=== PATIENT | female | born 1945 | race Caucasian/White ===

== ENCOUNTER → 2024-03-26 14:55 | Outpatient (REF) | payer MEDICARE, SELFPAY | LOC: HWRCS 14:55 | PROVIDERS: ATTENDING PHYSICIAN Internal Medicine; FAMILY PHYSICIAN Family Medicine | DX: R01.1 Cardiac murmur, unspecified (principal) | CPT/HCPCS: 93306 ==

== ENCOUNTER 2024-08-03 16:41 | Emergency (ER) | payer MEDICARE, SELFPAY ==
[2024-08-03 16:44] VITALS: BP 134/85
[2024-08-03 17:22] LABS: Hemoglobin 9.8 g/dL (12.0-16.0); Mean Corp Hgb Conc. 28.8 g/dL (33.0-37.0); Mean Corpuscular Hgb 25.8 pg (27.0-31.0); Mean Corpuscular Volume 89.5 fL (81.0-99.0); Mean Platelet Volume 9.6 fL (7.4-10.4); Platelet Count 290 10^3/uL (130-400); Red Cell Dist. Width 14.1 % (11.5-14.5); White Blood Cell Count 9.6 10^3/uL (4.8-10.8)
[2024-08-03 17:26] LABS: ALT (SGPT) 25 U/L (0-35); AST (SGOT) 32 U/L (14-36); Albumin 4.3 g/dl (3.5-5.0); Alkaline Phosphatase 73 U/L (38-126); Blood Urea Nitrogen 26 mg/dl (7-17); Calcium 9.3 mg/dl (8.4-10.2); Chloride 93 mmol/L (98-107); Glucose 156 mg/dl (70-99); Sodium 139 mmol/L (135-145); Total Bilirubin 0.3 mg/dl (0.2-1.3); Total Protein 7.1 g/dl (6.3-8.2); eGFR 56.95
[2024-08-03 17:36] LABS: Carbon Dioxide 37 mmol/L (22-30)
[2024-08-03 18:04] LABS: % Basophils 0.9 % (0-2); % Eosinophils 2.1 % (0-6); % Immature Granulocytes 0.6 % (0-0.5); % Lymphocytes 13.4 % (20.5-51.1); % Monocytes 10.6 % (1.7-9.3); % Neutrophils 72.4 % (42.2-75.2); Absolute Basophils 0.1 10^3/uL (0-0.2); Absolute Eosinophils 0.2 10^3/uL (0-0.7); Absolute Immature Granulocytes 0.1 10^3/uL (0-0.05); Absolute Lymphocytes 1.3 10^3/uL (1.2-3.4); Nucleated Red Blood Cells % 0 %
--- NOTE | 2024-08-03 18:53 | ED.GENMED ---
History of Present Illness
General
Chief Complaint: Skin Problem
Source: patient and spouse
Exam Limitations: none
Time Seen by Provider: 08/03/24 18:22
History of Present Illness
History of Present Illness:
This is a 79 year old female that comes in with multiple complaints. States that she is having trouble breathing. States that she got worse in the past few days and even walking 3-4 steps she is very SOB. Patient wears Oxygen at 4 liters 12/02.
States that she also hit her leg on a bed post. States that her leg is swollen and bruised and this happened about 7 days ago. states that know she has increased pain and swelling. States that she is SOB. Denies any fever, chills, chest pain, abd
pain, nausea, vomiting, diarrhea, headache, dizziness, urinary burning.
Past History
Past History
ED Past Medical History: COPD (Emphysema), CVA (Left sided weakness), HTN, Hypercholesterolemia, NIDDM and Other (PNA, H-pylori, )
ED Past Surgical History: Tonsilectomy (and adenoids) and Other (cataracts)
Social History
Tobacco: Former smoker
Alcohol: Occasional
Drug: None
Personal:
Living: with family
Employment: Retired
Review of Systems
Review of Systems
All Other Systems: ROS reviewed and negative except as documented in HPI and ROS
Constitutional: Reports no symptoms; Denies fever or chills
EENT: Reports no symptoms
Respiratory: Reports trouble breathing; Denies cough
Cardiac: Reports no symptoms; Denies chest pain
ABD/GI: Reports no symptoms; Denies abdominal pain, nausea, vomiting or diarrhea
: Reports no symptoms; Denies dysuria, frequency or urgency
Musculoskeletal: Reports edema (Left leg with pain)
Skin: Reports no symptoms
Neurological: Reports no symptoms; Denies dizzy or headache
Psychiatric: Reports no symptoms
Phy Exam
General Physical Exam
General Presentation: mild distress
General age: appears stated age
General Skin: warm and dry
General Habitus: elderly
General Mental: alert
General Hydration: appears well hydrated
ENT Exam
ENT Exam: TM's normal, pharynx normal and neck supple
Eye Exam
Eye Exam: EOMI
Cardiovascular Exam
Cardiovascular Exam: regular rate/rhythm, normal peripheral pulses and other (Murmur)
Pulmonary Exam
Pulmonary Exam: no respiratory distress, no rales, chest non tender, no rhonchi, no wheezing, no cough and decreased breath sounds (Throughout, Limited air movement)
Gastrointestinal Exam
Gastrointestinal Exam: normal bowel sounds, non tender, soft, no organomegaly, no pulsatile mass, non distended and other (obese)
Musculoskeletal Exam
Musculoskeletal Exam: full ROM and edema (Swelling of the left lower leg with +2 pitting edema, contusion noted on the lateral heal and lower leg. )
Skin Exam
Skin Exam: normal color, warm/dry, no petechia and other (Open wound on the right medial posterior leg, negative for any redness or drainage. Left lower leg slightly red without increased warmth. Contusion noted on the left lateral heel and lower
leg)
Psychiatric Exam
Psychiatric Exam: normal mood/affect
Course
Orders/Labs/Results
Orders:
Orders
08/03/24 16:54
CMP [Comprehensive Metabolic Panel] Urgent
Complete Blood Count/With Diff Urgent
08/03/24 17:43
CR Chest - 2 Views Urgent
Comment:
Reason For Exam: DYSPNEA
08/03/24 18:51
Ipratropium/Albuterol Sulfate [Duoneb] 3 ml INH R NOW ONE
US Legs, Left [US Periph Venous LOWER Ext LT] Urgent
Comment:
Reason For Exam: Pain and swelling
08/03/24 19:01
Electrocardiogram (*1) Urgent
Reason for Study: Shortness of Breath
EKG- Treatment ONCE
08/03/24 19:13
NT-proBNP Urgent
Troponin I Urgent
08/03/24 20:55
Tib/Fib, Left 2 View [CR Leg Tibia/fibula Left 2 Vw] Urgent
Comment:
Reason For Exam: Lower leg pain
Abnormal Lab Results
08/03/24
16:54
RBC 3.80 L 10^6/uL
(4.20-5.40)
Hgb 9.8 L g/dL
(12.0-16.0)
Hct 34.0 L %
(37.0-47.0)
MCH 25.8 L pg
(27.0-31.0)
MCHC 28.8 L g/dL
(33.0-37.0)
Abs Immat Gran (auto) 0.1 H 10^3/uL
(0-0.05)
Absolute Neuts (auto) 7.0 H 10^3/uL
(1.4-6.5)
Absolute Monos (auto) 1.0 H 10^3/uL
(0.1-0.6)
Immature Gran % 0.6 H %
(0-0.5)
Lymphocytes % 13.4 L %
(20.5-51.1)
Monocytes % 10.6 H %
(1.7-9.3)
Chloride 93 L mmol/L
(98-107)
Carbon Dioxide 37 H mmol/L
(22-30)
BUN 26 H mg/dl
(7-17)
Glucose 156 H mg/dl
(70-99)
08/03/24 16:54
08/03/24 16:54
H/H slightly low. chloride low. carbon dioxide elevation (COPD) Dehydration. hyperglycemia. Troponin 0.013, Pro-BNP 199
Vital Signs
Initial and Last Documented VS:
Initial Vital Signs
Temp Pulse Resp BP Pulse Ox
97.9 F 82 22 134/85 100
08/03/24 16:44 08/03/24 16:44 08/03/24 16:44 08/03/24 16:44 08/03/24 16:44
Last Documented Vital Signs
Temp Pulse Resp BP Pulse Ox
97.9 F 83 23 146/80 99
08/03/24 16:44 08/03/24 19:18 08/03/24 19:18 08/03/24 19:18 08/03/24 19:28
MDM/Problems Addressed
Differential Diagnosis Includes:
PNA, CHF, PE, DVT
MDM/Problems Addressed:
This is a 79 year old female that comes in [facility] c/o left leg pain and swelling and increased SOB. States that her leg pain started about 7 days ago and is getting worse. States that she is more SOB then normal and can only take about 3-4 steps
without increased SOB.
Will check labs, Chest x-ray, Ultrasound left lower leg. Will give Duo neb
Back into see patient. Explained that her blood work shows that she is a little dehydrated. Her Troponin is normal and the Pro-BNP is low. chest x-ray is negative for any acute process. Ultrasound is normal. Explained that this may be a deep
bruise. Patient has been walking on her leg. Will get X-ray. If normal will have patient follow up with her Pulmnary specialist and her PCP. Patient to elevate her leg when sitting around. Warm compressed to help with discomfort. Return with any
concerns.
Chronic conditions affecting care: DM and COPD
Acute Exacerbation and/or Progression of Chronic Illness: DM and COPD
*Radiology
Radiology exam reviewed: preliminary read by ED provider (Left tib/fib negative for any fractures. ) and radiology read reviewed (US- No evidence of DT of the left lower extremity. Chest-No acute disease of the chest. Mild cardiomegaly. Stable. )
*Pulse Oximetry
Patient hypoxic: no
*Critical Care Note
Total Time (30-74mins, 75-104mins- exclusive of procedures): Not Applicable
ED Attending Note
-
Portions of this chart may have been created with voice recognition software.� Occasional wrong word or��sound alike� substitutions may have occurred due to the inherent limitations of voice recognition software.
Discharge Plan
Departure
Patient Disposition: Home (Routine Discharge)
Date of Disposition: 08/03/24
Time of Disposition: 21:17
Patient with high blood pressure during this ER visit?: Yes
Condition: Good
Covid-19: Not Applicable
Discharge Problem:
Contusion of left lower extremity, SOB (shortness of breath)
Instructions: Shortness of breath in adults - ED discharge instructions, BLOOD PRESSURE, Contusion
Prescriptions:
No Action
atorvastatin 10 MG tablet
10 mg PO HS
ipratropium-albuterol 3 ML solution for nebulization
3 ml inhalation R BID
ropinirole 1 MG tablet
1 mg PO HS
azithromycin 250 MG tablet
250 mg PO MOWEFR
clopidogrel 75 MG tablet
75 mg PO DAILY
furosemide 80 MG tablet
80 mg PO DAILY
metoprolol tartrate 50 MG tablet
50 mg PO BID
valsartan 40 MG tablet
40 mg PO QPM
multivitamin with folic acid [Tab-A-Bennett] 1 TABLET tablet
1 tab PO DAILY
potassium 95 mg Tablet
90 mg PO DAILY
ferrous sulfate [iron] 325 mg (65 mg iron) Tablet
325 mg PO DAILY
magnesium oxide 500 mg magnesium Tablet
500 mg PO DAILY
budesonide 0.5 mg/2 mL Suspension For Nebulization
0.5 mg INHALATION R BID
albuterol sulfate [Ventolin HFA] 90 mcg/actuation Hfa Aerosol Inhaler
1 inh INHALATION R Q6HPRN PRN (Reason: sob)
coenzyme Q10 100 mg Capsule
100 mg PO DAILY
Visbiome 112.5 billion cell Capsule
1 cap PO DAILY
krill oil 500 mg Capsule
350 mg PO DAILY
prednisone 10 MG tablet
10 mg PO DAILY
metformin 500 MG tablet extended release 24 hr
500 mg PO BID
guaifenesin [Mucus Relief ER] 600 MG tablet extended release 12hr
600 mg PO DAILY
Referrals:
Selvin Anthony, DO [Family Provider] - Follow up in 2-3 days
Activity Restrictions/Additional Instructions:
As discussed, your blood work shows that you are Dehydrated. Please increase your water intake to 8-8oz glasses daily. Your Ultrasound is negative for any blood clots and your chest x-ray is negative for any acute disease. Please follow up with the
family doctor and your title curative specialist for further evaluation. Please elevate the left leg when sitting around to help decrease the swelling. You may also use warm compressed to the lower leg. Your X-ray is negative for any fractures. IF YOU
HAVE INCREASED OR CHANGING PAIN, INCREASED SHORTNESS OF BREATH OR YOU HAVE ANY OTHER CONCERNS PLEASE RETURN TO THE EMERGENCY ROOM
Interventions
Interventions:
*Risk Screen - Suicide Last Done: 08/03/24 16:44
*General Assessment Last Done: 08/03/24 16:44
*Neglect/Abuse Screening Last Done: 08/03/24 16:44
*ED COVID-19 Vaccine History Last Done: 08/03/24 16:44
ED-Skin Assessment Last Done: 08/03/24 19:28
Discharge Date and Time
Print Language: GIBRALTARIAN
[2024-08-03 19:18] VITALS: BP 146/80
[2024-08-03] MEDS: DUONEB 3 ML INH (19:20)
[2024-08-03 19:50] LABS: NT-proBNP 199 pg/ml; Troponin I 0.013 ng/ml
== END 2024-08-03 21:15 | disposition home or self-care (01) ==
LOC: EMR 16:41
PROVIDERS: Clinical Nurse Specialist Family Health; Emergency Medicine; EMERGENCY PHYSICIAN Student in an Organized Health Care Education/Training Program; FAMILY PHYSICIAN Family Medicine
DX: S80.12XA Contusion of left lower leg, initial encounter (principal); W22.09XA Striking against other stationary object, initial encounter; J43.9 Emphysema, unspecified; E11.65 Type 2 diabetes mellitus with hyperglycemia; E78.00 Pure hypercholesterolemia, unspecified; I10 Essential (primary) hypertension; I69.954 Hemiplegia and hemiparesis following unspecified cerebrovascular disease affecting left non-dominant side; Z87.891 Personal history of nicotine dependence; Z99.81 Dependence on supplemental oxygen
CPT/HCPCS: 99285; 94640; 71046; 73590; 80053; 83880; 84484; 85025; 93005; 93971

== ENCOUNTER 2024-09-19 19:48 | Inpatient (IN) | payer MEDICARE, SELFPAY ==
[2024-09-19] VITALS (13 sets, daily range): BP systolic 92–159; BP diastolic 55–90; PULSE 2–123; BMI 36.0; BMI 36.1
[2024-09-19 15:03] LABS: % Basophils 0.5 % (0-2); % Immature Granulocytes 0.6 % (0-0.5); % Lymphocytes 4.9 % (20.5-51.1); % Monocytes 6.1 % (1.7-9.3); % Neutrophils 87.9 % (42.2-75.2); Absolute Basophils 0.1 10^3/uL (0-0.2); Absolute Immature Granulocytes 0.1 10^3/uL (0-0.05); Absolute Lymphocytes 0.7 10^3/uL (1.2-3.4); Absolute Monocytes 0.8 10^3/uL (0.1-0.6); Hematocrit 35.6 % (37.0-47.0); Hemoglobin 10.9 g/dL (12.0-16.0); Mean Corp Hgb Conc. 30.6 g/dL (33.0-37.0); Mean Corpuscular Volume 88.1 fL (81.0-99.0); Mean Platelet Volume 9.6 fL (7.4-10.4); Nucleated Red Blood Cells % 0 %; Platelet Count 296 10^3/uL (130-400); Red Blood Cell Count 4.04 10^6/uL (4.20-5.40); Red Cell Dist. Width 14.6 % (11.5-14.5); White Blood Cell Count 13.7 10^3/uL (4.8-10.8)
[2024-09-19 15:22] LABS: ALT (SGPT) 23 U/L (0-35); AST (SGOT) 28 U/L (14-36); Albumin 4.1 g/dl (3.5-5.0); Alkaline Phosphatase 76 U/L (38-126); Blood Urea Nitrogen 30 mg/dl (7-17); Calcium 9.4 mg/dl (8.4-10.2); Carbon Dioxide 34 mmol/L (22-30); Chloride 93 mmol/L (98-107); Glucose 200 mg/dl (70-99); Potassium 4.3 mmol/L (3.5-5.1); Sodium 137 mmol/L (135-145); Total Bilirubin 0.4 mg/dl (0.2-1.3); Total Protein 7.1 g/dl (6.3-8.2); eGFR > 60.00
[2024-09-19 15:25] LABS: Troponin I < 0.012 ng/ml
--- NOTE | 2024-09-19 17:19 | EDRN ---
the pt was brought back from the waiting room to ED Bed #10, the pt was tachypnic, and was on 4L NC, Sp02 was in the 40's, this RN immediately brought Dr. Dalal to the pts bedside, the pt is tachycardic in the 140's, ED team preparing for intubation
[2024-09-19] MEDS: VENTOLIN NEBULES 15 MG INH (17:20)
[2024-09-19] MEDS: DECADRON 10 MG IV (17:20)
--- NOTE | 2024-09-19 17:23 | EDRN ---
triple nebulizer running per the verbal orders of Dr. Dalal
--- NOTE | 2024-09-19 17:25 | ED.GENMED ---
History of Present Illness
General
Chief Complaint: Breathing Problem
Source: patient and family
Exam Limitations: clinical condition and altered mental status
Time Seen by Provider: 09/19/24 17:14
Nursing documentation reviewed up to this point in time: agreed with
History of Present Illness
History of Present Illness:
79-year-old female COPD oxygen dependent uses noninvasive ventilation at night also on prednisone 10 mg chronically presents with shortness of breath here she is an extremis pulse ox in the 50s tripoding completing short sentences denies any fever
but unable to take a deep breath for day or 2
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
Past History
Past History
ED Past Medical History: COPD (Emphysema), CVA (Left sided weakness), HTN, Hypercholesterolemia, NIDDM and Other (PNA, H-pylori, )
ED Past Surgical History: Tonsilectomy (and adenoids) and Other (cataracts)
Social History
Tobacco: Former smoker
Alcohol: Occasional
Drug: None
Personal:
Living: with family
Employment: Retired
Phy Exam
Physical Exam
Physical Exam:
Physical Exam
General: 79-year-old female tripoding only able to complete short sentences
Neck: No
Heart: Tachycardic
Lungs: Poor air movement diminished breath sounds on the right
Abdomen: Not
Neuro: alert and oriented. no focal neurological deficits
Skin: no rash
Psychiatric: cooperative
Extremities: Edema is
Scores
Heart Failure Risk
Heart Failure Risk Score: Not Applicable
Course
Orders/Labs/Results
Orders:
Orders
09/19/24 14:42
Electrocardiogram (*1) Urgent
Reason for Study: Shortness of Breath
CR Chest Portable - 1 View Urgent
Reason For Exam: SOB
09/19/24 14:43
EKG- Treatment ONCE
09/19/24 14:53
Complete Blood Count/With Diff Urgent
Comprehensive Metabolic Panel Urgent
NT-proBNP Urgent
Comment: ADD ON
Troponin I Urgent
09/19/24 15:20
Dexamethasone Sod Phosphate [Decadron] 10 mg IV NOW STA
09/19/24 17:00
Add On- LAB Urgent
Tests Added?: Pro-BNP
09/19/24 17:15
Albuterol Nebs [Ventolin Nebules] 7.5 mg .ROUTE .STK-MED ONE
Albuterol Sulfate [Ventolin Nebules] 15 mg INH R NOW STA
Ipratropium Nebs [Atrovent Nebules] 0.5 mg .ROUTE .STK-MED ONE
09/19/24 17:19
Propofol 1,000,000 Mcg/100 ml [Diprivan] 1,000,000 mcg in 100 ml .ROUTE .STK-MED
09/19/24 17:20
ABG [Arterial Blood Gas] Stat
%Oxygen/Room Air: 6
Influenza A+B Rapid Molecular Stat
GAGE Source: Nasal Swab
Specimen Description:
Dexamethasone Sod Phosphate [Decadron] 10 mg IV NOW STA
09/19/24 17:23
Dexamethasone Pf [Decadron] 10 mg .ROUTE .STK-MED ONE
09/19/24 17:24
Dexamethasone Sod Phosphate [Decadron] 20 mg .ROUTE .STK-MED ONE
09/19/24 17:39
Bipap [RESP] Urgent
Patient to use own unit?: No
Inspiratory Pressure (cm H2O): 12
Expiratory Pressure (cm H2O): 5
09/19/24 18:15
ABG [Arterial Blood Gas] Urgent
%Oxygen/Room Air: 4
Comment: 06/26
09/19/24 18:38
Admit/Transfer Patient As Directed
Co-Sign Provider:
Level of Care: Inpatient admission
Assign to:: ICU
Physician / Group: jana rodriguez
Diagnosis: acuet on chronic hypoxic respiratory failure
Reason for Hospitalization: acute hypoxic respiratory failure
Expected length of stay greater than two midnights?: Yes
ELOS- Estimated Length of Stay in days: 3
I certify the patient meets the requirements for IP care: Yes
PRN Pain Medication Management As Directed
May give lesser potent ordered pain med per pt: Yes
preference::
Protocol:: Medication orders for pain may be administered in a
manner that supports deferring to patient preference
when the pt is:
- Requesting an ordered lesser potent pain medication.
Least to most potent pain medications are defined
as: acetaminophen < NSAID < tramadol < opioids
(morphine, oxycodone, hydromorphone).
- Requesting a lesser dose of the same medication IF
ORDERED.
- Requesting a less intrusive route of administration
if both routes are prescribed by the provider (PO <
IV).
09/19/24 18:40
Code Status As Directed
Resuscitation Status: Full Code
09/19/24 18:44
Cad Specialist Consult Routine
Consulting Provider: Mayur Shafer
Was physician already notified: Yes
09/19/24 18:45
Procalcitonin Stat
PCT Algorithmm Indication: Respiratory
CefTRIAXone [Rocephin] 1,000 mg IV NOW STA
Doxycycline Hyclate [Vibramycin] 100 mg 0.9% Sodium Chloride 250 ml [Nss] 250 ml IV NOW
09/19/24 18:49
Sterile Water [Sterile Water For Injection] 10 ml IV NOW STA
Abnormal Lab Results
09/19/24 09/19/24
14:53 17:20
WBC 13.7 H 10^3/uL
(4.8-10.8)
RBC 4.04 L 10^6/uL
(4.20-5.40)
Hgb 10.9 L g/dL
(12.0-16.0)
Hct 35.6 L %
(37.0-47.0)
MCHC 30.6 L g/dL
(33.0-37.0)
RDW 14.6 H %
(11.5-14.5)
Abs Immat Gran (auto) 0.1 H 10^3/uL
(0-0.05)
Absolute Neuts (auto) 12.0 H 10^3/uL
(1.4-6.5)
Absolute Lymphs (auto) 0.7 L 10^3/uL
(1.2-3.4)
Absolute Monos (auto) 0.8 H 10^3/uL
(0.1-0.6)
Immature Gran % 0.6 H %
(0-0.5)
Neutrophils % 87.9 H %
(42.2-75.2)
Lymphocytes % 4.9 L %
(20.5-51.1)
pH 7.29 L
(7.35-7.45)
pCO2 69 H mmHg
(32-35)
pO2 35 L* mmHg
(83-108)
HCO3 33.2 H mmol/L
(21-28)
ABG O2 Sat (Measured) 56.8 L %
(94-98)
Chloride 93 L mmol/L
(98-107)
Carbon Dioxide 34 H mmol/L
(22-30)
BUN 30 H mg/dl
(7-17)
Glucose 200 H mg/dl
(70-99)
09/19/24 14:53
09/19/24 14:53
Vital Signs
Initial and Last Documented VS:
Initial Vital Signs
Temp Pulse Resp BP Pulse Ox
98.4 F 91 18 159/78 100
09/19/24 14:37 09/19/24 14:37 09/19/24 14:37 09/19/24 14:37 09/19/24 14:37
Last Documented Vital Signs
Temp Pulse Resp BP Pulse Ox
98.6 F 114 18 119/55 99
09/19/24 17:22 09/19/24 19:33 09/19/24 19:33 09/19/24 19:33 09/19/24 19:33
MDM/Problems Addressed
Differential Diagnosis Includes:
Pneumonia COPD heart failure PE
MDM/Problems Addressed:
Shortness of breath
Chronic conditions affecting care: COPD
Acute Exacerbation and/or Progression of Chronic Illness: COPD
*Radiology
Radiology exam reviewed: preliminary read by ED provider
*EKG
Interpreted by ED Provider?: Yes
Interpretation: abnormal
Comparison EKG: no comparison EKG present
Heart Rate: 125
Rate: tachycardiac
Rhythm: sinus
Ischemia: non-specific ST changes
*[employer] Pol[employer] Operator Interpretation
Rate: tachycardiac
Interpretation: abnormal
Heart Rate: 125
Rhythm: sinus
*Critical Care Note
Total Time (30-74mins, 75-104mins- exclusive of procedures): 30
Update Note
Update Note:
5:40 PM update chest x-ray noted ABG noted patient markedly improved after a long neb we will hold on intubation at this point considering her noninvasive ventilation will get another ABG in an hour
6 PM patient dramatically improved consideration for BiPAP after neb we will repeat her ABG
ED Attending Note
-
Portions of this chart may have been created with voice recognition software.� Occasional wrong word or��sound alike� substitutions may have occurred due to the inherent limitations of voice recognition software.
Discharge Plan
Departure
Patient Disposition: Admit
Date of Disposition: 09/19/24
Time of Disposition: 17:36
Admit to: ICU
Presentation/result/management discussed w/ accepting MD/DO: Hospitalist
Patient with high blood pressure during this ER visit?: No
Condition: Serious
Covid-19: Not Applicable
Discharge Problem:
COPD with exacerbation, Chronic respiratory failure with hypoxia
Prescriptions:
No Action
atorvastatin 10 MG tablet
10 mg PO HS
ipratropium-albuterol 3 ML solution for nebulization
3 ml inhalation R BID
ropinirole 1 MG tablet
1 mg PO HS
clopidogrel 75 MG tablet
75 mg PO DAILY
furosemide 80 MG tablet
80 mg PO DAILY
metoprolol tartrate 50 MG tablet
50 mg PO BID
valsartan 40 MG tablet
40 mg PO QPM
ferrous sulfate [iron] 325 mg (65 mg iron) Tablet
325 mg PO DAILY
magnesium oxide 500 mg magnesium Tablet
500 mg PO DAILY
budesonide 0.5 mg/2 mL Suspension For Nebulization
0.5 mg INHALATION R BID
albuterol sulfate [Ventolin HFA] 90 mcg/actuation Hfa Aerosol Inhaler
1 inh INHALATION R Q6HPRN PRN (Reason: sob)
coenzyme Q10 100 mg Capsule
100 mg PO DAILY
Visbiome 112.5 billion cell Capsule
1 cap PO DAILY
krill oil 500 mg Capsule
350 mg PO DAILY
prednisone 10 MG tablet
10 mg PO DAILY
metformin 500 MG tablet extended release 24 hr
500 mg PO BID
guaifenesin [Mucus Relief ER] 600 MG tablet extended release 12hr
600 mg PO BID
Theragen Tablet
1 tab PO DAILY
azithromycin 500 mg Tablet
500 mg PO MOWEFR
Interventions
Interventions:
*Risk Screen - Suicide Last Done: 09/19/24 14:37
*General Assessment Last Done: 09/19/24 14:37
*Neglect/Abuse Screening Last Done: 09/19/24 14:37
ED- Fall Risk Assessment Last Done: 09/19/24 17:27
*ED COVID-19 Vaccine History Last Done: 09/19/24 17:27
*Nursing Disposition Last Done: 09/19/24 19:34
ED- Cardiac Assessment Last Done: 09/19/24 17:27
ED- Pulmonary Assessment Last Done: 09/19/24 18:35
Discharge Date and Time
Print Language: GUYANESE
--- NOTE | 2024-09-19 17:26 | EDRN ---
with 6L NC and triple nebulizer running the pts Sp02 is currently 96%
[2024-09-19 17:31] LABS: B.E. 4.8 mmol/L; HCO3 33.2 mmol/L (21-28); O2 Saturation % 56.8 % (94-98); PCO2 69 mmHg (32-35); pH 7.29 (7.35-7.45)
[2024-09-19 17:35] LABS: PO2 35 mmHg (83-108)
[2024-09-19 17:47] LABS: NT-proBNP 341 pg/ml
--- NOTE | 2024-09-19 18:22 | HPS.HSE ---
Family Physician
-
Family Physician: Selvin Anthony
Chief Complaint
-
sob
cough
History of Present Illness
79-year-old female COPD oxygen dependent uses noninvasive ventilation at night also on prednisone 10 mg chronically,CHF,HLD, HTN presented with worsening sob for past 4 days .she is having non productive cough. denied fever, chills, chest pain.
denied Barker, dizzy or syncope. denied abdominal pain,n,v,d. denied dysuria or hematuria. she has chronic LE edema.
Patient received a nebulizer treatment, dexamethasone in the ER. Patient is placed on BiPAP. Admitted for further management
Medical History
Past Medical History
Past Medical History: Reports Other
Additional Past Medical History:
Systolic and diastolic CHF
Hypertension
Hyperlipidemia
Nonsustained ventricular tachycardia
COPD
Type 2 diabetes
Stroke
Peripheral dural disease
Peripheral artery disease
Primary low-dose home
Restrictive lung disease
Lung nodules
Restless leg syndrome
DVT
Morbid obesity
H. pylori
Squamous cell cancer
Past Surgical History: Reports Other
Additional Past Surgical History:
Bilateral cataract surgery
Cancerous growth removed from right cough
Social History
Tobacco: Former Smoker
Alcohol: None
Drug: None
Personal:
Living: With Family
Family History
Family History: Not pertinent
Allergies / Home Medications
Allergies reflects when Allergies were last updated in [facility].
Home Medications with original date entered in [facility]
Allergy/Medication List:
Allergies
Allergy/AdvReac Type Severity Reaction Status Date / Time
No Known Allergies Allergy Verified 09/19/24 14:37
Home Medications
atorvastatin 10 mg tablet 10 mg PO HS High cholesterol 05/10/18
clopidogrel 75 mg tablet 75 mg PO DAILY Blood clot prevention/tx 09/16/21
furosemide 80 mg tablet 80 mg PO DAILY Fluid retention/Swelling 09/16/21
ipratropium 0.5 mg-albuterol 3 mg (2.5 mg base)/3 mL nebulization soln 3 ml inhalation R BID Lung/breathing issues 09/16/21
metoprolol tartrate 50 mg tablet 50 mg PO BID Blood pressure 09/16/21
ropinirole 1 mg tablet 1 mg PO HS RESTLESS LEGS 09/16/21
valsartan 40 mg tablet 40 mg PO QPM Blood pressure 09/16/21
Lactobac no.2-Bifidobac no.1-S. thermo 112.5 billion cell capsule (Visbiome) 1 cap PO DAILY 08/03/24
albuterol sulfate 90 mcg/actuation aerosol inhaler (Ventolin HFA) 1 inh inhalation R Q6HPRN PRN sob 08/03/24
budesonide 0.5 mg/2 mL suspension for nebulization 0.5 mg inhalation R BID 08/03/24
coenzyme Q10 100 mg capsule 100 mg PO DAILY 08/03/24
ferrous sulfate 325 mg (65 mg iron) tablet (iron) 325 mg PO DAILY 08/03/24
guaifenesin 600 mg tablet, extended release 12 hr (Mucus Relief ER) 600 mg PO BID 08/03/24
krill oil 500 mg capsule 350 mg PO DAILY 08/03/24
magnesium oxide 500 mg PO DAILY 08/03/24
metformin 500 mg tablet,extended release 24 hr 500 mg PO BID 08/03/24
prednisone 10 mg tablet 10 mg PO DAILY 08/03/24
azithromycin 500 mg tablet 500 mg PO MOWEFR 09/19/24
therapeutic multivitamin 1 tab PO DAILY 09/19/24
Review of Systems
-
Constitutional: Reports No Symptoms
EENT: Reports No Symptoms
Respiratory: Reports Trouble Breathing
Cardiac: Reports No Symptoms
Abdomen/GI: Reports No Symptoms
: Reports No Symptoms
Musculoskeletal: Reports Edema (Chronic bilateral lower extremity)
Skin: Reports No Symptoms
Neurological: Reports No Symptoms
Endocrine: Reports No Symptoms
Hematologic/Lymphatic: Reports No Symptoms
Psych: Reports No Symptoms
Physical Exam
Vital Signs
Vital Signs
Temp Pulse Resp BP Pulse Ox
98.6 F 140 21 120/64 99
09/19/24 17:22 09/19/24 17:59 09/19/24 17:59 09/19/24 17:59 09/19/24 17:59
Physical Exam
General: Well Developed, Well Nourished and No Apparent Distress
HEENT: NormoCephalic, Moist mucous membranes and Atraumatic
Respiratory: Decreased Breath Sounds
Cardiac: S1/S2 and Regular Rhythm; No Murmur or Rub
GI: Soft, Non Tender, Non Distended and Normal Bowel Sounds; No Organomegaly
Rectal: Deferred by Provider
Musculoskeletal: No Clubbing, No Cyanosis and Other (Bilateral lower extremities edema)
Skin: No Rash
Neuro: AO x 3 and Nonfocal/grossly intact
Psych: Calm
Laboratory Results
-
09/19/24 14:53
09/19/24 14:53
Laboratory Results
pH 7.29 (7.35-7.45) L 09/19/24 17:20
pCO2 69 mmHg (32-35) H 09/19/24 17:20
pO2 35 mmHg (83-108) L* 09/19/24 17:20
HCO3 33.2 mmol/L (21-28) H 09/19/24 17:20
Total Bilirubin 0.4 mg/dl (0.2-1.3) 09/19/24 14:53
AST 28 U/L (14-36) 09/19/24 14:53
ALT 23 U/L (0-35) 09/19/24 14:53
Alkaline Phosphatase 76 U/L (38-126) 09/19/24 14:53
Troponin I < 0.012 ng/ml 09/19/24 14:53
Data Reviewed
-
Diagnostic Radiology: Report Reviewed by me
Lab Data: Labs Reviewed by me
Impression/Plan
-
# Acute on chronic hypoxic respiratory failure likely from COPD exacerbation
#concern for pneumonitis
-WBC 13.7
-Chest x-ray with impression of Prominent reticular markings in the lung bases, left greater than right which although in part may be chronic, cannot exclude superimposed acute process such as pneumonitis
-BiPAP continued
-Xopenex due to tachycardia
-IV steroids continued
-iv abx
-obtain procal
-Continue supplemental oxygen to keep sat greater than 90, wean as tolerated
-Patient uses 4 L of oxygen at baseline
# Anemia of chronic disease
-Hemoglobin stable at 10.9
-No active bleeding
-Continue to monitor
-Ferrous sulfate can
# Tachycardia likely from nebs treatment
-EKG with sinus rhythm with PACs
#Chronic CHF
Monitor intake/output
Continue Lasix 80 mg daily
#HTN
BP stable
Lasix 40 mg daily, valsartan 40 mg p.o. daily, metoprolol continue
#CVA hx
Lipitor 10 mg at bedtime, Plavix 75 mg daily
Krill oil 500 mg daily
# Type 2 diabetes
-Hold metformin
-Sliding scale
-CHO diet
#RLS
Requip 1 mg at 8 PM
Magnesium oxide 500 mg p.o. daily
Cataract hx
#Morbid obesity secondary to excess calorie consumption
Weight loss recommended healthy heart 1800 ADA diet
DVT prophylaxis
Subcutaneous Lovenox
Full code
--- NOTE | 2024-09-19 18:33 | EDRN ---
the pts p02 dropped to 72% on 6L NC, Dr. Dalal and respiratory was notified and respiratory placed the pt on Bipap 14/6 RR14 10L and the pts Sp02 came up to 96%
--- NOTE | 2024-09-19 19:07 | W.PN.UPDATE ---
Update Note
Progress Note Update
This note serves as an addendum to the H&P by scrap burner ELIZABETH
Isabelle TEVIN
HPI
79F HX O2 and steroid dependent advanced COPD, on NIV /CPAP HS, HX CHF, HLD, HTN sen at ER:
- worsening sob for last 4 days, non productive cough
- received a nebulizer treatment, dexamethasone in the ER.
- on BiPAP
ROS
denied fever, chills, chest pain. denied Barker, dizzy or syncope. denied abdominal pain,n,v,d. denied dysuria or hematuria. she
PHX
Reviewed VS:
Vital Signs
Temp Pulse Resp BP Pulse Ox
98.6 F 140 21 120/64 96
09/19/24 17:22 09/19/24 17:59 09/19/24 17:59 09/19/24 17:59 09/19/24 18:35
General: NAD
HEENT: Moist mucous membranes and Atraumatic
Respiratory: Decreased BS
Cardiac: S1/S2, RRR
GI: Soft, Non Tender, Non Distended and Normal Bowel Sounds;
Rectal: Deferred by Provider
MS: Bilateral lower extremities edema
Skin: No Rash
Neuro: AO x 3 and Nonfocal/grossly intact
Psych: Calm
Laboratory Tests
08/03/24 09/19/24 09/19/24
16:54 14:53 18:45
Chloride 93 L
Carbon Dioxide 37 H 34 H
BUN 30 H
eGFR > 60.00
Troponin I < 0.012
Ben-T-Roisrsqsdsy Pept 341
Procalcitonin Pending
CXR:
Prominent reticular markings in the lung bases, left greater than right which although in part may be chronic, cannot exclude superimposed acute process such as pneumonitis
ASSESSMENT & PLAN
Acute on chronic hypoxic respiratory failure due to COPD flare +/_ Pneumoniitis
HX O2 and steroid dependent advanced COPD
- WBC 13.7
- check PCT
- c/w BiPAP
- Xopenex Neb due to tachycardia
- IV Decadron
- Empiric V CFTX and PO Doxy
- supplemental O2 to keep sat greater than 90, wean as tolerated
- Patient uses 4 L of oxygen at baseline
- [employer] Supervisor consulted
Anemia of chronic disease
-Hemoglobin stable at 10.9
-No active bleeding
Tachycardia likely from nebs treatment
-EKG with sinus rhythm with PACs
Chronic CHF; stable
- Unremarkable proBNP
- daily weight
- c/w PARLIAMENTARY LIBRARIAN PO Lasix daily
Benign HTN
BP stable
- On PO Lasix + valsartan + metoprolol
HX CVA
- c/w Lipitor 10 mg at bedtime, Plavix 75 mg daily
T2DM
-Hold metformin
- ISS Low
HX RLS
Requip 1 mg at 8 PM
Magnesium oxide 500 mg p.o. daily
Morbid obesity secondary to excess calorie consumption
Weight loss recommended healthy heart 1800 ADA diet
DVT Px: LMWH
Full code
ICU
[2024-09-19] MEDS: VIBRAMYCIN 260 MG IV (19:14)
[2024-09-19] MEDS: ROCEPHIN 1000 MG IV (19:20)
[2024-09-19] MEDS: STERILE WATER FOR INJECTION 10 ML IV (19:22)
--- NOTE | 2024-09-19 19:32 | EDRN ---
the pt is currently still on Bipap and sp02 99%, RR currently 19, no s/s of distress
--- NOTE | 2024-09-19 21:00 | PTCARENOTE ---
Received patient from ED. Pt. placed on Bipap for respiratory distress. Admitted to ICU. Pt. awake, alert, and oriented. Denies pain/discomfort. Afebrile. Heart rhythm sinus. Blood pressure normotensive. Currently on bipap mask. Lungs sound coarse,
diminished. Abdomen obese. PureWick device in place for urine. Skin as documented. Vital signs stable at this time.
[2024-09-19] MEDS: XOPENEX 1.25 MG INHALANT SOLUTION INH (21:12)
[2024-09-19] MEDS: LIPITOR 10 MG PO (21:36)
[2024-09-19] MEDS: REQUIP 1 MG PO (21:37)
[2024-09-19] MEDS: MUCINEX 600 MG PO (21:37)
[2024-09-19] MEDS: LOPRESSOR 50 MG PO (21:37)
[2024-09-19] MEDS: ZITHROMAX INFUSION 250 IV (21:54)
[2024-09-20] VITALS (22 sets, daily range): BP systolic 81–123; BP diastolic 37–84; PULSE 2–91; BMI 36.1
--- NOTE | 2024-09-20 | PTCARENOTE ---
Pt. assessment unchanged. Remains on bipap. Daughter at bedside. Vital signs stable at this time.
[2024-09-20 00:29] LABS: Glucose - Point of Care 184 mg/dl (70-99)
[2024-09-20] MEDS: DECADRON 4 MG IV ×4 (01:17→18:21)
[2024-09-20 01:27] LABS: Glucose - Point of Care 181 mg/dl (70-99)
[2024-09-20 04:25] LABS: Venous Blood Gas B.E. 6.3 mmol/L (-4 to +4); Venous Blood Gas HCO3 34.2 mmol/L (22-27); Venous Blood Gas O2 Sat % 99.2 %; Venous Blood Gas pCO2 68 mmHg (35-48); Venous Blood Gas pH 7.31 (7.32-7.43); Venous Blood Gas pO2 99 mmHg (30-50)
[2024-09-20 04:26] LABS: % Basophils 0.3 % (0-2); % Immature Granulocytes 0.6 % (0-0.5); % Lymphocytes 3.7 % (20.5-51.1); % Monocytes 2.6 % (1.7-9.3); % Neutrophils 92.8 % (42.2-75.2); Absolute Immature Granulocytes 0.1 10^3/uL (0-0.05); Absolute Lymphocytes 0.5 10^3/uL (1.2-3.4); Absolute Monocytes 0.4 10^3/uL (0.1-0.6); Absolute Neutrophils 13.4 10^3/uL (1.4-6.5); Hematocrit 32.6 % (37.0-47.0); Hemoglobin 9.9 g/dL (12.0-16.0); Mean Corp Hgb Conc. 30.4 g/dL (33.0-37.0); Mean Corpuscular Hgb 27.1 pg (27.0-31.0); Mean Corpuscular Volume 89.3 fL (81.0-99.0); Mean Platelet Volume 9.8 fL (7.4-10.4); Nucleated Red Blood Cells % 0 %; Platelet Count 284 10^3/uL (130-400); Red Blood Cell Count 3.65 10^6/uL (4.20-5.40); Red Cell Dist. Width 14.5 % (11.5-14.5); White Blood Cell Count 14.4 10^3/uL (4.8-10.8)
--- NOTE | 2024-09-20 04:30 | PTCARENOTE ---
Pt. assessment unchanged. AM labs drawn. Vital signs stable at this time.
[2024-09-20 04:44] LABS: APTT 26.8 Sec (23.4-35.0); INR 1.06; PT 14.1 Sec (11.4-14.6)
[2024-09-20 04:51] LABS: Blood Urea Nitrogen 29 mg/dl (7-17); Calcium 9.3 mg/dl (8.4-10.2); Carbon Dioxide 35 mmol/L (22-30); Chloride 98 mmol/L (98-107); Estimated Creatinine Clearance 50 ml/min; Glucose 182 mg/dl (70-99); Phosphorus 4.5 mg/dl (2.5-4.5); Potassium 5.1 mmol/L (3.5-5.1); Sodium 139 mmol/L (135-145); eGFR > 60.00
[2024-09-20 05:00] LABS: Procalcitonin 0.28 ng/ml (0.0-0.25)
[2024-09-20] MEDS: XOPENEX 1.25 MG INHALANT SOLUTION INH ×3 (07:38→20:07)
[2024-09-20] MEDS: FEOSOL 325 MG PO (08:23)
[2024-09-20] MEDS: MUCINEX 600 MG PO ×2 (08:23→20:13)
[2024-09-20] MEDS: VISBIOME 1 CAP PO (08:23)
[2024-09-20] MEDS: MAGNESIUM OXIDE 500 MG PO (08:24)
[2024-09-20] MEDS: LASIX 80 MG PO (08:24)
[2024-09-20] MEDS: LOPRESSOR 50 MG PO ×2 (08:24→20:13)
[2024-09-20] MEDS: PLAVIX 75 MG PO (08:24)
--- NOTE | 2024-09-20 08:28 | CON.INTV ---
Consultation
Consultation Request
Date/Time Consultation Requested: 09/19/2024 - 1843
Date/Time Consultation Performed: 09/20/2024826
Requesting Provider: Dr. Michel
Performing Provider: Dr. Shafer
Reason for Consultation: COPD exacerbation/hypoxia + hypercapnia
Medical History
-
Chief Complaint: SOB
History of Present Illness:
79-year-old female former tobacco smoker with [id number] history (quit October 2013) with a past medical history of moderate�severe COPD on chronic prednisone and 4 L/min ATC, chronic hypercapnic respiratory failure on NIV via Astral 100,
hypertension, history of stroke (October 2013), memory loss, history of restrictive lung disease, history of H. pylori, history of COVID-19 (08/2023), DM type II, RLS, snoring and history of right calf SCC who presents with shortness of breath. She
also had a cough sometimes productive of mucus. She denies any recent sick contacts. She has been using her inhalers as prescribed. She checks her oxygen at home and her SpO2 drops into the low 70s with activity. She spoke with Dr. Bryan and
he recommended her to come to the hospital. Her symptoms started about 2 days ago. Initially in the ER she was afebrile to 98.4 �F, pulse rate 91, respiratory rate 18, BP 159/78 and saturating 100% on 4 L/min. Initial labs showed WBC 13.7, Hb
10.9, initial blood gas showed pH 7.29, pCO2 69, serum bicarbonate level 34, BUN 30, glucose 200, negative troponin at <0.012, and proBNP 341. Flu A + B swab negative. CXR showed prominent reticular markings at lung bases (L>R). In ER she
obtained albuterol, and ceftriaxone/doxycycline, and given that she was on continuous BiPAP with hypercapnia, she was admitted to the ICU for further care with electric power superintendent services consulted for additional management/recommendations.
This morning, the patient was removed from BiPAP (14/6 cmH2O bled with 5 L/min) and blood gas this morning showed pH 7.31, pCO2 68. This is relatively similar to the last blood gas from yesterday. The patient's baseline pCO2 is approximately 60.
Patient's is at bedside. At home she takes budesonide + DuoNebs. She previously was on a maintenance LABA/ICS inhaler, they believe it was Dulera, but she had thrush afterwards. The patient uses 4 L/min tyyczj-pyz-btged at home and she
has been compliant with this. She denies recent sick contacts or recent travel. She currently denies chest pain, LIANG, nausea, vomiting, fevers or chills.
Of note patient follows with our office with Dr. Bryan, last visit on 04/10/2024. She is on DuoNebs + budesonide BID, prednisone 10 mg daily + Zithromax TIW. She has a mixed obstructive and restrictive defect on her breathing test. She has a
history of stable lung nodules with last CT in 2021. She is deconditioned with poor exercise tolerance. She has had a history of chronic CO2 retention and is on an Astral 100 noninvasive ventilator at home. Her last PFT was on 04/11/2024 showing
moderate COPD with no evidence of restriction and normal gas exchange capacity with DLCO: 91% predicted.
PMHx: Moderate�severe COPD on chronic prednisone, Zithromax TIW on chronic O2 at 4 L/min ATC, chronic hypercapnic respiratory failure on NIV via Astral 100, hypertension, history of stroke, hyperlipidemia, peripheral arterial disease, memory loss,
restrictive lung disease, gas exchange deficit, lung nodules, history of DVT, history of H. pylori, history of COVID-19 (08/2023), DM type II, restless leg syndrome, snoring, history of right calf squamous cell carcinoma
PSHx: Bilateral cataract surgery, cancerous growth removed from right calf
Past Medical History
Past Medical History: Other (Above as per HPI)
Past Surgical History: Other (Above as per HPI)
Social History
Tobacco: Former Smoker (Former [id number] history, quit in October 2013 when she had a stroke)
Alcohol: None
Drug: None
Personal:
Living: With Family
Family History
Family History: Cancer (Mother: Lung cancer; father: Prostate cancer) and Other (Mother: COPD)
Allergies / Home Medications
Allergies
Allergy/AdvReac Type Severity Reaction Status Date / Time
No Known Allergies Allergy Verified 09/19/24 14:37
Home Medications
�Medication �Instructions �Recorded �Confirmed �Last Taken �Type
atorvastatin 10 mg tablet 10 mg PO HS High cholesterol 05/10/18 09/19/24 09/15/21 History
clopidogrel 75 mg tablet 75 mg PO DAILY Blood clot 09/16/21 09/19/24 09/15/21 History
prevention/tx
furosemide 80 mg tablet 80 mg PO DAILY Fluid 09/16/21 09/19/24 08/02/24 History
retention/Swelling
ipratropium 0.5 mg-albuterol 3 mg 3 ml inhalation R BID 09/16/21 09/19/24 09/16/21 History
(2.5 mg base)/3 mL nebulization Lung/breathing issues
soln
metoprolol tartrate 50 mg tablet 50 mg PO BID Blood pressure 09/16/21 09/19/24 08/03/24 History
ropinirole 1 mg tablet 1 mg PO HS RESTLESS LEGS 09/16/21 09/19/24 09/15/21 History
valsartan 40 mg tablet 40 mg PO QPM Blood pressure 09/16/21 09/19/24 09/16/21 History
Lactobac no.2-Bifidobac no.1-S. 1 cap PO DAILY 08/03/24 09/19/24 08/03/24 History
thermo 112.5 billion cell capsule
(Visbiome)
albuterol sulfate 90 mcg/actuation 1 inh inhalation R Q6HPRN PRN sob 08/03/24 09/19/24 Unknown History
aerosol inhaler (Ventolin HFA)
budesonide 0.5 mg/2 mL suspension 0.5 mg inhalation R BID 08/03/24 09/19/24 08/03/24 History
for nebulization
coenzyme Q10 100 mg capsule 100 mg PO DAILY 08/03/24 09/19/24 Unknown History
ferrous sulfate 325 mg (65 mg 325 mg PO DAILY 08/03/24 09/19/24 08/03/24 History
iron) tablet (iron)
guaifenesin 600 mg tablet, 600 mg PO BID 08/03/24 09/19/24 Unknown History
extended release 12 hr (Mucus
Relief ER)
krill oil 500 mg capsule 350 mg PO DAILY 08/03/24 09/19/24 08/03/24 History
magnesium oxide 500 mg PO DAILY 08/03/24 09/19/24 08/03/24 History
metformin 500 mg tablet,extended 500 mg PO BID 08/03/24 09/19/24 08/03/24 History
release 24 hr
prednisone 10 mg tablet 10 mg PO DAILY 08/03/24 09/19/24 08/03/24 History
azithromycin 500 mg tablet 500 mg PO MOWEFR 09/19/24 09/19/24 Unknown History
therapeutic multivitamin 1 tab PO DAILY 09/19/24 09/19/24 Unknown History
Review of Systems
-
History Source: Patient
All other systems: Negative unless noted
Vitals / Labs / Diagnostic Testing
Vital Signs
Temp Pulse Resp BP Pulse Ox
97.6 F 98 17 100/54 98
09/20/24 07:41 09/20/24 08:30 09/20/24 08:30 09/20/24 08:24 09/20/24 08:03
Lab Data
09/20/24 04:14
09/20/24 04:14
Laboratory Results
09/19/24 09/19/24 09/20/24
17:20 18:15 04:14
PT 14.1
INR 1.06
APTT 26.8
pH 7.29 L Cancelled
pCO2 69 H Cancelled
pO2 35 L* Cancelled
HCO3 33.2 H Cancelled
O2 Delivery Level Cancelled
Microbiology
09/19/24 17:20 Nasal Swab Influenza Types A & B (KELLEN) - Final
Negative for Influenza A & B, NAAT
Negative results must be combined with clinical observations
and patient history.
Nucleic Acid Amplification test (NAAT)performed on the
[employer] platform.
Diagnostic Testing:
Physical Exam
-
HEENT: Normocephalic and Anicteric
Cardiovascular: S1/S2, Murmur (ROGERIO heard across precordium) and Peripheral Edema (+2 edema in left lower extremity (chronic), trace edema on right lower extremity)
Respiratory: Wheeze (negative), Rales (Faintly heard bilaterally), Rhonchi (negative), Non-Labored Respirations and Other (Grossly diminished breath sounds bilaterally)
GI: Soft, Distended (Abdominal obesity), Non Tender and Normal Bowel Sounds
Neurology: AO x 3 and Tremors (negative)
Skin: Warm and Dry
General: Respiratory Distress (negative), Comfortable, Fever (negative) and Chills (negative)
Assessment
-
Assessment: 79-year-old female former tobacco smoker with 325-[id number] history (quit October 2013) with a past medical history of moderate�severe COPD on chronic prednisone and 4 L/min ATC, chronic hypercapnic respiratory failure on NIV via Astral
100, hypertension, history of stroke (October 2013), memory loss, history of restrictive lung disease, history of H. pylori, history of COVID-19 (08/2023), DM type II, RLS, snoring and history of right calf SCC who presents with shortness of breath.
She also had a cough sometimes productive of mucus. She denies any recent sick contacts. She has been using her inhalers as prescribed. She checks her oxygen at home and her SpO2 drops into the low 70s with activity. She spoke with Dr. Bryan
and he recommended her to come to the hospital. Her symptoms started about 2 days ago. Initially in the ER she was afebrile to 98.4 �F, pulse rate 91, respiratory rate 18, BP 159/78 and saturating 100% on 4 L/min. Initial labs showed WBC 13.7, Hb
10.9, initial blood gas showed pH 7.29, pCO2 69, serum bicarbonate level 34, BUN 30, glucose 200, negative troponin at <0.012, and proBNP 341. Flu A + B swab negative. CXR showed prominent reticular markings at lung bases (L>R). In ER she
obtained albuterol, and ceftriaxone/doxycycline, and given that she was on continuous BiPAP with hypercapnia, she was admitted to the ICU for further care with electric power superintendent services consulted for additional management/recommendations.
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
disease, memory loss, restrictive lung disease, gas exchange deficit, lung nodules, history of DVT, history of H. pylori, history of COVID-19 (08/2023), DM type II, restless leg syndrome, snoring, history of right calf squamous cell carcinoma
Impression:
#Acute on chronic hypoxic + hypercapnic respiratory failure due to COPD exacerbation possibly with superimposed bacterial pneumonia
#Leukocytosis due to above
#DM type II complicated by hyperglycemia (mild)
#Chronic anemia with iron deficiency
#History of elevated eosinophil count (absolute eos were 600 in August 2021)
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
#History of hypertension
#History of H. pylori
#History of pneumonia
#Former tobacco use disorder (former 674-[id number]-ewlh history, quit in October 2013)
#History of restless leg syndrome on ropinirole
#Rhinorrhea likely vasomotor rhinitis improved on Atrovent nasal spray
Plan:
- Patient had acute on chronic hypercapnia with hypoxia, and was on BiPAP overnight; he is now on nasal cannula at 4 L/min and is saturating well at 98%; baseline pCO2 was approximately 60
- Continue nocturnal BiPAP; of note, she has had a history of chronic CO2 retention and is on an Astral 100 noninvasive ventilator at home.
- His CXR shows patchy/reticular opacities in the bases bilaterally, which he has had a history of before (i.e., comparing to CXR from 09/16/2021); his procal is also elevated at 0.28
- I reviewed his CT chest from 10/12/2021, and he has mild paraseptal/centrilobular emphysema predominantly in the upper lobes
- For now, would continue with empiric antibiotics, currently on ceftriaxone/Zithromax --> narrowing as she clinically improves; would at very least complete 5 days worth of zithromax
- Maintain SpO2 88-95%
- Continue with systemic steroids, currently on Decadron 4 mg IV q6hr --> maintain BG at goal 140�180 and wean as she clinically improves; continue ISS to keep BG at goal
- Nebulized bronchodilators ATC, currently on Xopenex and I will add on Atrovent
- prn nebulized bronchodilators - not currently bronchospastic
- Can use Esbon nasal spray if she has continued postnasal drip; otherwise her can bring in Flonase for her to use
- Continue ropinirole with sleep for RLS
- Maintain MAP>65
- Replete electrolytes with K>4, Mg>2
- Maintain euglycemia with goal BG 140-180
- Trend H/H and transfuse if needed to keep Hb>7g/dL; keep plt>20k, unless there is concern for bleeding then keep plt>50k
- Incentive spirometer encouraged 10x per hour for at least 4 hrs a day
- Of note, given her age of [age] years old, she no longer qualifies for LDCT chest. Her last CT chest was in September 2021 which showed no new or concerning nodules
- DVT ppx: LMWH
Patient is stable for downgrade out of ICU to telemetry. Pulmonary service will continue to follow along. Of note, she will follow-up with Dr. Bryan as an outpatient, next visit in October 31, 2024 at 3PM (last visit on 04/10/2024).
Total time spent today was 57 minutes for this encounter. Time includes reviewing laboratory test/imaging results, reviewing pertinent medical records, obtaining and reviewing medical history, performing an appropriate exam, ordering medications,
tests and procedures. Time also includes documentation of this encounter, coordinating patient care and communicating with other healthcare professionals. Total time does not include separately billed tests performed on this date of service.
--- NOTE | 2024-09-20 08:30 | PTCARENOTE ---
Received pt @ change of shift, Pt AAOx3, denies pain. SR on monitor. RT transitioned pt. off BiPAP onto 4LNC, tolerating. Auscultated coarse/dim breath sounds throughout. +BS, abd soft/round/obese. Tolerating diet. Cont b/b; stress inc of bladder
@ x's. Assisted x1 w RW to stand/pivot to chair. SpO2 dropped 88% on 4LNC during activity, self recovered back into 90's; reported CHU, improved w rest. #20 R AC and #22 R wrist patent, dressing c/d/i. Instructed on how to report care concerns
and call cynthia ferro in reach. Daughter @ bedside, updated .
[2024-09-20 08:32] LABS: Glucose - Point of Care 170 mg/dl (70-99)
[2024-09-20 10:37] LABS: Iron 35 ug/dl (37-170)
[2024-09-20 10:42] LABS: Glycohemoglobin (HgbA1c) 6.4 % (4.0-5.6)
[2024-09-20 10:47] LABS: Percent Saturation 10 % (20-50); Total Iron Binding Capacity 345 ug/dl (265-497)
--- NOTE | 2024-09-20 10:52 | CM ---
Pt seen bedside w/ spouse. Initial assessment completed. Admitted for sob, cough. Pt is a 79-year-old female COPD oxygen dependent uses noninvasive ventilation at night also on prednisone 10 mg chronically,CHF,HLD, HTN presented with worsening sob
for past 4 days.
Pt lives w/ spouse in a single story rancher style home- no steps to enter the home. Pt uses WC, has grab bar in the bathroom, O2 (4L) supplied by [facility], pt uses a BiPAP at night supplied by [employer], and has a nebulizer machine. Pt received
rehab in 2013 following a stroke. Pt prev known to [facility] in the past.
Address, point of contact and insurance verified
PCP: Dr. Anthony
Pharmacy: [facility]
PT/OT eval pending. CM will watch for any rehab or HH needs
Plan: CM will cont to follow for d/c planning. Await PT/OT recommendations
[2024-09-20] MEDS: NOVOLOG FLEXPEN-LOW RESISTANCE 1 UNITS SC (12:00)
[2024-09-20 12:25] LABS: Vitamin B12 806 pg/ml (239-931)
--- NOTE | 2024-09-20 12:30 | PTCARENOTE ---
Pt. remains OOB to chair; tolerating position. Tolerating meals, poor abner. Reassessed, remains unchanged from prev. Pt.'s @ bedside. Call marie remains w in reach.
--- NOTE | 2024-09-20 12:30 | W.PN.HOSP.TC ---
Today's Communication/Plan
-
Continue steroids
BiPAP at nighttime
Continue antibiotics
Transfer to telemetry
Assessment / Plan
Assessment / Plan
79-year-old female with shortness of breath
Chest x-ray reviewed by me-bilateral interstitial markings
On examination awake alert sitting in a chair
Cardiovascular system S1-S2 appreciated, systolic murmur at aortic area
Chest diminished air entry no wheezing
Abdomen soft and nontender
Skin posterior calf on the right side with a small shallow wound with clean base
Bilateral pedal edema
# Acute on chronic hypoxic and hypercapnic respiratory failure secondary to COPD exacerbation
Consulted for pneumonitis
Off BiPAP and now on 4 L of nasal cannula which is her baseline
Continue BiPAP at night
Nebulizer treatments
IV antibiotics and IV steroids
Mucolytic's
Sputum culture
Patient normally on Zithromax M-W-F/Budesonide/DuoNebs/prednisone 10 mg daily as outpatient
# Chronic HFpEF
Echo 03/26/2024-normal LV size and systolic function. EF 55 to 60%. Moderate
On valsartan/metoprolol/Lasix 80 Mg daily
Not on SGLT2 inhibitors
# Hypertension-continue beta-kristin and valsartan
# History of NSVT-continue beta-blockers
# History of CVA-continue Plavix and statin
# Type 2 diabetes. Hb A1C-6.4
On metformin 500 mg twice daily as outpatient
accu checks and SSI
# Hyperlipidemia-continue statin
# Restless leg syndrome-continue Requip
# Anemia-GLENYS- Replace
# Morbid obesity with a BMI of 36
# Ex-smoker
# DVT prophylaxis-Lovenox
# Full code
Discussed with ICU nursing
Discussed with at bedside
Okay for telemetry
Anticipated Discharge: 24 - 48 hours
Subjective/Interval History
-
Date of Service: September 20, 2024
Objective Data
-
Labs:
Laboratory Results
09/20/24
04:14
WBC 14.4 H
Hgb 9.9 L
Hct 32.6 L
Plt Count 284
PT 14.1
INR 1.06
APTT 26.8
Sodium 139
Potassium 5.1
Chloride 98
Carbon Dioxide 35 H
BUN 29 H
Creatinine 0.9
Glucose 182 H
Calcium 9.3
Vital Signs:
Vital Signs
Temp Pulse Resp BP Pulse Ox
98.1 F 98 17 100/54 98
09/20/24 11:45 09/20/24 08:30 09/20/24 08:30 09/20/24 08:24 09/20/24 08:03
I&O
09/19/24 09/20/24 09/21/24
06:59 06:59 06:59
Intake Total 350 / 350 360 / 360
Output Total 0 / 0
Balance 350 / 350 360 / 360
[2024-09-20 12:39] LABS: Glucose - Point of Care 223 mg/dl (70-99)
[2024-09-20] MEDS: LASIX 20 MG IV (12:53)
[2024-09-20] MEDS: GLUCOPHAGE 500 MG PO ×2 (12:53→18:20)
[2024-09-20] MEDS: TYLENOL 650 MG PO ×2 (14:06→21:33)
[2024-09-20] MEDS: NOVOLOG FLEXPEN-LOW RESISTANCE 2 UNITS SC ×2 (14:07→18:34)
[2024-09-20] MEDS: FERRLECIT 110 MG IV (14:07)
[2024-09-20] MEDS: DIOVAN 40 MG PO (18:20)
[2024-09-20] MEDS: LOVENOX 40 MG SC (18:21)
[2024-09-20 18:47] LABS: Glucose - Point of Care 206 mg/dl (70-99)
[2024-09-20] MEDS: ATROVENT NEBULES 0.5 MG INH (20:07)
[2024-09-20] MEDS: ROCEPHIN 1000 MG IV (20:13)
[2024-09-20] MEDS: STERILE WATER FOR INJECTION 10 ML IV (20:13)
[2024-09-20] MEDS: ZITHROMAX INFUSION 250 IV (21:26)
[2024-09-20] MEDS: LIPITOR 10 MG PO (21:27)
[2024-09-20] MEDS: REQUIP 1 MG PO (21:27)
[2024-09-20] MEDS: OCEAN, SALINE MIST 2 SPRAYS NASAL (21:30)
--- NOTE | 2024-09-20 22:24 | PTCARENOTE ---
Pt received at 19:00. Ox3, forgetful. 4L NC, which she wears at home. Pulse ox 97% while at rest. Safe environment maintained, call marie within reach. remains at bedside.
[2024-09-21] VITALS (7 sets, daily range): BP systolic 105–142; BP diastolic 53–74; PULSE 2–94; BMI 35.9
[2024-09-21] MEDS: DECADRON 4 MG IV ×4 (00:03→20:47)
[2024-09-21 06:50] LABS: Blood Urea Nitrogen 52 mg/dl (7-17); Calcium 9.7 mg/dl (8.4-10.2); Carbon Dioxide 35 mmol/L (22-30); Chloride 97 mmol/L (98-107); Estimated Creatinine Clearance 37 ml/min; Glucose 172 mg/dl (70-99); Potassium 5.6 mmol/L (3.5-5.1); Sodium 138 mmol/L (135-145); eGFR 45.76
[2024-09-21 06:56] LABS: % Basophils 0.3 % (0-2); % Immature Granulocytes 0.9 % (0-0.5); % Lymphocytes 4.5 % (20.5-51.1); % Monocytes 6.7 % (1.7-9.3); % Neutrophils 87.6 % (42.2-75.2); Absolute Immature Granulocytes 0.1 10^3/uL (0-0.05); Absolute Lymphocytes 0.5 10^3/uL (1.2-3.4); Absolute Monocytes 0.7 10^3/uL (0.1-0.6); Absolute Neutrophils 9.4 10^3/uL (1.4-6.5); Hematocrit 33.7 % (37.0-47.0); Hemoglobin 9.9 g/dL (12.0-16.0); Mean Corp Hgb Conc. 29.4 g/dL (33.0-37.0); Mean Corpuscular Hgb 26.7 pg (27.0-31.0); Mean Corpuscular Volume 90.8 fL (81.0-99.0); Mean Platelet Volume 9.9 fL (7.4-10.4); Nucleated Red Blood Cells % 0 %; Platelet Count 354 10^3/uL (130-400); Red Blood Cell Count 3.71 10^6/uL (4.20-5.40); Red Cell Dist. Width 14.4 % (11.5-14.5); White Blood Cell Count 10.8 10^3/uL (4.8-10.8)
[2024-09-21 07:18] LABS: Glucose - Point of Care 159 mg/dl (70-99)
--- NOTE | 2024-09-21 07:45 | PTCARENOTE ---
Received pt @ change of shift. Pt. AAOx3, denies pain; anx/forgetful @ x's. SR on monitor. SPo2 96% on 4LNC, transitioned off BiPAP prior to change of shift. Auscultated dim breath sounds throughout. Shallow breaths/CHU. +BS, abd
soft/round/obese. Tolerating meals, abner poor-mod. Cont of BM; stress inc of bladder @ x's. Pt. OOB to chair prior to change of shift; tolerating position. @ beside. Call marie w in reach.
[2024-09-21] MEDS: VISBIOME 1 CAP PO (07:51)
[2024-09-21] MEDS: GLUCOPHAGE 500 MG PO (07:51)
[2024-09-21] MEDS: LOPRESSOR 50 MG PO ×2 (07:51→20:48)
[2024-09-21] MEDS: PLAVIX 75 MG PO (07:51)
[2024-09-21] MEDS: MAGNESIUM OXIDE 500 MG PO (07:51)
[2024-09-21] MEDS: FEOSOL 325 MG PO (07:52)
[2024-09-21] MEDS: OCEAN, SALINE MIST 2 SPRAYS NASAL ×4 (07:52→23:07)
[2024-09-21] MEDS: MUCINEX 600 MG PO ×2 (07:52→20:48)
[2024-09-21] MEDS: NOVOLOG FLEXPEN-LOW RESISTANCE 1 UNITS SC ×2 (07:52→11:58)
[2024-09-21] MEDS: LASIX 80 MG PO (07:52)
[2024-09-21] MEDS: ATROVENT NEBULES 0.5 MG INH ×3 (08:06→19:52)
[2024-09-21] MEDS: XOPENEX 1.25 MG INHALANT SOLUTION INH ×3 (08:06→19:52)
--- NOTE | 2024-09-21 11:10 | W.PN.HOSP.TC ---
Today's Communication/Plan
-
Check pricing for SGLT2 inhibitors
Increase metformin to thousand twice daily while on steroids
Hold Lasix and valsartan and check labs in the morning
PT OT
Encourage ambulation
Naseem bandages to lower extremity
Assessment / Plan
Assessment / Plan
79-year-old female with shortness of breath
Chest x-ray reviewed by me-bilateral interstitial markings
On examination awake alert sitting in a chair
Cardiovascular system S1-S2 appreciated, systolic murmur at aortic area
Chest diminished air entry no wheezing
Abdomen soft and nontender
Skin posterior calf on the right side with a small shallow wound with clean base
Bilateral pedal edema
# Acute on chronic hypoxic and hypercapnic respiratory failure secondary to COPD exacerbation
Consulted for pneumonitis
Off BiPAP and now on 4 L of nasal cannula which is her baseline
Continue BiPAP at night
Nebulizer treatments
IV antibiotics and IV steroids
Mucolytic's
Sputum culture
Patient normally on Zithromax M-W-F/Budesonide/DuoNebs/prednisone 10 mg daily as outpatient
# Chronic HFpEF
Echo 03/26/2024-normal LV size and systolic function. EF 55 to 60%. Moderate
On valsartan/metoprolol/Lasix 80 Mg daily
Not on SGLT2 inhibitors
Check pricing to see if pt can afford (order placed)
# Acute kidney injury-Hold Lasix and valsartan in the morning. Check labs in the morning
# Hypertension-continue beta-kristin and valsartan
# History of NSVT-continue beta-blockers
# History of CVA-continue Plavix and statin
# Type 2 diabetes. Hb A1C-6.4
On metformin 500 mg twice daily as outpatient
accu checks and SSI
Increase metformin to 1 g twice daily while on steroids
# Hyperlipidemia-continue statin
# Restless leg syndrome-continue Requip
# Anemia-GLENYS- Replace
# Morbid obesity with a BMI of 35
# Ex-smoker
# DVT prophylaxis-Lovenox
# Full code
Discussed with nursing
Discussed with at bedside
Anticipated Discharge: 24 - 48 hours
Subjective/Interval History
-
Date of Service: September 21, 2024
Objective Data
-
Labs:
Laboratory Results
09/21/24
06:16
WBC 10.8
Hgb 9.9 L
Hct 33.7 L
Plt Count 354 D
Sodium 138
Potassium 5.6 H
Chloride 97 L
Carbon Dioxide 35 H
BUN 52 H
Creatinine 1.2 H
Glucose 172 H
Calcium 9.7
Vital Signs:
Vital Signs
Temp Pulse Resp BP Pulse Ox
98.1 F 75 16 142/69 96
09/21/24 07:27 09/21/24 08:30 09/21/24 08:07 09/21/24 08:03 09/21/24 08:44
I&O
09/20/24 09/21/24 09/22/24
06:59 06:59 06:59
Intake Total 350 / 350 850 / 850
Output Total 0 / 0
Balance 350 / 350 850 / 850
[2024-09-21] MEDS: HYDROPHOR 1 APPLIC TOPICAL (11:56)
[2024-09-21] MEDS: LOKELMA 10 GRAM PO (11:57)
[2024-09-21 11:59] LABS: Glucose - Point of Care 174 mg/dl (70-99)
--- NOTE | 2024-09-21 13:20 | W.PN.PUL3 ---
Today's Communication / Plan
-
Continue with nocturnal BiPAP and trend blood gas to assure pH + pCO2 remained stable
VBG tomorrow morning
Xopenex + Atrovent
Broad-spectrum antibiotics with ceftriaxone + Zithromax
PT/OT (she is wheelchair-bound and exquisitely deconditioned, endorsing shortness of breath during activity/ambulation attempts)
Encourage incentive spirometer q1hr while awake
Systemic steroids with wean as she clinically improves
Outpatient pulmonary office follow-up with Dr. Bryan
Assessment
-
Assessment: 79-year-old female former tobacco smoker with [id number] history (quit October 2013) with a past medical history of moderate�severe COPD on chronic prednisone and 4 L/min ATC, chronic hypercapnic respiratory failure on NIV via Astral
100, hypertension, history of stroke (October 2013), memory loss, history of restrictive lung disease, history of H. pylori, history of COVID-19 (08/2023), DM type II, RLS, snoring and history of right calf SCC who presents with shortness of breath.
She also had a cough sometimes productive of mucus. She denies any recent sick contacts. She has been using her inhalers as prescribed. She checks her oxygen at home and her SpO2 drops into the low 70s with activity. She spoke with Dr. Bryan
and he recommended her to come to the hospital. Her symptoms started about 2 days ago. Initially in the ER she was afebrile to 98.4 �F, pulse rate 91, respiratory rate 18, BP 159/78 and saturating 100% on 4 L/min. Initial labs showed WBC 13.7, Hb
10.9, initial blood gas showed pH 7.29, pCO2 69, serum bicarbonate level 34, BUN 30, glucose 200, negative troponin at <0.012, and proBNP 341. Flu A + B swab negative. CXR showed prominent reticular markings at lung bases (L>R). In ER she
obtained albuterol, and ceftriaxone/doxycycline, and given that she was on continuous BiPAP with hypercapnia, she was admitted to the ICU for further care with medicare nurse services consulted for additional management/recommendations.
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
disease, memory loss, restrictive lung disease, gas exchange deficit, lung nodules, history of DVT, history of H. pylori, history of COVID-19 (08/2023), DM type II, restless leg syndrome, snoring, history of right calf squamous cell carcinoma
Impression:
#Acute on chronic hypoxic + hypercapnic respiratory failure due to COPD exacerbation possibly with superimposed bacterial pneumonia
#Leukocytosis due to above
#DM type II complicated by hyperglycemia (mild)
#Chronic anemia with iron deficiency
#History of elevated eosinophil count (absolute eos were 600 in August 2021)
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
#History of hypertension
#Chronic left lower extremity lymphedema after injury to LLE - of note, LLE duplex US on 08/03/2024 was negative for DVT
#History of H. pylori
#History of pneumonia
#Former tobacco use disorder (former [id number] history, quit in October 2013)
#History of restless leg syndrome on ropinirole
#Rhinorrhea likely vasomotor rhinitis improved on Atrovent nasal spray
Plan:
- Patient had acute on chronic hypercapnia with hypoxia, and has been wearing BiPAP at nighttime with stable acute on chronic hypercapnic; he is now on nasal cannula at 4 L/min (home dose) and is saturating well at 97%; baseline pCO2 was
approximately 60
- Continue nocturnal BiPAP; of note, she has had a history of chronic CO2 retention and is on an Astral 100 noninvasive ventilator at home.
- Continue to trend blood gas to assure pH + pCO2 remained stable
- His CXR shows patchy/reticular opacities in the bases bilaterally, which he has had a history of before (i.e., comparing to CXR from 09/16/2021); his procal is also elevated at 0.28 from 09/20/2024
- I reviewed her CT chest from 10/12/2021, and she has mild paraseptal/centrilobular emphysema predominantly in the upper lobes
- Continue with empiric antibiotics, currently on ceftriaxone/Zithromax --> narrowing as she clinically improves; would at very least complete 5 days worth of zithromax
- Maintain SpO2 88-95%
- Continue with systemic steroids, currently on Decadron 4 mg IV q8hr from q6hr --> maintain BG at goal 140�180 and wean as she clinically improves; continue ISS to keep BG at goal
- Nebulized bronchodilators ATC, currently on Xopenex + Atrovent TID
- prn nebulized bronchodilators - not currently bronchospastic
- I added [place] nasal spray as she endorses continued postnasal drip; otherwise her can bring in Flonase for her to use
- Continue ropinirole with sleep for RLS
- Maintain MAP>65
- Replete electrolytes with K>4, Mg>2
- Maintain euglycemia with goal BG 140-180
- Trend H/H and transfuse if needed to keep Hb>7g/dL; keep plt>20k, unless there is concern for bleeding then keep plt>50k
- Incentive spirometer encouraged 10x per hour for at least 4 hrs a day
- Of note, given her age of [age] years old, she no longer qualifies for LDCT chest. Her last CT chest was in September 2021 which showed no new or concerning nodules
- DVT ppx: LMWH
Pulmonary service will continue to follow along. Of note, she will follow-up with Dr. Bryan as an outpatient, next visit in October 31, 2024 at 3PM (last visit on 04/10/2024).
Total time spent today was 37 minutes for this encounter. Time includes reviewing laboratory test/imaging results, reviewing pertinent medical records, obtaining and reviewing medical history, performing an appropriate exam, ordering medications,
tests and procedures. Time also includes documentation of this encounter, coordinating patient care and communicating with other healthcare professionals. Total time does not include separately billed tests performed on this date of service.
Subjective Data
-
Date of Service:
Date of Service: September 21, 2024
Chief Complaint: Pulmonary Follow Up
Subjective:
Patient was seen and evaluated today at bedside (late note entry). Wore BiPAP overnight on 15/6 cmH2O, bled with 4 L/min. She wore BiPAP for approximately 6 hours. This morning she is on 4 L/min nasal cannula, saturating 96% with heart rate 82
and BP 124/58. Patient's at bedside and all questions were answered. She feels well. Denies LIANG, chest pain, nausea, fevers or chills.
Review of Systems
General: Other (Negative unless mentioned above)
Objective Data
Data Reviewed
Vital Signs / I&O / Oxygen:
Vital Signs
Temp Pulse Resp BP Pulse Ox
98.1 F 75 16 142/69 96
09/21/24 07:27 09/21/24 08:30 09/21/24 08:07 09/21/24 08:03 09/21/24 08:44
Intake and Output
09/20/24 09/21/24 09/22/24
06:59 06:59 06:59
Intake Total 350 / 350 850 / 850
Output Total 0 / 0
Balance 350 / 350 850 / 850
SaO2 96
Nasal Cannula flow liters per 4
minute
Physical Exam
General: Respiratory Distress (negative), Comfortable, Chills (negative) and Sweats (negative)
HEENT: Normocephalic, Anicteric and Other (Thick neck)
Cardiovascular: S1-S2, Rub (negative) and Peripheral Edema (+2 left lower extremity edema; trace edema on right lower extremity)
Respiratory: Wheeze (negative), Rhonchi (negative) and Other (Coarse breath sounds heard bilaterally)
GI: Soft, Distended (Abdominal obesity), Non Tender and Normal Bowel Sounds
Neurology: AO x 3 and Tremors (negative)
Skin: Warm, Dry, Cyanosis (negative) and Jaundice (negative)
Labs/Micro/Reports
Lab Data
09/21/24 06:16
09/21/24 06:16
Microbiology
09/19/24 17:20 Nasal Swab Influenza Types A & B (KELLEN) - Final
Negative for Influenza A & B, NAAT
Negative results must be combined with clinical observations
and patient history.
Nucleic Acid Amplification test (NAAT)performed on the
[employer] NOW platform.
[2024-09-21] MEDS: FERRLECIT 110 MG IV (14:20)
[2024-09-21 17:08] LABS: Glucose - Point of Care 233 mg/dl (70-99)
[2024-09-21] MEDS: GLUCOPHAGE 1000 MG PO (17:49)
[2024-09-21] MEDS: LOVENOX 40 MG SC (17:49)
[2024-09-21] MEDS: NOVOLOG FLEXPEN-LOW RESISTANCE 2 UNITS SC (17:50)
[2024-09-21] MEDS: ROCEPHIN 1000 MG IV (20:48)
[2024-09-21] MEDS: STERILE WATER FOR INJECTION 10 ML IV (20:48)
[2024-09-21] MEDS: LIPITOR 10 MG PO (23:06)
[2024-09-21] MEDS: REQUIP 1 MG PO (23:06)
[2024-09-21] MEDS: ZITHROMAX INFUSION 250 IV (23:06)
[2024-09-22] VITALS (8 sets, daily range): BP systolic 111–150; BP diastolic 48–67; PULSE 2–90; BMI 35.8
[2024-09-22] MEDS: DECADRON 4 MG IV (04:46)
[2024-09-22] MEDS: XOPENEX 1.25 MG INHALANT SOLUTION INH ×3 (07:08→19:41)
[2024-09-22] MEDS: ATROVENT NEBULES 0.5 MG INH ×3 (07:08→19:41)
[2024-09-22 07:30] LABS: % Basophils 0.8 % (0-2); % Immature Granulocytes 1.5 % (0-0.5); % Monocytes 6.9 % (1.7-9.3); % Neutrophils 84.8 % (42.2-75.2); Absolute Basophils 0.1 10^3/uL (0-0.2); Absolute Immature Granulocytes 0.2 10^3/uL (0-0.05); Absolute Lymphocytes 0.7 10^3/uL (1.2-3.4); Absolute Monocytes 0.9 10^3/uL (0.1-0.6); Absolute Neutrophils 10.5 10^3/uL (1.4-6.5); Hematocrit 33.2 % (37.0-47.0); Hemoglobin 10.6 g/dL (12.0-16.0); Mean Corp Hgb Conc. 31.9 g/dL (33.0-37.0); Mean Corpuscular Volume 84.7 fL (81.0-99.0); Mean Platelet Volume 10.8 fL (7.4-10.4); Nucleated Red Blood Cells % 0.2 %; Platelet Count 450 10^3/uL (130-400); Red Blood Cell Count 3.92 10^6/uL (4.20-5.40); White Blood Cell Count 12.4 10^3/uL (4.8-10.8)
[2024-09-22 08:03] LABS: Glucose - Point of Care 178 mg/dl (70-99)
--- NOTE | 2024-09-22 08:24 | W.PN.UPDATE ---
Addendum entered and electronically signed by Jack Beck MD 09/22/24 14:59:
Hyperkalemia
Original Note:
Update Note
Progress Note Update
I saw and evaluated the patient. I reviewed the resident�s note and agree with findings and plan as documented in the resident�s note.
Gen: NAD, AAOx3, appears chronically ill.
Eyes: EOMI, PERRLA, no scleral icterus.
Neck: supple.
CV: tachy, reg rhythm, +S1/S2, 3/6 systolic murmur
Resp: CTAB, no rales, wheezes, or rhonchi.
Abd: +BS, soft, NT, ND
Skin: No rashes.
Neuro: CN 2-12 intact, non-focal.
Psych: Normal mood and affect.
09/19/24 17:20 Nasal Swab Influenza Types A & B (KELLEN) - Final
Negative for Influenza A & B, NAAT
Negative results must be combined with clinical observations
and patient history.
Nucleic Acid Amplification test (NAAT)performed on the
[employer] ID NOW platform.
CXR: Prominent reticular markings in the lung bases, left greater than right which although in part may be chronic, cannot exclude superimposed acute process such as pneumonitis.
Acute on chronic hypoxic and hypercapnic respiratory failure due to acute COPD exacerbation and likely acute pneumonitis:
-steroid dependent
-was on BIPAP, now weaned to 4L NC O2 (baseline O2 requirement)
-cont BIPAP HS
-cont Rocephin/Azithro for now
Chronic HFpEF:
-ARB/lasix on hold with TOBY
-cont BB
-would not start SGLT2i with TOBY
DM2:
-a1c 6.4%
-cont Metformin/SSI/accuchecks
TOBY:
-Lasix/valsartan held
-AM Cr pending
Other problems:
Essential HTN: continue BB
h/o NSVT: continue BB
h/o CVA: continue Plavix/statin
Hyperlipidemia: continue statin
Restless leg syndrome: continue Requip
Iron deficiency anemia: cont Fe
Obesity due to excess calories
Family updated at bedside
FULL/Lovenox
Total time spent on today's encounter was 50 minutes which included time spent in counseling the patient/family regarding diagnosis and treatment plan as listed above, goals of care, and symptom management. Case was discussed with nursing staff,
specialists, and care coordinators/case management. All labs and imaging personally reviewed by me. Remainder the time spent in detailed review of previous records, lab data, imaging, and other medical provider documentation.
--- NOTE | 2024-09-22 08:30 | PTCARENOTE ---
Received pt @ change of shift. Assessment per charting- see flow sheet. Maintained on baseline 4LNC, no s/s of resp distress. Unable to obtain complete AM lab work w RN x2; phlebotomy paged. Pt.'s family @ bedside, updated. Call cynthia remains w
in reach.
[2024-09-22] MEDS: MAGNESIUM OXIDE 500 MG PO (08:52)
[2024-09-22] MEDS: PLAVIX 75 MG PO (08:52)
[2024-09-22] MEDS: FEOSOL 325 MG PO (08:52)
[2024-09-22] MEDS: GLUCOPHAGE 1000 MG PO (08:52)
[2024-09-22] MEDS: MUCINEX 600 MG PO ×2 (08:52→20:18)
[2024-09-22] MEDS: VISBIOME 1 CAP PO (08:53)
[2024-09-22] MEDS: LOPRESSOR 50 MG PO ×2 (08:54→20:19)
[2024-09-22] MEDS: HYDROPHOR 1 APPLIC TOPICAL (08:54)
[2024-09-22] MEDS: NOVOLOG FLEXPEN-LOW RESISTANCE 1 UNITS SC (08:54)
[2024-09-22] MEDS: OCEAN, SALINE MIST 2 SPRAYS NASAL ×4 (08:55→21:17)
[2024-09-22 10:02] LABS: Blood Urea Nitrogen 62 mg/dl (7-17); Calcium 9.9 mg/dl (8.4-10.2); Carbon Dioxide 31 mmol/L (22-30); Chloride 97 mmol/L (98-107); Estimated Creatinine Clearance 37 ml/min; Glucose 243 mg/dl (70-99); Magnesium 2.7 mg/dl (1.6-2.3); Phosphorus 3.6 mg/dl (2.5-4.5); Potassium 6.1 mmol/L (3.5-5.1); Sodium 135 mmol/L (135-145); eGFR 45.76
--- NOTE | 2024-09-22 10:09 | W.PN.HOSP.TC ---
Today's Communication/Plan
-
Monitor on telemetry
Follow creatinine
Follow CBC and BMP
Continue antibiotics
Monitor volume status while off Lasix
Assessment / Plan
Assessment / Plan
79-year-old female with PMH of severe COPD on chronic prednisone, essential hypertension, history of stroke who presented to the ED with 4 days history of worsening SOB.
Assessment/plan:
#Acute on chronic hypoxic and hypercapnic respiratory failure
-Multifactorial; COPD exacerbation, acute pneumonitis.
-Oxygen weaned to 4 L NC O2 which is her baseline, off BiPAP.
-Continue nocturnal BiPAP.
-Continue home Zithromax MWF, Rocephin.
-Continue systemic steroids, to keep SpO2 >92%.
-Nebulized bronchodilators, currently on Atrovent 3 times daily, and Xopenex.
-Mucolytics as needed.
-Appreciate pulmonology.
-Downgrade to MedSurg.
#TOBY
-Creatinine 1.2, baseline 0.9
-Hold Lasix.
-Follow creatinine.
#Hyperkalemia
-Worsening potassium 6.1. S/p Lokelma administration yesterday (Was 5.6 yesterday)
-Give another dose of Lokelma. Will recheck in the afternoon.
-Consider Kayexalate if potassium keeps worsening.
-Follow BMP.
#Chronic HFpEF
-Losartan and Lasix on hold for TOBY.
-Continue metoprolol.
-Limited GDMT, hold starting SGLT2 for now due to TOBY.
#Diabetes mellitus type 2
-A1c 6.4
-Outpatient metformin increased to 1 g BID while on steroids.
-Blood glucose levels running in the low 200s.
-SSI increased to moderate. Follow Accu-Cheks.
#Essential hypertension
#History of NSVT
-Continue metoprolol.
#History of CVA
-Continue home Plavix and atorvastatin.
#Hyperlipidemia
-Continue atorvastatin
#Iron deficiency anemia
-Follow CBC.
-Replete.
#Restless leg syndrome
-Continue Requip
#Morbid obesity with BMI of 35
#Ex-smoker
DVT PPx: Lovenox
CODE STATUS: Full code.
Data:
CXR 09/11/2024:
Prominent reticular markings in the lung bases, left greater than right which although in part may be chronic, cannot exclude superimposed acute process such as pneumonitis.
Anticipated Discharge: 24 - 48 hours
Subjective/Interval History
-
Date of Service: September 22, 2024
# Examined patient with daughter at bedside. Patient sitting in bed enjoying breakfast in no acute distress. Reports that she is feeling better, daughter agrees. Denies palpitations, chest pain, abdominal pain, fever or chills. Reports shortness
of breath with exertion with O2 sat dropping to 85% or so and then quickly coming back up with rest. Denies dizziness.
Objective Data
-
Labs:
Laboratory Results
09/22/24 09/22/24
06:54 09:15
WBC 12.4 H
Hgb 10.6 L
Hct 33.2 L
Plt Count 450 H D
Sodium Cancelled 135
Potassium Cancelled 6.1 H*
Chloride Cancelled 97 L
Carbon Dioxide Cancelled 31 H
BUN Cancelled 62 H
Creatinine Cancelled 1.2 H
Glucose Cancelled 243 H
Calcium Cancelled 9.9
Vital Signs:
Vital Signs
Temp Pulse Resp BP Pulse Ox
97.8 F 94 16 126/62 97
09/22/24 07:00 09/22/24 08:54 09/22/24 07:08 09/22/24 08:54 09/21/24 23:24
I&O
09/21/24 09/22/24 09/23/24
06:59 06:59 06:59
Intake Total 850 / 850 720 / 720
Balance 850 / 850 720 / 720
Review of Systems
-
History Source: Patient and Family
All other systems: Not reviewed unless documented
Constitutional: Reports No Symptoms; Denies Fever
Respiratory: Reports No Symptoms; Denies Hemoptysis, Trouble Breathing or Wheezing
Cardiac: Reports No Symptoms; Denies Chest Pain or Palpitations
Abdomen/GI: Reports No Symptoms; Denies Abdominal Pain, Nausea or Vomiting
Genitourinary: Reports No Symptoms; Denies Flank Pain
Neuro: Reports No Symptoms; Denies Dizzy or Headache
Physical Exam
-
General: No Apparent Distress, Comfortable and Conversant; Negative Respiratory Distress
Respiratory: Clear to Auscultation and Non Labored Respirations; Negative Wheezes or Crackles
Cardiac: Regular Rhythm and S1/S2
GI: Soft, Nontender, Nondistended and Normal Bowel Sounds
Musculoskeletal: No Clubbing, No Cyanosis, Edema, Right Lower Extrem and Edema, Left Lower Extrem
Skin: Warm and Dry
Neuro: Awake and AO x 3
Psych: Calm
Data Reviewed
-
Diagnostic Radiology: Image personally visualized and interpreted, Report Reviewed by me and Discussed with Physician
Labs: Labs Reviewed by me and Discussed with Physician
Old Records: Reviewed
[2024-09-22 11:44] LABS: Venous Blood Gas B.E. 10.2 mmol/L (-4 to +4); Venous Blood Gas HCO3 38.9 mmol/L (22-27); Venous Blood Gas O2 Sat % 90.8 %; Venous Blood Gas pO2 60 mmHg (30-50)
[2024-09-22 11:46] LABS: Venous Blood Gas pCO2 79 mmHg (35-48)
[2024-09-22 12:10] LABS: Glucose - Point of Care 207 mg/dl (70-99)
[2024-09-22] MEDS: LOKELMA 10 GRAM PO ×2 (12:28→18:38)
[2024-09-22] MEDS: DELTASONE 30 MG PO (12:28)
--- NOTE | 2024-09-22 12:33 | W.PN.PUL3 ---
Today's Communication / Plan
-
-Continue Xopenex and Atrovent
-Repeat VBG around 5 PM to evaluate on CO2 and pH
-DC Decadron and start prednisone 30 mg daily for 2 more days and then drop down to home dose of 10 mg daily
-Agree with transition to oral azithromycin
-Hold metformin in view of acute kidney injury
-Outpatient follow-up with Dr. Bryan
Assessment
-
Assessment: 79-year-old female former tobacco smoker with [id number] history (quit October 2013) with a past medical history of moderate�severe COPD on chronic prednisone and 4 L/min ATC, chronic hypercapnic respiratory failure on NIV via Astral
100, hypertension, history of stroke (October 2013), memory loss, history of restrictive lung disease, history of H. pylori, history of COVID-19 (08/2023), DM type II, RLS, snoring and history of right calf SCC who presents with shortness of breath.
She also had a cough sometimes productive of mucus. She denies any recent sick contacts. She has been using her inhalers as prescribed. She checks her oxygen at home and her SpO2 drops into the low 70s with activity. She spoke with Dr. Bryan
and he recommended her to come to the hospital. Her symptoms started about 2 days ago. Initially in the ER she was afebrile to 98.4 �F, pulse rate 91, respiratory rate 18, BP 159/78 and saturating 100% on 4 L/min. Initial labs showed WBC 13.7, Hb
10.9, initial blood gas showed pH 7.29, pCO2 69, serum bicarbonate level 34, BUN 30, glucose 200, negative troponin at <0.012, and proBNP 341. Flu A + B swab negative. CXR showed prominent reticular markings at lung bases (L>R). In ER she
obtained albuterol, and ceftriaxone/doxycycline, and given that she was on continuous BiPAP with hypercapnia, she was admitted to the ICU for further care with linseed oil press tender services consulted for additional management/recommendations.
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
disease, memory loss, restrictive lung disease, gas exchange deficit, lung nodules, history of DVT, history of H. pylori, history of COVID-19 (08/2023), DM type II, restless leg syndrome, snoring, history of right calf squamous cell carcinoma
Impression and Plan:
#1. Acute on chronic hypoxic + hypercapnic respiratory failure due to COPD exacerbation possibly with superimposed bacterial pneumonia vs chronic lower lobe scarring
-Clinically improved, appears to be at her baseline on 4 L supplemental oxygen. Moderate persistent obstructive lung defect seen on PFTs from 04/11/2024, with normal gas exchange capacity (DLco: 91%, DLco/VA: 100%)
-Continue Xopenex and ipratropium
-Switch to prednisone 30 mg daily for 2 more days after which she can resume her home dose of 10 mg daily
-Continue noninvasive positive pressure ventilation nightly and when napping
-Follow-up VBG today shows a pH of 7.3 with a pCO2 of 79. pCO2 higher than her baseline however on exam, patient is completely asymptomatic, awake, alert and without any wheezing on exam. Will follow-up VBG in 4 to 5 hours and continue nightly
positive airway pressure therapy.
-Agree with oral azithromycin
#2. History of smoking, [id number] history.
-Patient quit in October 2013
-Does not qualify for LDCT screening with age 79
#3. TOBY with Hyperkalemia on lab work
-Specimen hemolyzed, likely erroneous
-Repeat lab work
-Valsartan already on hold
-Hold Lasix
-Hold metformin in view of TOBY
#4. DM type II complicated by hyperglycemia (mild)
-Sliding scale insulin
-Hold metformin in view of acute kidney injury
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
-Patient already on dual antiplatelet therapy with aspirin and Plavix
- Continue ropinirole with sleep for RLS
- Maintain MAP>65
- Replete electrolytes with K>4, Mg>2
- Maintain euglycemia with goal BG 140-180
- Trend H/H and transfuse if needed to keep Hb>7g/dL; keep plt>20k, unless there is concern for bleeding then keep plt>50k
- Incentive spirometer encouraged 10x per hour for at least 4 hrs a day
- DVT ppx: LMWH
Pulmonary service will continue to follow along. Of note, she will follow-up with Dr. Bryan as an outpatient, next visit in October 31, 2024 at 3PM (last visit on 04/10/2024).
Total time spent today was 37 minutes for this encounter. Time includes reviewing laboratory test/imaging results, reviewing pertinent medical records, obtaining and reviewing medical history, performing an appropriate exam, ordering medications,
tests and procedures. Time also includes documentation of this encounter, coordinating patient care and communicating with other healthcare professionals. Total time does not include separately billed tests performed on this date of service.
Subjective Data
-
Date of Service:
Date of Service: September 22, 2024
Chief Complaint: Pulmonary Follow Up
Subjective:
Patient comfortably sitting in bed in no acute distress.
Objective Data
Data Reviewed
Vital Signs / I&O / Oxygen:
Vital Signs
Temp Pulse Resp BP Pulse Ox
97.8 F 94 16 126/62 97
09/22/24 07:00 09/22/24 08:54 09/22/24 07:08 09/22/24 08:54 09/21/24 23:24
Intake and Output
09/21/24 09/22/24 09/23/24
06:59 06:59 06:59
Intake Total 850 / 850 720 / 720
Balance 850 / 850 720 / 720
SaO2 97
Nasal Cannula flow liters per 4
minute
Physical Exam
General: Respiratory Distress
Cardiovascular: S1-S2, Rub (negative) and Peripheral Edema (+2 left lower extremity edema; trace edema on right lower extremity)
Respiratory: Wheeze (negative), Rhonchi (negative) and Other (Coarse breath sounds heard bilaterally)
GI: Soft, Distended (Abdominal obesity), Non Tender and Normal Bowel Sounds
Neurology: AO x 3 and Tremors (negative)
Skin: Warm, Dry, Cyanosis (negative) and Jaundice (negative)
Labs/Micro/Reports
Lab Data
09/22/24 06:54
09/22/24 09:15
Microbiology
09/19/24 17:20 Nasal Swab Influenza Types A & B (KELLEN) - Final
Negative for Influenza A & B, NAAT
Negative results must be combined with clinical observations
and patient history.
Nucleic Acid Amplification test (NAAT)performed on the
[employer] platform.
[2024-09-22] MEDS: NOVOLOG FLEXPEN-LOW RESISTANCE SC (12:44)
[2024-09-22] MEDS: NOVOLOG FLEXPEN-MODERATE RESISTANCE 3 UNITS SC (12:44)
--- NOTE | 2024-09-22 13:45 | PTCARENOTE ---
Critical K+ reviewed by Dr. Diane; further orders received- see MAR. VBG resulted w critical Co2 level; pt. asymptomatic, OOB to chair on baseline 4LNC. Dr. Orr to bedside to assess, plan for vbg recheck @ 1700; otherwise no changes in plan of
care. Family remains @ bedside, updated. Call cynthia ferro in reach.
--- NOTE | 2024-09-22 13:55 | WOUNDNOTE ---
NIKITA RN note: Patient admitted with COPD,Hypoxia.
See H&P for complete history. Lives with .
PMH: NIDDM,COPD-O2 dependent-HTN, Stroke, R leg skin cancer removed and Pneumonia.
Wound Location and type/assessment: Patient admitted with: Healing surgical site on R posterior calf from skin cancer. Aquaphor already on order, reviewed wound care with patient, she can't recall name of who did procedure. Both lower legs
very dry, heels blanchable. Trace lower leg edema, had legs dependent. States she can't get compression on without tearing skin, is willing to try Tubigrip if easier to get on.
Appetite: Good.
Pressure redistribution devices in place: Air mattress, using air chair cushion while in recliner chair.
Plan: Aquaphor and dry dressing q other day. Moisturize lower legs and feet with Aquaphor daily. Naseem wraps knee high daily. Can use Tubigrip size F instead and can take home upon discharge.
Will confirm orders with hospitalist and updated nurse.
Updated care plan and will follow as needed.
Note to case management of equipment requested for discharge: None.
Recommend follow up with [employer] as scheduled.
--- NOTE | 2024-09-22 14:08 | PN.CDI ---
CDI
- -
CDI:
Physician Documentation Request
Admit Date: 09/19/24 19:48
Dear Doctor Roxi,
Please review the following and provide your response in the progress notes.
Clinical Indicators:
Laboratory Tests
09/19/24 09/20/24 09/21/24
14:53 04:14 06:16
Potassium 4.3 5.1 5.6 H
09/22/24
09:15
Potassium 6.1 H*
Based on the above, please clarify in the progress notes, the appropriate diagnosis, if significant, that supports the above abnormalities and additional evaluation, monitoring and/or treatment rendered:
Hyperkalemia
Abnormal lab value, clinically insignificant
Other(please specify)
Use of terms such as suspected, likely, concern for, or probable (associated with a specific diagnosis that is being evaluated, monitored, or treated as if it exists) are acceptable and can be coded in the inpatient setting, when documented at the
time of discharge.
Thank you,
Analia Ljoa RN BSN CCDS
CDI Specialist
please contact via tiger text
Please use your independent medical judgment in providing your response.
[2024-09-22] MEDS: FERRLECIT 110 MG IV (14:10)
--- NOTE | 2024-09-22 16:04 | PTCARENOTE ---
Report given to 4E RN and pt. transported via wheelchair on ekg monitor and 4LNC w /belongings to rm [id number]. Relayed to Dr. Diane decision to keep patient on telemetry and inquired ab rechecking K+ today s/p intervention; next RN
updated. No further needs from this RN.
[2024-09-22] MEDS: TYLENOL 650 MG PO (16:33)
[2024-09-22 16:43] LABS: Glucose - Point of Care 119 mg/dl (70-99)
[2024-09-22] MEDS: NOVOLOG FLEXPEN-MODERATE RESISTANCE SC (16:44)
[2024-09-22 17:24] LABS: Venous Blood Gas B.E. 10.3 mmol/L (-4 to +4); Venous Blood Gas HCO3 38.8 mmol/L (22-27); Venous Blood Gas O2 Sat % 80.6 %; Venous Blood Gas pH 7.31 (7.32-7.43); Venous Blood Gas pO2 50 mmHg (30-50)
[2024-09-22 17:26] LABS: Venous Blood Gas pCO2 77 mmHg (35-48)
[2024-09-22 17:43] LABS: Blood Urea Nitrogen 64 mg/dl (7-17); Calcium 9.9 mg/dl (8.4-10.2); Carbon Dioxide 36 mmol/L (22-30); Chloride 93 mmol/L (98-107); Estimated Creatinine Clearance 37 ml/min; Glucose 135 mg/dl (70-99); Potassium 5.5 mmol/L (3.5-5.1); Sodium 133 mmol/L (135-145); eGFR 45.76
[2024-09-22] MEDS: LOVENOX 40 MG SC (18:38)
[2024-09-22] MEDS: ZITHROMAX 500 MG PO (18:40)
[2024-09-22] MEDS: ROCEPHIN 1000 MG IV (20:18)
[2024-09-22] MEDS: STERILE WATER FOR INJECTION 10 ML IV (20:19)
[2024-09-22] MEDS: REQUIP 1 MG PO (21:17)
[2024-09-22] MEDS: LIPITOR 10 MG PO (21:17)
[2024-09-22 22:02] LABS: Glucose - Point of Care 200 mg/dl (70-99)
[2024-09-23 04:13] VITALS: PULSE 2; PULSE 88
[2024-09-23 06:00] VITALS: BMI 36.5
[2024-09-23 06:41] LABS: Hemoglobin 9.4 g/dL (12.0-16.0); Mean Corp Hgb Conc. 29.4 g/dL (33.0-37.0); Mean Corpuscular Hgb 26.8 pg (27.0-31.0); Mean Corpuscular Volume 91.2 fL (81.0-99.0); Mean Platelet Volume 9.5 fL (7.4-10.4); Platelet Count 340 10^3/uL (130-400); Red Blood Cell Count 3.51 10^6/uL (4.20-5.40); Red Cell Dist. Width 14.3 % (11.5-14.5); White Blood Cell Count 11.1 10^3/uL (4.8-10.8)
[2024-09-23 06:42] LABS: Venous Blood Gas B.E. 10.7 mmol/L (-4 to +4); Venous Blood Gas HCO3 39.9 mmol/L (22-27); Venous Blood Gas O2 Sat % 81.1 %; Venous Blood Gas pH 7.28 (7.32-7.43); Venous Blood Gas pO2 52 mmHg (30-50)
[2024-09-23 06:49] LABS: Venous Blood Gas pCO2 85 mmHg (35-48)
--- NOTE | 2024-09-23 07:01 | W.PN.HOSP.TC ---
Today's Communication/Plan
-
Follow BMP
Continue prednisone 30 mg till tomorrow then back to 10 mg
Continue antibiotics
Check flu, COVID
Assessment / Plan
Assessment / Plan
79-year-old female with PMH of severe COPD on chronic prednisone, essential hypertension, history of stroke who presented to the ED with 4 days history of worsening SOB.
Assessment/plan:
#Acute on chronic hypoxic and hypercapnic respiratory failure
-Multifactorial; COPD exacerbation, acute pneumonitis, superimposed bacterial pneumonia.
-Much improved, patient back to baseline 4 L O2 NC.
-Continue BiPAP at nighttime and during naps.
-Continue ipratropium TID and Xopenex.
-Continue home Zithromax MWF, Rocephin.
-Continue systemic steroids, to keep SpO2 >92%.
-Mucolytics as needed.
-Appreciate pulmonology.
-Monitor on telemetry.
#TOBY
-Creatinine 1.2, baseline 0.9
-Hold Lasix, metformin and valsartan.
-Follow creatinine.
#Hyperkalemia
-Resolved.
-Monitor and replete.
-Follow BMP.
#Sore throat
-Suspect from BiPAP use vs influenza, COVID.
-Will check serology.
#Chronic HFpEF
-Losartan and Lasix on hold for TOBY.
-Continue metoprolol.
-Limited GDMT, hold starting SGLT2 for now due to TOBY.
#Diabetes mellitus type 2
-A1c 6.4
-Outpatient metformin increased to 1 g BID while on steroids.
-Blood glucose levels running in the low 200s.
-SSI increased to moderate. Follow Accu-Cheks.
#Essential hypertension
#History of NSVT
-Continue metoprolol.
#History of CVA
-Continue home Plavix and atorvastatin.
#Hyperlipidemia
-Continue atorvastatin
#Iron deficiency anemia
-Follow CBC.
-Replete.
#Restless leg syndrome
-Continue Requip
#Morbid obesity with BMI of 35
#Ex-smoker
DVT PPx: Lovenox
CODE STATUS: Full code.
Data:
CXR 09/11/2024:
Prominent reticular markings in the lung bases, left greater than right which although in part may be chronic, cannot exclude superimposed acute process such as pneumonitis.
Anticipated Discharge: Within 24 hours
Subjective/Interval History
-
Date of Service: September 23, 2024
I saw and evaluated patient. Sitting comfortably in her bed, in no acute distress. She reports feeling better today. Her only concerns today was sore throat which is new. Denies chest pain, abdominal pain, fever, chills, nausea or vomiting. She
reports that her breathing is at baseline and does not feel short of breath at rest. She is able to go to the bathroom with minimal assistance. She reports having bowel movement last night and it was normal.
Objective Data
-
Labs:
Laboratory Results
Last Resulted Lab Results
09/23/24 06:33
09/23/24 06:33
Vital Signs:
Vital Signs
Temp Pulse Resp BP Pulse Ox
98.1 F 70 20 126/48 97
09/22/24 23:59 09/22/24 23:59 09/22/24 23:59 09/22/24 23:59 09/22/24 23:59
I&O
09/22/24 09/23/24 09/24/24
06:59 06:59 06:59
Intake Total 720 / 720 470 / 470
Balance 720 / 720 470 / 470
Review of Systems
-
History Source: Patient and Family
All other systems: Not reviewed unless documented
Constitutional: Reports No Symptoms; Denies Fever
Respiratory: Reports No Symptoms; Denies Hemoptysis, Trouble Breathing or Wheezing
Cardiac: Reports No Symptoms; Denies Chest Pain or Palpitations
Abdomen/GI: Reports No Symptoms; Denies Abdominal Pain, Nausea or Vomiting
Genitourinary: Reports No Symptoms; Denies Flank Pain
Neuro: Reports No Symptoms; Denies Dizzy or Headache
Physical Exam
-
General: No Apparent Distress, Comfortable and Conversant; Negative Respiratory Distress
Respiratory: Clear to Auscultation and Non Labored Respirations; Negative Wheezes or Crackles
Cardiac: Regular Rhythm and S1/S2
GI: Soft, Nontender, Nondistended and Normal Bowel Sounds
Musculoskeletal: No Clubbing, No Cyanosis, Edema, Right Lower Extrem and Edema, Left Lower Extrem
Skin: Warm and Dry
Neuro: Awake and AO x 3
Psych: Calm
Data Reviewed
-
Labs: Labs Reviewed by me and Discussed with Physician
[2024-09-23 07:22] LABS: Glucose - Point of Care 96 mg/dl (70-99)
[2024-09-23 07:25] VITALS: BP 136/69
[2024-09-23] MEDS: XOPENEX 1.25 MG INHALANT SOLUTION INH ×2 (07:26→14:05)
[2024-09-23] MEDS: ATROVENT NEBULES 0.5 MG INH ×2 (07:26→14:05)
[2024-09-23 07:45] LABS: Blood Urea Nitrogen 63 mg/dl (7-17); Calcium 9.9 mg/dl (8.4-10.2); Carbon Dioxide 37 mmol/L (22-30); Chloride 93 mmol/L (98-107); Estimated Creatinine Clearance 38 ml/min; Glucose 106 mg/dl (70-99); Iron 286 ug/dl (37-170); Potassium 4.9 mmol/L (3.5-5.1); Sodium 137 mmol/L (135-145); eGFR 45.76
[2024-09-23 07:54] LABS: Percent Saturation 97 % (20-50); Total Iron Binding Capacity 294 ug/dl (265-497)
[2024-09-23] MEDS: NOVOLOG FLEXPEN-MODERATE RESISTANCE SC ×2 (07:58→12:38)
[2024-09-23] MEDS: FEOSOL 325 MG PO (09:18)
[2024-09-23] MEDS: LOPRESSOR 50 MG PO (09:18)
[2024-09-23] MEDS: MUCINEX 600 MG PO (09:18)
[2024-09-23] MEDS: PLAVIX 75 MG PO (09:18)
[2024-09-23] MEDS: VISBIOME 1 CAP PO (09:18)
[2024-09-23] MEDS: MAGNESIUM OXIDE 500 MG PO (09:18)
[2024-09-23] MEDS: DELTASONE 30 MG PO (09:19)
[2024-09-23] MEDS: HYDROPHOR 1 APPLIC TOPICAL (09:19)
[2024-09-23] MEDS: OCEAN, SALINE MIST 2 SPRAYS NASAL ×2 (09:20→13:16)
--- NOTE | 2024-09-23 10:18 | VNURNOTE ---
Home Health Liaison met with patient at bedside to discuss [facility] nurse/therapy, visits, schedule and homebound status. Patient is agreeable and understands that visits at home will be 2-3 x per week to assess and teach medical management. Patient is
familiar with our services, had us a few years ago. Patient is aware that [facility] will contact them for start of care in 1-2 days after discharge from .
[facility] referral completed in [facility].
--- NOTE | 2024-09-23 10:29 | W.PN.PUL3 ---
Today's Communication / Plan
-
ABG reviewed, can trial using BIPAP additional 2 hours during the day, she reports compliance with her home device
If ongoing may need to consider titration study to evaluate settings, we will arrange interim short term FU in our office in 2 weeks
Prednisone taper continued
Encouraged breathing exercises, OOB/PT
Discharge planning per team, we will arrange FU
Assessment
-
79-year-old female former tobacco smoker with [id number] history (quit October 2013) with a past medical history of moderate�severe COPD on chronic prednisone and 4 L/min ATC, chronic hypercapnic respiratory failure on NIV via Astral 100,
hypertension, history of stroke (October 2013), memory loss, history of restrictive lung disease, history of H. pylori, history of COVID-19 (08/2023), DM type II, RLS, snoring and history of right calf SCC who presents with shortness of breath. She
also had a cough sometimes productive of mucus. She denies any recent sick contacts. She has been using her inhalers as prescribed. She checks her oxygen at home and her SpO2 drops into the low 70s with activity. She spoke with Dr. Bryan and
he recommended her to come to the hospital. Her symptoms started about 2 days ago. Initially in the ER she was afebrile to 98.4 �F, pulse rate 91, respiratory rate 18, BP 159/78 and saturating 100% on 4 L/min. Initial labs showed WBC 13.7, Hb
10.9, initial blood gas showed pH 7.29, pCO2 69, serum bicarbonate level 34, BUN 30, glucose 200, negative troponin at <0.012, and proBNP 341. Flu A + B swab negative. CXR showed prominent reticular markings at lung bases (L>R). In ER she
obtained albuterol, and ceftriaxone/doxycycline, and given that she was on continuous BiPAP with hypercapnia, she was admitted to the ICU for further care with bond broker services consulted for additional management/recommendations.
Acute on chronic hypoxic + hypercapnic respiratory failure
AECOPD
Suspected superimposed bacterial pneumonia vs chronic lower lobe scarring
History of smoking, [id number] history
TOBY
Hyperkalemia
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
Moderate�severe COPD on chronic prednisone
Zithromax TIW on chronic O2 at 4 L/min ATC
Chronic hypercapnic respiratory failure on NIV via Astral 100
Hypertension
History of stroke
Hyperlipidemia
Peripheral arterial disease
Memory loss
Obesity, Restrictive lung disease
Lung nodules
History of DVT
History of H. pylori
History of COVID-19 (08/2023)
DM type II
Snoring, RLS
History of right calf squamous cell carcinoma
Plan
Clinically improved, appears to be at her baseline on 4 L supplemental oxygen.
Moderate persistent obstructive lung defect seen on PFTs from 04/11/2024, with normal gas exchange capacity (DLco: 91%, DLco/VA: 100%)
Continue Xopenex and ipratropium
Switch to prednisone 30 mg daily for 2 more days after which she can resume her home dose of 10 mg daily
Agree with oral azithromycin
Continue noninvasive positive pressure ventilation nightly and when napping
Follow-up VBG today shows a pH of 7.3 with a pCO2 of 79.
Repeat VBG showing increased Co2 levels, she has been compliant with use each night, unclear why this should be worsening
We discussed using her PAP at home nightly and adding in extra 2 hours usage with naps/daytime use
We discussed symptoms to be aware of if CO2 worsening
She is asymptomatic now on this level
Will review with outpatient sleep FU, may need titration study to evaluate settings, BUR
Smoking history noted
Patient quit in October 2013
Does not qualify for LDCT screening with age 79
Replete electrolytes as indicated
-Specimen hemolyzed, likely erroneous
-Repeat lab work
-Valsartan already on hold
-Hold Lasix
-Hold metformin in view of TOBY
History of CVA (10/2013) with residual left-sided weakness
Patient already on dual antiplatelet therapy with aspirin and Plavix
Continue ropinirole with sleep for RLS
- Maintain MAP>65
- Replete electrolytes with K>4, Mg>2
- Maintain euglycemia with goal BG 140-180
- Trend H/H and transfuse if needed to keep Hb>7g/dL; keep plt>20k, unless there is concern for bleeding then keep plt>50k
- Incentive spirometer encouraged 10x per hour for at least 4 hrs a day
- DVT ppx: LMWH
D/c planning per team
Of note, she will follow-up with Dr. Bryan as an outpatient, next visit in October 31, 2024 at 3PM (last visit on 04/10/2024).
We will arrange interim FU in 2 weeks given ABG.
Total time spent today was 50 minutes for this encounter. Time includes reviewing laboratory test/imaging results, reviewing pertinent medical records, obtaining and reviewing medical history, performing an appropriate exam, ordering medications,
tests and procedures. Time also includes documentation of this encounter, coordinating patient care and communicating with other healthcare professionals. Total time does not include separately billed tests performed on this date of service.
Subjective Data
-
Date of Service:
Date of Service: September 23, 2024
Chief Complaint: Pulmonary Follow Up
Subjective:
No new complaints, tolerating BIPAP at night
Remains on 4L, satting 98%
Objective Data
Data Reviewed
Vital Signs / I&O / Oxygen:
Vital Signs
Temp Pulse Resp BP Pulse Ox
98.4 F 88 18 136/69 98
09/23/24 07:25 09/23/24 09:18 09/23/24 07:29 09/23/24 09:18 09/23/24 07:29
Intake and Output
09/22/24 09/23/24 09/24/24
06:59 06:59 06:59
Intake Total 720 / 720 470 / 470
Balance 720 / 720 470 / 470
SaO2 98
Nasal Cannula flow liters per 4
minute
Physical Exam
General: Comfortable, Good Appetite and Other (NAD, obese)
HEENT: Normocephalic, Anicteric, Moist Mucous Membranes and Other (Thick neck)
Cardiovascular: S1-S2, Regular Rhythm, Rub (negative) and Peripheral Edema (+2 left lower extremity edema; trace edema on right lower extremity)
Respiratory: Clear (diminished overall), Wheeze (negative), Rhonchi (negative), Non-Labored Respirations and Other
GI: Soft, Distended (Abdominal obesity), Non Tender and Normal Bowel Sounds
Neurology: AO x 3, No Motor Deficits and Tremors (negative)
Skin: Warm, Dry, Cyanosis (negative) and Jaundice (negative)
Labs/Micro/Reports
Lab Data
09/23/24 06:33
09/23/24 06:33
[2024-09-23 10:41] LABS: COVID-19 Antigen Negative (Negative)
--- NOTE | 2024-09-23 11:18 | CM ---
Patient seen at bedside with
PT rec HH
Options reviewed-prefers [facility] - Referral entered in [facility]
Nathalie liaison notified
IMM explained & signed
PLAN: home with [facility]
to transport
[2024-09-23 11:45] LABS: Glucose - Point of Care 124 mg/dl (70-99)
--- NOTE | 2024-09-23 11:49 | W.PN.UPDATE ---
Update Note
Progress Note Update
I saw and evaluated the patient. I reviewed the resident�s note and agree with findings and plan as documented in the resident�s note.
No new complaints.
Gen: NAD, AAOx3, appears chronically ill.
Eyes: EOMI, PERRLA, no scleral icterus.
Neck: supple.
CV: RRR, +S1/S2, 3/6 systolic murmur
Resp: CTAB anteriorly, no rales, wheezes, or rhonchi.
Abd: +BS, soft, NT, ND
Skin: No rashes.
Neuro: remains CN 2-12 intact, non-focal.
Psych: Normal mood and affect.
09/19/24 17:20 Nasal Swab Influenza Types A & B (KELLEN) - Final
Negative for Influenza A & B, NAAT
Negative results must be combined with clinical observations
and patient history.
Nucleic Acid Amplification test (NAAT)performed on the
[employer] platform.
CXR: Prominent reticular markings in the lung bases, left greater than right which although in part may be chronic, cannot exclude superimposed acute process such as pneumonitis.
Acute on chronic hypoxic and hypercapnic respiratory failure due to acute COPD exacerbation and likely acute pneumonitis:
-steroid dependent
-was on BIPAP, now weaned to 4L NC O2 (baseline O2 requirement)
-cont BIPAP HS
-received Rocephin/Azithro while hospitalized
Chronic HFpEF:
-ARB/lasix on hold with TOBY
-cont BB
-would not start SGLT2i with TOBY
DM2:
-a1c 6.4%
-cont Metformin/SSI/accuchecks
TOBY:
-Lasix/valsartan held
-Cr stable at 1.2
-on d/c will continue to hold Lasix/valsartan and repeat BMP in 1 week
Other problems:
Hyperkalemia, resolved with Lokelma
Essential HTN: continue BB
h/o NSVT: continue BB
h/o CVA: continue Plavix/statin
Hyperlipidemia: continue statin
Restless leg syndrome: continue Requip
Iron deficiency anemia: cont Fe
Obesity due to excess calories
Family updated at bedside
FULL/Lovenox
Total time spent on d/c = 35 min. This included today's physical exam, progress note, review of laboratory and diagnostic data, preparation of discharge documents and prescriptions, and discussions about the pt's hospital course and discharge plan
with the patient and other biomedical manager involved in the patient's care.
--- NOTE | 2024-09-23 12:05 | W.DCSUMMARY ---
Discharge Summary
Discharge Data
Date of Admission: 09/19/24
Date of Discharge: 09/23/24
-
Pending Results: No
Hospital Course
DC Medications w/original date entered in [facility]
atorvastatin 10 mg tablet 10 mg PO HS High cholesterol 05/10/18
clopidogrel 75 mg tablet 75 mg PO DAILY Blood clot prevention/tx 09/16/21
furosemide 80 mg tablet 80 mg PO DAILY Fluid retention/Swelling 09/16/21
ipratropium 0.5 mg-albuterol 3 mg (2.5 mg base)/3 mL nebulization soln 3 ml inhalation R BID Lung/breathing issues 09/16/21
metoprolol tartrate 50 mg tablet 50 mg PO BID Blood pressure 09/16/21
ropinirole 1 mg tablet 1 mg PO HS RESTLESS LEGS 09/16/21
valsartan 40 mg tablet 40 mg PO QPM Blood pressure 09/16/21
Lactobac no.2-Bifidobac no.1-S. thermo 112.5 billion cell capsule (Visbiome) 1 cap PO DAILY Supplement 08/03/24
albuterol sulfate 90 mcg/actuation aerosol inhaler (Ventolin HFA) 1 inh inhalation R Q6HPRN PRN sob 08/03/24
budesonide 0.5 mg/2 mL suspension for nebulization 0.5 mg inhalation R BID Lung/Breathing Issues 08/03/24
coenzyme Q10 100 mg capsule 100 mg PO DAILY Supplement 08/03/24
ferrous sulfate 325 mg (65 mg iron) tablet (iron) 325 mg PO DAILY Supplement 08/03/24
guaifenesin 600 mg tablet, extended release 12 hr (Mucus Relief ER) 600 mg PO BID Congestion 08/03/24
krill oil 500 mg capsule 350 mg PO DAILY Supplement 08/03/24
magnesium oxide 500 mg PO DAILY Supplement 08/03/24
prednisone 10 mg tablet 10 mg PO DAILY Anti-Inflammatory 08/03/24
azithromycin 500 mg tablet 500 mg PO MOWEFR Anti-Inflammatory 09/19/24
therapeutic multivitamin 1 tab PO DAILY Supplement 09/19/24
metformin 1,000 mg tablet 1,000 mg PO BID@0800,1700 Diabetes #60 tabs 09/23/24
Discharging Physician : Jack Beck MD ; Mateusz Diane MD
Disposition : Home
Primary care physician : Selvin Anthony DO
Principal Discharge diagnosis :
Acute on chronic hypoxic and hypercapnic respiratory failure
COPD exacerbation
TOBY
Hyperkalemia
Chronic HFpEF
DM type II
Essential hypertension
History of CVA
Hyperlipidemia
Iron deficiency anemia
Restless leg syndrome
Morbid obesity
Hospital Course :
79-year-old female with [id number] history, PMH of severe COPD on chronic prednisone and 4 L oxygen by nasal cannula at home, chronic hypercapnic respiratory failure, essential hypertension and history of restrictive lung disease, DM type II, GARY
who presented to [facility] on 09/19/2024 with shortness of breath. She follows with Dr. Bryan and reports that her PaO2 dropped to 70s with activity while at home.
Acute on chronic hypoxic and hypercapnic respiratory failure: While in the ER, she was afebrile to 98.4 �F, pulse rate 91, respiratory rate 18, BP 159/78 and saturating 100% on 4 L/min. Initial labs showed WBC 13.7, Hb 10.9, initial blood gas
showed pH 7.29, pCO2 69, serum bicarbonate level 34, BUN 30, glucose 200, negative troponin at <0.012, and proBNP 341. Flu A + B swab negative. CXR showed prominent reticular markings at lung bases (L>R). She was started on BiPAP, treated with
albuterol, Rocephin and doxycycline and was admitted to the ICU for further evaluation and management by fire fighting equipment specialist service. Over the weekend, patient was weaned off BiPAP to 4 L NC O2 which is her baseline at home and was downgraded to MedSurg.
She was continued on 30 mg prednisone, nebulized bronchodilators, Atrovent TID and Xopenex with improvement of her respiratory symptoms. Patient has been evaluated by the rip sawyer and she has been scheduled for an earlier appointment in 2
weeks at the outpatient office.
TOBY/hyperkalemia: 2 days after admission, patient's creatinine went up from 0.9 to 1.2. She also developed hyperkalemia which resolved with 2 doses of Lokelma. Her metformin, valsartan and Lasix were held, however her creatinine does not improve
or worsen. Her metformin is not restarted at a higher dose of 1000 mg BID due to steroid use-associated hyperglycemia and she has been instructed to follow-up with her PCP for further evaluation, management, and adjustment of her medications.
Condition on discharge: Awake, alert and oriented x3, answer question properly, able to make own decision and take care of activities of daily living, speech clear and comprehensive, continent of the bowel and bladder, ambulate with minimal
assistance, goes home where they lives with the family independently.
Important imaging findings :
CXR 09/19/2024:
Prominent reticular markings in the lung bases, left greater than right which although in part may be chronic, cannot exclude superimposed acute process such as pneumonitis.
Discharge Plan
-
Patient Disposition: Home (Routine Discharge)
Discharge Diagnosis/Procedures: Acute on chronic hypoxic and hypercapnic respiratory failure
COPD exacerbation
TOBY
Hyperkalemia
Chronic HFpEF
DM type II
Essential hypertension
History of CVA
Hyperlipidemia
Iron deficiency anemia
Restless leg syndrome
Morbid obesity
Condition: Fair
Diet: Low Fat, Low Sodium and Diabetic, Carb Controlled
Activity: As tolerated
Driving Restrictions: As prior to admission
Bathing Restrictions: None
Activity Restrictions/Additional Instructions:
Wound Care Instructions
R posterior lower leg: clean with soap and water, Aquaphor and dry dressing change q other day. Moisturize lower legs and feet with Aquaphor daily.
legs:Tubigrip size F knee high daily as tolerates
leg elevation when sitting
Instructions: COPD exacerbation - Discharge instructions
Referrals:
Vance Bryan MD [Active] - in two weeks
(Needs Hosp FU visit with [facility]NER in 2 weeks
Has appt with Dr Bryan 10/31/24, 3PM--KEEP also as follow up)
Selvin Anthony, DO [Family Provider] - in less than 1 week
Additional Discharge Medication Instructions: Take prednisone 30 mg by mouth tomorrow, and then go back to your usual dose of 10 mg daily.
Your metformin has been increased to 1000 mg twice daily.
Follow-up with your primary care physician in about 1 week and lung doctor in 2 weeks as scheduled.
Your valsartan and Lasix has been discontinued.
Prescriptions:
New
metformin 1,000 mg Tablet
1,000 mg PO BID@0800,1700 Qty: 60 0RF
Continued
atorvastatin 10 MG tablet
10 mg PO HS
ipratropium-albuterol 3 ML solution for nebulization
3 ml inhalation R BID
ropinirole 1 MG tablet
1 mg PO HS
clopidogrel 75 MG tablet
75 mg PO DAILY
metoprolol tartrate 50 MG tablet
50 mg PO BID
ferrous sulfate [iron] 325 mg (65 mg iron) Tablet
325 mg PO DAILY
magnesium oxide 500 mg magnesium Tablet
500 mg PO DAILY
budesonide 0.5 mg/2 mL Suspension For Nebulization
0.5 mg INHALATION R BID
albuterol sulfate [Ventolin HFA] 90 mcg/actuation Hfa Aerosol Inhaler
1 inh INHALATION R Q6HPRN PRN (Reason: sob)
coenzyme Q10 100 mg Capsule
100 mg PO DAILY
Visbiome 112.5 billion cell Capsule
1 cap PO DAILY
krill oil 500 mg Capsule
350 mg PO DAILY
prednisone 10 MG tablet
10 mg PO DAILY
guaifenesin [Mucus Relief ER] 600 MG tablet extended release 12hr
600 mg PO BID
therapeutic multivitamin Tablet
1 tab PO DAILY
azithromycin 500 mg Tablet
500 mg PO MOWEFR
Discontinued
furosemide 80 MG tablet
80 mg PO DAILY
valsartan 40 MG tablet
40 mg PO QPM
metformin 500 MG tablet extended release 24 hr
500 mg PO BID
Discharge Orders:
Discharge Patient (As Directed); Ordered 09/23/24
Ordered By: Mateusz Diane
Discharge Date and Time
Print Language: IRISH
[2024-09-23] MEDS: FERRLECIT 110 MG IV (13:18)
[2024-09-23 14:46] VITALS: BP 157/71
== END 2024-09-23 15:09 | disposition home health service (06) | DRG 193 ==
LOC: 4 EAST ACU 19:48
PROVIDERS: Hospitalist; Internal Medicine; Nurse Practitioner Primary Care; Registered Nurse; Student in an Organized Health Care Education/Training Program; ADMITTING PHYSICIAN Internal Medicine; ATTENDING PHYSICIAN Internal Medicine; CONSULT PHYSICIAN Internal Medicine Critical Care Medicine; EMERGENCY PHYSICIAN Emergency Medicine; FAMILY PHYSICIAN Family Medicine
PROC: 5A09357 Assistance with Respiratory Ventilation, Less than 24 Consecutive Hours, Continuous Positive Airway Pressure (ICD-10-PCS; 2024-09-19)
DX: J15.9 Unspecified bacterial pneumonia (principal); J96.21 Acute and chronic respiratory failure with hypoxia; J96.22 Acute and chronic respiratory failure with hypercapnia; I69.354 Hemiplegia and hemiparesis following cerebral infarction affecting left non-dominant side; N17.9 Acute kidney failure, unspecified; I50.32 Chronic diastolic (congestive) heart failure; J43.2 Centrilobular emphysema; E11.65 Type 2 diabetes mellitus with hyperglycemia; E78.00 Pure hypercholesterolemia, unspecified; I11.0 Hypertensive heart disease with heart failure; E11.36 Type 2 diabetes mellitus with diabetic cataract; E11.51 Type 2 diabetes mellitus with diabetic peripheral angiopathy without gangrene; D50.9 Iron deficiency anemia, unspecified; J98.4 Other disorders of lung; G47.33 Obstructive sleep apnea (adult) (pediatric); E66.01 Morbid (severe) obesity due to excess calories; I89.0 Lymphedema, not elsewhere classified; J30.0 Vasomotor rhinitis; G25.81 Restless legs syndrome; R91.8 Other nonspecific abnormal finding of lung field; E87.5 Hyperkalemia; Z99.81 Dependence on supplemental oxygen; Z79.52 Long term (current) use of systemic steroids; Z87.891 Personal history of nicotine dependence; Z87.01 Personal history of pneumonia (recurrent); Z79.84 Long term (current) use of oral hypoglycemic drugs; Z79.51 Long term (current) use of inhaled steroids; Z11.52 Encounter for screening for COVID-19; Z86.718 Personal history of other venous thrombosis and embolism; Z68.36 Body mass index [BMI] 36.0-36.9, adult; Z79.02 Long term (current) use of antithrombotics/antiplatelets; Z86.16 Personal history of COVID-19; Z82.5 Family history of asthma and other chronic lower respiratory diseases; Z80.1 Family history of malignant neoplasm of trachea, bronchus and lung; Z80.42 Family history of malignant neoplasm of prostate; Z99.3 Dependence on wheelchair; Z86.19 Personal history of other infectious and parasitic diseases
CPT/HCPCS: 71045; 80048; 80053; 82607; 82728; 82805; 82962; 83036; 83540; 83550; 83735; 83880; 84100; 84145; 84484; 85025; 85027; 85610; 85730; 87502; 87811; 93005; 94640; 94644; 94660; 96365; 96375; 97163; 97530; 99291; J2916

== ENCOUNTER 2024-10-03 03:23 | Inpatient (IN) | payer MEDICARE, SELFPAY ==
[2024-10-02 22:35] VITALS: BMI 33.8
[2024-10-02 22:40] VITALS: BP 134/65
[2024-10-02 23:00] VITALS: BP 166/140
--- NOTE | 2024-10-02 23:01 | ED.GENMED ---
History of Present Illness
General
Chief Complaint: Breathing Problem
Source: patient and ambulance crew
Exam Limitations: none
Time Seen by Provider: 10/02/24 22:48
Nursing documentation reviewed up to this point in time: agreed with
History of Present Illness
History of Present Illness:
79-year-old female with a past medical history of COPD, chronic respiratory failure (reportedly on home oxygen only at nighttime), hypertension, obesity who presents to the ER via EMS for evaluation of shortness of breath. Patient reports symptoms
have been worsening over the past week. She reports shortness of breath and coughing nonproductive. Denies any associated chest pain. Denies any fevers or chills. Denies any URI symptoms. Denies any GI symptoms. She has some swelling in the
legs which she says this is chronic and unchanged. Per EMS on their arrival had increased work of breathing and wheezing was given Solu-Medrol IV, DuoNeb on the way to the hospital. Of note patient was recently admitted to the hospital 09/19 until
09/23 for COPD exacerbation and acute on chronic respiratory failure�discharged on steroids which she is tapering down as well as Zithromax.
Past History
Past History
ED Past Medical History: COPD (Emphysema), CVA (Left sided weakness), HTN, Hypercholesterolemia, NIDDM and Other (PNA, H-pylori, )
ED Past Surgical History: Tonsilectomy (and adenoids) and Other (cataracts)
Social History
Tobacco: Former smoker
Alcohol: Occasional
Drug: None
Personal:
Living: with family
Employment: Retired
Review of Systems
Review of Systems
All Other Systems: ROS reviewed and negative except as documented in HPI and ROS
Constitutional: Denies fever or chills
Respiratory: Reports cough and trouble breathing
Cardiac: Denies chest pain
ABD/GI: Denies abdominal pain, nausea or vomiting
: Denies flank pain
Musculoskeletal: Reports edema (Chronic); Denies neck pain or back pain
Neurological: Denies headache
Phy Exam
Physical Exam
Physical Exam:
General: Awake, alert, oriented x3; mild to moderate respiratory distress
Head: Normocephalic, atraumatic
Eyes: Conjunctiva normal
Throat: Airway intact, handling secretions
Neck: Trachea midline, no JVD noted
Lungs: Bilateral diffuse wheezing with prolonged expiration and diminished air movement throughout; some increased work of breathing with accessory muscle use; speaking in 2-3 word sentences and prefers sitting in upright position; pulse ox
acceptable on 2 L nasal cannula
Heart: Tachycardia with regular rhythm, systolic murmur noted
Abd: Soft, non distended, nontender
Neuro: No gross deficits
Skin: Chronic venous stasis changes in the legs
Extremities: +2 pitting edema in the legs bilaterally; legs are warm well-perfused
Scores
Heart Failure Risk
Heart Failure Risk Score: Not Applicable
Heart Score for Chest Pain Patients
STEMI patient?: Not applicable
Withdrawal Assessment of Alcohol
Withdrawal Assessment Completed?: Not applicable
Course
Orders/Labs/Results
Orders:
Orders
10/02/24 22:48
Electrocardiogram (*1) Urgent
Reason for Study: Shortness of Breath
EKG- Treatment ONCE
Ipratropium/Albuterol Sulfate [Duoneb] 3 ml INH R NOW STA
CR Chest Portable - 1 View Urgent
Comment:
Reason For Exam: sob
Reason Study Needs to be Portable: Unable to Transport
10/02/24 22:57
Bipap [RESP] Urgent
Patient to use own unit?: No
Inspiratory Pressure (cm H2O): 12
Expiratory Pressure (cm H2O): 5
10/02/24 23:09
Furosemide [Lasix] 40 mg IV NOW STA
10/02/24 23:14
COVID-19 Antigen Urgent
Source: Nasal Swab
Influenza A+B Rapid Molecular Urgent
GAGE Source: Nasal Swab
Specimen Description:
10/02/24 23:26
Complete Blood Count/With Diff Urgent
Comprehensive Metabolic Panel Urgent
Lactate Level [Lactic Acid] Urgent
NT-proBNP Urgent
Venous Blood Gas Urgent
%Oxygen/Room Air: 90
Blood Culture Q30M
GAGE Source: Blood/Venous
Specimen Description:
Blood Culture Q30M
GAGE Source: Blood/Venous
Specimen Description:
10/02/24 23:35
Ipratropium/Albuterol Sulfate [Duoneb] 3 ml .ROUTE .STK-MED ONE
10/02/24 23:53
ABG [Arterial Blood Gas] Urgent
%Oxygen/Room Air: 84
10/03/24
CT Chest PE Study Urgent
Reason For Exam: worsening hypoxia, tachycardia
10/03/24 00:57
Azithromycin 500 mg/250 ml [Zithromax Infusion] 500 mg in 250 ml IV NOW
CefTRIAXone [Rocephin] 1,000 mg IV NOW STA
10/03/24 01:58
Procalcitonin Urgent
PCT Algorithmm Indication: Respiratory
10/03/24 02:01
Sterile Water [Sterile Water For Injection] 10 ml .ROUTE .STK-MED ONE
10/03/24 02:39
ABG [Arterial Blood Gas] Stat
%Oxygen/Room Air: 60
Comment: bipap
Abnormal Lab Results
10/02/24 10/02/24
23:26 23:53
WBC 17.0 H 10^3/uL
(4.8-10.8)
RBC 4.15 L 10^6/uL
(4.20-5.40)
Hgb 11.1 L g/dL
(12.0-16.0)
MCH 26.7 L pg
(27.0-31.0)
MCHC 28.8 L g/dL
(33.0-37.0)
RDW 14.7 H %
(11.5-14.5)
Abs Immat Gran (auto) 0.3 H 10^3/uL
(0-0.05)
Absolute Neuts (auto) 14.4 H 10^3/uL
(1.4-6.5)
Absolute Lymphs (auto) 0.9 L 10^3/uL
(1.2-3.4)
Absolute Monos (auto) 1.3 H 10^3/uL
(0.1-0.6)
Immature Gran % 1.6 H %
(0-0.5)
Neutrophils % 85.0 H %
(42.2-75.2)
Lymphocytes % 5.2 L %
(20.5-51.1)
pH 7.17 L*
(7.35-7.45)
pCO2 95 H* mmHg
(32-35)
pO2 151 H mmHg
(83-108)
HCO3 34.7 H mmol/L
(21-28)
ABG O2 Sat (Measured) 99.4 H %
(94-98)
VBG pH 7.18 L*
(7.32-7.43)
VBG pCO2 95 H* mmHg
(35-48)
VBG pO2 66 H mmHg
(30-50)
VBG HCO3 35.5 H mmol/L
(22-27)
Potassium 5.7 H mmol/L
(3.5-5.1)
Carbon Dioxide 33 H mmol/L
(22-30)
Glucose 155 H mg/dl
(70-99)
10/02/24 23:26
10/02/24 23:26
Vital Signs
Initial and Last Documented VS:
Initial Vital Signs
Temp BP
36.6 C 134/65
10/02/24 22:40 10/02/24 22:40
Last Documented Vital Signs
Temp Pulse Resp BP Pulse Ox
36.6 C 117 22 130/72 99
10/02/24 22:40 10/02/24 23:36 10/02/24 23:30 10/02/24 23:36 10/02/24 23:00
MDM/Problems Addressed
Differential Diagnosis Includes:
COPD exacerbation, pneumothorax, pneumonia, CHF
MDM/Problems Addressed:
79-year-old female presents with increasing shortness of breath and cough for the past few weeks. Tachycardic, tachypneic, hypoxic requiring 2 L nasal cannula�typically only on oxygen at nighttime to sleep. Mild to moderate respiratory distress as
described. Diffuse wheezing with prolonged expiration. She was given steroid and DuoNeb by EMS. Treat with additional DuoNeb. Trial of BiPAP. Will place an IV send labs including a CBC and a CMP, lactate and blood cultures. Check COVID and flu
swabs. Stat chest x-ray and EKG. Check VBG. Reassess after the above. Anticipate admission.
Chest x-ray reviewed by me does show pulmonary edema suspect some element of CHF with marked edema in the legs as well as pulmonary edema on chest x-ray;COPD also likely contributing with marked wheezing and diminished air movement.
Patient having worsening hypoxia on BiPAP�settings adjusted initially started 12/5 increased to 16/8 and oxygen turned up to [address] L[address]. [address] PE to rule out this diagnosis given recent hospitalization. Added ABG.
Hypoxia improving, titrating oxygen down. BiPAP settings stable.
Lab work reviewed: CBC shows leukocytosis to 17 unclear acute clinical significance as patient recently has been on steroids. Her CMP shows some mild hyperkalemia�has been treated with albuterol and Lasix. Her blood gas shows acute respiratory
acidosis with pH of 7.18 and pCO2 of 95. Patient is ventilating well on BiPAP. proBNP was elevated at 1580. COVID and flu swabs negative. CT chest was called back by radiology: Negative for PE but there was an area in the left lower lung
suspicious for pneumonia. At this point this is somewhat of a mixed picture: Certainly by exam she appears to be volume overloaded as she has +2 edema and she has pulmonary edema on chest x-ray with elevated proBNP certainly CHF a consideration.
However with marked wheezing, diminished air movement, CO2 retention I do suspect there is a component of COPD. While she has been coughing she has not been febrile; she has a leukocytosis could be from infection or from steroid use. Will add a
procalcitonin, cover at least with an initial dose of antibiotics, sent off blood cultures as noted above. Case discussed with hospitalist to facilitate admission.
Chronic conditions affecting care:
COPD and chronic respiratory failure
Acute Exacerbation and/or Progression of Chronic Illness:
Acute COPD exacerbation manage as above
Acute on chronic respiratory failure manage as above
*Radiology
Radiology exam reviewed: preliminary read by ED provider
*Pulse Oximetry
Patient hypoxic: yes
*EKG
Interpreted by ED Provider?: Yes
Heart Rate: 96
Rate: normal
Rhythm: sinus
[place]: normal axis
Interval: normal interval
QRS Pattern: low voltage
Ischemia: no ischemia
*Critical Care Note
Total Time (30-74mins, 75-104mins- exclusive of procedures): 33
comment:
Critical care statement: A total of 33 minutes of critical care time was provided for this patient. This includes management of unstable vital signs, evaluation of the patient at bedside, frequent reassessment, discussion with
consultants/hospitalist, and review of pertinent medical records. This time was separate from time utilized to perform any aforementioned documented procedures
Data Reviewed
Review of Other/Old Records Reveals: Labs and Records
Source: patient and ambulance crew
Patient Management
Discussion with other providers: Hospitalist (Discussed with hospitalist)
Escalation/DeEscalation of care consider admission/obs:
Admission indicated
ED Attending Note
-
Portions of this chart may have been created with voice recognition software.� Occasional wrong word or��sound alike� substitutions may have occurred due to the inherent limitations of voice recognition software.
Discharge Plan
Departure
Patient Disposition: Admit
Date of Disposition: 10/03/24
Time of Disposition: 00:58
Admit to doctor: Dangelo
Presentation/result/management discussed w/ accepting MD/DO: Hospitalist
Discharge Problem:
Acute and chronic respiratory failure, COPD exacerbation, CHF (congestive heart failure), Pneumonia
Prescriptions:
No Action
atorvastatin 10 MG tablet
10 mg PO HS
ipratropium-albuterol 3 ML solution for nebulization
3 ml inhalation R BID
ropinirole 1 MG tablet
1 mg PO HS
clopidogrel 75 MG tablet
75 mg PO DAILY
metoprolol tartrate 50 MG tablet
50 mg PO BID
ferrous sulfate [iron] 325 mg (65 mg iron) Tablet
325 mg PO DAILY
magnesium oxide 500 mg magnesium Tablet
500 mg PO DAILY
budesonide 0.5 mg/2 mL Suspension For Nebulization
0.5 mg INHALATION R BID
albuterol sulfate [Ventolin HFA] 90 mcg/actuation Hfa Aerosol Inhaler
1 inh INHALATION R Q6HPRN PRN (Reason: sob)
coenzyme Q10 100 mg Capsule
100 mg PO DAILY
Visbiome 112.5 billion cell Capsule
1 cap PO DAILY
krill oil 500 mg Capsule
350 mg PO DAILY
prednisone 10 MG tablet
10 mg PO DAILY
guaifenesin [Mucus Relief ER] 600 MG tablet extended release 12hr
600 mg PO BID
therapeutic multivitamin Tablet
1 tab PO DAILY
azithromycin 500 mg Tablet
500 mg PO MOWEFR
metformin 1,000 mg Tablet
1,000 mg PO BID@0800,1700 Qty: 60 0RF
Referrals:
Selvin Anthony DO [Family Provider] -
Interventions
Interventions:
*Risk Screen - Suicide Last Done: 10/02/24 22:40
*General Assessment Last Done: 10/02/24 22:40
*Neglect/Abuse Screening Last Done: 10/02/24 22:40
*ED- Fall Risk Assessment Last Done: 10/02/24 22:40
*ED COVID-19 Vaccine History Last Done: 10/02/24 22:40
ED- Cardiac Assessment Last Done: 10/02/24 23:41
ED- Pulmonary Assessment Last Done: 10/02/24 23:41
Discharge Date and Time
Print Language: YEMENI
[2024-10-02 23:05] VITALS: PULSE 128; PULSE 2
[2024-10-02 23:34] LABS: Venous Blood Gas B.E. 4.5 mmol/L (-4 to +4); Venous Blood Gas HCO3 35.5 mmol/L (22-27); Venous Blood Gas O2 Sat % 94.9 %; Venous Blood Gas pO2 66 mmHg (30-50)
[2024-10-02] MEDS: DUONEB 3 ML INH (23:35)
[2024-10-02] MEDS: LASIX 40 MG IV (23:36)
[2024-10-02 23:42] LABS: % Basophils 0.4 % (0-2); % Eosinophils 0.1 % (0-6); % Immature Granulocytes 1.6 % (0-0.5); % Lymphocytes 5.2 % (20.5-51.1); % Monocytes 7.7 % (1.7-9.3); Absolute Basophils 0.1 10^3/uL (0-0.2); Absolute Immature Granulocytes 0.3 10^3/uL (0-0.05); Absolute Lymphocytes 0.9 10^3/uL (1.2-3.4); Absolute Monocytes 1.3 10^3/uL (0.1-0.6); Absolute Neutrophils 14.4 10^3/uL (1.4-6.5); Hematocrit 38.5 % (37.0-47.0); Hemoglobin 11.1 g/dL (12.0-16.0); Mean Corp Hgb Conc. 28.8 g/dL (33.0-37.0); Mean Corpuscular Hgb 26.7 pg (27.0-31.0); Mean Corpuscular Volume 92.8 fL (81.0-99.0); Mean Platelet Volume 9.8 fL (7.4-10.4); Nucleated Red Blood Cells % 0 %; Platelet Count 290 10^3/uL (130-400); Red Blood Cell Count 4.15 10^6/uL (4.20-5.40); Red Cell Dist. Width 14.7 % (11.5-14.5); Venous Blood Gas O2 Therapy 90%; Venous Blood Gas pCO2 95 mmHg (35-48); Venous Blood Gas pH 7.18 (7.32-7.43)
[2024-10-02 23:50] VITALS: PULSE 2
[2024-10-02 23:54] LABS: ALT (SGPT) 31 U/L (0-35); AST (SGOT) 32 U/L (14-36); Albumin 4.4 g/dl (3.5-5.0); Alkaline Phosphatase 82 U/L (38-126); Blood Urea Nitrogen 11 mg/dl (7-17); Calcium 9.6 mg/dl (8.4-10.2); Carbon Dioxide 33 mmol/L (22-30); Chloride 99 mmol/L (98-107); Estimated Creatinine Clearance 54 ml/min; Glucose 155 mg/dl (70-99); Potassium 5.7 mmol/L (3.5-5.1); Sodium 139 mmol/L (135-145); Total Bilirubin 0.5 mg/dl (0.2-1.3); Total Protein 7.5 g/dl (6.3-8.2); eGFR > 60.00
[2024-10-02 23:55] LABS: Lactic Acid 0.8 mmol/L (0.7-2.0)
[2024-10-02 23:56] LABS: B.E. 3.8 mmol/L; HCO3 34.7 mmol/L (21-28); O2 Saturation % 99.4 % (94-98); PO2 151 mmHg (83-108)
[2024-10-02 23:58] LABS: O2 Therapy BIPAP @ 15%
[2024-10-03] VITALS (38 sets, daily range): BP systolic 102–158; BP diastolic 50–118; PULSE 2–98; BMI 22.8; BMI 25.0
[2024-10-03] LABS: NT-proBNP 1580 pg/ml
[2024-10-03 00:02] LABS: COVID-19 Antigen Negative (Negative)
[2024-10-03 00:04] LABS: pH 7.17 (7.35-7.45)
[2024-10-03 00:05] LABS: PCO2 95 mmHg (32-35)
[2024-10-03] MEDS: ZITHROMAX INFUSION 250 IV (01:59)
[2024-10-03] MEDS: ROCEPHIN 1000 MG IV (02:00)
--- NOTE | 2024-10-03 02:39 | HPS.HSE ---
Family Physician
-
Family Physician: Selvin Anthony
Chief Complaint
-
Acute worsening of shortness of breath
History of Present Illness
This is a 79-year-old female with past medical history of COPD who is dependent on home oxygen (4 L) as well as intermittent BiPAP, 1.5-pack-year smoking history, on chronic prednisone, chronic hypercapnic respiratory failure, hypertension,
restrictive lung disease, type 2 diabetes, GARY, recent admission for COPD exacerbation requiring ICU for BiPAP management and weaning will now presents to the emergency department with acute worsening of shortness of breath.
Patient unable to provide much history. During her last admission she was found to have COPD as well as TOBY which was thought to be secondary to medications. Valsartan and furosemide were held. On discharge spot with patient was feeling better
but not quite at baseline. She returned to 4 L of home O2 as well as a intermittent BiPAP. She has chronic lower extremity edema which she has passed reported has not changed recently. No significant weight change. She was just discharged about
10 days ago. No new sick contacts or fevers or chills at home. Nonproductive cough noted.
According to spouse patient felt different from her usual shortness of breath. She appears to be struggling to catch her breath. When she was put on BiPAP there was no improvement in breathing and in fact pulse ox went down. She also became more
confused and agitated and was too weak to be driven to the hospital so EMS was called.
She was brought into the [facility] and immediately placed on BiPAP. Initial blood gas was 7.1 7/95/151. Blood pressure was 130/74 with a heart rate of 117 and she was satting 99% on 10 L. CBC shows a white count of 17 (patient has been on steroids)
hemoglobin 11.9 ambulated to 90. Electrolytes BUN/creatinine with potassium of 5.7 bicarb of 33 with normal BUN and creatinine.
Chest diffuse acute interstitial cardiogenic edema which was reported as severe. She had a CT PE study which was negative for PE but showed mild cardiomegally, left lower lobe pneumonia, mild patchy consolidation within the posterior left lower
lobe concerning for pneumonia. Trace bilateral pleural effusion. Mild atelectasis and consolidation more inferiorly in the bilateral lower lobes.
Repeat Gas after 30 minutes shows no significant change.
Medical History
Past Medical History
Past Medical History: Reports Other
Additional Past Medical History:
Systolic and diastolic CHF
Hypertension
Hyperlipidemia
Nonsustained ventricular tachycardia
COPD
Type 2 diabetes
Stroke
Peripheral dural disease
Peripheral artery disease
Primary low-dose home
Restrictive lung disease
Lung nodules
Restless leg syndrome
DVT
Morbid obesity
H. pylori
Squamous cell cancer
Past Surgical History: Reports Other
Additional Past Surgical History:
Bilateral cataract surgery
Cancerous growth removed from right cough
Social History
Tobacco: Former Smoker
Alcohol: None
Drug: None
Personal:
Living: With Family
Family History
Family History: Not pertinent
Allergies / Home Medications
Allergies reflects when Allergies were last updated in [facility].
Home Medications with original date entered in [facility]
Allergy/Medication List:
Allergies
Allergy/AdvReac Type Severity Reaction Status Date / Time
No Known Allergies Allergy Verified 09/19/24 14:37
Home Medications
atorvastatin 10 mg tablet 10 mg PO HS High cholesterol 05/10/18
clopidogrel 75 mg tablet 75 mg PO DAILY Blood clot prevention/tx 09/16/21
ipratropium 0.5 mg-albuterol 3 mg (2.5 mg base)/3 mL nebulization soln 3 ml inhalation R BID Lung/breathing issues 09/16/21
metoprolol tartrate 50 mg tablet 50 mg PO BID Blood pressure 09/16/21
ropinirole 1 mg tablet 1 mg PO HS RESTLESS LEGS 09/16/21
Lactobac no.2-Bifidobac no.1-S. thermo 112.5 billion cell capsule (Visbiome) 1 cap PO DAILY Supplement 08/03/24
albuterol sulfate 90 mcg/actuation aerosol inhaler (Ventolin HFA) 1 inh inhalation R Q6HPRN PRN sob 08/03/24
budesonide 0.5 mg/2 mL suspension for nebulization 0.5 mg inhalation R BID Lung/Breathing Issues 08/03/24
coenzyme Q10 100 mg capsule 100 mg PO DAILY Supplement 08/03/24
ferrous sulfate 325 mg (65 mg iron) tablet (iron) 325 mg PO DAILY Supplement 08/03/24
guaifenesin 600 mg tablet, extended release 12 hr (Mucus Relief ER) 600 mg PO BID Congestion 08/03/24
krill oil 500 mg capsule 350 mg PO DAILY Supplement 08/03/24
magnesium oxide 500 mg PO DAILY Supplement 08/03/24
prednisone 10 mg tablet 10 mg PO DAILY Anti-Inflammatory 08/03/24
azithromycin 500 mg tablet 500 mg PO MOWEFR Anti-Inflammatory 09/19/24
therapeutic multivitamin 1 tab PO DAILY Supplement 09/19/24
metformin 1,000 mg tablet 1,000 mg PO BID@0800,1700 Diabetes #60 tabs 09/23/24
Review of Systems
-
Unable to obtain full review of systems at this time due to: Acuity
History Source: Family
Constitutional: Denies Fever, Night Sweats or Chills
EENT: Reports No Symptoms
Respiratory: Reports Cough and Trouble Breathing
Cardiac: Reports No Symptoms
Abdomen/GI: Reports No Symptoms
: Reports No Symptoms
Musculoskeletal: Reports No Symptoms
Skin: Reports No Symptoms
Neurological: Reports Other (confusion)
Endocrine: Reports No Symptoms
Hematologic/Lymphatic: Reports No Symptoms
Physical Exam
Vital Signs
Vital Signs
Temp Pulse Resp BP Pulse Ox
98 F 117 22 130/72 99
10/02/24 22:40 10/02/24 23:36 10/02/24 23:30 10/02/24 23:36 10/02/24 23:00
Physical Exam
General: Respiratory Distress and Morbidly Obese
HEENT: NormoCephalic, Anicteric, Moist mucous membranes, Atraumatic and Oxygen
Respiratory: Decreased Breath Sounds
Cardiac: S1/S2, Regular Rhythm and Tachycardia
Breast: Deferred by me
GI: Soft, Non Tender, Non Distended and Normal Bowel Sounds
Rectal: Deferred by Provider
Genito-urinary: Deferred by me
Musculoskeletal: No Clubbing and No Cyanosis
Skin: Warm
Neuro: Nonfocal/grossly intact
Hematologic/Lymphatic: No Lymphadenopathy
Psych: Calm
Laboratory Results
-
10/02/24 23:26
10/02/24 23:26
Laboratory Results
pH 7.17 (7.35-7.45) L* 10/02/24 23:53
pCO2 95 mmHg (32-35) H* 10/02/24 23:53
pO2 151 mmHg (83-108) H 10/02/24 23:53
HCO3 34.7 mmol/L (21-28) H 10/02/24 23:53
Lactic Acid 0.8 mmol/L (0.7-2.0) 10/02/24 23:26
Total Bilirubin 0.5 mg/dl (0.2-1.3) 10/02/24 23:26
AST 32 U/L (14-36) 10/02/24 23:26
ALT 31 U/L (0-35) 10/02/24 23:26
Alkaline Phosphatase 82 U/L (38-126) 10/02/24 23:26
Data Reviewed
-
Diagnostic Radiology: Image Personally Visualized and interpreted and Report Reviewed by me
CT Scan: Report Reviewed by me
Medical Tests (Nuc Med, Echo, EKG etc): Image Personally Visualized and interpreted
Lab Data: Labs Reviewed by me
Old Records: Reviewed
Impression/Plan
-
IMPRESSION:
79 y.o female with chronic oxygen dependent and hypercarbic respiratory failure 2/2 COPD, restrictive lung disease and GARY who was recently admitted and treated for COPD exacerbaton w/ discharge 10 days ago comes in with severe acute hypercarbic
respiratory failure. Unable to provide history due to encephalopathic state and respiratory distress. Findings are suggestive for COPD exacerbation with hospital acquired pneumonia as well as CHF exacerbation.
PLAN:
1. Respiratory failure - Acute respiratory failure. AT time of my interview she has low airmovement but was without wheezing. RR was down to 20 and she seemed more comfortable though still sleepy. Concern for worsening failure
- admit to icu
- will check repeat ABG after 2 hours on bipap 07/03
- if worsening blood gas will need VAPS with likely intubation
- blood cultures sent
- flu/covid negative
- will place on solumedrol 40mg iv q 6
- duonebs RTC and prn for now
- continue her azithromcyin for anti-inflammatory effect.
- paper grader consultation
2. PNA - LLL consolidation with recent hospital admission
- no sputum for cx
- check mrsa swab
- vancomycin/cefepime in addition to home azithromycin
- check procalcitonin
3. CHF - Lasix held since 09/[address] suggests mild volume overload
- s/p IV lasix in ED
- continue lasix 40 iv daily for now with hold parameters
- echo in am
- hold valsartan for now
- cardiology consult
DVT PPX - lovenox sq
Code status - full code
[2024-10-03 02:49] LABS: Procalcitonin 0.08 ng/ml (0.0-0.25)
[2024-10-03 03:16] LABS: B.E. 5.8 mmol/L; HCO3 35.1 mmol/L (21-28); O2 Saturation % 99.3 % (94-98); PO2 117 mmHg (83-108); pH 7.24 (7.35-7.45)
[2024-10-03 03:19] LABS: PCO2 82 mmHg (32-35)
[2024-10-03 05:50] LABS: Glucose - Point of Care 156 mg/dl (70-99)
[2024-10-03] MEDS: VANCOCIN 540 MG IV (06:39)
[2024-10-03] MEDS: SOLU-MEDROL PF 40 MG IV ×2 (06:46→15:05)
[2024-10-03] MEDS: STERILE WATER FOR INJECTION 10 ML IV ×3 (06:49→17:50)
[2024-10-03] MEDS: MAXIPIME 1000 MG IV ×3 (06:49→17:50)
[2024-10-03] MEDS: DUONEB 3 ML INH ×2 (07:06→17:18)
--- NOTE | 2024-10-03 07:18 | PTCARENOTE ---
Patient received in room 3364 on BiPaP setting 16/8 & 10 L. Oriented x3. Pupils are +3 and reactive. MAEx4. Plan of care for the remainder of the shift reviewed with the patient. Sinus rhythm on the monitor. SpO2 at 100% on BiPaP. Breath sounds are
diminished. CHU and orthopnea. +BS. Abdomen is round and obese. Purewick in placed. Right wrist IV removed due to pain while flushing. Right calf wound from cancer removal , per the pt's spouse. Pt's with scattered bruising to bilateral upper arms.
Left lateral knee scabbed ecchymosis-purple. Patient cleansed with CHG wipes.Pt's spouse is at the bedside. Unit orientation provided. All needs are met at this time. Call marie is within reach.
--- NOTE | 2024-10-03 08:27 | CON.INTV ---
Consultation
Consultation Request
Date/Time Consultation Requested: 10/03/2024
Date/Time Consultation Performed: 10/03/2024
Requesting Provider: Dr. Lewis
Performing Provider: Dr. Shafer
Reason for Consultation: Acute hypercapnia
Medical History
-
Chief Complaint: SOB
History of Present Illness:
79-year-old female former tobacco smoker with [id number] history (quit October 2013) with a past medical history of moderate�severe COPD on chronic prednisone and 4 L/min ATC, chronic hypercapnic respiratory failure on NIV via Astral 100,
hypertension, history of stroke (October 2013), memory loss, history of restrictive lung disease, history of H. pylori, history of COVID-19 (08/2023), DM type II, RLS, snoring and history of right calf SCC who presents with shortness of breath. At
home she was short of breath and put on her BiPAP which did not lead to improvement so 911 was called. Initially in the ER she was afebrile to 98 �F, pulse rate 119, respiratory rate 21, BP 134/65 and saturating 90% on 4 L/min. Initial labs showed
leukocytosis to 17, Hb 11.1, acute on chronic hypercapnia with pH 7.17 and pCO2 95, potassium level 5.7, creatinine 0.8, proBNP 1580, procalcitonin 0.08 and COVID-19 antigen negative. Initial CXR showed acute pulmonary edema with a small left-sided
pleural effusion. CTA chest showed no evidence of a PE with a left lower lobe pneumonia and scattered pulmonary nodules with small bilateral pleural effusions. In the ER she was given DuoNebs, Zithromax, ceftriaxone and 40 mg IV Lasix. Given her
blood gas findings with acute on chronic hypercapnia, she was transitioned to noninvasive ventilation and admitted to the ICU. Promotions Coordinator services consulted for additional management/recommendations.
Patient seen and evaluated this AM. She was on BiPAP this morning at 16/8 cmH2O and blood gas looked well and she was transitioned to nasal cannula. She is awake, alert and answering questions appropriately. at bedside and all questions
were answered. Heart rate 95, BP 140/80 and she is saturating 97% on 4 L/min.
Of note patient follows with our office with Dr. Bryan, last visit on 04/10/2024. She is on DuoNebs + budesonide BID, prednisone 10 mg daily + Zithromax TIW. She has a mixed obstructive and restrictive defect on her breathing test. She has a
history of stable lung nodules with last CT in 2021. She is deconditioned with poor exercise tolerance. She has had a history of chronic CO2 retention and is on an Astral 100 noninvasive ventilator at home. Her last PFT was on 04/11/2024 showing
moderate COPD with no evidence of restriction and normal gas exchange capacity with DLCO: 91% predicted.
PMHx: Moderate�severe COPD on chronic prednisone, Zithromax TIW on chronic O2 at 4 L/min ATC, chronic hypercapnic respiratory failure on NIV via Astral 100, hypertension, history of stroke, hyperlipidemia, peripheral arterial disease, memory loss,
restrictive lung disease, gas exchange deficit, lung nodules, history of DVT, history of H. pylori, history of COVID-19 (08/2023), DM type II, restless leg syndrome, snoring, history of right calf squamous cell carcinoma
PSHx: Bilateral cataract surgery, cancerous growth removed from right calf
Past Medical History
Past Medical History: Other (Above as per HPI)
Past Surgical History: Other (Above as per HPI)
Social History
Tobacco: Former Smoker (Former [id number] history, quit in October 2013 when she had a stroke)
Alcohol: None
Drug: None
Personal:
Living: With Family ( = Doyle)
Family History
Family History: Cancer (Mother: Lung cancer; Father: Prostate cancer) and Other (Mother: COPD)
Allergies / Home Medications
Allergies
Allergy/AdvReac Type Severity Reaction Status Date / Time
No Known Allergies Allergy Verified 09/19/24 14:37
Home Medications
�Medication �Instructions �Recorded �Confirmed �Last Taken �Type
atorvastatin 10 mg tablet 10 mg PO HS High cholesterol 05/10/18 10/03/24 10/01/24 History
clopidogrel 75 mg tablet 75 mg PO DAILY Blood clot 09/16/21 10/03/24 10/01/24 History
prevention/tx
ipratropium 0.5 mg-albuterol 3 mg 3 ml inhalation R BID 09/16/21 10/03/24 10/01/24 History
(2.5 mg base)/3 mL nebulization Lung/breathing issues
soln
metoprolol tartrate 50 mg tablet 50 mg PO BID Blood pressure 09/16/21 10/03/24 10/01/24 History
ropinirole 1 mg tablet 1 mg PO HS RESTLESS LEGS 09/16/21 10/03/24 10/01/24 History
Lactobac no.2-Bifidobac no.1-S. 1 cap PO DAILY Supplement 08/03/24 10/03/24 10/01/24 History
thermo 112.5 billion cell capsule
(Visbiome)
albuterol sulfate 90 mcg/actuation 1 inh inhalation R Q6HPRN PRN sob 08/03/24 10/03/24 10/01/24 History
aerosol inhaler (Ventolin HFA)
budesonide 0.5 mg/2 mL suspension 0.5 mg inhalation R BID 08/03/24 10/03/24 10/01/24 History
for nebulization Lung/Breathing Issues
coenzyme Q10 100 mg capsule 100 mg PO DAILY Supplement 08/03/24 10/03/24 10/01/24 History
ferrous sulfate 325 mg (65 mg 325 mg PO DAILY Supplement 08/03/24 10/03/24 10/01/24 History
iron) tablet (iron)
guaifenesin 600 mg tablet, 600 mg PO BID Congestion 08/03/24 10/03/24 10/01/24 History
extended release 12 hr (Mucus
Relief ER)
krill oil 500 mg capsule 350 mg PO DAILY Supplement 08/03/24 10/03/24 10/01/24 History
magnesium oxide 500 mg PO DAILY Supplement 08/03/24 10/03/24 10/01/24 History
prednisone 10 mg tablet 10 mg PO DAILY Anti-Inflammatory 08/03/24 10/03/24 10/01/24 History
azithromycin 500 mg tablet 500 mg PO MOWEFR Anti-Inflammatory 09/19/24 10/03/24 10/01/24 History
therapeutic multivitamin 1 tab PO DAILY Supplement 09/19/24 10/03/24 10/01/24 History
metformin 1,000 mg tablet 1,000 mg PO BID@0800,1700 Diabetes 09/23/24 10/03/24 10/02/24 Rx
#60 tabs
Review of Systems
-
History Source: Patient
All other systems: Negative unless noted
Vitals / Labs / Diagnostic Testing
Vital Signs
Temp Pulse Resp BP Pulse Ox
98.7 F 93 20 131/57 99
10/03/24 05:41 10/03/24 08:00 10/03/24 08:04 10/03/24 08:00 10/03/24 08:17
Lab Data
10/03/24 08:56
Laboratory Results
10/02/24 10/03/24
23:53 03:06
pH 7.17 L* 7.24 L
pCO2 95 H* 82 H*
pO2 151 H 117 H
HCO3 34.7 H 35.1 H
O2 Delivery Level Bipap @ 15%
Microbiology
10/02/24 23:14 Nasal Swab Influenza Types A & B (KELLEN) - Final
Negative for Influenza A & B, NAAT
Negative results must be combined with clinical observations
and patient history.
Nucleic Acid Amplification test (NAAT)performed on the
[employer] platform.
Diagnostic Testing:
Physical Exam
-
HEENT: Normocephalic, Anicteric and Other (Thick neck)
Cardiovascular: S1/S2 and Murmur (ROGERIO heard across precordium)
Respiratory: Wheeze (negative), Rales (Bibasilar (L>R)), Rhonchi (negative) and Non-Labored Respirations
GI: Soft, Non Distended, Non Tender and Normal Bowel Sounds
Neurology: AO x 3 and Tremors (negative)
Skin: Warm, Dry and Other (Area of redness along lateral right lower extremity)
General: Respiratory Distress (negative), Comfortable, Fever (negative) and Chills (negative)
Assessment
-
Assessment: 79-year-old female former tobacco smoker with [id number] history (quit October 2013) with a past medical history of moderate�severe COPD on chronic prednisone and 4 L/min ATC, chronic hypercapnic respiratory failure on NIV via Astral
100, hypertension, history of stroke (October 2013), memory loss, history of restrictive lung disease, history of H. pylori, history of COVID-19 (08/2023), DM type II, RLS, snoring and history of right calf SCC who presents with shortness of breath.
At home she was short of breath and put on her BiPAP which did not lead to improvement so 911 was called. Initially in the ER she was afebrile to 98 �F, pulse rate 119, respiratory rate 21, BP 134/65 and saturating 90% on 4 L/min. Initial labs
showed leukocytosis to 17, Hb 11.1, acute on chronic hypercapnia with pH 7.17 and pCO2 95, potassium level 5.7, creatinine 0.8, proBNP 1580, procalcitonin 0.08 and COVID-19 antigen negative. Initial CXR showed acute pulmonary edema with a small
left-sided pleural effusion. CTA chest showed no evidence of a PE with a left lower lobe pneumonia and scattered pulmonary nodules with small bilateral pleural effusions. In the ER she was given DuoNebs, Zithromax, ceftriaxone and 40 mg IV Lasix.
Given her blood gas findings with acute on chronic hypercapnia, she was transitioned to noninvasive ventilation and admitted to the ICU. Promotions Coordinator services consulted for additional management/recommendations.
Chronic conditions CLIENT CARE MANAGER: Moderate�severe COPD on chronic prednisone, Zithromax TIW on chronic O2 at 4 L/min ATC, chronic hypercapnic respiratory failure on NIV via Astral 100, hypertension, history of stroke, hyperlipidemia, peripheral arterial
disease, memory loss, restrictive lung disease, gas exchange deficit, lung nodules, history of DVT, history of H. pylori, history of COVID-19 (08/2023), DM type II, restless leg syndrome, snoring, history of right calf squamous cell carcinoma
Impression:
#Acute on chronic hypoxic + hypercapnic respiratory failure requiring continuous BiPAP
#Hyperkalemia
#Elevated proBNP (1580 on 10/02/2024, of note, was 341 on 09/19/2024)
#Chronic anemia with iron deficiency
#History of elevated eosinophil count (absolute eos were 600 in August 2021)
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
#History of hypertension
#History of H. pylori
#History of pneumonia
#Former tobacco use disorder (former [id number] history, quit in October 2013)
#History of restless leg syndrome on ropinirole
#Rhinorrhea likely vasomotor rhinitis improved on Atrovent nasal spray
Plan:
- Continue with diuresis given concern for acute Heart Failure and maintain net negative fluid balance as BP and sCr, sNa and sCHO3 tolerate
- Cardiology following - recs apprecated
- Trend blood gas and if stable then will give break off BiPAP and resume nasal cannula, and continue BiPAP with sleep and prn during the day
- Ok to use BiPAP 16/8cmH2O while hospitalized as she uses an Astral 100 noninvasive ventilator at home with EPAP range 5-10 cmH2O, pressure support range 4�20 cmH2O with inspiratory time range 0.2 seconds - 1.5 seconds.
- Maintain SpO2 88-95%
- Continue aspiration precautions keeping HOB >30-45�
- At home for her COPD/asthma, she is on prednisone 10 mg daily, DuoNebs + budesonide BID with azithromycin 500 mg TIW
- Continue with systemic steroids and wean as tolerated as she clinically improves -okay to lowered from Solu-Medrol 40 mg IV q6hr --> q8hr today
- Change nebs to budesonide + duonebs BID
- prn nebulized bronchodilators - not currently bronchospastic
- Mucolytics with mucinex
- Continue with antibiotics with cefepime given LLL-PNA, although procalcitonin is 0.08 --> continue to trend procalcitonin in 48 hrs as initial levels could be falsely low/normal
- Trend WBC and monitor for fevers
- Continue home dose of zithromax
- Urine antigens for Legionella + strep pneumonia both negative
- Follow-up blood cultures collected on 10/02/2024
- Follow-up MRSA screen
- Maintain MAP>65
- Replete electrolytes with K>4, Mg>2
- Maintain euglycemia with goal BG 140-180 torin while on high dose steroids
- Trend H/H and transfuse if needed to keep Hb>7g/dL; keep plt>20k, unless there is concern for bleeding then keep plt>50k
- Incentive spirometer encouraged 10x per hour for at least 4 hrs a day
- PT/OT
- DVT ppx: LMWH
Patient is stable for downgrade out of ICU to IMU level care. Pulmonary service will continue to follow along. Ultimately she should follow-up with our office again with Dr. Bryan as last visit was 04/10/2024. Of note, she does have a follow-up
appointment already scheduled for 10/29/2024. This may need to be moved up depending how her hospital course ensues.
Data:
CTA chest 10/03/2024:
1. No evidence of central, lobar or segmental pulmonary embolism.
2. There is a patchy opacity within the left lower lobe which is suspicious for pneumonia.
3. There are scattered pulmonary nodules measuring up to 4 mm. There is a nodule in the apical right upper lobe which appears slightly increased in size from prior. Additionally there is a nodule in the right middle lobe which appears new from
prior. Consider follow-up CT chest to ensure stability.
4. Moderate, apical predominant centrilobular and paraseptal emphysematous changes.
Total time spent today was 79 minutes for this encounter. Time includes reviewing laboratory test/imaging results, reviewing pertinent medical records, obtaining and reviewing medical history, performing an appropriate exam, ordering medications,
tests and procedures. Time also includes documentation of this encounter, coordinating patient care and communicating with other healthcare professionals. Total time does not include separately billed tests performed on this date of service.
--- NOTE | 2024-10-03 08:28 | CON.CAR ---
Consultation
Consultation Request
Date/Time Consultation Requested: 10/03/2024 8 AM
Date/Time Consultation Performed: 10/03/2024 8:30 AM
Requesting Provider: hospitalist
Performing Provider: Dr. Stanley
Medical History
-
History of Present Illness:
79-year-old woman with past medical history noted below patient presented with increased shortness of breath. Admitted to ICU under hospitalist service. Chest x-ray raise question of pulmonary edema. She also had a CT PE study which was negative
for PE and showed left lower lobe pneumonia mild patchy consolidation concerning for pneumonia. Trace bilateral pleural effusion. Patient receiving antibiotics and received Lasix 40 mg IV.
Note the patient's last discharge from the hospital was 09/19/2024. She had TOBY and based on notes valsartan and Lasix were hel. Patient states that her instructions were to remain off Lasix postdischarge so she did not take her Lasix however it
does appear to be listed on the discharge form.
Past medical history
COPD/O2 dependent
Nonischemic cardiomyopathy with ejection fraction 45 to 50% which has since normalized.
Type 2 diabete hypertension
NSVT
CVA
PAD
Hypertension
Hyperlipidemia
Echocardiogram 09/19/2021
Normal biventricular size and systolic function without regional wall motion
abnormality.
Mild concentric left ventricular hypertrophy.
Aortic sclerosis without significant stenosis or regurgitation.
ECG normal sinus rhythm
Chest CT 10/02/2024IMPRESSION:
1. No evidence of central, lobar or segmental pulmonary embolism.
2. There is a patchy opacity within the left lower lobe which is suspicious for pneumonia.
3. There are scattered pulmonary nodules measuring up to 4 mm. There is a nodule in the apical right upper lobe which appears slightly increased in size from prior. Additionally there is a nodule in the right middle lobe which appears new from
prior. Consider follow-up CT chest to ensure stability.
4. Moderate, apical predominant centrilobular and paraseptal emphysematous changes.
Chest x-ray 10/02/2024
1. SEVERE ACUTE INTERSTITIAL and ALVEOLAR CARDIOGENIC PULMONARY EDEMA.
2. Small left pleural effusion.
3. Mild cardiomegaly.
4. Mild left to right mediastinal shift.
Past Medical History
Past Medical History: Other (As above)
Social History
Living: Other (Family at bedside)
Family History
Family History: Reviewed & Not Pertinent
Allergies / Home Medications
Allergy/AdvReac Type Severity Reaction Status Date / Time
No Known Allergies Allergy Verified 09/19/24 14:37
�Medication �Instructions �Recorded �Confirmed �Type
atorvastatin 10 mg tablet 10 mg PO HS High cholesterol 05/10/18 10/03/24 History
clopidogrel 75 mg tablet 75 mg PO DAILY Blood clot 09/16/21 10/03/24 History
prevention/tx
ipratropium 0.5 mg-albuterol 3 mg 3 ml inhalation R BID 09/16/21 10/03/24 History
(2.5 mg base)/3 mL nebulization Lung/breathing issues
soln
metoprolol tartrate 50 mg tablet 50 mg PO BID Blood pressure 09/16/21 10/03/24 History
ropinirole 1 mg tablet 1 mg PO HS RESTLESS LEGS 09/16/21 10/03/24 History
Lactobac no.2-Bifidobac no.1-S. 1 cap PO DAILY Supplement 08/03/24 10/03/24 History
thermo 112.5 billion cell capsule
(Visbiome)
albuterol sulfate 90 mcg/actuation 1 inh inhalation R Q6HPRN PRN sob 08/03/24 10/03/24 History
aerosol inhaler (Ventolin HFA)
budesonide 0.5 mg/2 mL suspension 0.5 mg inhalation R BID 08/03/24 10/03/24 History
for nebulization Lung/Breathing Issues
coenzyme Q10 100 mg capsule 100 mg PO DAILY Supplement 08/03/24 10/03/24 History
ferrous sulfate 325 mg (65 mg 325 mg PO DAILY Supplement 08/03/24 10/03/24 History
iron) tablet (iron)
guaifenesin 600 mg tablet, 600 mg PO BID Congestion 08/03/24 10/03/24 History
extended release 12 hr (Mucus
Relief ER)
krill oil 500 mg capsule 350 mg PO DAILY Supplement 08/03/24 10/03/24 History
magnesium oxide 500 mg PO DAILY Supplement 08/03/24 10/03/24 History
prednisone 10 mg tablet 10 mg PO DAILY Anti-Inflammatory 08/03/24 10/03/24 History
azithromycin 500 mg tablet 500 mg PO MOWEFR Anti-Inflammatory 09/19/24 10/03/24 History
therapeutic multivitamin 1 tab PO DAILY Supplement 09/19/24 10/03/24 History
metformin 1,000 mg tablet 1,000 mg PO BID@0800,1700 Diabetes 09/23/24 10/03/24 Rx
#60 tabs
Review of Systems
-
All other systems: Negative unless noted
Physical Exam
Vital Signs
Temp Pulse Resp BP Pulse Ox
98.7 F 93 20 131/57 99
10/03/24 05:41 10/03/24 08:00 10/03/24 08:04 10/03/24 08:00 10/03/24 08:17
Lab Results
Zvx-E-Olhypodahou Pept 1580 pg/ml 10/02/24 23:26
Physical Exam
General: Well Developed
HEENT: Normocephalic and Anicteric
Cardiac: Regular Rhythm
GI: Soft, Non Tender, Non Distended, Normal Bowel Sounds and Organomegaly (None detected)
Musculoskeletal: No Clubbing, No Cyanosis and No Edema
Skin: Warm, Dry and Rash (None)
Neuro: Awake and Alert
Hematologic/Lymphatic: No Lymphadenopathy
Psych: Calm
Impression / Plan
-
Shortness of breath. May be multifactorial. Patient has O2 dependent COPD and is also on chronic prednisone. Patient with increased shortness of breath combination of factors including COPD, pneumonia and possible component of heart failure may
all contribute.
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
-Optimization of treatment of COPD as directed by pulmonary
-Will continue to monitor with use of IV diuretic and closely monitor renal function
.
Left heart failure
History of left heart failure. Patient had transient cardiomyopathy in the past with ejection fraction 45 to 50% was normalized by most recent echo.
-proBNP 1500
-Patient had been on Lasix 80 mg a day prior to last hospitalization it was held during the hospitalization and she states that she was told not to start it. It was still on her the discharge med list.
Patient may have acute decompensated heart failure related to discontinuation of diuretic
-Patient currently on IV Lasix. Will monitor response
-Follow-up echo
.
Diabetes management as directed by primary team
-Hypertension. Stable continue current therapy
-Dyslipidemia. Statin
Data Reviewed
-
EKG: Tracing Personally Visualized and interpreted and Report Reviewed by me
Radiology: Report Reviewed by me
Medical Tests (Nuc Med, Echo etc): Report Reviewed by me
Labs: Labs Reviewed by me
Critical Care Time (in minutes): 45
--- NOTE | 2024-10-03 09:17 | VNURNOTE ---
Chart reviewed.� Patient is current with [facility] nursing.� Will continue to follow hospital course and DC plans.
[2024-10-03 09:21] LABS: Hematocrit 33.6 % (37.0-47.0); Hemoglobin 9.6 g/dL (12.0-16.0); Mean Corp Hgb Conc. 28.6 g/dL (33.0-37.0); Mean Corpuscular Hgb 26.6 pg (27.0-31.0); Mean Corpuscular Volume 93.1 fL (81.0-99.0); Mean Platelet Volume 9.6 fL (7.4-10.4); Platelet Count 245 10^3/uL (130-400); Red Blood Cell Count 3.61 10^6/uL (4.20-5.40); Red Cell Dist. Width 14.6 % (11.5-14.5); White Blood Cell Count 8.2 10^3/uL (4.8-10.8)
[2024-10-03 09:38] LABS: Blood Urea Nitrogen 13 mg/dl (7-17); Calcium 9.1 mg/dl (8.4-10.2); Carbon Dioxide 35 mmol/L (22-30); Chloride 100 mmol/L (98-107); Estimated Creatinine Clearance 66 ml/min; Glucose 161 mg/dl (70-99); Magnesium 1.9 mg/dl (1.6-2.3); Phosphorus 3.9 mg/dl (2.5-4.5); Potassium 5.6 mmol/L (3.5-5.1); Sodium 140 mmol/L (135-145); eGFR > 60.00
[2024-10-03 09:39] LABS: B.E. 5.1 mmol/L; HCO3 32.5 mmol/L (21-28); O2 Saturation % 98.7 % (94-98); PCO2 63 mmHg (32-35); PO2 95 mmHg (83-108); pH 7.32 (7.35-7.45)
[2024-10-03 09:40] LABS: O2 Therapy 6L/min
[2024-10-03 09:41] LABS: INR 1.04; PT 13.9 Sec (11.4-14.6)
[2024-10-03] MEDS: MUCINEX 600 MG PO ×2 (10:46→21:58)
[2024-10-03] MEDS: PLAVIX 75 MG PO (10:47)
[2024-10-03] MEDS: LOPRESSOR 50 MG PO ×2 (10:47→21:58)
[2024-10-03] MEDS: LASIX 40 MG IV ×2 (10:47→15:07)
[2024-10-03] MEDS: ZITHROMAX 500 MG PO (10:59)
--- NOTE | 2024-10-03 11:00 | PTCARENOTE ---
Pt was very difficult stick for lab work this am; IVT was called to place 2nd line and draw labs; midline ultimately had to be placed in right brachial; pt and daughter updated on plan of care and medications for shift
[2024-10-03] MEDS: DUONEB INH (12:10)
[2024-10-03 12:52] LABS: Glucose - Point of Care 144 mg/dl (70-99)
--- NOTE | 2024-10-03 13:15 | W.PN.UPDATE ---
Update Note
Progress Note Update
Seen and examined independent of overnight physician. Nonbillable note
Patient currently on 4 L of oxygen. Was on BiPAP overnight
Says mentation has improved significantly. Spouse at bedside and agrees. Patient mentation seems to be at baseline.
General: Respiratory Distress and Morbidly Obese
HEENT: NormoCephalic, Anicteric, Moist mucous membranes, Atraumatic and Oxygen
Respiratory: Decreased Breath Sounds
Cardiac: S1/S2, Regular Rhythm and Tachycardia
Breast: Deferred by me
GI: Soft, Non Tender, Non Distended and Normal Bowel Sounds
Rectal: Deferred by Provider
Genito-urinary: Deferred by me
Musculoskeletal: No Clubbing and No Cyanosis
Skin: Warm
Neuro: Nonfocal/grossly intact
Hematologic/Lymphatic: No Lymphadenopathy
Psych: Calm
IMPRESSION:
79 y.o female with chronic oxygen dependent and hypercarbic respiratory failure 2/2 COPD, restrictive lung disease and GARY who was recently admitted and treated for COPD exacerbaton w/ discharge 10 days ago comes in with severe acute hypercarbic
respiratory failure. Unable to provide history due to encephalopathic state and respiratory distress. Findings are suggestive for COPD exacerbation with hospital acquired pneumonia as well as CHF exacerbation.
PLAN:
#Acute on chronic hypoxic and hypercapnic respiratory failure
#Toxic metabolic encephalopathy
- blood cultures sent
- flu/covid negative
- will place on solumedrol 40mg iv q 6
- duonebs RTC and prn for now
- continue her azithromcyin for anti-inflammatory effect.
-Improvement in mentation. Back to baseline folate off oxygenation. Repeat ABG. BiPAP per police lieutenant precinct/pulmonary
- police lieutenant precinct consultation
# PNA - LLL consolidation with recent hospital admission
- no sputum for cx
- check mrsa swab, check Legionella and strep antigen
- vancomycin/cefepime in addition to home azithromycin
- check procalcitonin
#Acute on chronic HFpEF
- s/p IV lasix in ED
- continue lasix 40 iv daily for now with hold parameters
- echo in am
- hold valsartan for now
- cardiology consult
#Diabetes mellitus type 2
-A1c 6.4
-metformin on hold
-SSI. Accu-Cheks.
#Essential hypertension
#History of NSVT
-Continue metoprolol.
#History of CVA
-Continue home Plavix and atorvastatin.
#Hyperlipidemia
-Continue atorvastatin
#Iron deficiency anemia
-Follow CBC.
-Replete.
#Restless leg syndrome
-Continue Requip
DVT PPX - lovenox sq
Code status - full code
Discussed with police lieutenant precinct
Discussed with patient spouse at bedside in details
--- NOTE | 2024-10-03 13:46 | CM ---
CM following re: discharge planning.
Discussed in Rounds, reviewed pt's chart, met with p[t and pt's daughter Bee at bedside.
pt is an 79 year old female, admitted with primary dx of Acute on chronic hypoxic and hypercapnic respiratory failure.
Pt reports she lives with 2SH, 1 step to enter, has 2 supportive children. Pt reports she mostly uses a wheelchair, uses a walker for a short distance 5-6 feet, has home Oxygen and 4L NC at baseline, has Bi-pap, nebulizer machine. Pt stated
she would like to increase her functional ability with a plan to walk only with a walker and pt stated she wants to go to a SNF for a short term rehab and she preferred [facility] or [facility].
PT and OT consult requested.
PCP: Selvin Anthony
Pharmacy: [facility].
D/C plan: [facility] or [facility] per family choice. No referral has been made yet. Will make a referral after PT/OT evaluations and recommendations.
CM will follow to assist pt with discharge to a preferred SNF.
[2024-10-03] MEDS: SOLU-MEDROL PF IV (14:21)
[2024-10-03] MEDS: PULMICORT 0.5 MG INH (17:17)
[2024-10-03 17:20] LABS: Glucose - Point of Care 153 mg/dl (70-99)
[2024-10-03 17:31] LABS: B.E. 9.9 mmol/L; HCO3 38.3 mmol/L (21-28); O2 Saturation % 98.5 % (94-98); PO2 86 mmHg (83-108); pH 7.31 (7.35-7.45)
[2024-10-03 17:38] LABS: PCO2 76 mmHg (32-35)
[2024-10-03] MEDS: LOVENOX 40 MG SC (17:57)
[2024-10-03] MEDS: NOVOLOG FLEXPEN-MODERATE RESISTANCE 1 UNITS SC (17:59)
--- NOTE | 2024-10-03 18:31 | PTCARENOTE ---
Patient ending shift on her home 4L NC; voiding via purewick; continuing IV diuresis; blood gas ordered for 0600 10/04; see mar/flowsheets for further care details
[2024-10-03] MEDS: REQUIP 1 MG PO (21:58)
[2024-10-03] MEDS: LIPITOR 10 MG PO (21:58)
[2024-10-03 21:59] LABS: Glucose - Point of Care 185 mg/dl (70-99)
[2024-10-04] VITALS (28 sets, daily range): BP systolic 93–174; BP diastolic 53–109; PULSE 2–90; O2SAT 97–98; BMI 37.0
[2024-10-04] MEDS: MAXIPIME 1000 MG IV ×3 (00:55→16:39)
[2024-10-04] MEDS: SOLU-MEDROL PF 40 MG IV ×3 (00:56→16:40)
[2024-10-04] MEDS: STERILE WATER FOR INJECTION 10 ML IV ×3 (00:56→16:40)
[2024-10-04 04:36] LABS: B.E. 9.9 mmol/L; HCO3 36.7 mmol/L (21-28); O2 Saturation % 96.6 % (94-98); PCO2 62 mmHg (32-35); PO2 67 mmHg (83-108); pH 7.38 (7.35-7.45)
[2024-10-04 06:05] LABS: % Basophils 0.2 % (0-2); % Immature Granulocytes 0.7 % (0-0.5); % Lymphocytes 4.4 % (20.5-51.1); % Monocytes 5.5 % (1.7-9.3); % Neutrophils 89.2 % (42.2-75.2); Absolute Immature Granulocytes 0.1 10^3/uL (0-0.05); Absolute Lymphocytes 0.4 10^3/uL (1.2-3.4); Absolute Monocytes 0.5 10^3/uL (0.1-0.6); Absolute Neutrophils 7.9 10^3/uL (1.4-6.5); Hematocrit 29.4 % (37.0-47.0); Hemoglobin 8.9 g/dL (12.0-16.0); Mean Corp Hgb Conc. 30.3 g/dL (33.0-37.0); Mean Corpuscular Hgb 27.1 pg (27.0-31.0); Mean Corpuscular Volume 89.6 fL (81.0-99.0); Mean Platelet Volume 10.1 fL (7.4-10.4); Nucleated Red Blood Cells % 0 %; Platelet Count 258 10^3/uL (130-400); Red Blood Cell Count 3.28 10^6/uL (4.20-5.40); Red Cell Dist. Width 14.6 % (11.5-14.5); White Blood Cell Count 8.9 10^3/uL (4.8-10.8)
[2024-10-04 06:31] LABS: NT-proBNP 1110 pg/ml
[2024-10-04 06:32] LABS: Blood Urea Nitrogen 32 mg/dl (7-17); Calcium 9.1 mg/dl (8.4-10.2); Carbon Dioxide 36 mmol/L (22-30); Chloride 96 mmol/L (98-107); Estimated Creatinine Clearance 40 ml/min; Glucose 157 mg/dl (70-99); Phosphorus 3.5 mg/dl (2.5-4.5); Potassium 5.3 mmol/L (3.5-5.1); Sodium 137 mmol/L (135-145)
[2024-10-04] MEDS: DUONEB 3 ML INH ×2 (07:32→19:54)
[2024-10-04] MEDS: PULMICORT 0.5 MG INH ×2 (07:32→19:54)
--- NOTE | 2024-10-04 07:32 | W.PN.CD ---
Today's Communication / Plan
-
Patient appears to be back to 4 L nasal cannula which is her baseline she still feels her breathing is not quite at baseline this morning.
Patient has been receiving IV Lasix creatinine up to 1.2 blood pressure this morning relatively low
Hold on diuretic this morning and reassess
Will lower beta-kristin dose
Impression / Plan
-
Shortness of breath. May be multifactorial. Patient has O2 dependent COPD and is also on chronic prednisone. Patient with increased shortness of breath combination of factors including COPD, pneumonia and possible component of heart failure may
all contribute.
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
-Optimization of treatment of COPD as directed by pulmonary
-Patient with relatively low blood pressures this morning creatinine up to 1.2 from 0.9. Hold diuretic and reassess
.
Left heart failure
History of left heart failure. Patient had transient cardiomyopathy in the past with ejection fraction 45 to 50% was normalized by most recent echo.
-proBNP 1500
-Patient had been on Lasix 80 mg a day prior to last hospitalization it was held during the hospitalization and she states that she was told not to start it. It was still on her the discharge med list.
Patient may have acute decompensated heart failure related to discontinuation of diuretic. Patient received IV Lasix on admission and yesterday with rise in creatinine to 1.2 blood pressure is relatively low this morning. Hold on diuretic and
reassess pressure.
-Echo 10/03/2024 normal left ventricular function ejection fraction 55% mild to moderate aortic stenosis
.
Aortic stenosis mild to moderate by recent echo. Mean gradient 14 mmHg
.
NSVT. Listed in history patient with normal left ventricular function currently on beta-kristin stable on telemetry considering blood pressures will lower beta-kristin
.
Diabetes management as directed by primary team
-Hypertension. Stable continue current therapy
-Dyslipidemia. Statin
Physical Exam
Vital Signs/Labs
Vital Signs
Temp Pulse Resp BP Pulse Ox
98.6 F 85 16 93/70 98
10/04/24 07:18 10/04/24 06:45 10/04/24 06:45 10/04/24 06:09 10/04/24 06:30
10/03/24 10/04/24 10/05/24
06:59 06:59 06:59
Actual Weight 85.4 kg 86 kg
10/04/24 05:55
10/04/24 05:55
PT 13.9 Sec (11.4-14.6) 10/03/24 08:56
INR 1.04 10/03/24 08:56
APTT 28.0 Sec (23.4-35.0) 10/03/24 08:56
Magnesium 2.0 mg/dl (1.6-2.3) 10/04/24 05:55
10/02/24 10/04/24
23:26 05:55
Zoa-Q-Tkvumbxgpcd Pept 1580 1110
Physical Exam
Cardiovascular: Rhythm & rate is regular
Respiratory: Other (No wheezes. Decreased breath sounds bilaterally)
GI: Soft
Neuro/Psych: Alert
Data Reviewed
-
Date of Service: October 04, 2024
Medical Decision Making: Reviewed Test Results
X-Ray/CT/US/MRI/NUC/PET: Image Personally Visualized and interpreted
Medical Tests (PFT, Pathology etc): Image Personally Visualized and interpreted
Labs: Labs Reviewed by me
[2024-10-04 07:55] LABS: Glucose - Point of Care 166 mg/dl (70-99)
[2024-10-04] MEDS: LOPRESSOR 25 MG PO ×2 (08:23→20:19)
[2024-10-04] MEDS: PLAVIX 75 MG PO (08:23)
[2024-10-04] MEDS: MUCINEX 600 MG PO ×2 (08:23→20:19)
[2024-10-04] MEDS: FEOSOL 325 MG PO (08:23)
[2024-10-04] MEDS: FLUSH (NSS) 1 FLUSH IV (08:24)
--- NOTE | 2024-10-04 09:15 | PTCARENOTE ---
Rec'd pt at 0800 awake alert and oriented resting in bed finishing up neb rx. States overall she feels ok. Denies pain. Admits to intermittent blurred vision but states she gets that at home as well. Skin is pale pink wm and dry. Respirs are
shallow- does get winded/johnson but less so at rest. BS are decreased throughout with few crackles and faint exp wheezine. Rec'd pt on O2 at 4L nc with sats of 97%. Monitor SR with few isolated PAC's. + pulses- DP's are weak to palp. Tr LE edema.
Denies chest pain. VS as documented. Abd is obese/round with + BS. Denies nausea. Purewick in place for yellow urine. R arm midline site wnl. Plan of care reviewed with pt and call marie in reach. Breakfast ordered.
[2024-10-04] MEDS: NOVOLOG FLEXPEN-MODERATE RESISTANCE 1 UNITS SC ×2 (09:25→16:53)
--- NOTE | 2024-10-04 09:33 | W.PN.PUL3 ---
Today's Communication / Plan
-
Blood gas today shows stable chronic hypercapnia
Continue BiPAP with sleep and prn during the day
Continue with supplemental O2 to keep SpO2 88-95%
Would recheck an ambulatory pulse oximetry prior to discharge to assess if O2 needs have changed
Outpatient follow-up with our office with Dr. Bryan
Pulmonary service will continue to follow along
Assessment
-
Assessment: 79-year-old female former tobacco smoker with [id number] history (quit October 2013) with a past medical history of moderate�severe COPD on chronic prednisone and 4 L/min ATC, chronic hypercapnic respiratory failure on NIV via Astral
100, hypertension, history of stroke (October 2013), memory loss, history of restrictive lung disease, history of H. pylori, history of COVID-19 (08/2023), DM type II, RLS, snoring and history of right calf SCC who presents with shortness of breath.
At home she was short of breath and put on her BiPAP which did not lead to improvement so 911 was called. Initially in the ER she was afebrile to 98 �F, pulse rate 119, respiratory rate 21, BP 134/65 and saturating 90% on 4 L/min. Initial labs
showed leukocytosis to 17, Hb 11.1, acute on chronic hypercapnia with pH 7.17 and pCO2 95, potassium level 5.7, creatinine 0.8, proBNP 1580, procalcitonin 0.08 and COVID-19 antigen negative. Initial CXR showed acute pulmonary edema with a small
left-sided pleural effusion. CTA chest showed no evidence of a PE with a left lower lobe pneumonia and scattered pulmonary nodules with small bilateral pleural effusions. In the ER she was given DuoNebs, Zithromax, ceftriaxone and 40 mg IV Lasix.
Given her blood gas findings with acute on chronic hypercapnia, she was transitioned to noninvasive ventilation and admitted to the ICU. Communication Engineer services consulted for additional management/recommendations.
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
disease, memory loss, restrictive lung disease, gas exchange deficit, lung nodules, history of DVT, history of H. pylori, history of COVID-19 (08/2023), DM type II, restless leg syndrome, snoring, history of right calf squamous cell carcinoma
Impression:
#Acute on chronic hypoxic + hypercapnic respiratory failure requiring continuous BiPAP --> now on BiPAP with sleep and nasal cannula during the day
#Hyperkalemia (mild)
#Elevated proBNP (1580 on 10/02/2024, of note, was 341 on 09/19/2024)
#Chronic anemia with iron deficiency
#History of elevated eosinophil count (absolute eos were 600 in August 2021)
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
#History of hypertension
#History of H. pylori
#History of pneumonia
#Former tobacco use disorder (former [id number] history, quit in October 2013)
#History of restless leg syndrome on ropinirole
#Rhinorrhea likely vasomotor rhinitis improved on Atrovent nasal spray
Plan:
- Continue with diuresis given concern for acute Heart Failure and maintain net negative fluid balance as BP and sCr, sNa and sCHO3 tolerate
- Currently on IV Lasix 40 mg BID
- Cardiology following - recs apprecated
- Blood gas is stable with pH 7.38 this morning, pCO2 62; her baseline pCO2 is approximately 60
- Continue to trend blood gas to assure her pH + pCO2 remained stable
- Continue with BiPAP with sleep and prn during the day
- Ok to use BiPAP 16/8cmH2O while hospitalized as she uses an Astral 100 noninvasive ventilator at home with EPAP range 5-10 cmH2O, pressure support range 4�20 cmH2O with inspiratory time range 0.2 seconds - 1.5 seconds.
- Maintain SpO2 88-95%
- Continue aspiration precautions keeping HOB >30-45�
- Continue supplemental oxygen during the day to keep SpO2 88-95%
- At home for her COPD/asthma, she is on prednisone 10 mg daily, DuoNebs + budesonide BID with azithromycin 500 mg TIW
- Continue with systemic steroids and wean as tolerated as she clinically improves - will reduce her Solu-Medrol 40 mg IV q8hr --> q12hr starting tomorrow
- Continue Duonebs BID + budesonide
- prn nebulized bronchodilators - not currently bronchospastic
- Mucolytics with mucinex
- Continue with antibiotics with cefepime given LLL-PNA, although procalcitonin is 0.08 --> continue to trend procalcitonin in 48 hrs as initial levels could be falsely low/normal
- Trend WBC and monitor for fevers
- Continue home dose of zithromax
- Urine antigens for Legionella + strep pneumonia both negative
- Follow-up blood cultures collected on 10/02/2024 --> one of the blood cultures is positive with GPC in clusters and is negative for MSSA/MRSA to follow-up species (suspected contaminant)
- Follow-up MRSA screen
- Maintain MAP>65
- Replete electrolytes with K>4, Mg>2
- Maintain euglycemia with goal BG 140-180 torin while on high dose steroids
- Trend H/H and transfuse if needed to keep Hb>7g/dL; keep plt>20k, unless there is concern for bleeding then keep plt>50k
- Incentive spirometer encouraged 10x per hour for at least 4 hrs a day
- PT/OT
- DVT ppx: LMWH
Pulmonary service will continue to follow along. Ultimately she should follow-up with our office again with Dr. Bryan as last visit was 04/10/2024. Of note, she does have a follow-up appointment already scheduled for 10/29/2024. This may need to
be moved up depending how her hospital course ensues.
Data:
CTA chest 10/03/2024:
1. No evidence of central, lobar or segmental pulmonary embolism.
2. There is a patchy opacity within the left lower lobe which is suspicious for pneumonia.
3. There are scattered pulmonary nodules measuring up to 4 mm. There is a nodule in the apical right upper lobe which appears slightly increased in size from prior. Additionally there is a nodule in the right middle lobe which appears new from
prior. Consider follow-up CT chest to ensure stability.
4. Moderate, apical predominant centrilobular and paraseptal emphysematous changes.
Total time spent today was 36 minutes for this encounter. Time includes reviewing laboratory test/imaging results, reviewing pertinent medical records, obtaining and reviewing medical history, performing an appropriate exam, ordering medications,
tests and procedures. Time also includes documentation of this encounter, coordinating patient care and communicating with other healthcare professionals. Total time does not include separately billed tests performed on this date of service.
Subjective Data
-
Date of Service:
Date of Service: October 04, 2024
Chief Complaint: Pulmonary Follow Up
Subjective:
Patient seen this morning and she was resting in a chair no acute distress. Currently on 4 L/min saturating 91%. Heart rate 92 and BP 159/109. Wore BiPAP overnight on 16/8 cmH2O bled with 10 L/min. She feels well this morning but still very
weak. Patient's at bedside, and all questions were answered.
Review of Systems
General: Other (Negative unless mentioned above)
Objective Data
Data Reviewed
Vital Signs / I&O / Oxygen:
Vital Signs
Temp Pulse Resp BP Pulse Ox
98.6 F 88 21 103/67 99
10/04/24 07:18 10/04/24 08:23 10/04/24 07:37 10/04/24 08:23 10/04/24 07:37
Intake and Output
03/14/25 03/15/25 03/16/25
06:59 06:59 06:59
Intake Total 900 / 900
Output Total 1100 / 1100
Balance -200 / -200
SaO2 99
Nasal Cannula flow liters per 4
minute
Physical Exam
General: Respiratory Distress (negative), Comfortable, Chills (negative) and Sweats (negative)
HEENT: Normocephalic, Anicteric and Other (Thick neck)
Cardiovascular: S1-S2, Rub (negative) and Peripheral Edema (+1 left lower extremity edema, no edema on the right lower extremity)
Respiratory: Wheeze ([place] upon expiration in the upper lobes bilaterally), Crackles (negative), Rhonchi (negative), Accessory Resp Muscle Use (negative), Stridor (negative) and Other (Diminished breath sounds bilaterally)
GI: Soft, Distended (Abdominal obesity), Non Tender and Normal Bowel Sounds
Neurology: AO x 3 and Tremors (negative)
Skin: Warm, Dry, Cyanosis (negative) and Jaundice (negative)
Labs/Micro/Reports
Lab Data
10/04/24 05:55
10/04/24 05:55
Laboratory Results
10/03/24 10/03/24 10/03/24
08:56 09:26 17:22
PT 13.9
INR 1.04
APTT 28.0
pH 7.32 L 7.31 L
pCO2 63 H 76 H*
pO2 95 86
HCO3 32.5 H 38.3 H
O2 Delivery Level 6l/min
10/04/24
04:28
PT
INR
APTT
pH 7.38
pCO2 62 H
pO2 67 L
HCO3 36.7 H
O2 Delivery Level
Microbiology
10/02/24 23:26 Blood/Venous Blood Culture - Preliminary
Positive culture in progress
10/02/24 23:26 Blood/Venous Gram Stain - Preliminary
10/02/24 23:26 Blood/Venous Blood Culture - Preliminary
No Growth in 24 hours- Final report to follow
10/03/24 13:41 Urine Streptococcus pneumoniae Antigen (M - Final
Negative for Streptococcus pneumoniae antigen.
A negative result does not exclude infection with
Streptococcus pneumoniae. Clinical correlation is
recommended.
10/03/24 13:41 Urine Legionella Urinary Antigen - Final
Negative for Legionella pneumophila Serogroup 1 antigen.
A negative result does not rule out the possiblity of
Legionella infection due to other serogroups or species of
Legionella. Clinical correlation is recommended.
10/02/24 23:14 Nasal Swab Influenza Types A & B (KELLEN) - Final
Negative for Influenza A & B, NAAT
Negative results must be combined with clinical observations
and patient history.
Nucleic Acid Amplification test (NAAT)performed on the
[employer] platform.
--- NOTE | 2024-10-04 11:40 | PTCARENOTE ---
Pt had been resting in bed all morning. No complaints. PT/OT in to see/work with pt. Assisted pt with assist of 2 and a walker oob to the BSC and then to the chair. On BSC pt voided about 100 mls of yellow urine and had a small formed dk brown BM.
Partial bath and Mitra care given. Pt did own oral are once sitting up. Currently is in visiting with pt. Call marie in reach. Sats on 4L NC are 98%. Does get winded with exertion but better once resting.
[2024-10-04 12:30] LABS: Glucose - Point of Care 205 mg/dl (70-99)
--- NOTE | 2024-10-04 13:00 | PTCARENOTE ---
Remains sitting oob in the chair eating lunch. States she is comfortable. at the bedside. Sats on 4L nc are 98%. Call marie in reach. No other changes in assessment. BP cuff adjusted earlier to her L upper arm- Will update MD as it is running
160's/70's.
[2024-10-04] MEDS: NOVOLOG FLEXPEN-MODERATE RESISTANCE 3 UNITS SC (13:15)
[2024-10-04] MEDS: MAXIPIME IV (13:16)
[2024-10-04] MEDS: STERILE WATER FOR INJECTION IV (13:18)
--- NOTE | 2024-10-04 13:28 | W.PN.HOSP.TC ---
Today's Communication/Plan
-
cont with IV abx
restart diuretics probably in am
BB dose decreased
cards recs
OOB/PT
Assessment / Plan
Assessment / Plan
General: Respiratory Distress and Morbidly Obese
HEENT: NormoCephalic, Anicteric, Moist mucous membranes, Atraumatic and Oxygen
Respiratory: Decreased Breath Sounds
Cardiac: S1/S2, Regular Rhythm
Breast: Deferred by me
GI: Soft, Non Tender, Non Distended and Normal Bowel Sounds
Rectal: Deferred by Provider
Genito-urinary: Deferred by me
Musculoskeletal: No Clubbing and No Cyanosis
Skin: Warm
Neuro: Nonfocal/grossly intact
Hematologic/Lymphatic: No Lymphadenopathy
Psych: Calm
IMPRESSION:
79 y.o female with chronic oxygen dependent and hypercarbic respiratory failure 2/2 COPD, restrictive lung disease and GARY who was recently admitted and treated for COPD exacerbaton w/ discharge 10 days ago comes in with severe acute hypercarbic
respiratory failure. Unable to provide history due to encephalopathic state and respiratory distress. Findings are suggestive for COPD exacerbation with hospital acquired pneumonia as well as CHF exacerbation.
PLAN:
#Acute on chronic hypoxic and hypercapnic respiratory failure
#Toxic metabolic encephalopathy
#Gram positive bacteremia likely CoNS -contaminant
- flu/covid negative
- on solumedrol 40mg iv q 6
- duonebs RTC and prn for now
- continue her azithromcyin for anti-inflammatory effect.
-Improvement in mentation. Back to baseline folate off oxygenation.
-Cont with chronic Bipap qhs and prn
-Pulmonary following
# PNA - LLL consolidation with recent hospital admission
- no sputum for cx
-check Legionella and strep antigen-negative.
-cefepime in addition to home azithromycin
#Acute on chronic HFpEF
- s/p IV lasix in ED
- continue lasix 40 iv daily for now with hold parameters
- echo EF of 55%. Mild to moderate aortic stenosis. Ventricular size and function without regional wall motion abnormality
- hold valsartan for now
- cardiology consult
#Diabetes mellitus type 2
-A1c 6.4
-metformin on hold
-SSI. Accu-Cheks.
#Essential hypertension
#History of NSVT
-Continue metoprolol.
#History of CVA
-Continue home Plavix and atorvastatin.
#Hyperlipidemia
-Continue atorvastatin
#Iron deficiency anemia
-Follow CBC.
-Replete.
#Restless leg syndrome
-Continue Requip
DVT PPX - lovenox sq
Code status - full code
Discussed with patient spouse at bedside in details on 10/03
Anticipated Discharge: > 48 hours
Subjective/Interval History
-
Date of Service: October 04, 2024
states breathing feels the same
on 4L NC
slept okay overnight
Objective Data
-
Labs:
Laboratory Results
10/04/24 10/04/24
04:28 05:55
WBC 8.9
Hgb 8.9 L
Hct 29.4 L
Plt Count 258
HCO3 36.7 H
Sodium 137
Potassium 5.3 H
Chloride 96 L
Carbon Dioxide 36 H
BUN 32 H
Creatinine 1.1 H
Glucose 157 H
Calcium 9.1
Vital Signs:
Vital Signs
Temp Pulse Resp BP Pulse Ox
98.1 F 78 22 161/75 97
10/04/24 11:31 10/04/24 13:00 10/04/24 13:00 10/04/24 13:00 10/04/24 13:00
I&O
10/03/24 10/04/24 10/05/24
06:59 06:59 06:59
Intake Total 900 / 900 300 / 300
Output Total 1100 / 1100 100 / 100
Balance -200 / -200 200 / 200
--- NOTE | 2024-10-04 14:10 | PTCARENOTE ---
Overall good appetite for lunch. Admits currently that she is a little tired. Assisted with assist of 2 and a walker back to bed. Overall tolerated being oob well. Gets sl winded with exertion but once she rests she is comfortable on the 4L nc. Sats
have been 97-98%. Call marie in reach. Pts at the bedside.
[2024-10-04] MEDS: FLUSH (NSS) 2 FLUSH IV (16:41)
--- NOTE | 2024-10-04 17:00 | PTCARENOTE ---
Slept for a while after getting back to bed. Currently awake and dinner ordered. No complaints. No changes in assessment. Is Sl forgetful at times but easily reorients. Denies feeling short of breath. BP overall has been better as documented. Call
marie in reach.
[2024-10-04 17:03] LABS: Glucose - Point of Care 150 mg/dl (70-99)
[2024-10-04] MEDS: LOVENOX 40 MG SC (18:11)
--- NOTE | 2024-10-04 19:00 | PTCARENOTE ---
at 1830 assisted back oob to the bsc- HR with getting up went up into the 150's- ST with freq PAC's. Once sitting for about 10 min HR down to 108-[address] slightly winded with getting up then better once sitting. Voided a small amt and had a
mod dk brown stool in the commode. Pt then assisted to the chair- HR back up to the 130's but settled within 5 min back down to the 105 range. Currently states she is comfortable sitting up. Remains in 4L with sats of 96%. Call marie in reach. Good
appetite for dinner.
[2024-10-04] MEDS: TYLENOL 650 MG PO (21:31)
[2024-10-04] MEDS: LIPITOR 10 MG PO (21:32)
[2024-10-04] MEDS: REQUIP 1 MG PO (21:32)
[2024-10-04 21:45] LABS: Glucose - Point of Care 257 mg/dl (70-99)
--- NOTE | 2024-10-04 21:53 | PTCARENOTE ---
Received at 1900 pt sitting in chair, AAOx3. WAGNER. Assisted back to bed at this time using rolling walker and 1 person assist. SR/ST on tele. HR 90-100s. + murmur. +1 LE edema. Afebrile. On 4L NC, spo2 94-98%. Lungs diminished, coarse, with rhonchi
throughout. Exp wheezing anteriorly. Will go on bipap HS. Round, obese abd. + bowel sounds. Low chol. diet. Purewick changed when pt assisted back to bed. R midline in place - CORE PASTER changed dsg. Call marie in reach.
[facility] 257 - [facility] notified, no new orders placed.
[2024-10-05] VITALS (16 sets, daily range): BP systolic 96–157; BP diastolic 54–96; PULSE 2–93; BMI 37.9
[2024-10-05] MEDS: STERILE WATER FOR INJECTION 10 ML IV ×2 (00:16→08:23)
[2024-10-05] MEDS: MAXIPIME 1000 MG IV ×2 (00:16→08:23)
[2024-10-05] MEDS: SOLU-MEDROL PF 40 MG IV ×3 (00:16→20:40)
[2024-10-05 03:35] LABS: Venous Blood Gas B.E. 11.5 mmol/L (-4 to +4); Venous Blood Gas HCO3 39.4 mmol/L (22-27); Venous Blood Gas O2 Sat % 99.2 %; Venous Blood Gas pH 7.34 (7.32-7.43); Venous Blood Gas pO2 136 mmHg (30-50)
[2024-10-05 03:44] LABS: % Basophils 0.1 % (0-2); % Immature Granulocytes 0.5 % (0-0.5); % Lymphocytes 4.1 % (20.5-51.1); % Monocytes 6.1 % (1.7-9.3); % Neutrophils 89.2 % (42.2-75.2); Absolute Lymphocytes 0.3 10^3/uL (1.2-3.4); Absolute Monocytes 0.5 10^3/uL (0.1-0.6); Absolute Neutrophils 7.5 10^3/uL (1.4-6.5); Hematocrit 30.2 % (37.0-47.0); Hemoglobin 9.1 g/dL (12.0-16.0); Mean Corp Hgb Conc. 30.1 g/dL (33.0-37.0); Mean Corpuscular Hgb 26.8 pg (27.0-31.0); Mean Corpuscular Volume 88.8 fL (81.0-99.0); Nucleated Red Blood Cells % 0 %; Platelet Count 279 10^3/uL (130-400); Red Cell Dist. Width 14.5 % (11.5-14.5); Venous Blood Gas O2 Therapy 10L/min; White Blood Cell Count 8.4 10^3/uL (4.8-10.8)
[2024-10-05 03:45] LABS: Venous Blood Gas pCO2 73 mmHg (35-48)
[2024-10-05 04:07] LABS: Blood Urea Nitrogen 41 mg/dl (7-17); Calcium 9.5 mg/dl (8.4-10.2); Carbon Dioxide 38 mmol/L (22-30); Chloride 94 mmol/L (98-107); Estimated Creatinine Clearance 36 ml/min; Glucose 184 mg/dl (70-99); Potassium 5.1 mmol/L (3.5-5.1); Sodium 137 mmol/L (135-145); eGFR 45.76
[2024-10-05 04:50] LABS: Procalcitonin 0.07 ng/ml (0.0-0.25)
[2024-10-05] MEDS: LOPRESSOR 25 MG PO ×2 (08:23→20:39)
[2024-10-05] MEDS: FEOSOL 325 MG PO (08:23)
[2024-10-05] MEDS: MUCINEX 600 MG PO ×2 (08:23→20:39)
[2024-10-05] MEDS: PLAVIX 75 MG PO (08:24)
[2024-10-05] MEDS: PULMICORT 0.5 MG INH ×2 (08:25→19:18)
[2024-10-05] MEDS: DUONEB 3 ML INH ×2 (08:25→19:19)
[2024-10-05 08:41] LABS: Glucose - Point of Care 206 mg/dl (70-99)
--- NOTE | 2024-10-05 08:47 | W.PN.CD ---
Today's Communication / Plan
-
check labs/BMP
if renal fuction stable then resume prior oral lasix dose ( lasix 80mg PO daily)
Impression / Plan
-
Shortness of breath. May be multifactorial. Patient has O2 dependent COPD and is also on chronic prednisone. Patient with increased shortness of breath combination of factors including COPD, pneumonia and possible component of heart failure may
all contribute.
-Continue antibiotics as directed by primary team and rn clinical review
-Optimization of treatment of COPD as directed by pulmonary
-Patient with relatively low blood pressures this morning creatinine up to 1.2 from 0.9. Hold diuretic and reassess
.
Left heart failure
History of left heart failure. Patient had transient cardiomyopathy in the past with ejection fraction 45 to 50% was normalized by most recent echo.
-proBNP 1500
-Patient had been on Lasix 80 mg a day prior to last hospitalization it was held during the hospitalization and she states that she was told not to start it. It was still on her the discharge med list.
Patient may have acute decompensated heart failure related to discontinuation of diuretic. Patient received IV Lasix on admission and yesterday with rise in creatinine to 1.2 blood pressure is relatively 10/05/23
- If vimal afunctions table then resume prior outpatient lasix dosing and monitor
-Echo 10/03/2024 normal left ventricular function ejection fraction 55% mild to moderate aortic stenosis
.
Aortic stenosis mild to moderate by recent echo. Mean gradient 14 mmHg
.
NSVT. Listed in history patient with normal left ventricular function currently on beta-kristin stable on telemetry considering blood pressures will lower beta-kristin
.
Diabetes management as directed by primary team
-Hypertension. Stable continue current therapy
-Dyslipidemia. Statin
Physical Exam
Vital Signs/Labs
Vital Signs
Temp Pulse Resp BP Pulse Ox
97.6 F 83 24 150/96 98
10/05/24 08:00 10/05/24 08:28 10/05/24 08:28 10/05/24 08:23 10/05/24 08:28
10/04/24 10/05/24 10/06/24
06:59 06:59 06:59
Actual Weight 86 kg 88.1 kg
10/05/24 03:25
10/05/24 03:25
PT 13.9 Sec (11.4-14.6) 10/03/24 08:56
INR 1.04 10/03/24 08:56
APTT 28.0 Sec (23.4-35.0) 10/03/24 08:56
Magnesium 2.0 mg/dl (1.6-2.3) 10/04/24 05:55
10/02/24 10/04/24
23:26 05:55
Wmx-S-Wxhgslyitso Pept 1580 1110
Physical Exam
Constitutional: No acute distress
Cardiovascular: Rhythm & rate is regular
Respiratory: Rhonchi Absent, Wheeze Present and Other (decreased at bases )
GI: Soft and Non tender
Neuro/Psych: Alert
Other: Other (mild edema)
Data Reviewed
-
Date of Service: October 05, 2024
Medical Decision Making: Reviewed Test Results and Review of Case with other Provider (ICU nurse)
Medical Tests (PFT, Pathology etc): Report Reviewed by me
Labs: Labs Reviewed by me
--- NOTE | 2024-10-05 09:08 | CON.ID ---
Consultation
-
Date/Time Consultation Requested: 10/05/24 8:42
Date/Time Consultation Performed: 10/05/24 9:57
Requesting Provider: Dr Lewis
Performing Provider: Dr Mesa
Reason for Consultation: bacteremia
Chief Complaint / Past History
Chief Complaint
Acute worsening of shortness of breath
History of Present Illness
Ms Peraza is an 79 year old female with history of COPD on 4L/intermittent Bipap/chronic prednisone 10 mg/azithromycin 3x weekly, RLD/GARY, DM2 who presented here 10/03. Reports no significant weight change or change in chronic lower extremity edema
though her prior valsartan and furosemide were recently held. No fevers or chills. Reports zero cough and no sputum production. At home spouce felt she was struggling to catch her breath, even with bipap pulse ox went down and she became confused
and weak so EMS was called.
On arrival here she was on NRB then placed on Bipap with initial ABG 7.1/7/95/151. Blood pressure was 130/74 with a heart rate of 117 and she was satting 99% on 10 L. No bibi fevers since admission. Prior admission fever curve also reviewed and
no bibi fevers at that time. WBC initially 17 resolved next day to 8.2 and has remained WNL, hgb currently 9.2, plt 279, L shift is noted, cr on arrival 0.8 now 1.2, lactic acid initially 0.8, bp 1500 on arrival, procalcitoin 0.08 on HD2 and 0.07
today even with new TOBY today. CT chest scattered pulmonary nodules, LLL patchy opacity, covid/influenza screens negative, currently on cefepime and the SAUSAGE INSPECTOR thrice weekly azithromycin. ID is consulted for assistance with management.
Past History
Additional Past Medical History:
Systolic and diastolic CHF
Hypertension
Hyperlipidemia
Nonsustained ventricular tachycardia
COPD
Type 2 diabetes
Stroke
Peripheral dural disease
Peripheral artery disease
Primary low-dose home
Restrictive lung disease
Lung nodules
Restless leg syndrome
DVT
Morbid obesity
H. pylori
Squamous cell cancer
Additional Past Surgical History:
Bilateral cataract surgery
skin cancer?
Allergy History:
No Known Allergies Allergy (Verified 09/19/24 14:37)
Medications Reviewed: Yes
Social History
Tobacco: Former Smoker
Alcohol: None
Drug: None
Family History
Family History: Not Pertinent
Review of Systems
Review of Systems
General: Negative Fever or Chills
All systems: All other systems were reviewed and were negative
Vital Signs
Temp Pulse Resp BP Pulse Ox
97.6 F 83 24 150/96 98
10/05/24 08:00 10/05/24 08:28 10/05/24 08:28 10/05/24 08:23 10/05/24 08:28
Physical Exam
Physical Exam
Constitutional: No Acute Distress, Chronically Ill and Obese
Cardiovascular: Regular Rate and S1/S2; Negative Murmur or Rub
Pulmonary: Clear and Symmetric; Negative Wheezes, Rales or Rhonchi
Gastrointestinal: Soft, Non Tender, Non Distended and Normal Bowel Sounds
Skin: Warm and Dry; Negative Rash or Jaundice
Wound: Other (fully healed wound on the L mid calf without surrounding erythema, warmth or drainage)
Lab / Diagnostic Study Results
10/05/24 03:25
Abs Immat Gran (auto) 0.0 10^3/uL (0-0.05) 10/05/24 03:25
Absolute Neuts (auto) 7.5 10^3/uL (1.4-6.5) H 10/05/24 03:25
Absolute Lymphs (auto) 0.3 10^3/uL (1.2-3.4) L 10/05/24 03:25
Absolute Monos (auto) 0.5 10^3/uL (0.1-0.6) 10/05/24 03:25
Absolute Basos (auto) 0.0 10^3/uL (0-0.2) 10/05/24 03:25
Immature Gran % 0.5 % (0-0.5) 10/05/24 03:25
Neutrophils % 89.2 % (42.2-75.2) H 10/05/24 03:25
Lymphocytes % 4.1 % (20.5-51.1) L 10/05/24 03:25
Monocytes % 6.1 % (1.7-9.3) 10/05/24 03:25
Eosinophils % 0.0 % (0-6) 10/05/24 03:25
Basophils % 0.1 % (0-2) 10/05/24 03:25
PT 13.9 Sec (11.4-14.6) 10/03/24 08:56
INR 1.04 10/03/24 08:56
Lactic Acid 0.8 mmol/L (0.7-2.0) 10/02/24 23:26
Procalcitonin 0.07 ng/ml (0.0-0.25) 10/05/24 03:25
Microbiology Results
Micro:
10/02/24 23:26 Blood Culture - Preliminary
Blood/Venous Positive culture in progress
Gram Stain - Preliminary
10/03/24 10:29 MRSA Screen - Final
Nose No Methicillin Resistant Staphylococcus aureus isolated.
10/02/24 23:26 Blood Culture - Preliminary
Blood/Venous Positive culture in progress
Gram Stain - Preliminary
10/03/24 13:41 Streptococcus pneumoniae Antigen (M - Final
Urine Negative for Streptococcus pneumoniae antigen.
A negative result does not exclude infection with
Streptococcus pneumoniae. Clinical correlation is
recommended.
10/03/24 13:41 Legionella Urinary Antigen - Final
Urine Negative for Legionella pneumophila Serogroup 1 antigen.
A negative result does not rule out the possiblity of
Legionella infection due to other serogroups or species of
Legionella. Clinical correlation is recommended.
10/02/24 23:14 Influenza Types A & B (KELLEN) - Final
Nasal Swab Negative for Influenza A & B, NAAT
Negative results must be combined with clinical observations
and patient history.
Nucleic Acid Amplification test (NAAT)performed on the
[employer] ID NOW platform.
Assessment / Plan
Probable CONS Pseudobacteremia (IE contaminated blood cultures)
- note that initial sets of blood cultures were obtained at the same time - suggesting these may not have been two separate draws
- repeat blood cultures x2 now
- start vancomycin after repeat blood cultures obtained
- 10/03 TTE: no valvular lesions
- no known hardwear
Viral Pneumonia vs aspiration pneumonitis
- procalcitonin remains negative - risks of ongoing cefepime which include delirium/SETUP OPERATOR toxicity, C difficile, acquisition of MDROs, etc outweigh possible benefits at this time
- treatable viruses - covid/influenza ruled out
COPD on 4L/chronic steroids/chronic azithromycin
RLD
GARY
Class II obesity
- management per pulmonary
- c/w SAUSAGE INSPECTOR azithromycin 3x weekly
- QTc acceptable
Recommend RSV shot which she hasnt had at her local pharmacy, would also recommend she confirm pneumococcal vaccines are up to date
Palliative care involvement a consideration
[2024-10-05] MEDS: TYLENOL 650 MG PO (09:28)
[2024-10-05] MEDS: NOVOLOG FLEXPEN-MODERATE RESISTANCE 3 UNITS SC (09:30)
--- NOTE | 2024-10-05 09:30 | PTCARENOTE ---
Rec'd pt at 0800 awake alert and overall oriented resting in bed although at times pt does get forgetful. States she slept ok. Only c/o discomfort is from a hemmorhoid after using the commode. Wanted Tylenol and medicated currently with Tylenol 650
mg po for 2/10 discomfort. Hemmorhoid cream also ordered. WAGNER. Assisted with assist of 1 and the commmode oob to the commode then chair. Gait is weak but easily able to bear wt and no c/o dizzness. Skin is pale pink wm and dry. Pt with scattered
bruising on her arms. Respirs are shallow- overall non-labored at rest but does get dyspnic/orthopnic. BS overall are just very decreased. Rec'd pt on 4l nc which is her home dose but sats have been 98-100% all day yesterday and today. Resp therapy
in and decreased pt to 3l with sats of 98-99%. Monitor SR. + pulses. DP pulses are weak but palp. Denies chest pain. Tr to +1 LE edema. VS as documented. Abd is obese/round with + BS. Passing flatus. Denies nausea. Voiding yellow urine on the
commode then new purewick placed once in the chair. R arm midline intact-site wnl. Complete CHG bath given. Call marie in reach. Plan of care reviewed with pt. Currently eating breakfast. John Lewis and Lizeth in to see pt.
--- NOTE | 2024-10-05 09:38 | W.PN.PUL3 ---
Today's Communication / Plan
-
Blood gas today shows stable chronic hypercapnia with slightly worsened pCO2
Change bipap from 16/8 to 16/7 to help blow off more pCO2
Continue BiPAP with sleep and prn during the day
Continue with supplemental O2 to keep SpO2 88-95%
Would recheck an ambulatory pulse oximetry prior to discharge to assess if O2 needs have changed as she is now on 3L/min during the day
Outpatient follow-up with our office with Dr. Bryan
Pulmonary service will continue to follow along
Assessment
-
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
100, hypertension, history of stroke (October 2013), memory loss, history of restrictive lung disease, history of H. pylori, history of COVID-19 (08/2023), DM type II, RLS, snoring and history of right calf SCC who presents with shortness of breath.
At home she was short of breath and put on her BiPAP which did not lead to improvement so 911 was called. Initially in the ER she was afebrile to 98 �F, pulse rate 119, respiratory rate 21, BP 134/65 and saturating 90% on 4 L/min. Initial labs
showed leukocytosis to 17, Hb 11.1, acute on chronic hypercapnia with pH 7.17 and pCO2 95, potassium level 5.7, creatinine 0.8, proBNP 1580, procalcitonin 0.08 and COVID-19 antigen negative. Initial CXR showed acute pulmonary edema with a small
left-sided pleural effusion. CTA chest showed no evidence of a PE with a left lower lobe pneumonia and scattered pulmonary nodules with small bilateral pleural effusions. In the ER she was given DuoNebs, Zithromax, ceftriaxone and 40 mg IV Lasix.
Given her blood gas findings with acute on chronic hypercapnia, she was transitioned to noninvasive ventilation and admitted to the ICU. [employer] services consulted for additional management/recommendations.
Chronic conditions FURNACE MAINTENANCE: Moderate�severe COPD on chronic prednisone, Zithromax TIW on chronic O2 at 4 L/min ATC, chronic hypercapnic respiratory failure on NIV via Astral 100, hypertension, history of stroke, hyperlipidemia, peripheral arterial
disease, memory loss, restrictive lung disease, gas exchange deficit, lung nodules, history of DVT, history of H. pylori, history of COVID-19 (08/2023), DM type II, restless leg syndrome, snoring, history of right calf squamous cell carcinoma
Impression:
#Acute on chronic hypoxic + hypercapnic respiratory failure requiring continuous BiPAP --> now on BiPAP with sleep and nasal cannula during the day
#Hyperkalemia (mild)
#Elevated proBNP (1580 on 10/02/2024, of note, was 341 on 09/19/2024)
#Chronic anemia with iron deficiency
#History of elevated eosinophil count (absolute eos were 600 in August 2021)
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
#History of hypertension
#History of H. pylori
#History of pneumonia
#Former tobacco use disorder (former [id number] history, quit in October 2013)
#History of restless leg syndrome on ropinirole
#Rhinorrhea likely vasomotor rhinitis improved on Atrovent nasal spray
Plan:
- Continue with diuresis given concern for acute Heart Failure and maintain net negative fluid balance as BP and sCr, sNa and sCHO3 tolerate
- Currently on IV Lasix 40 mg BID --> changing to PO lasix 80mg daily tomorrow (10/06)
- Cardiology following - recs apprecated
- Blood gas is stable with pH 7.34 this morning, pCO2 73; her baseline pCO2 is approximately 60
- Continue to trend blood gas to assure her pH + pCO2 remained stable
- Continue with BiPAP with sleep and prn during the day
- Will lower her EPAP from 8cmH2O to 7cmH2O given the slightly worse pCO2 on this AM blood gas. Leave IPAP at [id number]; she uses an Astral 100 noninvasive ventilator at home with EPAP range 5-10 cmH2O, pressure support range 4�20 cmH2O with
inspiratory time range 0.2 seconds - 1.5 seconds.
- Maintain SpO2 88-95%
- Continue aspiration precautions keeping HOB >30-45�
- Continue supplemental oxygen during the day to keep SpO2 88-95%
- At home for her COPD/asthma, she is on prednisone 10 mg daily, DuoNebs + budesonide BID with azithromycin 500 mg TIW and on 4L/min ATC
- Continue with systemic steroids and wean as tolerated as she clinically improves - will reduce her Solu-Medrol 40 mg IV q8hr --> q12hr starting today
- Can likely transition to prednisone taper tomorrow starting at 40 mg daily and reduce by 10 mg every fourth day until back to her home dose
- Continue Duonebs BID + budesonide
- prn nebulized bronchodilators - not currently bronchospastic
- Mucolytics with mucinex
- Patient previously on antibiotics with cefepime due to suspected LLL-PNA, although procalcitonin is 0.08 --> repeat procal this AM is 0.07.
- Ok to DC cefepime
- Follow-up blood cultures collected on 10/02/2024 --> both of the blood cultures is positive with coagulase-negative staph --> continue with IV vanco for now in case it is MRSE
- Trend WBC and monitor for fevers
- Continue home dose of zithromax
- Urine antigens for Legionella + strep pneumonia both negative
- MRSA screen: negative
- Maintain MAP>65
- Replete electrolytes with K>4, Mg>2
- Maintain euglycemia with goal BG 140-180 torin while on high dose steroids
- Trend H/H and transfuse if needed to keep Hb>7g/dL; keep plt>20k, unless there is concern for bleeding then keep plt>50k
- Incentive spirometer encouraged 10x per hour for at least 4 hrs a day
- PT/OT
- DVT ppx: LMWH
Pulmonary service will continue to follow along. Ultimately she should follow-up with our office again with Dr. Bryan as last visit was 04/10/2024. Of note, she does have a follow-up appointment already scheduled for 10/29/2024. This may need to
be moved up depending how her hospital course ensues.
Data:
CTA chest 10/03/2024:
1. No evidence of central, lobar or segmental pulmonary embolism.
2. There is a patchy opacity within the left lower lobe which is suspicious for pneumonia.
3. There are scattered pulmonary nodules measuring up to 4 mm. There is a nodule in the apical right upper lobe which appears slightly increased in size from prior. Additionally there is a nodule in the right middle lobe which appears new from
prior. Consider follow-up CT chest to ensure stability.
4. Moderate, apical predominant centrilobular and paraseptal emphysematous changes.
Total time spent today was 39 minutes for this encounter. Time includes reviewing laboratory test/imaging results, reviewing pertinent medical records, obtaining and reviewing medical history, performing an appropriate exam, ordering medications,
tests and procedures. Time also includes documentation of this encounter, coordinating patient care and communicating with other healthcare professionals. Total time does not include separately billed tests performed on this date of service.
Subjective Data
-
Date of Service:
Date of Service: October 05, 2024
Chief Complaint: Pulmonary Follow Up
Subjective:
Patient was seen and evaluated this morning (late note entry). Patient's daughter is at bedside - all questions were answered. Patient feels well. Currently on 3 L/min saturating 96% with BP 144/87 and heart rate 101. Wore BiPAP overnight on
16/8 cmH2O bled with 10 L/min, and she wore this for the entirety of the night.
Review of Systems
General: Other (Negative unless mentioned above)
Objective Data
Data Reviewed
Vital Signs / I&O / Oxygen:
Vital Signs
Temp Pulse Resp BP Pulse Ox
97.6 F 83 24 150/96 98
10/05/24 08:00 10/05/24 08:28 10/05/24 08:28 10/05/24 08:23 10/05/24 08:28
Intake and Output
10/04/24 10/05/24 10/06/24
06:59 06:59 06:59
Intake Total 900 / 900 850 / 850
Output Total 1100 / 1100 650 / 650
Balance -200 / -200 200 / 200
SaO2 98
Nasal Cannula flow liters per 4
minute
Physical Exam
General: Respiratory Distress (negative), Comfortable, Chills (negative) and Sweats (negative)
HEENT: Normocephalic, Anicteric and Other (Thick neck)
Cardiovascular: S1-S2, Rub (negative) and Peripheral Edema (+1 left lower extremity edema, no edema on the right lower extremity)
Respiratory: Wheeze (negative), Crackles (bilateral in middle lung garza), Rhonchi (negative), Non-Labored Respirations, Accessory Resp Muscle Use (negative), Stridor (negative) and Other (Diminished breath sounds bilaterally)
GI: Soft, Distended (Abdominal obesity), Non Tender and Normal Bowel Sounds
Neurology: AO x 3 and Tremors (negative)
Skin: Warm, Dry, Cyanosis (negative) and Jaundice (negative)
Labs/Micro/Reports
Lab Data
10/05/24 03:25
Microbiology
10/02/24 23:26 Blood/Venous Blood Culture - Preliminary
Positive culture in progress
10/02/24 23:26 Blood/Venous Gram Stain - Preliminary
10/03/24 10:29 Nose MRSA Screen - Final
No Methicillin Resistant Staphylococcus aureus isolated.
10/02/24 23:26 Blood/Venous Blood Culture - Preliminary
Positive culture in progress
10/02/24 23:26 Blood/Venous Gram Stain - Preliminary
10/03/24 13:41 Urine Streptococcus pneumoniae Antigen (M - Final
Negative for Streptococcus pneumoniae antigen.
A negative result does not exclude infection with
Streptococcus pneumoniae. Clinical correlation is
recommended.
10/03/24 13:41 Urine Legionella Urinary Antigen - Final
Negative for Legionella pneumophila Serogroup 1 antigen.
A negative result does not rule out the possiblity of
Legionella infection due to other serogroups or species of
Legionella. Clinical correlation is recommended.
10/02/24 23:14 Nasal Swab Influenza Types A & B (KELLEN) - Final
Negative for Influenza A & B, NAAT
Negative results must be combined with clinical observations
and patient history.
Nucleic Acid Amplification test (NAAT)performed on the
[employer] platform.
--- NOTE | 2024-10-05 10:45 | PHA.VAN.IN ---
Assessment
- Assessment
Renal Function: Appears elevated from baseline (BASELINE SCR ~0.8 MG/DL)
Plan
- Plan
Initial / Loading Dose: VANCO 1750MG X1
Monitoring: RANDOM 10/06 @0600
Pharmacokinetics Vancomycin I
- -
Patient Age: 79
Patient Sex: Female
Vancomycin Day #: 1
Indication: Bacteremia
Height / Weight:
Height 5 ft
Actual Weight 88.1 kg
Pertinent Past Medical History: COPD, OBESITY (BMI 38)
- Vital Signs / Lab Results
Temp Pulse Resp BP Pulse Ox
97.6 F 76 21 96/77 99
10/05/24 08:00 10/05/24 10:18 10/05/24 09:00 10/05/24 10:18 10/05/24 09:00
Lab Results - Hematology
10/02/24 10/03/24 10/04/24
23:26 08:56 05:55
WBC 17.0 H 8.2 8.9
10/05/24
03:25
WBC 8.4
Lab Results - Chemistry
10/02/24 10/03/24 10/04/24
23:26 08:56 05:55
BUN 11 13 32 H
Creatinine 0.8 0.8 1.1 H
Estimated Creat Clear 54 66 40
Albumin 4.4
10/05/24
03:25
BUN 41 H
Creatinine 1.2 H
Estimated Creat Clear 36
Albumin
10/02/24
23:26
Lactic Acid 0.8
Microbiology Results
10/02/24 23:26 Blood Culture - Preliminary
Blood/Venous Positive culture in progress
Gram Stain - Preliminary
10/03/24 10:29 MRSA Screen - Final
Nose No Methicillin Resistant Staphylococcus aureus isolated.
10/02/24 23:26 Blood Culture - Preliminary
Blood/Venous Positive culture in progress
Gram Stain - Preliminary
10/03/24 13:41 Streptococcus pneumoniae Antigen (M - Final
Urine Negative for Streptococcus pneumoniae antigen.
A negative result does not exclude infection with
Streptococcus pneumoniae. Clinical correlation is
recommended.
10/03/24 13:41 Legionella Urinary Antigen - Final
Urine Negative for Legionella pneumophila Serogroup 1 antigen.
A negative result does not rule out the possiblity of
Legionella infection due to other serogroups or species of
Legionella. Clinical correlation is recommended.
[2024-10-05] MEDS: PREPARATION H OINTMENT RECTAL (11:30)
[2024-10-05] MEDS: VANCOCIN 535 MG IV (11:47)
--- NOTE | 2024-10-05 11:50 | PTCARENOTE ---
Pt has been resting in the chair. Sats on 3l are 97-98%. Blood cultures x2 sent via peripheral sticks. Renal panel sent as ordered. After BC sent Vancomycin 1750 mg IV hung via R midline cath. Currently pt assisted oob to the BSC to void/move her
bowels. Call marie in reach. in to see pt this am. No other changes
[2024-10-05 12:00] LABS: Albumin 4.2 g/dl (3.5-5.0); Blood Urea Nitrogen 44 mg/dl (7-17); Calcium 9.4 mg/dl (8.4-10.2); Carbon Dioxide 38 mmol/L (22-30); Chloride 94 mmol/L (98-107); Estimated Creatinine Clearance 44 ml/min; Glucose 206 mg/dl (70-99); Potassium 5.2 mmol/L (3.5-5.1); Sodium 138 mmol/L (135-145); eGFR 56.95
[2024-10-05 12:51] LABS: Glucose - Point of Care 192 mg/dl (70-99)
--- NOTE | 2024-10-05 13:34 | W.PN.HOSP.TC ---
Today's Communication/Plan
-
IV vancomycin
repeat blood culture
Cefepime Dced
IV steroids
trend bmp
Tx to tele
Assessment / Plan
Assessment / Plan
General: Respiratory Distress and Morbidly Obese
HEENT: NormoCephalic, Anicteric, Moist mucous membranes, Atraumatic and Oxygen
Respiratory: Decreased Breath Sounds
Cardiac: S1/S2, Regular Rhythm
Breast: Deferred by me
GI: Soft, Non Tender, Non Distended and Normal Bowel Sounds
Rectal: Deferred by Provider
Genito-urinary: Deferred by me
Musculoskeletal: No Clubbing and No Cyanosis
Skin: Warm
Neuro: Nonfocal/grossly intact, AOX3
Hematologic/Lymphatic: No Lymphadenopathy
Psych: Calm
IMPRESSION:
79 y.o female with chronic oxygen dependent and hypercarbic respiratory failure 2/2 COPD, restrictive lung disease and GARY who was recently admitted and treated for COPD exacerbaton w/ discharge 10 days ago comes in with severe acute hypercarbic
respiratory failure. Unable to provide history due to encephalopathic state and respiratory distress. Findings are suggestive for COPD exacerbation with hospital acquired pneumonia as well as CHF exacerbation.
PLAN:
#Acute on chronic hypoxic and hypercapnic respiratory failure 2/2 AECOPD
#Toxic metabolic encephalopathy-resolved
- flu/covid negative
- on solumedrol 40mg downtitrated to q12h
- duonebs RTC and prn for now
- continue her azithromcyin for anti-inflammatory effect.
-Improvement in mentation. Back to baseline folate off oxygenation.
-Cont with chronic Bipap qhs and prn
-Pulmonary following
# PNA - LLL consolidation with recent hospital admission likely viral
- no sputum for cx
-check Legionella and strep antigen-negative.
-DCed cefepime
-procal negative.
#CoNS bacteremia /
-ECHO on 10/03 was negative for vegetation
-IV vancomycin
-ID input
#Acute on chronic HFpEF
- s/p IV lasix in ED
-Status post IV Lasix. Bump in creatinine was noted which is improving. Off IV diuretics. Restart oral regimen. Cards recommending 80 mg p.o. daily.
- echo EF of 55%. Mild to moderate aortic stenosis. Ventricular size and function without regional wall motion abnormality
- hold valsartan for now
- cardiology consult
# TOBY on CKD
-Creatinine down trended. Plan to restart Lasix in the morning
#Diabetes mellitus type 2
-A1c 6.4
-metformin on hold
-SSI. Accu-Cheks.
#Essential hypertension
#History of NSVT
-Continue metoprolol.
#History of CVA
-Continue home Plavix and atorvastatin.
#Hyperlipidemia
-Continue atorvastatin
#Iron deficiency anemia
-Follow CBC.
-Replete.
#Restless leg syndrome
-Continue Requip
DVT PPX - lovenox sq
Code status - full code
PT/OT-SNF on discharge
tx to tele
Anticipated Discharge: > 48 hours
Subjective/Interval History
-
Date of Service: October 05, 2024
remains on 4L oxygen
slept well overnight
states sob has improved
Objective Data
-
Labs:
Laboratory Results
10/05/24 10/05/24
03:25 11:33
WBC 8.4
Hgb 9.1 L
Hct 30.2 L
Plt Count 279
Sodium 137 138
Potassium 5.1 5.2 H
Chloride 94 L 94 L
Carbon Dioxide 38 H 38 H
BUN 41 H 44 H
Creatinine 1.2 H 1.0
Glucose 184 H 206 H
Calcium 9.5 9.4
Vital Signs:
Vital Signs
Temp Pulse Resp BP Pulse Ox
98.5 F 84 22 120/69 97
10/05/24 11:00 10/05/24 13:00 10/05/24 13:00 10/05/24 12:00 10/05/24 12:00
I&O
10/04/24 10/05/24 10/06/24
06:59 06:59 06:59
Intake Total 900 / 900 850 / 850 200 / 200
Output Total 1100 / 1100 650 / 650 375 / 375
Balance -200 / -200 200 / 200 -175 / -175
Data Reviewed
-
Total Time Spent with Patient (in minutes): 55
[2024-10-05] MEDS: NOVOLOG FLEXPEN-MODERATE RESISTANCE 1 UNITS SC (13:36)
[2024-10-05] MEDS: FLUSH (NSS) 1 FLUSH IV (14:21)
--- NOTE | 2024-10-05 14:30 | PTCARENOTE ---
Fair appetite for lunch. No complaints- resting oob in the chair, visiting with family
[2024-10-05] MEDS: STERILE WATER FOR INJECTION IV ×2 (16:42→23:48)
[2024-10-05 17:19] LABS: Glucose - Point of Care 296 mg/dl (70-99)
--- NOTE | 2024-10-05 17:21 | PTCARENOTE ---
Assessment is unchanged. Remains on 3L nc with sats of 98%. VS as documented. For transfer to [facility]- Report called to the 4th floor. Will transfer pt via bed.
[2024-10-05] MEDS: LOVENOX 40 MG SC (17:49)
[2024-10-05] MEDS: PREPARATION H OINTMENT 1 APPLIC RECTAL (17:49)
--- NOTE | 2024-10-05 17:56 | PTCARENOTE ---
Pt assisted on to the bsc to void yellow urine and had a mod dk brown BM. Mitra care given. Preparation H put on hemmorhoid. Pt then assisted into the new bed and transferred to rm [id number]. No other changes. O2 sats 99%
[2024-10-05] MEDS: NOVOLOG FLEXPEN-MODERATE RESISTANCE 5 UNITS SC (19:07)
[2024-10-05 21:22] LABS: Glucose - Point of Care 181 mg/dl (70-99)
[2024-10-05] MEDS: LIPITOR 10 MG PO (22:44)
[2024-10-05] MEDS: REQUIP 1 MG PO (22:44)
[2024-10-06] VITALS (10 sets, daily range): BP systolic 105–177; BP diastolic 62–94; PULSE 2–75; O2SAT 99; BMI 36.8
[2024-10-06 07:32] LABS: Glucose - Point of Care 193 mg/dl (70-99)
[2024-10-06] MEDS: PULMICORT 0.5 MG INH ×2 (07:47→19:46)
[2024-10-06] MEDS: DUONEB 3 ML INH ×2 (07:47→19:46)
--- NOTE | 2024-10-06 08:34 | W.PN.CD ---
Today's Communication / Plan
-
renal function improved.
Patient on 3 L nasal cannula. She was on 4 L at home
Her prior dosing of Lasix 80 mg once a day was resumed. Can monitor renal function and weights. If patient nearing discharge then would consider outpatient lab at the end of this week and then again next week
Impression / Plan
-
Shortness of breath. May be multifactorial. Patient has O2 dependent COPD and is also on chronic prednisone. Patient with increased shortness of breath combination of factors including COPD, pneumonia and possible component of heart failure may
all contribute.
-Chronic O2 dependence. On 4 L at home. Currently on 3 L
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
-Optimization of treatment of COPD as directed by pulmonary
-Patient had relatively low blood pressures and rising creatinine to 1.2 after IV diuresis when she was in the ICU. Creatinine now normalized as IV Lasix was held. Patient back on Lasix 80 mg a day which was the dose she was on prior to last
admission. Will need to watch renal function while she is back on diuretic.
BC positive for coag neg staph
- ID following
- assessment for pseudobacteremia. See ID note.
.
Left heart failure
History of left heart failure. Patient had transient cardiomyopathy in the past with ejection fraction 45 to 50% was normalized by most recent echo.
-proBNP 1500
-Patient had been on Lasix 80 mg a day prior to last hospitalization it was held during the hospitalization and she states that she was told not to start it. It was still on her the discharge med list.
Patient may have acute decompensated heart failure related to discontinuation of diuretic. Patient received IV Lasix on admission and yesterday with rise in creatinine to 1.2 blood pressure is relatively 10/05/23
-renal function improved. resume prior doseingof lasix 80mg a day and monitor renal function and weights
-Echo 10/03/2024 normal left ventricular function ejection fraction 55% mild to moderate aortic stenosis
.
Aortic stenosis mild to moderate by recent echo. Mean gradient 14 mmHg
.
NSVT. Listed in history patient with normal left ventricular function currently on beta-kristin stable on telemetry considering blood pressures will lower beta-kristin
.
Diabetes management as directed by primary team
-Hypertension. Stable continue current therapy
-Dyslipidemia. Statin
Physical Exam
Vital Signs/Labs
Vital Signs
Temp Pulse Resp BP Pulse Ox
97.6 F 68 16 139/94 97
10/06/24 03:21 10/06/24 07:50 10/06/24 07:50 10/06/24 03:21 10/06/24 07:50
10/05/24 10/06/24 10/07/24
06:59 06:59 06:59
Actual Weight 88.1 kg 85.457 kg
PT 13.9 Sec (11.4-14.6) 10/03/24 08:56
INR 1.04 10/03/24 08:56
APTT 28.0 Sec (23.4-35.0) 10/03/24 08:56
Magnesium 2.0 mg/dl (1.6-2.3) 10/04/24 05:55
10/02/24 10/04/24
23:26 05:55
Tan-[id number]-[id number] Pept 1580 1110
Physical Exam
Constitutional: No acute distress and Other (remainson liters which is the amount she uses at home)
EENT: Anicteric
Cardiovascular: Rhythm & rate is regular
Respiratory: Other (decreased at bases.. Faint wheeze)
GI: Soft, Non tender and Normal bowel sounds
Neuro/Psych: Alert and Oriented
Data Reviewed
-
Date of Service: October 06, 2024
Medical Decision Making: Reviewed Test Results
X-Ray/CT/US/MRI/NUC/PET: Report Reviewed by me
Medical Tests (PFT, Pathology etc): Report Reviewed by me
Labs: Labs Reviewed by me
[2024-10-06] MEDS: NOVOLOG FLEXPEN-MODERATE RESISTANCE 1 UNITS SC ×2 (08:59→17:43)
[2024-10-06] MEDS: PLAVIX 75 MG PO (09:00)
[2024-10-06] MEDS: MUCINEX 600 MG PO ×2 (09:00→21:36)
[2024-10-06] MEDS: LOPRESSOR 25 MG PO ×2 (09:00→21:36)
[2024-10-06] MEDS: LASIX 80 MG PO (09:00)
[2024-10-06] MEDS: FEOSOL 325 MG PO (09:00)
[2024-10-06] MEDS: ZITHROMAX 500 MG PO (09:01)
[2024-10-06] MEDS: PREPARATION H OINTMENT RECTAL ×2 (09:01→20:40)
[2024-10-06] MEDS: SOLU-MEDROL PF 40 MG IV (09:01)
[2024-10-06 09:25] LABS: % Basophils 0.1 % (0-2); % Immature Granulocytes 0.5 % (0-0.5); % Lymphocytes 9.7 % (20.5-51.1); % Monocytes 9.8 % (1.7-9.3); % Neutrophils 79.9 % (42.2-75.2); Absolute Lymphocytes 0.9 10^3/uL (1.2-3.4); Absolute Monocytes 0.9 10^3/uL (0.1-0.6); Hematocrit 31.8 % (37.0-47.0); Hemoglobin 9.4 g/dL (12.0-16.0); Mean Corp Hgb Conc. 29.6 g/dL (33.0-37.0); Mean Corpuscular Hgb 26.6 pg (27.0-31.0); Mean Corpuscular Volume 90.1 fL (81.0-99.0); Nucleated Red Blood Cells % 0 %; Platelet Count 283 10^3/uL (130-400); Red Blood Cell Count 3.53 10^6/uL (4.20-5.40); Red Cell Dist. Width 14.6 % (11.5-14.5); White Blood Cell Count 8.8 10^3/uL (4.8-10.8)
[2024-10-06 09:53] LABS: Blood Urea Nitrogen 38 mg/dl (7-17); Calcium 9.2 mg/dl (8.4-10.2); Carbon Dioxide 38 mmol/L (22-30); Chloride 95 mmol/L (98-107); Estimated Creatinine Clearance 44 ml/min; Glucose 158 mg/dl (70-99); Potassium 4.5 mmol/L (3.5-5.1); Sodium 137 mmol/L (135-145); eGFR 56.95
--- NOTE | 2024-10-06 09:59 | PHA.VAN.FU ---
Vancomycin Assessment / Plan
- Assessment
Renal Function: Stable
WBC's are: WNL
In the past 24 hrs, patient has been: Afebrile
Concomitant Antimicrobials: Cefepime; chronic azithromycin
- Assessment - Therapeutic Drug Monitoring
Random Level: 16 - drawn ~20.5H after 1750mg loading dose
- Dosing Plan
Dosing by Level: Re-dose today (Vanc 1000mg)
- Monitoring Plan
Random Level: 10/07 0600
- Follow Up
Pharmacy will continue to follow.
Vancomycin Follow UP
- -
Patient Age: 79
Patient Sex: Female
Vancomycin Day #: 2
Indication: Bacteremia
Requesting Provider: Dr. Mesa
Pertinent Antimicrobial Allergies:
NKDA
Height / Weight:
Height 5 ft
Actual Weight 85.457 kg
Pertinent Past Medical History: BMI ~37, DM 2, COPD (home O2/prednisone)
- Vital Signs / Lab Results
Temp Pulse Resp BP Pulse Ox
97.8 F 68 16 146/80 97
10/06/24 07:30 10/06/24 07:50 10/06/24 07:50 10/06/24 07:30 10/06/24 07:50
Lab Results - Hematology
10/04/24 10/05/24 10/06/24
05:55 03:25 08:17
WBC 8.9 8.4 8.8
Lab Results - Chemistry
10/04/24 10/05/24 10/05/24
05:55 03:25 11:33
BUN 32 H 41 H 44 H
Creatinine 1.1 H 1.2 H 1.0
Estimated Creat Clear 40 36 44
Albumin 4.2
10/06/24
08:17
BUN 38 H
Creatinine 1.0
Estimated Creat Clear 44
Albumin
Microbiology Results
10/02/24 23:26 Blood Culture - Preliminary
Blood/Venous Coagulase neg. staphylococcus
Gram Stain - Preliminary
10/02/24 23:26 Blood Culture - Preliminary
Blood/Venous Coagulase neg. staphylococcus
Gram Stain - Preliminary
10/03/24 10:29 MRSA Screen - Final
Nose No Methicillin Resistant Staphylococcus aureus isolated.
Therapeutic Drug Monitoring
Random Vancomycin 16.0 ug/ml 10/06/24 08:17
--- NOTE | 2024-10-06 11:12 | W.PN.ID1 ---
Date of Service
Date of Service: October 06, 2024
Today's Communication
- repeat blood cultures x2 were done prior to vancomycin; in progress no growth to date
- c/w vancomycin for now
Assessment / Plan
Probable CONS Pseudobacteremia (IE contaminated blood cultures)
- note that initial sets of blood cultures were obtained at the same time - suggesting these may not have been two separate draws
- repeat blood cultures x2 were done prior to vancomycin; in progress no growth to date
- c/w vancomycin for now
- 10/03 TTE: no valvular lesions
- no known hardwear
Viral Pneumonia vs aspiration pneumonitis
- procalcitonin remains negative - risks of ongoing cefepime which include delirium/[employer]CE [employer]ICE toxicity, C difficile, acquisition of MDROs, etc outweigh possible benefits at this time
- treatable viruses - covid/influenza ruled out
COPD on 4L/chronic steroids/chronic azithromycin
RLD
GARY
Class II obesity
- management per pulmonary
- c/w [facility] azithromycin 3x weekly
- QTc acceptable
Recommend RSV shot which she hasnt had at her local pharmacy, would also recommend she confirm pneumococcal vaccines are up to date
Palliative care involvement a consideration
Chief Complaint
-: Pneumonia (viral)
Subjective / Review of Systems
afebrile
bp stable
on 3L (baseline at home is 4L)
Vital Signs / Physical Exam
Vital Signs
Vital Signs
Temp Pulse Resp BP Pulse Ox
97.8 F 68 16 146/80 93
10/06/24 07:30 10/06/24 07:50 10/06/24 07:50 10/06/24 07:30 10/06/24 08:45
Physical Exam
Constitutional: No Acute Distress and Chronically Ill
Cardiovascular: Regular Rate and S1/S2; Negative Murmur or Rub
Pulmonary: Clear and Symmetric; Negative Wheezes or Rales
Gastrointestinal: Soft, Non Tender, Non Distended and Normal Bowel Sounds
Skin: Warm and Dry; Negative Rash or Jaundice
Objective Data
Lab Data
Lab Results
10/06/24 08:17
10/06/24 08:17
PT 13.9 Sec (11.4-14.6) 10/03/24 08:56
INR 1.04 10/03/24 08:56
APTT 28.0 Sec (23.4-35.0) 10/03/24 08:56
Estimated Creat Clear 44 ml/min 10/06/24 08:17
Lactic Acid 0.8 mmol/L (0.7-2.0) 10/02/24 23:26
Total Bilirubin 0.5 mg/dl (0.2-1.3) 10/02/24 23:26
AST 32 U/L (14-36) 10/02/24 23:26
ALT 31 U/L (0-35) 10/02/24 23:26
Alkaline Phosphatase 82 U/L (38-126) 10/02/24 23:26
Most recent labs reviewed.
Micro Results:
10/02/24 23:26 Blood Culture - Preliminary
Blood/Venous Coagulase neg. staphylococcus
Gram Stain - Preliminary
10/02/24 23:26 Blood Culture - Preliminary
Blood/Venous Coagulase neg. staphylococcus
Gram Stain - Preliminary
10/05/24 11:33 Blood Culture - Pending
Blood/Venous
10/05/24 11:33 Blood Culture - Pending
Blood/Venous
10/03/24 10:29 MRSA Screen - Final
Nose No Methicillin Resistant Staphylococcus aureus isolated.
10/03/24 13:41 Streptococcus pneumoniae Antigen (M - Final
Urine Negative for Streptococcus pneumoniae antigen.
A negative result does not exclude infection with
Streptococcus pneumoniae. Clinical correlation is
recommended.
10/03/24 13:41 Legionella Urinary Antigen - Final
Urine Negative for Legionella pneumophila Serogroup 1 antigen.
A negative result does not rule out the possiblity of
Legionella infection due to other serogroups or species of
Legionella. Clinical correlation is recommended.
10/02/24 23:14 Influenza Types A & B (KELLEN) - Final
Nasal Swab Negative for Influenza A & B, NAAT
Negative results must be combined with clinical observations
and patient history.
Nucleic Acid Amplification test (NAAT)performed on the
[employer] platform.
[2024-10-06] MEDS: VANCOCIN 200 IV (11:14)
[2024-10-06 11:47] LABS: Glucose - Point of Care 205 mg/dl (70-99)
[2024-10-06] MEDS: NOVOLOG FLEXPEN-MODERATE RESISTANCE 3 UNITS SC (12:07)
--- NOTE | 2024-10-06 12:07 | W.PN.HOSP.TC ---
Today's Communication/Plan
-
Monitor vital signs
see plan
cw antibiotics
PT/OT, needs SNF
Continue with Lasix
Monitor renal function
Assessment / Plan
Assessment / Plan
General: Respiratory Distress and Morbidly Obese
HEENT: NormoCephalic, Anicteric, Moist mucous membranes, Atraumatic and Oxygen
Respiratory: Decreased Breath Sounds
Cardiac: S1/S2, Regular Rhythm
GI: Soft, Non Tender, Non Distended and Normal Bowel Sounds
Musculoskeletal: No Clubbing and No Cyanosis
Neuro: Nonfocal/grossly intact, AOX3
Psych: Calm
IMPRESSION:
79 y.o female with chronic oxygen dependent and hypercarbic respiratory failure 2/2 COPD, restrictive lung disease and GARY who was recently admitted and treated for COPD exacerbaton w/ discharge 10 days ago comes in with severe acute hypercarbic
respiratory failure. Unable to provide history due to encephalopathic state and respiratory distress. Findings are suggestive for COPD exacerbation with hospital acquired pneumonia as well as CHF exacerbation.
PLAN:
#Acute on chronic hypoxic and hypercapnic respiratory failure 2/2 AECOPD
#Toxic metabolic encephalopathy-resolved
- flu/covid negative
- on solumedrol 40mg downtitrated to q12h
- duonebs RTC and prn for now
- continue her azithromcyin for anti-inflammatory effect.
-Improvement in mentation. Back to baseline folate off oxygenation.
-Cont with chronic Bipap qhs and prn
-Pulmonary following
# PNA - LLL consolidation with recent hospital admission likely viral
- no sputum for cx
-check Legionella and strep antigen-negative.
-DCed cefepime
-procal negative.
#Cons bacteremia 2/4
-ECHO on 10/03 was negative for vegetation
-IV vancomycin
-ID input
repeat bcx NGTD
#Acute on chronic HFpEF
- s/p IV lasix in ED
-Status post IV Lasix. Bump in creatinine was noted which is improving. Off IV diuretics. Restart oral regimen. Cards recommending 80 mg p.o. daily.
- echo EF of 55%. Mild to moderate aortic stenosis. Ventricular size and function without regional wall motion abnormality
- hold valsartan for now
- cardiology consult
# TOBY on CKD
-Creatinine down trended. cw lasix
#Diabetes mellitus type 2
-A1c 6.4
-metformin on hold
-SSI. Accu-Cheks.
#Essential hypertension
#History of NSVT
-Continue metoprolol.
#History of CVA
-Continue home Plavix and atorvastatin.
#Hyperlipidemia
-Continue atorvastatin
#Iron deficiency anemia
-Follow CBC.
-Replete.
#Restless leg syndrome
-Continue Requip
DVT PPX - lovenox sq
Code status - full code
PT/OT-SNF on discharge
Anticipated Discharge: 24 - 48 hours
Subjective/Interval History
-
Date of Service: October 06, 2024
denies pain
Objective Data
-
Labs:
Laboratory Results
10/06/24
08:17
WBC 8.8
Hgb 9.4 L
Hct 31.8 L
Plt Count 283
Sodium 137
Potassium 4.5
Chloride 95 L
Carbon Dioxide 38 H
BUN 38 H
Creatinine 1.0
Glucose 158 H
Calcium 9.2
Vital Signs:
Vital Signs
Temp Pulse Resp BP Pulse Ox
97.8 F 68 16 146/80 93
10/06/24 07:30 10/06/24 07:50 10/06/24 07:50 10/06/24 07:30 10/06/24 08:45
I&O
10/05/24 10/06/24 10/07/24
06:59 06:59 06:59
Intake Total 850 / 850 800 / 800
Output Total 650 / 650 800 / 800
Balance 200 / 200 0 / 0
--- NOTE | 2024-10-06 12:52 | W.PN.PUL3 ---
Today's Communication / Plan
-
Continue BiPAP, no changes
Transition to oral prednisone
Antibiotics per infectious disease
PT/OT, ambulate
Case management to request DME company to assess functionality of home ventilator
Avoid narcotic therapy, sedation
Assessment
-
Assessment: 79-year-old female former tobacco smoker with [id number] history (quit October 2013) with a past medical history of moderate�severe COPD on chronic prednisone and 4 L/min ATC, chronic hypercapnic respiratory failure on NIV via Astral
100, hypertension, history of stroke (October 2013), memory loss, history of restrictive lung disease, history of H. pylori, history of COVID-19 (08/2023), DM type II, RLS, snoring and history of right calf SCC who presents with shortness of breath.
At home she was short of breath and put on her BiPAP which did not lead to improvement so 911 was called. Initially in the ER she was afebrile to 98 �F, pulse rate 119, respiratory rate 21, BP 134/65 and saturating 90% on 4 L/min. Initial labs
showed leukocytosis to 17, Hb 11.1, acute on chronic hypercapnia with pH 7.17 and pCO2 95, potassium level 5.7, creatinine 0.8, proBNP 1580, procalcitonin 0.08 and COVID-19 antigen negative. Initial CXR showed acute pulmonary edema with a small
left-sided pleural effusion. CTA chest showed no evidence of a PE with a left lower lobe pneumonia and scattered pulmonary nodules with small bilateral pleural effusions. In the ER she was given DuoNebs, Zithromax, ceftriaxone and 40 mg IV Lasix.
Given her blood gas findings with acute on chronic hypercapnia, she was transitioned to noninvasive ventilation and admitted to the ICU. [employer] services consulted for additional management/recommendations.
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
disease, memory loss, restrictive lung disease, gas exchange deficit, lung nodules, history of DVT, history of H. pylori, history of COVID-19 (08/2023), DM type II, restless leg syndrome, snoring, history of right calf squamous cell carcinoma
Impression:
#Acute on chronic hypoxic + hypercapnic respiratory failure requiring continuous BiPAP --> now on BiPAP with sleep and nasal cannula during the day
#Hyperkalemia (mild)
#Elevated proBNP (1580 on 10/02/2024, of note, was 341 on 09/19/2024)
#Chronic anemia with iron deficiency
#History of elevated eosinophil count (absolute eos were 600 in August 2021)
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
#History of hypertension
#History of H. pylori
#History of pneumonia
#Former tobacco use disorder (former [id number] history, quit in October 2013)
#History of restless leg syndrome on ropinirole
#Rhinorrhea likely vasomotor rhinitis improved on Atrovent nasal spray
Plan/recommendations:
At this time, patient appears to be objectively and subjectively improved
Breathing improved
Minimal crackles on exam
Continues to tolerate BiPAP at night. Has CPAP at home which he uses and remains compliant
Moving forward
Continue with diuresis
Cardiology following
ABG reviewed
VBG pH 7.34 on 10/05, pCO2 73; her baseline pCO2 is approximately 60
Continue with current BiPAP settings
She uses an Astral 100 noninvasive ventilator at home with EPAP range 5-10 cmH2O, pressure support range 4�20 cmH2O with inspiratory time range 0.2 seconds - 1.5 seconds.
Case management to confirm that this is working appropriately
She will likely require close follow-up in sleep clinic postdischarge
At home for her COPD/asthma, she is on prednisone 10 mg daily, DuoNebs + budesonide BID with azithromycin 500 mg TIW and on 4L/min ATC
Will transition to oral prednisone and taper 10 mg every 3 days until down to baseline
Continue Duonebs BID + budesonide
Patient previously on antibiotics with cefepime due to suspected LLL-PNA, although procalcitonin is 0.08 --> repeat procal this AM is 0.07.
Antibiotics per infectious disease
Currently on azithromycin as home medication and vancomycin
DVT ppx: LMWH
Follow-up with Dr. Bryan
scheduled for 10/29/2024. This may need to be moved up depending how her hospital course ensues.
Reviewed with at bedside
All questions answered
Data:
CTA chest 10/03/2024:
1. No evidence of central, lobar or segmental pulmonary embolism.
2. There is a patchy opacity within the left lower lobe which is suspicious for pneumonia.
3. There are scattered pulmonary nodules measuring up to 4 mm. There is a nodule in the apical right upper lobe which appears slightly increased in size from prior. Additionally there is a nodule in the right middle lobe which appears new from
prior. Consider follow-up CT chest to ensure stability.
4. Moderate, apical predominant centrilobular and paraseptal emphysematous changes.
Total time spent today was 39 minutes for this encounter. Time includes reviewing laboratory test/imaging results, reviewing pertinent medical records, obtaining and reviewing medical history, performing an appropriate exam, ordering medications,
tests and procedures. Time also includes documentation of this encounter, coordinating patient care and communicating with other healthcare professionals. Total time does not include separately billed tests performed on this date of service.
Subjective Data
-
Date of Service:
Date of Service: October 06, 2024
Chief Complaint: Pulmonary Follow Up
Subjective:
Patient feels much improved. Shortness of breath improved. Tolerating BiPAP at night. Denies chest pain, nausea, abdominal pain. Has mild dry cough, no hemoptysis. at bedside
Objective Data
Data Reviewed
Vital Signs / I&O / Oxygen:
Vital Signs
Temp Pulse Resp BP Pulse Ox
97.5 F 83 16 130/62 94
10/06/24 11:45 10/06/24 11:45 10/06/24 11:45 10/06/24 11:45 10/06/24 11:45
Intake and Output
10/05/24 10/06/24 10/07/24
06:59 06:59 06:59
Intake Total 850 / 850 800 / 800
Output Total 650 / 650 800 / 800
Balance 200 / 200 0 / 0
SaO2 94
Nasal Cannula flow liters per 3
minute
Physical Exam
General: Comfortable
HEENT: Normocephalic, Anicteric and Other (Thick neck)
Cardiovascular: S1-S2, Regular Rhythm, Murmur (n), Rub (negative) and Peripheral Edema (+1 left lower extremity edema, no edema on the right lower extremity)
Respiratory: Wheeze (negative), Crackles (Few scattered), Rhonchi (negative), Non-Labored Respirations, Stridor (negative) and Other (Diminished breath sounds bilaterally)
GI: Soft, Non Distended (Obese), Non Tender and Normal Bowel Sounds
Neurology: Awake, Alert and No Motor Deficits (Moves all extremities)
Skin: Warm, Dry, Cyanosis (negative) and Jaundice (negative)
Labs/Micro/Reports
Lab Data
10/06/24 08:17
10/06/24 08:17
Microbiology
10/05/24 11:33 Blood/Venous Blood Culture - Preliminary
No Growth in 24 hours- Final report to follow
10/05/24 11:33 Blood/Venous Blood Culture - Preliminary
No Growth in 24 hours- Final report to follow
10/02/24 23:26 Blood/Venous Blood Culture - Preliminary
Coagulase neg. staphylococcus
10/02/24 23:26 Blood/Venous Gram Stain - Preliminary
10/02/24 23:26 Blood/Venous Blood Culture - Preliminary
Coagulase neg. staphylococcus
10/02/24 23:26 Blood/Venous Gram Stain - Preliminary
10/03/24 10:29 Nose MRSA Screen - Final
No Methicillin Resistant Staphylococcus aureus isolated.
10/03/24 13:41 Urine Streptococcus pneumoniae Antigen (M - Final
Negative for Streptococcus pneumoniae antigen.
A negative result does not exclude infection with
Streptococcus pneumoniae. Clinical correlation is
recommended.
10/03/24 13:41 Urine Legionella Urinary Antigen - Final
Negative for Legionella pneumophila Serogroup 1 antigen.
A negative result does not rule out the possiblity of
Legionella infection due to other serogroups or species of
Legionella. Clinical correlation is recommended.
--- NOTE | 2024-10-06 15:37 | CM ---
Chart reviewed for d/c planning. Therapy rec skilled rehab at d/c, patient prefers [facility] or [facility].
Per [facility] admissions, patient likely can be accepted. Per hospitalist, patient will likely be ready for d/c either tomorrow or Sunday. CM to follow up pillo/ [facility] on bed availability on day of d/c.
Patient will require insurance auth prior to d/c
[facility]
Report: [phone]

Plan: [facility] when ready
[2024-10-06 16:23] LABS: Glucose - Point of Care 179 mg/dl (70-99)
[2024-10-06] MEDS: LOVENOX 40 MG SC (17:44)
[2024-10-06 21:06] LABS: Glucose - Point of Care 201 mg/dl (70-99)
[2024-10-06] MEDS: REQUIP 1 MG PO (21:36)
[2024-10-06] MEDS: LIPITOR 10 MG PO (21:36)
[2024-10-06] MEDS: TYLENOL 650 MG PO (22:19)
[2024-10-07] VITALS (7 sets, daily range): BP systolic 126–190; BP diastolic 65–96; PULSE 2; BMI 35.9
[2024-10-07 07:52] LABS: Glucose - Point of Care 94 mg/dl (70-99)
[2024-10-07] MEDS: NOVOLOG FLEXPEN-MODERATE RESISTANCE SC (08:01)
[2024-10-07] MEDS: DUONEB 3 ML INH ×2 (08:03→19:16)
[2024-10-07] MEDS: PULMICORT 0.5 MG INH ×2 (08:04→19:16)
--- NOTE | 2024-10-07 08:44 | PHA.VAN.FU ---
Vancomycin Assessment / Plan
- Assessment
Renal Function: Stable
In the past 24 hrs, patient has been: Afebrile
- Assessment - Therapeutic Drug Monitoring
Random Level: 18 - drawn ~19.5H after previous dose of 1000mg
- Dosing Plan
Dosing by Level: Hold off on dosing today
Dosing Comments: patient with accumulation
- Monitoring Plan
Random Level: 10/08 0600
- Follow Up
Pharmacy will continue to follow.
Vancomycin Follow UP
- -
Patient Age: 79
Patient Sex: Female
Vancomycin Day #: 3
Indication: Bacteremia
Requesting Provider: Dr. Mesa
Pertinent Antimicrobial Allergies:
NKDA
Height / Weight:
Height 5 ft
Actual Weight 83.489 kg
Pertinent Past Medical History: BMI ~37, DM 2, COPD (home O2/prednisone)
- Vital Signs / Lab Results
Temp Pulse Resp BP Pulse Ox
98.4 F 67 16 190/96 96
10/07/24 07:56 10/07/24 08:06 10/07/24 08:06 10/07/24 07:56 10/07/24 08:06
Lab Results - Hematology
10/05/24 10/06/24
03:25 08:17
WBC 8.4 8.8
Lab Results - Chemistry
10/05/24 10/05/24 10/06/24
03:25 11:33 08:17
BUN 41 H 44 H 38 H
Creatinine 1.2 H 1.0 1.0
Estimated Creat Clear 36 44 44
Albumin 4.2
Microbiology Results
10/02/24 23:26 Blood Culture - Preliminary
Blood/Venous Coagulase neg. staphylococcus
Gram Stain - Preliminary
10/02/24 23:26 Blood Culture - Preliminary
Blood/Venous Coagulase neg. staphylococcus
Gram Stain - Preliminary
10/05/24 11:33 Blood Culture - Preliminary
Blood/Venous No Growth in 24 hours- Final report to follow
10/05/24 11:33 Blood Culture - Preliminary
Blood/Venous No Growth in 24 hours- Final report to follow
Therapeutic Drug Monitoring
Random Vancomycin 18.0 ug/ml 10/07/24 06:37
[2024-10-07] MEDS: FEOSOL 325 MG PO (08:48)
[2024-10-07] MEDS: DELTASONE 40 MG PO (08:48)
[2024-10-07] MEDS: LOPRESSOR 25 MG PO ×2 (08:49→20:06)
[2024-10-07] MEDS: LASIX 80 MG PO (08:49)
[2024-10-07] MEDS: MUCINEX 600 MG PO ×2 (08:49→20:07)
[2024-10-07] MEDS: PREPARATION H OINTMENT 1 APPLIC RECTAL ×2 (08:49→20:07)
[2024-10-07] MEDS: PLAVIX 75 MG PO (08:49)
--- NOTE | 2024-10-07 10:26 | PN.CDI ---
CDI
- -
CDI:
Physician Documentation Request
Admit Date: 10/03/24 03:23
Dear Doctor Jonathan,
Patient admitted for hypoxic respiratory failure.
316 Hospitalist PN: 'PNA - LLL consolidation with recent hospital admission likely viral
- no sputum for cx
-check Legionella and strep antigen-negative.
-DCed cefepime
-procal negative.'
Laboratory Tests
10/02/24
23:26
WBC 17.0 H
10/02/24
22:41 10/02/24
23:00 10/02/24
23:36
Pulse 119 132 117
10/02/24
22:45 10/02/24
23:15 10/03/24
03:15
Resp Rate 33 25 27
Please clarify which of the following most accurately describes the status of the patient's infection:
Viral Sepsis, POA
- Systemic manifestations of infection, with 2 or more SIRS criteria which include:
- Fever >100.4 degrees F or hypothermia < 96.8 degrees F
- Leukocytosis - WBC > 12,000 or leukopenia - WBC < 4,000 or > 10% bands
- Tachycardia > 90 beats per minute
- Tachypnea - RR > 20 breaths per minute or PaCO2 , 32mmHg
Source: Merck Manual 2012
SIRS of noninfectious origin
Localized Infection Only, Without Systemic Illness
- indicate the site/source, such as UTI, pneumonia etc.
Other
Use of terms such as suspected, likely, concern for, or probable (associated with a specific diagnosis that is being evaluated, monitored, or treated as if it exists) are acceptable and can be coded in the inpatient setting, when documented at the
time of discharge.
Thank you,
Lisa Cason RN, BSN
CDI Specialist
Available via [place] text
Please use your independent medical judgment in providing your response.
[2024-10-07 11:12] LABS: Glucose - Point of Care 158 mg/dl (70-99)
--- NOTE | 2024-10-07 11:34 | W.PN.HOSP.TC ---
Today's Communication/Plan
-
Monitor vital signs see plan
Continue with prednisone taper
Continue with Lasix
Labs pending
Discussed with patient and she is agreeable to SNF, start discharge planning
Assessment / Plan
Assessment / Plan
General: Respiratory Distress and Morbidly Obese
HEENT: NormoCephalic, Anicteric, Moist mucous membranes, Atraumatic and Oxygen
Respiratory: Decreased Breath Sounds
Cardiac: S1/S2, Regular Rhythm
GI: Soft, Non Tender, Non Distended and Normal Bowel Sounds
Musculoskeletal: No Clubbing and No Cyanosis
Neuro: Nonfocal/grossly intact, AOX3
Psych: Calm
IMPRESSION:
79 y.o female with chronic oxygen dependent and hypercarbic respiratory failure 2/2 COPD, restrictive lung disease and GARY who was recently admitted and treated for COPD exacerbaton w/ discharge 10 days ago comes in with severe acute hypercarbic
respiratory failure. Unable to provide history due to encephalopathic state and respiratory distress. Findings are suggestive for COPD exacerbation with hospital acquired pneumonia as well as CHF exacerbation.
PLAN:
#Acute on chronic hypoxic and hypercapnic respiratory failure 2/2 AECOPD
#Toxic metabolic encephalopathy-resolved
- flu/covid negative
- Wean steroids to 40 mg daily prednisone, decrease by 10 mg every 3 days Until reaches 10 mg daily
- duonebs RTC and prn for now
- continue her azithromcyin for anti-inflammatory effect.
-Improvement in mentation.
-Cont with chronic Bipap qhs and prn
-Pulmonary following
# PNA - LLL consolidation with recent hospital admission likely viral
suspect viral sepsis, POA
- no sputum for cx
-Legionella and strep antigen-negative.
-DCed cefepime
-procal negative.
#Cons bacteremia 2/4
-ECHO on 10/03 was negative for vegetation
-IV vancomycin
-ID input
repeat bcx NGTD
#Acute on chronic HFpEF
- s/p IV lasix in ED
-Status post IV Lasix. Bump in creatinine was noted which is improving. Off IV diuretics. Restart oral regimen. Cards recommending 80 mg p.o. daily.
- echo EF of 55%. Mild to moderate aortic stenosis. Ventricular size and function without regional wall motion abnormality
- hold valsartan for now
- cardiology following
# TOBY on CKD
-Creatinine down trended. cw lasix
#Diabetes mellitus type 2
-A1c 6.4
-metformin on hold
-SSI. Accu-Cheks.
#Essential hypertension
#History of NSVT
-Continue metoprolol.
#History of CVA
-Continue home Plavix and atorvastatin.
#Hyperlipidemia
-Continue atorvastatin
#Iron deficiency anemia
-Follow CBC.
-Replete.
#Restless leg syndrome
-Continue Requip
DVT PPX - lovenox sq
Code status - full code
PT/OT-SNF on discharge
Anticipated Discharge: Within 24 hours
Subjective/Interval History
-
Date of Service: October 07, 2024
denies pain
Objective Data
-
Vital Signs:
Vital Signs
Temp Pulse Resp BP Pulse Ox
98.2 F 80 20 135/67 99
10/07/24 10:50 10/07/24 10:50 10/07/24 10:50 10/07/24 10:50 10/07/24 10:50
I&O
10/06/24 10/07/24 10/08/24
06:59 06:59 06:59
Intake Total 800 / 800 880 / 880
Output Total 800 / 800 900 / 900
Balance 0 / 0 -20 / -20
[2024-10-07] MEDS: NOVOLOG FLEXPEN-MODERATE RESISTANCE 1 UNITS SC (11:50)
[2024-10-07 12:41] LABS: % Basophils 0.2 % (0-2); % Eosinophils 0.2 % (0-6); % Immature Granulocytes 0.7 % (0-0.5); % Lymphocytes 4.2 % (20.5-51.1); % Monocytes 4.4 % (1.7-9.3); % Neutrophils 90.3 % (42.2-75.2); Absolute Immature Granulocytes 0.1 10^3/uL (0-0.05); Absolute Lymphocytes 0.5 10^3/uL (1.2-3.4); Absolute Monocytes 0.5 10^3/uL (0.1-0.6); Hematocrit 35.3 % (37.0-47.0); Hemoglobin 10.9 g/dL (12.0-16.0); Mean Corp Hgb Conc. 30.9 g/dL (33.0-37.0); Mean Corpuscular Hgb 26.9 pg (27.0-31.0); Mean Corpuscular Volume 87.2 fL (81.0-99.0); Mean Platelet Volume 9.4 fL (7.4-10.4); Nucleated Red Blood Cells % 0 %; Platelet Count 309 10^3/uL (130-400); Red Blood Cell Count 4.05 10^6/uL (4.20-5.40); Red Cell Dist. Width 14.6 % (11.5-14.5); White Blood Cell Count 11.1 10^3/uL (4.8-10.8)
--- NOTE | 2024-10-07 12:43 | W.PN.CD ---
Today's Communication / Plan
-
-Continue Lasix 80 mg PO daily; patient should continue this dose upon discharge.
-No further cardiac recommendations at this time; outpatient follow-up with Cardiology.
Impression / Plan
-
Shortness of breath-- multifactorial. Patient has O2 dependent COPD and is also on chronic prednisone. Patient with increased shortness of breath combination of factors including COPD, pneumonia and possible component of heart failure may all
contribute.
-Chronic O2 dependence. On 4 L at home. Currently on 3 L
-Continue antibiotics as directed by primary team and dry mop maker
-Optimization of treatment of COPD as directed by pulmonary
-Patient had relatively low blood pressures and rising creatinine to 1.2 after IV diuresis when she was in the ICU. Creatinine now normalized as IV Lasix was held.
-Continue Lasix 80 mg PO daily; patient should continue this dose upon discharge.
BC positive for coag neg staph
- ID following
Chronic HFpEF:
-EF 55% on recent echo with mild to moderate aortic stenosis.
-PO lasix as above.
.
Aortic stenosis mild to moderate by recent echo. Mean gradient 14 mmHg
-Will continue to monitor/manage as outpatient.
.
NSVT. Listed in history patient with normal left ventricular function currently on beta-kristin stable on telemetry considering blood pressures will lower beta-kristin.
-Currently stable.
.
Diabetes management as directed by primary team
-Hypertension. Stable continue current therapy
-Dyslipidemia. Statin
Physical Exam
Vital Signs/Labs
Vital Signs
Temp Pulse Resp BP Pulse Ox
98.2 F 80 20 135/67 99
10/07/24 10:50 10/07/24 10:50 10/07/24 10:50 10/07/24 10:50 10/07/24 10:50
10/06/24 10/07/24 10/08/24
06:59 06:59 06:59
Actual Weight 85.457 kg 83.489 kg
10/07/24 12:24
PT 13.9 Sec (11.4-14.6) 10/03/24 08:56
INR 1.04 10/03/24 08:56
APTT 28.0 Sec (23.4-35.0) 10/03/24 08:56
Magnesium 2.0 mg/dl (1.6-2.3) 10/04/24 05:55
10/02/24 10/04/24
23:26 05:55
[id number] Pept 1580 1110
Physical Exam
Constitutional: No acute distress and Comfortable
EENT: Anicteric
Cardiovascular: Rhythm & rate is regular, Pedal edema present (1+), Systolic murmur present (3/6) and S1S2 is normal
Respiratory: Respiratory effort normal and Lungs clear to auscul.
GI: Soft
Neuro/Psych: AO x 3
Other: Skin (Warm, dry)
Data Reviewed
-
Date of Service: October 07, 2024
EKG: Tracing Personally Visualized and interpreted (Telemetry: Sinus rhythm, PACs)
Echo: Report Reviewed by me (EF 55%, mild to moderate .)
Labs: Labs Reviewed by me
[2024-10-07 12:57] LABS: Blood Urea Nitrogen 39 mg/dl (7-17); Calcium 9.5 mg/dl (8.4-10.2); Chloride 92 mmol/L (98-107); Estimated Creatinine Clearance 43 ml/min; Glucose 200 mg/dl (70-99); Potassium 4.7 mmol/L (3.5-5.1); Sodium 136 mmol/L (135-145); eGFR 56.95
[2024-10-07 13:31] LABS: Carbon Dioxide 35 mmol/L (22-30)
--- NOTE | 2024-10-07 13:40 | W.PN.PUL3 ---
Today's Communication / Plan
-
continue nocturnal BiPAP
Our office will contact supply company to confirm functional NIV at home
Prednisone wean as below
PT/OT, disposition efforts
Assessment
-
Assessment: 79-year-old female former tobacco smoker with [id number] history (quit October 2013) with a past medical history of moderate�severe COPD on chronic prednisone and 4 L/min ATC, chronic hypercapnic respiratory failure on NIV via Astral
100, hypertension, history of stroke (October 2013), memory loss, history of restrictive lung disease, history of H. pylori, history of COVID-19 (08/2023), DM type II, RLS, snoring and history of right calf SCC who presents with shortness of breath.
At home she was short of breath and put on her BiPAP which did not lead to improvement so 911 was called. Initially in the ER she was afebrile to 98 �F, pulse rate 119, respiratory rate 21, BP 134/65 and saturating 90% on 4 L/min. Initial labs
showed leukocytosis to 17, Hb 11.1, acute on chronic hypercapnia with pH 7.17 and pCO2 95, potassium level 5.7, creatinine 0.8, proBNP 1580, procalcitonin 0.08 and COVID-19 antigen negative. Initial CXR showed acute pulmonary edema with a small
left-sided pleural effusion. CTA chest showed no evidence of a PE with a left lower lobe pneumonia and scattered pulmonary nodules with small bilateral pleural effusions. In the ER she was given DuoNebs, Zithromax, ceftriaxone and 40 mg IV Lasix.
Given her blood gas findings with acute on chronic hypercapnia, she was transitioned to noninvasive ventilation and admitted to the ICU. Postdoctoral Fellow services consulted for additional management/recommendations.
Chronic conditions MINISTER: Moderate�severe COPD on chronic prednisone, Zithromax TIW on chronic O2 at 4 L/min ATC, chronic hypercapnic respiratory failure on NIV via Astral 100, hypertension, history of stroke, hyperlipidemia, peripheral arterial
disease, memory loss, restrictive lung disease, gas exchange deficit, lung nodules, history of DVT, history of H. pylori, history of COVID-19 (08/2023), DM type II, restless leg syndrome, snoring, history of right calf squamous cell carcinoma
Impression:
#Acute on chronic hypoxic + hypercapnic respiratory failure requiring continuous BiPAP --> now on BiPAP with sleep and nasal cannula during the day
#Hyperkalemia (mild)
#Elevated proBNP (1580 on 10/02/2024, of note, was 341 on 09/19/2024)
#Chronic anemia with iron deficiency
#History of elevated eosinophil count (absolute eos were 600 in August 2021)
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
#History of hypertension
#History of H. pylori
#History of pneumonia
#Former tobacco use disorder (former [id number] history, quit in October 2013)
#History of restless leg syndrome on ropinirole
#Rhinorrhea likely vasomotor rhinitis improved on Atrovent nasal spray
Plan/recommendations:
At this time, patient appears to be objectively and subjectively improved
she feels she is close to her baseline
cannot appreciate crackles on today's exam
Continues to tolerate BiPAP at night. Has CPAP at home which he uses and remains compliant
Moving forward
Continue with Lasix
Cardiology following
ABG reviewed
VBG pH 7.34 on 10/05, pCO2 73; her baseline pCO2 is approximately 60
Continue with current BiPAP settings
She uses an Astral 100 noninvasive ventilator at home with EPAP range 5-10 cmH2O, pressure support range 4�20 cmH2O with inspiratory time range 0.2 seconds - 1.5 seconds.
Case management to confirm that this is working appropriately
She will likely require close follow-up in sleep clinic postdischarge
We'll have our office contact her [employer] company to visit home to confirm appropriate functioning of NIV
At home for her COPD/asthma, she is on prednisone 10 mg daily, DuoNebs + budesonide BID with azithromycin 500 mg TIW and on 4L/min ATC
continue prednisone and taper 10 mg every 3 days until down to baseline
Continue Duonebs BID + budesonide
Patient previously on antibiotics with cefepime due to suspected LLL-PNA, although procalcitonin is 0.08 --> repeat procal this AM is 0.07.
Antibiotics per infectious disease
Currently on azithromycin M/W/F. as home medication and vancomycin
DVT ppx: LMWH
Follow-up with Dr. Bryan
scheduled for 10/29/2024. This may need to be moved up depending how her hospital course ensues.
disposition efforts
All questions answered
Data:
CTA chest 10/03/2024:
1. No evidence of central, lobar or segmental pulmonary embolism.
2. There is a patchy opacity within the left lower lobe which is suspicious for pneumonia.
3. There are scattered pulmonary nodules measuring up to 4 mm. There is a nodule in the apical right upper lobe which appears slightly increased in size from prior. Additionally there is a nodule in the right middle lobe which appears new from
prior. Consider follow-up CT chest to ensure stability.
4. Moderate, apical predominant centrilobular and paraseptal emphysematous changes.
Total time spent today was 39 minutes for this encounter. Time includes reviewing laboratory test/imaging results, reviewing pertinent medical records, obtaining and reviewing medical history, performing an appropriate exam, ordering medications,
tests and procedures. Time also includes documentation of this encounter, coordinating patient care and communicating with other healthcare professionals. Total time does not include separately billed tests performed on this date of service.
Subjective Data
-
Date of Service:
Date of Service: October 07, 2024
Chief Complaint: Pulmonary Follow Up
Subjective:
Patient feels improved. She feels her breathing is close to her baseline. She continues with nocturnal BiPAP. Denies chest pain, nausea, abdominal pain, hemoptysis. Has mild cough. Anxious for rehabilitation
Objective Data
Data Reviewed
Vital Signs / I&O / Oxygen:
Vital Signs
Temp Pulse Resp BP Pulse Ox
98.2 F 80 20 135/67 99
10/07/24 10:50 10/07/24 10:50 10/07/24 10:50 10/07/24 10:50 10/07/24 10:50
Intake and Output
10/06/24 10/07/24 10/08/24
06:59 06:59 06:59
Intake Total 800 / 800 880 / 880
Output Total 800 / 800 900 / 900
Balance 0 / 0 -20 / -20
SaO2 99
Nasal Cannula flow liters per 3
minute
Physical Exam
General: Comfortable
HEENT: Normocephalic, Anicteric and Other (Thick neck)
Cardiovascular: S1-S2, Regular Rhythm, Murmur (n), Rub (negative) and Peripheral Edema (+1 left lower extremity edema, no edema on the right lower extremity)
Respiratory: Wheeze (negative), Crackles (no), Rhonchi (negative), Non-Labored Respirations, Stridor (negative) and Other (Diminished breath sounds bilaterally)
GI: Soft, Non Distended (Obese), Non Tender and Normal Bowel Sounds
Neurology: Awake, Alert and No Motor Deficits (Moves all extremities)
Skin: Warm, Dry, Cyanosis (negative) and Jaundice (negative)
Labs/Micro/Reports
Lab Data
10/07/24 12:24
10/07/24 12:24
Microbiology
10/05/24 11:33 Blood/Venous Blood Culture - Preliminary
No Growth in 48 hours- Final report to follow
10/05/24 11:33 Blood/Venous Blood Culture - Preliminary
No Growth in 48 hours- Final report to follow
10/02/24 23:26 Blood/Venous Blood Culture - Preliminary
Coagulase neg. staphylococcus
10/02/24 23:26 Blood/Venous Gram Stain - Preliminary
10/02/24 23:26 Blood/Venous Blood Culture - Preliminary
Coagulase neg. staphylococcus
10/02/24 23:26 Blood/Venous Gram Stain - Preliminary
10/03/24 10:29 Nose MRSA Screen - Final
No Methicillin Resistant Staphylococcus aureus isolated.
[2024-10-07 15:55] LABS: Glucose - Point of Care 323 mg/dl (70-99)
--- NOTE | 2024-10-07 16:07 | W.PN.ID1 ---
Date of Service
Date of Service: October 07, 2024
Today's Communication
stopped vancomycin
Assessment / Plan
Probable CONS Pseudobacteremia (IE contaminated blood cultures)
- note that initial sets of blood cultures were obtained at the same time - suggesting these may not have been two separate draws
- repeat blood cultures x2 were done prior to vancomycin; in progress no growth to date
- stopped
- 10/03 TTE: no valvular lesions
- no known hardwear
Viral Pneumonia vs aspiration pneumonitis
- procalcitonin remains negative - risks of ongoing cefepime which include delirium/WHEEL LACER AND TRUER toxicity, C difficile, acquisition of MDROs, etc outweigh possible benefits at this time
- treatable viruses - covid/influenza ruled out
- leukocytosis likely relates to steroids
COPD on 4L/chronic steroids/chronic azithromycin
RLD
GARY
Class II obesity
- management per pulmonary
- c/w SLIP COVER SEWER azithromycin 3x weekly
- QTc acceptable
Recommend RSV shot which she hasnt had at her local pharmacy, would also recommend she confirm pneumococcal vaccines are up to date
Chief Complaint
-: Pneumonia (viral)
Subjective / Review of Systems
afebrile
bp stable
no complaints
Vital Signs / Physical Exam
Vital Signs
Vital Signs
Temp Pulse Resp BP Pulse Ox
98.2 F 83 20 181/91 94
10/07/24 15:34 10/07/24 15:34 10/07/24 15:34 10/07/24 15:34 10/07/24 15:34
Physical Exam
Constitutional: No Acute Distress and Chronically Ill
Cardiovascular: Regular Rate and S1/S2; Negative Murmur or Rub
Pulmonary: Clear and Symmetric; Negative Wheezes or Rales
Gastrointestinal: Soft, Non Tender, Non Distended and Normal Bowel Sounds
Skin: Warm and Dry; Negative Rash or Jaundice
Wound: Other (fully healed wound on the L mid calf without surrounding erythema, warmth or drainage)
Objective Data
Lab Data
Lab Results
10/07/24 12:24
10/07/24 12:24
PT 13.9 Sec (11.4-14.6) 10/03/24 08:56
INR 1.04 10/03/24 08:56
APTT 28.0 Sec (23.4-35.0) 10/03/24 08:56
Estimated Creat Clear 43 ml/min 10/07/24 12:24
Lactic Acid 0.8 mmol/L (0.7-2.0) 10/02/24 23:26
Total Bilirubin 0.5 mg/dl (0.2-1.3) 10/02/24 23:26
AST 32 U/L (14-36) 10/02/24 23:26
ALT 31 U/L (0-35) 10/02/24 23:26
Alkaline Phosphatase 82 U/L (38-126) 10/02/24 23:26
Most recent labs reviewed.
Micro Results:
10/05/24 11:33 Blood Culture - Preliminary
Blood/Venous No Growth in 48 hours- Final report to follow
10/05/24 11:33 Blood Culture - Preliminary
Blood/Venous No Growth in 48 hours- Final report to follow
10/02/24 23:26 Blood Culture - Preliminary
Blood/Venous Coagulase neg. staphylococcus
Gram Stain - Preliminary
10/02/24 23:26 Blood Culture - Preliminary
Blood/Venous Coagulase neg. staphylococcus
Gram Stain - Preliminary
10/03/24 10:29 MRSA Screen - Final
Nose No Methicillin Resistant Staphylococcus aureus isolated.
10/03/24 13:41 Streptococcus pneumoniae Antigen (M - Final
Urine Negative for Streptococcus pneumoniae antigen.
A negative result does not exclude infection with
Streptococcus pneumoniae. Clinical correlation is
recommended.
10/03/24 13:41 Legionella Urinary Antigen - Final
Urine Negative for Legionella pneumophila Serogroup 1 antigen.
A negative result does not rule out the possiblity of
Legionella infection due to other serogroups or species of
Legionella. Clinical correlation is recommended.
10/02/24 23:14 Influenza Types A & B (KELLEN) - Final
Nasal Swab Negative for Influenza A & B, NAAT
Negative results must be combined with clinical observations
and patient history.
Nucleic Acid Amplification test (NAAT)performed on the
[employer] platform.
[2024-10-07] MEDS: LOVENOX 40 MG SC (17:42)
[2024-10-07] MEDS: NOVOLOG FLEXPEN-MODERATE RESISTANCE 7 UNITS SC (17:42)
[2024-10-07 21:40] LABS: Glucose - Point of Care 155 mg/dl (70-99)
[2024-10-07] MEDS: LIPITOR 10 MG PO (21:43)
[2024-10-07] MEDS: REQUIP 1 MG PO (21:43)
[2024-10-08 00:17] VITALS: PULSE 2; PULSE 66
[2024-10-08 04:24] VITALS: BP 146/74
--- NOTE | 2024-10-08 04:25 | DOWNTIME ---
There was a [employer] Downtime on 10/08/2024 from 0100 to 10/09/2023 at 0420 . Downtime documentation of patient's care, including medication administrations, has been reconciled in the electronic record per guidelines. Refer to the
patient's paper chart under the miscellaneous tab to see printed paper medication records and downtime forms.
[2024-10-08 04:58] VITALS: PULSE 2
[2024-10-08 06:00] VITALS: BMI 34.9
[2024-10-08 06:49] LABS: % Basophils 0.2 % (0-2); % Eosinophils 1.1 % (0-6); % Immature Granulocytes 0.7 % (0-0.5); % Lymphocytes 17.4 % (20.5-51.1); % Monocytes 12.4 % (1.7-9.3); % Neutrophils 68.2 % (42.2-75.2); Absolute Eosinophils 0.1 10^3/uL (0-0.7); Absolute Immature Granulocytes 0.1 10^3/uL (0-0.05); Absolute Lymphocytes 1.4 10^3/uL (1.2-3.4); Absolute Neutrophils 5.7 10^3/uL (1.4-6.5); Hematocrit 33.6 % (37.0-47.0); Hemoglobin 10.1 g/dL (12.0-16.0); Mean Corp Hgb Conc. 30.1 g/dL (33.0-37.0); Mean Corpuscular Hgb 26.5 pg (27.0-31.0); Mean Corpuscular Volume 88.2 fL (81.0-99.0); Mean Platelet Volume 9.7 fL (7.4-10.4); Nucleated Red Blood Cells % 0 %; Platelet Count 283 10^3/uL (130-400); Red Blood Cell Count 3.81 10^6/uL (4.20-5.40); Red Cell Dist. Width 14.7 % (11.5-14.5); White Blood Cell Count 8.3 10^3/uL (4.8-10.8)
[2024-10-08 07:04] LABS: Glucose - Point of Care 101 mg/dl (70-99)
[2024-10-08 07:12] LABS: Blood Urea Nitrogen 44 mg/dl (7-17); Calcium 9.2 mg/dl (8.4-10.2); Chloride 90 mmol/L (98-107); Estimated Creatinine Clearance 38 ml/min; Glucose 105 mg/dl (70-99); Potassium 4.2 mmol/L (3.5-5.1); Sodium 137 mmol/L (135-145)
[2024-10-08] MEDS: NOVOLOG FLEXPEN-MODERATE RESISTANCE SC (07:13)
[2024-10-08 07:33] LABS: Carbon Dioxide 40 mmol/L (22-30)
[2024-10-08 07:35] VITALS: BP 131/68
[2024-10-08] MEDS: PULMICORT 0.5 MG INH (07:40)
[2024-10-08] MEDS: DUONEB 3 ML INH (07:40)
[2024-10-08] MEDS: LASIX 80 MG PO (08:18)
[2024-10-08] MEDS: PLAVIX 75 MG PO (08:18)
[2024-10-08] MEDS: PREPARATION H OINTMENT 1 APPLIC RECTAL (08:18)
[2024-10-08] MEDS: FEOSOL 325 MG PO (08:18)
[2024-10-08] MEDS: DELTASONE 40 MG PO (08:18)
[2024-10-08] MEDS: MUCINEX 600 MG PO (08:18)
[2024-10-08] MEDS: LOPRESSOR 25 MG PO (08:18)
[2024-10-08] MEDS: ZITHROMAX 500 MG PO (08:20)
--- NOTE | 2024-10-08 08:30 | W.PN.PUL3 ---
Today's Communication / Plan
-
continue nocturnal BiPAP while at rehabilitation
Our office will contact DME company to confirm functionality at home ventilator
avoid sedation
Disposition efforts noted
We will sign off. Please call with questions
Assessment
-
Assessment: 79-year-old female former tobacco smoker with [id number] history (quit October 2013) with a past medical history of moderate�severe COPD on chronic prednisone and 4 L/min ATC, chronic hypercapnic respiratory failure on NIV via Astral
100, hypertension, history of stroke (October 2013), memory loss, history of restrictive lung disease, history of H. pylori, history of COVID-19 (08/2023), DM type II, RLS, snoring and history of right calf SCC who presents with shortness of breath.
At home she was short of breath and put on her BiPAP which did not lead to improvement so 911 was called. Initially in the ER she was afebrile to 98 �F, pulse rate 119, respiratory rate 21, BP 134/65 and saturating 90% on 4 L/min. Initial labs
showed leukocytosis to 17, Hb 11.1, acute on chronic hypercapnia with pH 7.17 and pCO2 95, potassium level 5.7, creatinine 0.8, proBNP 1580, procalcitonin 0.08 and COVID-19 antigen negative. Initial CXR showed acute pulmonary edema with a small
left-sided pleural effusion. CTA chest showed no evidence of a PE with a left lower lobe pneumonia and scattered pulmonary nodules with small bilateral pleural effusions. In the ER she was given DuoNebs, Zithromax, ceftriaxone and 40 mg IV Lasix.
Given her blood gas findings with acute on chronic hypercapnia, she was transitioned to noninvasive ventilation and admitted to the ICU. Certified Pharmacy Technician services consulted for additional management/recommendations.
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
disease, memory loss, restrictive lung disease, gas exchange deficit, lung nodules, history of DVT, history of H. pylori, history of COVID-19 (08/2023), DM type II, restless leg syndrome, snoring, history of right calf squamous cell carcinoma
Impression:
#Acute on chronic hypoxic + hypercapnic respiratory failure requiring continuous BiPAP --> now on BiPAP with sleep and nasal cannula during the day
#Hyperkalemia (mild)
#Elevated proBNP (1580 on 10/02/2024, of note, was 341 on 09/19/2024)
#Chronic anemia with iron deficiency
#History of elevated eosinophil count (absolute eos were 600 in August 2021)
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
#History of hypertension
#History of H. pylori
#History of pneumonia
#Former tobacco use disorder (former [id number] history, quit in October 2013)
#History of restless leg syndrome on ropinirole
#Rhinorrhea likely vasomotor rhinitis improved on Atrovent nasal spray
Plan/recommendations:
At this time, patient appears to be objectively and subjectively improved
she feels she is close to her baseline
chest exam with decreased breath sounds
Continues to tolerate BiPAP at night. Has CPAP at home which he uses and remains compliant
Moving forward
Continue with Lasix
Cardiology following
ABG reviewed
VBG pH 7.34 on 10/05, pCO2 73; her baseline pCO2 is approximately 60
Continue with current BiPAP settings
She uses an Astral 100 noninvasive ventilator at home with EPAP range 5-10 cmH2O, pressure support range 4�20 cmH2O with inspiratory time range 0.2 seconds - 1.5 seconds.
Case management to confirm that this is working appropriately
She will likely require close follow-up in sleep clinic postdischarge
We'll have our office contact her [employer] company to visit home to confirm appropriate functioning of NIV
At home for her COPD/asthma, she is on prednisone 10 mg daily, DuoNebs + budesonide BID with azithromycin 500 mg TIW and on 4L/min ATC
continue prednisone and taper 10 mg every 3 days until down to baseline
Continue Duonebs BID + budesonide
Patient previously on antibiotics with cefepime due to suspected LLL-PNA, although procalcitonin is 0.08 --> repeat procal this AM is 0.07.
Antibiotics per infectious disease
Currently on azithromycin M/W/F. as home medication and vancomycin
DVT ppx: LMWH
Follow-up with Dr. Bryan
scheduled for 10/29/2024. This may need to be moved up depending how her hospital course ensues.
disposition efforts
All questions answered
Data:
CTA chest 10/03/2024:
1. No evidence of central, lobar or segmental pulmonary embolism.
2. There is a patchy opacity within the left lower lobe which is suspicious for pneumonia.
3. There are scattered pulmonary nodules measuring up to 4 mm. There is a nodule in the apical right upper lobe which appears slightly increased in size from prior. Additionally there is a nodule in the right middle lobe which appears new from
prior. Consider follow-up CT chest to ensure stability.
4. Moderate, apical predominant centrilobular and paraseptal emphysematous changes.
Total time spent today was 39 minutes for this encounter. Time includes reviewing laboratory test/imaging results, reviewing pertinent medical records, obtaining and reviewing medical history, performing an appropriate exam, ordering medications,
tests and procedures. Time also includes documentation of this encounter, coordinating patient care and communicating with other healthcare professionals. Total time does not include separately billed tests performed on this date of service.
Subjective Data
-
Date of Service:
Date of Service: October 08, 2024
Chief Complaint: Pulmonary Follow Up
Subjective:
Patient without complaints. Denies chest pain, cough, nausea. Tolerating BiPAP
Objective Data
Data Reviewed
Vital Signs / I&O / Oxygen:
Vital Signs
Temp Pulse Resp BP Pulse Ox
98.1 F 98 20 131/68 94
10/08/24 07:35 10/08/24 07:35 10/08/24 07:35 10/08/24 07:35 10/08/24 07:35
Intake and Output
10/07/24 10/08/24 10/09/24
06:59 06:59 06:59
Intake Total 880 / 880 720 / 720
Output Total 900 / 900 200 / 200
Balance -20 / -20 520 / 520
SaO2 94
Nasal Cannula flow liters per 3
minute
Physical Exam
General: Comfortable
HEENT: Normocephalic, Anicteric and Other (Thick neck)
Cardiovascular: S1-S2, Regular Rhythm, Murmur (n), Rub (negative) and Peripheral Edema (+1 left lower extremity edema, no edema on the right lower extremity)
Respiratory: Wheeze (negative), Crackles (no), Rhonchi (negative), Non-Labored Respirations, Stridor (negative) and Other (Diminished breath sounds bilaterally)
GI: Soft, Non Distended (Obese), Non Tender and Normal Bowel Sounds
Neurology: Awake, Alert and No Motor Deficits (Moves all extremities)
Skin: Warm, Dry, Cyanosis (negative) and Jaundice (negative)
Labs/Micro/Reports
Lab Data
10/08/24 06:16
10/08/24 06:16
Microbiology
10/05/24 11:33 Blood/Venous Blood Culture - Preliminary
No Growth in 48 hours- Final report to follow
10/05/24 11:33 Blood/Venous Blood Culture - Preliminary
No Growth in 48 hours- Final report to follow
10/02/24 23:26 Blood/Venous Blood Culture - Preliminary
Coagulase neg. staphylococcus
10/02/24 23:26 Blood/Venous Gram Stain - Preliminary
10/02/24 23:26 Blood/Venous Blood Culture - Preliminary
Coagulase neg. staphylococcus
10/02/24 23:26 Blood/Venous Gram Stain - Preliminary
[2024-10-08 09:53] VITALS: PULSE 93; O2SAT 97
--- NOTE | 2024-10-08 10:31 | W.PN.HOSP.TC ---
Addendum entered and electronically signed by Junior Castillo MD 10/08/24 11:55:
Time of discharge 39 minutes
Original Note:
Today's Communication/Plan
-
monitor vitals
see plan
on O2
cw lasix
off abx
cw steroids
pending placement; CM aware
Assessment / Plan
Assessment / Plan
General: Respiratory Distress and Morbidly Obese
HEENT: NormoCephalic, Anicteric, Moist mucous membranes, Atraumatic and Oxygen
Respiratory: Decreased Breath Sounds
Cardiac: S1/S2, Regular Rhythm
GI: Soft, Non Tender, Non Distended and Normal Bowel Sounds
Musculoskeletal: No Clubbing and No Cyanosis
Neuro: Nonfocal/grossly intact, AOX3
Psych: Calm
IMPRESSION:
79 y.o female with chronic oxygen dependent and hypercarbic respiratory failure 2/2 COPD, restrictive lung disease and GARY who was recently admitted and treated for COPD exacerbaton w/ discharge 10 days ago comes in with severe acute hypercarbic
respiratory failure. Unable to provide history due to encephalopathic state and respiratory distress. Findings are suggestive for COPD exacerbation with hospital acquired pneumonia as well as CHF exacerbation.
PLAN:
#Acute on chronic hypoxic and hypercapnic respiratory failure 2/2 AECOPD
#Toxic metabolic encephalopathy-resolved
- flu/covid negative
- Wean steroids to 40 mg daily prednisone, decrease by 10 mg every 3 days Until reaches 10 mg daily. last day 40mg 10/09
- duonebs RTC and prn for now
- continue her azithromycin for anti-inflammatory effect.
-Improvement in mentation.
-Cont with chronic Bipap qhs and prn
-Pulmonary following
# PNA - LLL consolidation with recent hospital admission likely viral
suspect viral sepsis, POA
- no sputum for cx
-Legionella and strep antigen-negative.
-DCed cefepime
-procal negative.
#Cons bacteremia 2/4
-ECHO on 10/03 was negative for vegetation
vanc stopped by ID
-ID input
repeat bcx NGTD
#Acute on chronic HFpEF
- s/p IV lasix in ED
-Status post IV Lasix. Bump in creatinine was noted which is improving. Off IV diuretics. Restart oral regimen. Cards recommending 80 mg p.o. daily.
- echo EF of 55%. Mild to moderate aortic stenosis. Ventricular size and function without regional wall motion abnormality
- hold valsartan for now
- cardiology following
# TOBY on CKD
-Creatinine down trended. cw lasix
#Diabetes mellitus type 2
-A1c 6.4
-metformin on hold
-SSI. Accu-Cheks.
#Essential hypertension
#History of NSVT
-Continue metoprolol.
#History of CVA
-Continue home Plavix and atorvastatin.
#Hyperlipidemia
-Continue atorvastatin
#Iron deficiency anemia
-Follow CBC.
-Replete.
#Restless leg syndrome
-Continue Requip
DVT PPX - lovenox sq
Code status - full code
PT/OT-SNF on discharge
Anticipated Discharge: Today
Subjective/Interval History
-
Date of Service: October 08, 2024
Denies pain
Objective Data
-
Labs:
Laboratory Results
10/08/24
06:16
WBC 8.3
Hgb 10.1 L
Hct 33.6 L
Plt Count 283
Sodium 137
Potassium 4.2
Chloride 90 L
Carbon Dioxide 40 H
BUN 44 H
Creatinine 1.1 H
Glucose 105 H
Calcium 9.2
Vital Signs:
Vital Signs
Temp Pulse Resp BP Pulse Ox
98.1 F 61 20 131/68 100
10/08/24 07:35 10/08/24 07:40 10/08/24 07:40 10/08/24 07:35 10/08/24 08:00
I&O
10/07/24 10/08/24 10/09/24
06:59 06:59 06:59
Intake Total 880 / 880 720 / 720
Output Total 900 / 900 200 / 200
Balance -20 / -20 520 / 520
[2024-10-08 10:56] VITALS: BP 151/83
[2024-10-08 11:07] LABS: Glucose - Point of Care 168 mg/dl (70-99)
--- NOTE | 2024-10-08 11:37 | CM ---
Patient stable for d/c today. Per [facility], bed available for patient today
CM spoke w/ patient and spouse bedside, agreeable to [facility]
CM initiated auth through [employer]. Auth approved beginning today, next review date is 10/14
Cert # [id number]
Patient and spouse comfortable w/ spouse transporting as patient does not medically qualify for an ambulance, WC van transport was offered as well. Spouse has patient's portable O2 in his car for transport.
IMM verbally reviewed, patient given copy, copy placed on chart
[facility]
Report: [phone]

Plan: [facility] today. Spouse will transport
--- NOTE | 2024-10-08 12:05 | W.DCSUMMARY ---
Discharge Summary
Discharge Data
Date of Admission: 10/03/24
Date of Discharge: 10/08/24
-
Pending Results: No
Hospital Course
79-year-old female with past medical history of chronic hypercarbic hypoxic respiratory failure secondary to COPD on home O2, restrictive lung disease, GARY, CHF, CKD, diabetes mellitus, essential hypertension, CVA, hyperlipidemia, iron deficiency
anemia, restless leg syndrome came to the hospital with acute on chronic hypoxic and hypercapnic respiratory failure secondary to COPD exacerbation. Patient also had toxic metabolic encephalopathy which over time continue to improve and she was
back to her baseline mental status prior to discharge. She also developed pneumonia which initially was thought bacterial however with infectious disease evaluation it was determined that patient likely had viral pneumonia. Initially she was on
antibiotic which was later discontinued. She also had positive blood culture which would likely thought was contaminant on this hospitalization. Echocardiogram was done which was negative for any vegetation. While she was in the hospital she also
had acute on chronic congestive heart failure exacerbation for which she was initially treated with IV Lasix which was later transitioned to p.o. Lasix upon discharge. Echocardiogram was done which showed mild to moderate aortic stenosis along with
a EF of 55%. Patient was also evaluated by physical therapy who recommended SNF. Once her symptoms continue to improve, she was then discharged to SNF with instructions to follow-up with all her physicians outpatient.
Discharge Plan
-
Patient Disposition: Correction/SNF
Discharge Diagnosis/Procedures: Acute on chronic hypoxic and hypercapnic respiratory failure 2/2 COPD exacerbation
Toxic metabolic encephalopathy
Suspect viral pneumonia
Acute on chronic CHF with preserved ejection fraction
TOBY on CKD
Probable CONS Pseudobacteremia
Diet: As tolerated
Activity: As tolerated
Driving Restrictions: As prior to admission
Bathing Restrictions: None
Blood Work: CBC and BMP at rehab
Others Tests: Chest x-ray in 4 weeks
Activity Restrictions/Additional Instructions:
Wean steroids to 40 mg daily prednisone, decrease by 10 mg every 3 days Until reaches 10 mg daily. last day 40mg 3/20. Starting 10/10 wean to 30 mg and follow protocol
Instructions: *CBC Heart Failure Instructions
Referrals:
Mayur Shafer MD [Active] - in one to two weeks
Jazz Spears CRNP [Specified Professional Personl] - 10/22/24 3:00 pm
Selvin Anthony DO [Family Provider] - in less than 1 week
Jaja Mesa MD [Active] -
Prescriptions:
New
prednisone 20 mg Tablet
40 mg PO DAILY Qty: 0 0RF
furosemide 80 mg Tablet
80 mg PO DAILY Qty: 0 0RF
ipratropium-albuterol 0.5 mg-3 mg(2.5 mg base)/3 mL Solution For Nebulization
3 ml inhalation Q4HPRN PRN (Reason: wheezing) Qty: 0 0RF
Continued
atorvastatin 10 MG tablet
10 mg PO HS
ipratropium-albuterol 3 ML solution for nebulization
3 ml inhalation R BID
ropinirole 1 MG tablet
1 mg PO HS
clopidogrel 75 MG tablet
75 mg PO DAILY
ferrous sulfate [iron] 325 mg (65 mg iron) Tablet
325 mg PO DAILY
magnesium oxide 500 mg magnesium Tablet
500 mg PO DAILY
budesonide 0.5 mg/2 mL Suspension For Nebulization
0.5 mg INHALATION R BID
albuterol sulfate [Ventolin HFA] 90 mcg/actuation Hfa Aerosol Inhaler
1 inh INHALATION R Q6HPRN PRN (Reason: sob)
coenzyme Q10 100 mg Capsule
100 mg PO DAILY
Visbiome 112.5 billion cell Capsule
1 cap PO DAILY
krill oil 500 mg Capsule
350 mg PO DAILY
guaifenesin [Mucus Relief ER] 600 MG tablet extended release 12hr
600 mg PO BID
therapeutic multivitamin Tablet
1 tab PO DAILY
azithromycin 500 mg Tablet
500 mg PO MOWEFR
metformin 1,000 mg Tablet
1,000 mg PO BID@0800,1700 Qty: 60 0RF
Changed
metoprolol tartrate 50 MG tablet
25 mg PO BID Qty: 0 0RF
Held
prednisone 10 MG tablet
10 mg PO DAILY
Hold Instructions: Once she weaned down to 10 mg then stay on this dose
Discharge Orders:
Discharge Patient (As Directed); Ordered 10/08/24
Ordered By: Juinor Castillo
Discharge Date and Time
Discharge Date/Time: 10/08/24 13:52
Print Language: DOMINICAN
[2024-10-08] MEDS: NOVOLOG FLEXPEN-MODERATE RESISTANCE 1 UNITS SC (12:50)
== END 2024-10-08 13:52 | DRG 871 ==
LOC: 4 WEST ACU 03:23
PROVIDERS: Hospitalist; Internal Medicine Cardiovascular Disease; Internal Medicine Critical Care Medicine; Nurse Practitioner Primary Care; ADMITTING PHYSICIAN Internal Medicine; ATTENDING PHYSICIAN Internal Medicine; CONSULT PHYSICIAN Internal Medicine; CONSULT PHYSICIAN Internal Medicine Critical Care Medicine; CONSULT PHYSICIAN Student in an Organized Health Care Education/Training Program; EMERGENCY PHYSICIAN Emergency Medicine; FAMILY PHYSICIAN Family Medicine
PROC: 5A09457 Assistance with Respiratory Ventilation, 24-96 Consecutive Hours, Continuous Positive Airway Pressure (ICD-10-PCS; 2024-10-03)
DX: A41.9 Sepsis, unspecified organism (principal); G92.8 Other toxic encephalopathy; I50.33 Acute on chronic diastolic (congestive) heart failure; J96.21 Acute and chronic respiratory failure with hypoxia; J18.9 Pneumonia, unspecified organism; J96.22 Acute and chronic respiratory failure with hypercapnia; I13.0 Hypertensive heart and chronic kidney disease with heart failure and stage 1 through stage 4 chronic kidney disease, or unspecified chronic kidney disease; J44.1 Chronic obstructive pulmonary disease with (acute) exacerbation; N17.9 Acute kidney failure, unspecified; I69.354 Hemiplegia and hemiparesis following cerebral infarction affecting left non-dominant side; N18.9 Chronic kidney disease, unspecified; E11.22 Type 2 diabetes mellitus with diabetic chronic kidney disease; E87.5 Hyperkalemia; D50.9 Iron deficiency anemia, unspecified; E66.01 Morbid (severe) obesity due to excess calories; Z68.34 Body mass index [BMI] 34.0-34.9, adult; Z87.891 Personal history of nicotine dependence; Z79.52 Long term (current) use of systemic steroids
CPT/HCPCS: 36600; 71045; 71275; 80048; 80053; 80069; 80202; 82805; 82962; 83605; 83735; 83880; 84100; 84145; 85025; 85027; 85610; 85730; 87040; 87070; 87147; 87150; 87186; 87205; 87449; 87502; 87811; 87899; 93005; 93306; 94640; 94660; 96365; 96375; 97116; 97163; 97167; 97530; 97535; 99291; Q9967

== ENCOUNTER 2025-01-15 14:40 | Inpatient (IN) | payer MEDICARE, SELFPAY ==
[2025-01-13 19:16] VITALS: BP 148/64
[2025-01-13 19:38] LABS: % Basophils 0.6 % (0-2); % Eosinophils 0.8 % (0-6); % Immature Granulocytes 0.7 % (0-0.5); % Monocytes 8.3 % (1.7-9.3); % Neutrophils 82.6 % (42.2-75.2); Absolute Basophils 0.1 10^3/uL (0-0.2); Absolute Eosinophils 0.1 10^3/uL (0-0.7); Absolute Immature Granulocytes 0.1 10^3/uL (0-0.05); Absolute Lymphocytes 0.8 10^3/uL (1.2-3.4); Absolute Neutrophils 9.9 10^3/uL (1.4-6.5); Hematocrit 28.5 % (37.0-47.0); Hemoglobin 8.6 g/dL (12.0-16.0); Mean Corp Hgb Conc. 30.2 g/dL (33.0-37.0); Mean Corpuscular Hgb 27.4 pg (27.0-31.0); Mean Corpuscular Volume 90.8 fL (81.0-99.0); Mean Platelet Volume 9.6 fL (7.4-10.4); Nucleated Red Blood Cells % 0 %; Platelet Count 298 10^3/uL (130-400); Red Blood Cell Count 3.14 10^6/uL (4.20-5.40); Red Cell Dist. Width 13.9 % (11.5-14.5)
[2025-01-13 19:47] LABS: INR 1.04; PT 13.9 Sec (11.4-14.6)
[2025-01-13 19:48] LABS: APTT 25.8 Sec (23.4-35.0)
[2025-01-13 19:59] LABS: ALT (SGPT) 17 U/L (0-35); AST (SGOT) 23 U/L (14-36); Albumin 3.9 g/dl (3.5-5.0); Alkaline Phosphatase 54 U/L (38-126); Blood Urea Nitrogen 30 mg/dl (7-17); Calcium 9.1 mg/dl (8.4-10.2); Carbon Dioxide 36 mmol/L (22-30); Chloride 100 mmol/L (98-107); Glucose 184 mg/dl (70-99); Potassium 4.4 mmol/L (3.5-5.1); Sodium 141 mmol/L (135-145); Total Bilirubin 0.4 mg/dl (0.2-1.3); Total Protein 6.5 g/dl (6.3-8.2); eGFR 45.76
[2025-01-13 23:07] VITALS: BP 129/59
[2025-01-13 23:10] VITALS: BMI 36.8
--- NOTE | 2025-01-13 23:47 | ED.GENMED ---
History of Present Illness
General
Chief Complaint: Rectal Bleeding
Source: patient
Exam Limitations: none
Time Seen by Provider: 01/13/25 23:35
History of Present Illness
History of Present Illness:
See MDM
Past History
Past History
ED Past Medical History: COPD (Emphysema), CVA (Left sided weakness), HTN, Hypercholesterolemia, NIDDM and Other (PNA, H-pylori, )
ED Past Surgical History: Tonsilectomy (and adenoids) and Other (cataracts)
Social History
Tobacco: Former smoker
Alcohol: Occasional
Drug: None
Personal:
Living: with family
Employment: Retired
Phy Exam
Physical Exam
Physical Exam:
See MDM
Course
Orders/Labs/Results
Orders:
Orders
01/13/25 19:29
Type+Screen Urgent
Complete Blood Count/With Diff Urgent
Comprehensive Metabolic Panel Urgent
PTT Urgent
Prothrombin Time Urgent
01/13/25 21:02
ABO2 Urgent
BBK Wristband Number:
Associate notified that ABO2 has been ordered: [id number]
Date: 01/13/25
Time: 20:36
[employer] Driver ID: [id number]
Abnormal Lab Results
01/13/25
19:29
WBC 12.0 H 10^3/uL
(4.8-10.8)
RBC 3.14 L 10^6/uL
(4.20-5.40)
Hgb 8.6 L g/dL
(12.0-16.0)
Hct 28.5 L %
(37.0-47.0)
MCHC 30.2 L g/dL
(33.0-37.0)
Abs Immat Gran (auto) 0.1 H 10^3/uL
(0-0.05)
Absolute Neuts (auto) 9.9 H 10^3/uL
(1.4-6.5)
Absolute Lymphs (auto) 0.8 L 10^3/uL
(1.2-3.4)
Absolute Monos (auto) 1.0 H 10^3/uL
(0.1-0.6)
Immature Gran % 0.7 H %
(0-0.5)
Neutrophils % 82.6 H %
(42.2-75.2)
Lymphocytes % 7.0 L %
(20.5-51.1)
Carbon Dioxide 36 H mmol/L
(22-30)
BUN 30 H mg/dl
(7-17)
Creatinine 1.2 H mg/dL
(0.6-1.0)
Glucose 184 H mg/dl
(70-99)
01/13/25 19:29
01/13/25 19:29
Vital Signs
Initial and Last Documented VS:
Initial Vital Signs
Temp Pulse Resp BP Pulse Ox
98.6 F 84 20 148/64 99
01/13/25 19:16 01/13/25 19:16 01/13/25 19:16 01/13/25 19:16 01/13/25 19:16
Last Documented Vital Signs
Temp Pulse Resp BP Pulse Ox
98.6 F 83 20 129/59 99
01/13/25 19:16 01/13/25 23:07 01/13/25 19:16 01/13/25 23:07 01/13/25 19:16
MDM/Problems Addressed
Differential Diagnosis Includes:
Note:
CHIEF COMPLAINT(S)
Rectal bleeding.
HISTORY OF PRESENT ILLNESS
The patient is an 79-year-old female with a history of chronic anemia and COPD presenting with a chief complaint of rectal bleeding. The patient reports having black stools somewhat chronically, which she attributes to her vitamin and iron
supplementation. She also describes an episode of explosive bowel movements containing bright red blood, which is new and not related to her prior experience a year ago. The patient denies any significant abdominal pain, although she experienced
minor discomfort described as a cramp yesterday. Currently, the patient denies experiencing any weakness or fatigue beyond her normal baseline related to COPD. Her anemia has worsened slightly, with recent blood work showing a hemoglobin level of
8.6 g/dL, which is lower than her typical baseline of approximately 10 g/dL. The source of the rectal bleeding is suspected to be from the colon.
PHYSICAL EXAM
General: Well appearing and non-toxic
HEENT: protecting airway
Neck: appears supple
CV: No evidence of cyanosis
Resp: No accessory muscle use
Abd: Non-distended. Soft and nontender
Rectal exam: External hemorrhoids noted without any evidence of recent bleeding. Rectal exam performed. No stool in the rectal vault. Guaiac negative
Extremities: No deformities
Neuro: alert
Psych: Normal affect
Skin: Intact
PLAN
The plan is to keep the patient overnight for observation due to the rectal bleeding. Although there has been no active bleeding today, monitoring will allow for quick intervention if symptoms worsen. The Gastroenterology team may be consulted for
further evaluation, potentially considering a colonoscopy to rule out other causes such as an internal hemorrhoid or other sources of bleeding like a tumor. If no active issues arise, discharge can be considered with outpatient follow-up.
DIFFERENTIAL DIAGNOSIS
The Differential Diagnosis includes, in no particular order and is not limited to:
- Gastrointestinal bleed (possible source from hemorrhoids)
- Colonic diverticular bleed
- Colorectal cancer
- Gastritis
- Peptic ulcer disease
- Esophageal varices
- Angiodysplasia
- Hemorrhoidal bleeding (internal or external)
- Inflammatory bowel disease
- Upper gastrointestinal bleed with secondary lower tract presentation
Disposition:
SUMMARY OF ENCOUNTER
The patient, an 79-year-old female, was seen in the emergency department due to a chief complaint of rectal bleeding. She reported having black stools attributed to her vitamin and iron supplementation and a recent new episode of bright red rectal
bleeding. The patients anemia has worsened with a hemoglobin level of 8.6 g/dL, lower than her baseline. The suspected source of bleeding is from the colon. No active bleeding was noted during the examination, but due to the worsening anemia, a
decision was made to admit the patient for observation and further evaluation.
DISPOSITION
The patient will be admitted for observation and monitoring of her hemoglobin levels due to worsening anemia and recent rectal bleeding.
MANAGEMENT OF THE PATIENTS CARE WAS DISCUSSED WITH
Case discussed with the hospitalists who agreed to admit the patient for continued monitoring and further evaluation.
MEDICAL DECISION MAKING
1. Number & Complexity of Problems: Chronic conditions affecting care: anemia, COPD. Differential diagnoses considered included gastrointestinal bleed, hemorrhoidal bleeding, and colorectal cancer.
2. Data Reviewed: Review of recent blood work showing hemoglobin level of 8.6 g/dL, indicating worsening anemia.
3. Risk: Consideration of admission was made due to the complexity and risk associated with the patients presentation. Outpatient management was not deemed appropriate due to the need for further evaluation and monitoring.
PATHOLOGIES TO CONSIDER
- Gastrointestinal bleed (possible source from hemorrhoids)
- Colorectal cancer
- Peptic ulcer disease
The patient will remain under observation to ensure no active bleeding occurs and to allow for rapid intervention if necessary.
*Pulse Oximetry
SaO2: 99
Nasal Cannula flow liters per minute: 4
Patient hypoxic: no
*Critical Care Note
Total Time (30-74mins, 75-104mins- exclusive of procedures): Not Applicable
ED Attending Note
-
Portions of this chart may have been created with voice recognition software.� Occasional wrong word or��sound alike� substitutions may have occurred due to the inherent limitations of voice recognition software.
Discharge Plan
Departure
Patient Disposition: Admit
Date of Disposition: 01/13/25
Time of Disposition: 23:58
Admit to: Telemetry
Presentation/result/management discussed w/ accepting MD/: Hospitalist
Discharge Problem:
Rectal bleeding, Anemia
Prescriptions:
No Action
atorvastatin 10 MG tablet
10 mg PO HS
ipratropium-albuterol 3 ML solution for nebulization
3 ml inhalation R BID
ropinirole 1 MG tablet
1 mg PO HS
clopidogrel 75 MG tablet
75 mg PO DAILY
ferrous sulfate [iron] 325 mg (65 mg iron) Tablet
325 mg PO DAILY
magnesium oxide 500 mg magnesium Tablet
500 mg PO DAILY
budesonide 0.5 mg/2 mL Suspension For Nebulization
0.5 mg INHALATION R BID
albuterol sulfate [Ventolin HFA] 90 mcg/actuation Hfa Aerosol Inhaler
1 inh INHALATION R Q6HPRN PRN (Reason: sob)
coenzyme Q10 100 mg Capsule
100 mg PO DAILY
Visbiome 112.5 billion cell Capsule
1 cap PO DAILY
krill oil 500 mg Capsule
350 mg PO DAILY
prednisone 10 MG tablet
10 mg PO DAILY
guaifenesin [Mucus Relief ER] 600 MG tablet extended release 12hr
600 mg PO BID
therapeutic multivitamin Tablet
1 tab PO DAILY
azithromycin 500 mg Tablet
500 mg PO MOWEFR
metformin 1,000 mg Tablet
1,000 mg PO BID@0800,1700 Qty: 60 0RF
prednisone 20 mg Tablet
40 mg PO DAILY Qty: 0 0RF
furosemide 80 mg Tablet
80 mg PO DAILY Qty: 0 0RF
ipratropium-albuterol 0.5 mg-3 mg(2.5 mg base)/3 mL Solution For Nebulization
3 ml inhalation Q4HPRN PRN (Reason: wheezing) Qty: 0 0RF
metoprolol tartrate 50 MG tablet
25 mg PO BID Qty: 0 0RF
Referrals:
Lewcun,Selvin G., DO [Family Provider, Family Practice]
Interventions
Interventions:
*Risk Screen - Suicide Last Done: 01/13/25 19:16
*General Assessment Last Done: 01/13/25 19:16
*Neglect/Abuse Screening Last Done: 01/13/25 19:16
*ED- Fall Risk Assessment Last Done: 01/13/25 23:10
*ED COVID-19 Vaccine History Last Done: 01/13/25 19:16
Discharge Date and Time
Print Language: GABONESE
[2025-01-14] VITALS (7 sets, daily range): BP systolic 103–170; BP diastolic 52–101; PULSE 89–102; BMI 35.8
--- NOTE | 2025-01-14 00:20 | HPS.HSE ---
Family Physician
-
Family Physician: Selvin Anthony
Chief Complaint
-
Rectal bleed
History of Present Illness
This is an 79-year-old female with past medical history significant for COPD on home O2, restrictive lung disease, GARY, CHF, CKD, diabetes mellitus, essential hypertension, CVA, hyperlipidemia, iron deficiency anemia, restless leg syndrome who
presents to the emergency department after experiencing bright red rectal bleeding 1 day ago.
She reports that she had back crampy abdominal discomfort then had explosive liquid stool that was mixed with bright red blood. She had 5 similar episodes throughout the day yesterday. She took a small amount of Pepto-Bismol. Since this morning
patient states she has had 1 bowel movement that was nonbloody and she is has not seen any blood in her underwear. She denies any further abdominal discomfort. She denies any nausea or vomiting. She denies having any fevers or chills.
Patient reports a prior history of blood from the rectum few years ago but she did not come to the emergency department for evaluation.
She is on Plavix for CVA which was diagnosed over 10 years ago. Patient denies history of NSAID use.
She has been on iron in the past and has had dark black stools which she blames on the iron supplementation. She denies having any black stools recently.
She has never had a colonoscopy.
In the emergency department she was hemodynamically stable with a blood pressure of 130/60 and a pulse of 83 and she was satting 99% on room air. Hemoglobin is 8.6, previous hemoglobin was 10. Platelet count was normal. Electrolytes were
unchanged from prior and within the normal range. BUN was 30 and creatinine 1.2 unchanged from prior.
Medical History
Past Medical History
Past Medical History: Reports Other
Additional Past Medical History:
Systolic and diastolic CHF
Hypertension
Hyperlipidemia
Nonsustained ventricular tachycardia
COPD
Type 2 diabetes
Stroke
Peripheral dural disease
Peripheral artery disease
Primary low-dose home
Restrictive lung disease
Lung nodules
Restless leg syndrome
DVT
Morbid obesity
H. pylori
Squamous cell cancer
Past Surgical History: Reports Other
Additional Past Surgical History:
Bilateral cataract surgery
Cancerous growth removed from right cough
Social History
Tobacco: Former Smoker
Alcohol: None
Drug: None
Personal:
Living: With Family
Family History
Family History: Not pertinent
Allergies / Home Medications
Allergies reflects when Allergies were last updated in [facility].
Home Medications with original date entered in [facility]
Allergy/Medication List:
Allergies
Allergy/AdvReac Type Severity Reaction Status Date / Time
No Known Allergies Allergy Verified 09/19/24 14:37
Home Medications
atorvastatin 10 mg tablet 10 mg PO HS High cholesterol 05/10/18
clopidogrel 75 mg tablet 75 mg PO DAILY Blood clot prevention/tx 09/16/21
ipratropium 0.5 mg-albuterol 3 mg (2.5 mg base)/3 mL nebulization soln 3 ml inhalation R BID Lung/breathing issues 09/16/21
metoprolol tartrate 50 mg tablet 50 mg PO BID Blood pressure 09/16/21
ropinirole 1 mg tablet 1 mg PO HS RESTLESS LEGS 09/16/21
Lactobac no.2-Bifidobac no.1-S. thermo 112.5 billion cell capsule (Visbiome) 1 cap PO DAILY Supplement 08/03/24
albuterol sulfate 90 mcg/actuation aerosol inhaler (Ventolin HFA) 1 inh inhalation R Q6HPRN PRN sob 08/03/24
budesonide 0.5 mg/2 mL suspension for nebulization 0.5 mg inhalation R BID Lung/Breathing Issues 08/03/24
coenzyme Q10 100 mg capsule 100 mg PO DAILY Supplement 08/03/24
ferrous sulfate 325 mg (65 mg iron) tablet (iron) 325 mg PO DAILY Supplement 08/03/24
guaifenesin 600 mg tablet, extended release 12 hr (Mucus Relief ER) 600 mg PO BID Congestion 08/03/24
krill oil 500 mg capsule 350 mg PO DAILY Supplement 08/03/24
magnesium oxide 500 mg PO DAILY Supplement 08/03/24
prednisone 10 mg tablet 10 mg PO DAILY Anti-Inflammatory 08/03/24
azithromycin 500 mg tablet 500 mg PO MOWEFR Anti-Inflammatory 09/19/24
therapeutic multivitamin 1 tab PO DAILY Supplement 09/19/24
metformin 1,000 mg tablet 1,000 mg PO BID@0800,1700 Diabetes #60 tabs 09/23/24
Review of Systems
-
Constitutional: Reports No Symptoms
EENT: Reports No Symptoms
Respiratory: Reports No Symptoms
Cardiac: Reports No Symptoms
Abdomen/GI: Reports Bloody Stools
: Reports No Symptoms
Musculoskeletal: Reports No Symptoms
Skin: Reports No Symptoms
Neurological: Reports No Symptoms
Endocrine: Reports No Symptoms
Hematologic/Lymphatic: Reports No Symptoms
Psych: Reports No Symptoms
Physical Exam
Vital Signs
Vital Signs
Temp Pulse Resp BP Pulse Ox
98.6 F 83 20 129/59 99
01/13/25 19:16 01/13/25 23:07 01/13/25 19:16 01/13/25 23:07 01/14/25 00:01
Physical Exam
General: Respiratory Distress and Morbidly Obese
HEENT: NormoCephalic, Anicteric, Moist mucous membranes, Atraumatic and Oxygen
Respiratory: Decreased Breath Sounds
Cardiac: S1/S2, Regular Rhythm and Tachycardia
Breast: Deferred by me
GI: Soft, Non Tender, Non Distended and Normal Bowel Sounds
Rectal: Deferred by Provider
Genito-urinary: Deferred by me
Musculoskeletal: No Clubbing and No Cyanosis
Skin: Warm
Neuro: AO x 3 and Nonfocal/grossly intact
Hematologic/Lymphatic: No Lymphadenopathy
Psych: Calm
Laboratory Results
-
01/13/25 19:
01/13/25
Laboratory Results
PT 13.9 Sec (11.4-14.6) 01/13/25
INR 1.04 01/13/25
APTT 25.8 Sec (23.4-35.0) 01/13/25
Total Bilirubin 0.4 mg/dl (0.2-1.3) 01/13/25
AST 23 U/L (14-36) 01/13/25
ALT 17 U/L (0-35) 01/13/25
Alkaline Phosphatase 54 U/L (38-126) 01/13/25
Data Reviewed
-
Lab Data: Labs Reviewed by me
Old Records: Reviewed
Impression/Plan
-
IMPRESSION:
79-year-old on Plavix who presents to the emergency department after 1 day of rectal bleeding, and no recurrence of the rectal bleeding today, hemoglobin 8.6 down from 10, rest of the labs are unremarkable. She is hemodynamically stable and has no
abdominal pain nausea or vomiting. She is not having any diarrhea. No evidence of an acute intra-abdominal process. Cannot rule out diverticular bleed. No NSAIDs, no history of cancer and denies any prior colonoscopy. Rectal exam with heme
positive brown stool. History of dark stools which she is blamed on oral iron supplementation. Patient has not had any bloody bowel movements for 1 day now. She has held her Plavix for 2 days and has held Lasix for 2 days.
PLAN:
Rectal bleeding -hemorrhoidal, diverticuli or AVM cannot be ruled out. No diarrhea or abdominal pain to suggest colitis of ischemic or infectious origin. She is hemodynamically stable, Hgb 8.6.
� Admit to telemetry observation
� Clear liquid diet for now
� Hold Plavix
� Type and screen, trend H&H every 8
- transfuse for Hgb < 7
� Orthostatic vital signs
� Hold Lasix
� Continue patient's other medications
� DVT prophylaxis with SCDs
CODE STATUS�full code
[2025-01-14] MEDS: DELTASONE 10 MG PO (07:55)
[2025-01-14] MEDS: THERAGRAN 1 TABLET PO (07:55)
[2025-01-14] MEDS: LOPRESSOR 25 MG PO ×2 (07:55→20:32)
[2025-01-14] MEDS: NSS (PRESERVATIVE FREE) 10 ML IV (07:55)
[2025-01-14] MEDS: PROTONIX IV 40 MG IV (07:56)
[2025-01-14] MEDS: PULMICORT 0.5 MG INH ×2 (08:09→19:54)
[2025-01-14] MEDS: DUONEB 3 ML INH ×2 (08:09→19:54)
[2025-01-14] MEDS: ZITHROMAX 500 MG PO (08:30)
--- NOTE | 2025-01-14 08:35 | CON.GI ---
Addendum entered and electronically signed by Xiao Moseley Do, MD 01/14/25 14:58:
I saw and examined the patient.
The MAGAZINE EDITOR's note was reviewed and I agree with the note.
Comment: Mary is an 79yo W with severe COPD on 4L NC during day and BiPAP at night time on chronic steroid, CVA and who was admitted for one episode of BRBRP that has not recurred. FOBT in ER was neg. She had similar issue one year ago
that also resolved. No prior EGD/colonoscopy. No wt loss dysphagia nausea/vomiting abd pain. She does have some heartburn. Vitals stable on 4L NC. obese +spider angiomas over chest soft, ND, NTTP. LE 1+ edema bilaterally
SEVERE FOLD THICKENING in the GASTRIC FUNDUS. Diagnostic possibilities are (1) gastritis (most likely) or (2) gastric malignancy (less likely).
2. Small sliding-type hiatal hernia.
3. Small obstructing Schatzki's ring in the distal esophagus.
Impression
- Acute on chronic anemia
- BRBPR x1 now resolved
- Severe COPD
- Oxygen and biPAP dependent
- Aortic stenosis
- PAD
- NICM
- DM
- HTN
Recommendations
- Per pt stools brown now
- Iron panel reviewed and while iron % sat low iron overall normal
- Discussed EGD/colonoscopy and pt would be extremely high risk given chronic oxygen with biPAP need and aortic stenosis. She and daughter declines risk
- Results of UGI series reviewed with family and pt. C/w PPI fpc
- Recommend upon d/c referral to cost control specialist for closer blood monitoring every 8wks and IV iron/blood PRN basis
Above d/w hospitalist and RN. At this juncture no new GI recs will sign off please call for questions
Original Note:
Consultation
-
Date/Time Consultation Requested: 01/14/25253
Date/Time Consultation Performed: 01/14/25804
Requesting Provider: Dr. Pierson
Performing Provider: Dr. Nava/PARISH Lubin
Reason for Consultation: rectal bleeding
Medical History
Chief Complaint / HPI
Chief Complaint: rectal bleeding
History of Present Illness:
79-year-old female with past medical history of moderate to severe COPD on 4 L nasal cannula with intermittent use of BiPAP during the day, continuous BiPAP at night, chronic hypercapnic respiratory failure (on chronic prednisone), pneumonia,
hypertension, CVA (2013), diabetes, RLS, nonischemic cardiomyopathy, diabetes, nonsustained V. tach, mild to moderate aortic stenosis, PAD, iron deficiency (per patient diagnosed 2 years ago), CKD, hypertension, hyperlipidemia, squamous cell cancer
(right calf), chronic constipation, history of H. pylori (diagnosed via breath test 01/2024 treated with Prevpac with diagnosed eradication via breath test 03/2024) who presents to the emergency room after having multiple episodes of loose stool on
Sunday (01/11/2025) after having pebbling of brown stool followed by brown diarrhea associated with black diarrhea and red blood mixed throughout it. The patient waited until 01/13/2025) to present to the emergency room. We are asked to evaluate for
the same. The patient states that usually has difficulty moving her bowels. She usually has a small bowel movement every time she urinates. She states that she is usually a pebble or a small bowel movement. She started using Colace approximately
2 months ago. She has never had an endoscopy or colonoscopy before. She states that on Sunday she started feeling some abdominal cramping more in the pelvic area. She then started having hard bowel movements followed by brown liquid stool with
black diarrhea and some red blood mixed throughout. She states that there was a total of '5' bowel movements total. She states that after this she had none further. This was all isolated to Sunday she does state that her also had 3 loose
bowel movements as well. Neither of them had any spoiled food. They did not lose power. They do not recall eating anything out of the ordinary. She did take some Pepto-Bismol. She states that she held her Plavix as well as her Lasix on Sunday
and Sunday. She states that she had a small brown bowel movement on Sunday. She presented to the emergency room with weakness. While in the ER she had a hemoglobin of 8.6 down from her baseline of 10. Her stool was brown and was OB negative
per rectal exam in ER. At present she denies any fevers, chills, nausea, vomiting, dysphagia or odynophagia. No early satiety or unintentional weight loss. She does tell me that approximately 1 year ago she had an episode of bright red blood on
the pad that she wears. She states this was isolated. She did not tell anybody.
Past Medical History
Past Medical History: Other (Moderate to severe COPD (oxygen dependent), use of BiPAP, chronic hypercapnic respiratory failure, pneumonia, hypertension, CVA, diabetes, RLS, nonischemic cardiomyopathy, diabetes, NS VT, mild to moderate aortic
stenosis, PAD, iron deficiency anemia, CKD, hypertension, hyperlipoidemia, squamous melanie)
Past Surgical History: Other (Cataracts, right calf squamous cell cancer removal,)
Social History
Tobacco: Former Smoker (Quit 13 years ago)
Alcohol: Occasional (Drinks 1 beer every 5 to 6 weeks)
Drug: None
Personal:
Living: With Family
Employment: Retired
Family History
Family History: Other (No family history of gastrointestinal malignancy or IBD)
Allergies / Home Medications
Allergy/AdvReac Type Severity Reaction Status Date / Time
No Known Allergies Allergy Verified 01/13/25 19:20
�Medication �Instructions �Recorded
atorvastatin 10 mg tablet 10 mg PO HS High cholesterol 05/10/18
clopidogrel 75 mg tablet 75 mg PO DAILY Blood clot 09/16/21
prevention/tx
ipratropium 0.5 mg-albuterol 3 mg 3 ml inhalation R BID 09/16/21
(2.5 mg base)/3 mL nebulization Lung/breathing issues
soln
ropinirole 1 mg tablet 1 mg PO HS RESTLESS LEGS 09/16/21
budesonide 0.5 mg/2 mL suspension 0.5 mg inhalation R BID 08/03/24
for nebulization Lung/Breathing Issues
coenzyme Q10 100 mg capsule 200 mg PO DAILY Supplement 08/03/24
guaifenesin 600 mg tablet, 600 mg PO BID Congestion 08/03/24
extended release 12 hr (Mucus
Relief ER)
krill oil 500 mg capsule 350 mg PO DAILY Supplement 08/03/24
prednisone 10 mg tablet 10 mg PO DAILY Anti-Inflammatory 08/03/24
Held on 10/08/24.
Instructions: Once she weaned
down to 10 mg then stay on
this dose
azithromycin 500 mg tablet 500 mg PO MOWEFR Anti-Inflammatory 09/19/24
therapeutic multivitamin 1 tab PO DAILY Supplement 09/19/24
furosemide 80 mg tablet 80 mg PO DAILY #0 tabs 10/08/24
ipratropium 0.5 mg-albuterol 3 mg 3 ml inhalation Q4HPRN PRN 10/08/24
(2.5 mg base)/3 mL nebulization wheezing #0 mL
soln
Probiotic 0.05 mg DAILY 01/14/25
albuterol sulfate 90 mcg/actuation 2 puff inhalation 6XD PRN sob 01/14/25
aerosol inhaler (Ventolin HFA)
budesonide 0.5 mg/2 mL suspension 0.5 mg inhalation BID 01/14/25
for nebulization
ferrous sulfate 325 mg (65 mg 65 mg PO DAILY 01/14/25
iron) tablet (Iron (ferrous
sulfate))
magnesium carb,citrate,oxide 400 mg PO DAILY 01/14/25
(Magnesium Complex)
metformin 500 mg tablet 500 mg PO BID 01/14/25
metoprolol tartrate 50 mg tablet 50 mg PO BID 01/14/25
valsartan 40 mg tablet 40 mg PO DAILY 01/14/25
Review of Systems
-
All other systems: A 12 pt ROS was Negative except as stated above in HPI
Vital Signs
Temp Pulse Resp BP Pulse Ox
98.7 F 70 16 154/75 99
01/14/25 07:49 01/14/25 08:10 01/14/25 08:10 01/14/25 07:55 01/14/25 07:49
Physical Exam
Exam
General: No Apparent Distress
HEENT: Anicteric
Respiratory: Clear (On 4 L supplemental nasal cannula oxygen at present time)
Cardiac: Regular Rhythm and Murmur
GI: Soft, Non Tender, Non Distended and Normal Bowel Sounds
Skin: Warm and Dry
Neuro: AO x 3
Psych: Calm
Results
WBC 12.0 10^3/uL (4.8-10.8) H 01/13/25 19:29
Hgb 8.6 g/dL (12.0-16.0) L 01/13/25 19:29
Hct 28.5 % (37.0-47.0) L 01/13/25 19:29
MCV 90.8 fL (81.0-99.0) 01/13/25 19:29
Plt Count 298 10^3/uL (130-400) 01/13/25 19:29
Absolute Neuts (auto) 9.9 10^3/uL (1.4-6.5) H 01/13/25 19:29
PT 13.9 Sec (11.4-14.6) 01/13/25 19:29
INR 1.04 01/13/25 19:29
APTT 25.8 Sec (23.4-35.0) 01/13/25 19:29
Sodium 141 mmol/L (135-145) 01/13/25 19:29
Potassium 4.4 mmol/L (3.5-5.1) 01/13/25 19:29
Chloride 100 mmol/L (98-107) 01/13/25 19:29
Carbon Dioxide 36 mmol/L (22-30) H 01/13/25 19:29
BUN 30 mg/dl (7-17) H 01/13/25:
Creatinine 1.2 mg/dL (0.6-1.0) H 01/13/25
Calcium 9.1 mg/dl (8.4-10.2) 01/13/25:
Total Bilirubin 0.4 mg/dl (0.2-1.3) 01/13/25
AST 23 U/L (14-36) 01/13/25
ALT 17 U/L (0-35) 01/13/25
Alkaline Phosphatase 54 U/L (38-126) 01/13/25
Diagnostic Image Results:
None this admission
Prior GI Procedures:
EGD: Never
Colonoscopy: Never
Assessment / Plan
-
79-year-old female with past medical history of moderate to severe COPD on 4 L nasal cannula with intermittent use of BiPAP during the day, continuous BiPAP at night, chronic hypercapnic respiratory failure (on chronic prednisone 10 mg daily),
pneumonia, hypertension, CVA (2013), diabetes, RLS, nonischemic cardiomyopathy, diabetes, nonsustained V. tach, mild to moderate aortic stenosis, PAD, iron deficiency (per patient diagnosed 2 years ago on oral iron), CKD, hypertension,
hyperlipidemia, squamous cell cancer (right calf), chronic constipation, history of H. pylori (diagnosed via breath test 01/2024 treated with Prevpac with diagnosed eradication via breath test 03/2024) who presents to the emergency room after having
multiple episodes of loose stool on Sunday (01/11/2025) that were initially brown mixed with black and red blood. Hemoglobin was 8.6 down from her baseline at 10. Patient held her Plavix as well as her Lasix (last dose Sunday). Stool brown OB
positive in ER.
Impression:
Rectal bleeding with concerns of black stools (melena) on 01/11/2025
--> Patient at high risk for upper GI bleed given prednisone daily, history of H. pylori, history of aortic stenosis
--> Patient has never had EGD or colonoscopy
Acute on chronic anemia
--> Hemoglobin 8.6 down from baseline of 10
Moderate severe COPD on 4 L nasal cannula with use of BiPAP at night with intermittent use of BiPAP during the day
Nonischemic cardiomyopathy
Mild to moderate aortic stenosis
PAD
History of CVA (2013)
Plan:
- NPO, okay for p.o. meds
- Will check upper GI today, patient at high risk for EGD given respiratory status
- Patient has been off Plavix (last dose 01/11/2025)
- Continue pantoprazole 40 mg IV daily
- Discussed with RN, if patient has bowel movement please notify us, check stools for occult blood.
- Trend CBC, BMP
- Iron studies pending
- Further recommendations to be forthcoming
-
-
Thank you for consultation and allowing me to participate in the patient's care. Please call the [facility] GI physician during the after hours with any questions or concerns.
[2025-01-14 09:08] LABS: Hematocrit 27.8 % (37.0-47.0); Hemoglobin 8.4 g/dL (12.0-16.0); Mean Corp Hgb Conc. 30.2 g/dL (33.0-37.0); Mean Corpuscular Hgb 27.4 pg (27.0-31.0); Mean Corpuscular Volume 90.6 fL (81.0-99.0); Mean Platelet Volume 9.7 fL (7.4-10.4); Platelet Count 328 10^3/uL (130-400); Red Blood Cell Count 3.07 10^6/uL (4.20-5.40); Red Cell Dist. Width 13.8 % (11.5-14.5)
[2025-01-14 11:15] LABS: Ferritin 75.5 ng/ml (11.1-264.0)
[2025-01-14 11:43] LABS: Blood Urea Nitrogen 26 mg/dl (7-17); Calcium 9.2 mg/dl (8.4-10.2); Carbon Dioxide 34 mmol/L (22-30); Chloride 102 mmol/L (98-107); Estimated Creatinine Clearance 39 ml/min; Glucose 102 mg/dl (70-99); Iron 41 ug/dl (37-170); Potassium 4.6 mmol/L (3.5-5.1); Sodium 142 mmol/L (135-145)
[2025-01-14 11:52] LABS: Percent Saturation 10 % (20-50); Total Iron Binding Capacity 379 ug/dl (265-497)
--- NOTE | 2025-01-14 12:36 | CM ---
business continuity manager reviewed patient's chart and met with patient and patient reports that she lives with her spouse in a 1 story home with no steps in through garage, patient is independent with adl's and uses a walker or w/c with ambulation, patient
requires 4 liters of oxygen in home. Patient thinks her oxygen company she uses is [employer]. Plan is to home when stable, patient has declined visiting nurses at discharge.
PCP: Dr. Anthony
Pharmacy: [facility] in [place].
Plan; Home with spouse when stable.
--- NOTE | 2025-01-14 13:42 | W.PN.UPDATE ---
Update Note
Progress Note Update
Nonbillable note
Admission note/chart/labs reviewed
GI bleed - patient have not voiced about any worsening complaints. Patient has been evaluated by gastroenterology service and have undergone an upper GI series with air-contrast, result of which is pending
Hemoglobin has drifted down to 8.4, follow-up hemoglobin has been ordered.
COPD -stable from pulmonary perspective. Remains on oxygen through nasal cannula
[2025-01-14 13:52] LABS: Hematocrit 27.1 % (37.0-47.0); Hemoglobin 8.2 g/dL (12.0-16.0)
[2025-01-14 16:47] LABS: Glucose - Point of Care 170 mg/dl (70-99)
[2025-01-14] MEDS: LIPITOR 10 MG PO ×2 (20:32)
[2025-01-14 21:55] LABS: Glucose - Point of Care 151 mg/dl (70-99)
[2025-01-14] MEDS: REQUIP 1 MG PO (22:33)
[2025-01-15] VITALS (9 sets, daily range): BP systolic 113–139; BP diastolic 57–85; PULSE 2–85
[2025-01-15] MEDS: PULMICORT 0.5 MG INH ×2 (07:39→19:45)
[2025-01-15] MEDS: DUONEB 3 ML INH ×2 (07:39→19:45)
[2025-01-15 07:52] LABS: Glucose - Point of Care 106 mg/dl (70-99)
[2025-01-15 08:04] LABS: Hematocrit 24.4 % (37.0-47.0); Hemoglobin 7.3 g/dL (12.0-16.0); Mean Corp Hgb Conc. 29.9 g/dL (33.0-37.0); Mean Corpuscular Hgb 27.3 pg (27.0-31.0); Mean Corpuscular Volume 91.4 fL (81.0-99.0); Mean Platelet Volume 9.5 fL (7.4-10.4); Platelet Count 286 10^3/uL (130-400); Red Blood Cell Count 2.67 10^6/uL (4.20-5.40); White Blood Cell Count 10.1 10^3/uL (4.8-10.8)
[2025-01-15 08:58] LABS: Glycohemoglobin (HgbA1c) 6.1 % (4.0-5.6)
[2025-01-15] MEDS: NOVOLOG FLEXPEN-LOW RESISTANCE SC (09:16)
[2025-01-15] MEDS: DELTASONE 10 MG PO (09:17)
[2025-01-15] MEDS: LOPRESSOR 25 MG PO ×2 (09:17→22:15)
[2025-01-15] MEDS: NSS (PRESERVATIVE FREE) 10 ML IV (09:18)
[2025-01-15] MEDS: PROTONIX IV 40 MG IV (09:18)
[2025-01-15] MEDS: THERAGRAN 1 TABLET PO (09:19)
[2025-01-15 10:33] LABS: Blood Urea Nitrogen 24 mg/dl (7-17); Calcium 8.8 mg/dl (8.4-10.2); Carbon Dioxide 38 mmol/L (22-30); Chloride 100 mmol/L (98-107); Estimated Creatinine Clearance 39 ml/min; Glucose 92 mg/dl (70-99); Potassium 4.2 mmol/L (3.5-5.1); Sodium 143 mmol/L (135-145)
[2025-01-15 12:07] LABS: Glucose - Point of Care 186 mg/dl (70-99)
[2025-01-15] MEDS: NOVOLOG FLEXPEN-LOW RESISTANCE 1 UNITS SC (12:22)
--- NOTE | 2025-01-15 14:20 | CM ---
[facility] form reviewed with patient and she refused to sign, plan is for patient to return to home with spouse when stable.
Plan; Home with spouse when stable. Patient has declined visiting nurses.
--- NOTE | 2025-01-15 14:55 | W.PN.HOSP.TC ---
Today's Communication/Plan
-
transfuse 1 u prbc
f/u hbg level
continue holding plavix
Assessment / Plan
Assessment / Plan
GI bleed -presumed diverticular versus hemorrhoidal in nature
Acute blood loss anemia
-No more episode of bright red blood in the stool
- Hemoglobin has drifted down to 7.3 today
- Providing 1 unit of blood transfusion
- Patient Plavix is on hold which patient was on with history of CVA. Will discuss with cardiology as well if any clear indication from cardiac perspective.
- Patient is deemed too high risk for EGD/colonoscopy and this has been discussed with family, who is in agreement for conservative management
Lower esophageal Schatzki's ring
Hiatal hernia
- An upper GI series was done showing above findings
- Denies of any reported dysphagia/regurgitation issues
COPD
Chronic hypoxic respiratory failure
-stable from pulmonary perspective.
-maintain on chronic azithromycin
-Remains on oxygen through nasal cannula 4L
Chronic steroid use
-for COPD, on prednisone 10mg/d
Chronic heart failure midrange EF
History of stroke with residual left-sided weakness
Essential hypertension
History of H. pylori
Former tobacco use
Restless leg syndrome
History of nonsustained V. tach
Type 2 diabetes mellitus
History of DVT
Peripheral artery disease
DVT prophylaxis- scd
Full code
Anticipated Discharge: Within 24 hours
Subjective/Interval History
-
Date of Service: January 15, 2025
minimal blood in the stool on wiping yesterday
No bibi blood containing BM
Objective Data
-
Labs:
Laboratory Results
01/15/25
07:50
WBC 10.1
Hgb 7.3 L
Hct 24.4 L
Plt Count 286
Sodium 143
Potassium 4.2
Chloride 100
Carbon Dioxide 38 H
BUN 24 H
Creatinine 1.1 H
Glucose 92
Calcium 8.8
Vital Signs:
Vital Signs
Temp Pulse Resp BP Pulse Ox
98.4 F 87 18 134/57 100
01/15/25 13:29 01/15/25 13:29 01/15/25 13:29 01/15/25 13:29 01/15/25 07:43
I&O
01/14/25 01/15/25 01/16/25
06:59 06:59 06:59
Intake Total 220 / 220 0 / 0
Balance 220 / 220 0 / 0
Review of Systems
-
Respiratory: Reports No Symptoms
Cardiac: Reports No Symptoms
Abdomen/GI: Reports No Symptoms
Physical Exam
-
General: Cachectic
Respiratory: Clear to Auscultation
Cardiac: Regular Rhythm and S1/S2
GI: Soft, Nontender and Nondistended
Neuro: Awake and AO x 3
Psych: Calm
[2025-01-15 17:15] LABS: Glucose - Point of Care 216 mg/dl (70-99)
[2025-01-15] MEDS: NOVOLOG FLEXPEN-LOW RESISTANCE 2 UNITS SC (17:24)
[2025-01-15 21:44] LABS: Glucose - Point of Care 305 mg/dl (70-99)
[2025-01-15] MEDS: REQUIP 1 MG PO (22:58)
--- NOTE | 2025-01-15 23:29 | PTCARENOTE ---
Patient declined Lipitor due on 01/15 at 2200. Unable to document refusal in MAR, due to previous RN documenting in wrong spot.
[2025-01-16 06:11] LABS: Glucose - Point of Care 116 mg/dl (70-99)
[2025-01-16] MEDS: PULMICORT 0.5 MG INH (06:19)
[2025-01-16] MEDS: DUONEB 3 ML INH (06:19)
[2025-01-16 07:15] VITALS: BP 152/105
[2025-01-16 08:02] LABS: Blood Urea Nitrogen 22 mg/dl (7-17); Carbon Dioxide 34 mmol/L (22-30); Chloride 101 mmol/L (98-107); Estimated Creatinine Clearance 39 ml/min; Glucose 112 mg/dl (70-99); Sodium 140 mmol/L (135-145)
[2025-01-16 08:08] LABS: % Basophils 0.7 % (0-2); % Eosinophils 1.4 % (0-6); % Immature Granulocytes 1.2 % (0-0.5); % Lymphocytes 18.5 % (20.5-51.1); % Monocytes 14.2 % (1.7-9.3); Absolute Basophils 0.1 10^3/uL (0-0.2); Absolute Eosinophils 0.2 10^3/uL (0-0.7); Absolute Immature Granulocytes 0.1 10^3/uL (0-0.05); Absolute Lymphocytes 2.2 10^3/uL (1.2-3.4); Absolute Monocytes 1.7 10^3/uL (0.1-0.6); Absolute Neutrophils 7.7 10^3/uL (1.4-6.5); Hematocrit 28.6 % (37.0-47.0); Hemoglobin 8.8 g/dL (12.0-16.0); Mean Corp Hgb Conc. 30.8 g/dL (33.0-37.0); Mean Corpuscular Hgb 27.2 pg (27.0-31.0); Mean Corpuscular Volume 88.5 fL (81.0-99.0); Mean Platelet Volume 9.6 fL (7.4-10.4); Nucleated Red Blood Cells % 0.2 %; Platelet Count 307 10^3/uL (130-400); Red Blood Cell Count 3.23 10^6/uL (4.20-5.40); Red Cell Dist. Width 14.4 % (11.5-14.5); White Blood Cell Count 12.1 10^3/uL (4.8-10.8)
[2025-01-16] MEDS: NOVOLOG FLEXPEN-LOW RESISTANCE SC ×2 (08:10→12:50)
[2025-01-16] MEDS: DELTASONE 10 MG PO (08:11)
[2025-01-16] MEDS: PROTONIX IV 40 MG IV (08:11)
[2025-01-16] MEDS: THERAGRAN 1 TABLET PO (08:11)
[2025-01-16] MEDS: LOPRESSOR 25 MG PO (08:11)
[2025-01-16] MEDS: NSS (PRESERVATIVE FREE) 10 ML IV (08:12)
[2025-01-16] MEDS: ZITHROMAX 500 MG PO (08:15)
--- NOTE | 2025-01-16 09:31 | CM ---
Chart reviewed and top case assembler met with patient, patient is on 4 liters of oxygen, Patient uses Bipap at night, although having difficulty tolerating Bipap last night due to mask patient to bring her own mask in from home. Plan remains to return to
home with spouse no needs, patient declines visiting nurses.
Plan; Home with spouse no needs.
[2025-01-16 12:27] VITALS: BP 150/67
[2025-01-16] MEDS: LASIX 80 MG PO (12:32)
[2025-01-16 12:41] VITALS: BMI 36.5
--- NOTE | 2025-01-16 14:54 | W.PN.HOSP.TC ---
Today's Communication/Plan
-
d/c home
Assessment / Plan
Assessment / Plan
GI bleed -presumed diverticular versus hemorrhoidal in nature
Acute blood loss anemia
-No more episode of bright red blood in the stool
- Patient required 1 unit of blood transfusion for hemoglobin of 7.3. Appropriate response with hemoglobin 8.8 today
- Discussed with cardiology and patient is cleared to be restarted on Plavix. Patient apparently stopped taking Plavix from 01/11
- Patient is deemed too high risk for EGD/colonoscopy and this has been discussed with family, who is in agreement for conservative management
Lower esophageal Schatzki's ring
Hiatal hernia
- An upper GI series was done showing above findings
- Denies of any reported dysphagia/regurgitation issues
COPD
Chronic hypoxic respiratory failure
-stable from pulmonary perspective.
-maintain on chronic azithromycin
-Remains on oxygen through nasal cannula 4L
Chronic steroid use
-for COPD, on prednisone 10mg/d
Chronic heart failure midrange EF
History of stroke with residual left-sided weakness
Essential hypertension
History of H. pylori
Former tobacco use
Restless leg syndrome
History of nonsustained V. tach
Type 2 diabetes mellitus
History of DVT
Peripheral artery disease
DVT prophylaxis- scd
Full code
More than 30 minutes spent in discharge including
Final examination of the patient
Summarizing hospital stay
Instructions for continuing care to all relevant caregivers
Preparation of discharge records, prescriptions, and referral forms
Total time spent (in minutes): 38 mins
Anticipated Discharge: Today
Subjective/Interval History
-
Date of Service: January 16, 2025
No further bleeding episodes overnight
No other reported problems
Objective Data
-
Labs:
Laboratory Results
01/16/25
07:23
WBC 12.1 H
Hgb 8.8 L D
Hct 28.6 L
Plt Count 307
Sodium 140
Potassium 4.0
Chloride 101
Carbon Dioxide 34 H
BUN 22 H
Creatinine 1.1 H
Glucose 112 H
Calcium 9.0
Vital Signs:
Vital Signs
Temp Pulse Resp BP Pulse Ox
98.2 F 95 22 150/67 96
01/16/25 12:27 01/16/25 12:32 01/16/25 12:27 01/16/25 12:32 01/16/25 12:27
I&O
01/15/25 01/16/25 01/17/25
06:59 06:59 06:59
Intake Total 220 / 220 1690 / 1690 1440 / 1440
Balance 220 / 220 1690 / 1690 1440 / 1440
Review of Systems
-
Respiratory: Reports No Symptoms
Cardiac: Reports No Symptoms
Abdomen/GI: Reports No Symptoms
Physical Exam
-
General: Cachectic
Respiratory: Clear to Auscultation
Cardiac: Regular Rhythm and S1/S2
GI: Soft, Nontender and Nondistended
Neuro: Awake and AO x 3
Psych: Calm
--- NOTE | 2025-01-16 17:22 | W.DCSUMMARY ---
Discharge Summary
Discharge Data
Date of Admission: 01/15/25
Date of Discharge: 01/16/25
-
Pending Results: No
Hospital Course
Discharging Physician : Dr Kar Bowen
Disposition : To home
Primary care physician : Dr Selvin Anthony
Principal Discharge diagnosis :
Lower gastrointestinal bleed suspected diverticular in nature
Schatzki's ring
Hiatal hernia
Acute blood loss anemia
Chronic Discharge diagnosis :
Chronic obstructive pulmonary disease
Chronic hypoxic respiratory failure
Chronic steroid use
Chronic heart failure with midrange ejection fraction
History of stroke with residual left-sided weakness
Essential hypertension
History of Helicobacter pylori infection
Former tobacco use
Restless leg syndrome
History of nonsustained ventricular tachycardia
Type 2 diabetes mellitus
History of deep venous phimosis
Peripheral arterial disease
Hospital Course :
Patient is a 79-year-old female with above-mentioned past medical history came to ER with new onset of bright red blood in stool. Patient noticed some blood in the stool earlier in the week and stopped taking Plavix 3 days back. Patient had some
abdominal discomfort and had taken Pepto-Bismol/[id number] medication. In light of bleeding episode patient came to ER for further evaluation. Patient had some acute anemia developing on top of chronic known anemia. GI was involved in care
who evaluated patient for possible need of EGD/colonoscopy although patient was deemed too high risk for procedure. After discussion with patient family a conservative management approach was decided on. Patient had an upper GI series which showed
hiatal hernia/small Schatzki's ring as well. Patient did not have any further major bleeding episode posthospitalization and suspecting initial episode might be diverticular in nature. Patient hemoglobin had drifted down to 7 and requiring 1 unit
of blood transfusion. As patient has a voluntarily held Plavix before presented to ER, patient did not get any dose approximately for 5 days. At discharge patient instructed to resume back on Plavix day after discharge. Patient was provided a
follow-up prescription for blood work next week with follow-up with PCP in office.
Important imaging findings :
None
Procedure findings :
None
Discharge Plan
-
Patient Disposition: Home (Routine Discharge)
Discharge Diagnosis/Procedures: GI bleed - possible diverticular
Condition: Fair
Diet: Diabetic, Carb Controlled
Activity: As tolerated
Driving Restrictions: No driving
Bathing Restrictions: OK to Shower
Blood Work: CBC on Sunday
Referrals:
Itzel Tomlinson MD [Active, Hematology / Oncology]
Referral Note: 4-6 wks for chronic iron def anemia
Selvin Anthony DO [Family Provider, Family Practice] - in one week
Prescriptions:
Continued
atorvastatin 10 MG tablet
10 mg PO HS
ipratropium-albuterol 3 ML solution for nebulization
3 ml inhalation R BID
ropinirole 1 MG tablet
1 mg PO HS
clopidogrel 75 MG tablet
75 mg PO DAILY
budesonide 0.5 mg/2 mL Suspension For Nebulization
0.5 mg INHALATION R BID
coenzyme Q10 100 mg Capsule
200 mg PO DAILY
krill oil 500 mg Capsule
350 mg PO DAILY
prednisone 10 MG tablet
10 mg PO DAILY
guaifenesin [Mucus Relief ER] 600 MG tablet extended release 12hr
600 mg PO BID
therapeutic multivitamin Tablet
1 tab PO DAILY
azithromycin 500 mg Tablet
500 mg PO MOWEFR
Rx Instructions:
3 times a week
furosemide 80 mg Tablet
80 mg PO DAILY Qty: 0 0RF
ipratropium-albuterol 0.5 mg-3 mg(2.5 mg base)/3 mL Solution For Nebulization
3 ml inhalation Q4HPRN PRN (Reason: wheezing) Qty: 0 0RF
metformin 500 mg Tablet
500 mg PO BID
ferrous sulfate [Iron (ferrous sulfate)] 325 mg (65 mg iron) Tablet
65 mg PO DAILY
metoprolol tartrate 50 mg Tablet
50 mg PO BID
budesonide 0.5 mg/2 mL Suspension For Nebulization
0.5 mg INHALATION BID
valsartan 40 mg Tablet
40 mg PO DAILY
Magnesium Complex 300 mg magnesium Tablet
400 mg PO DAILY
albuterol sulfate [Ventolin HFA] 90 mcg/actuation Hfa Aerosol Inhaler
2 puff INHALATION 6XD PRN (Reason: sob)
Probiotic
0.05 mg DAILY
Discharge Orders:
Discharge Patient (As Directed); Ordered 01/16/25
Ordered By: Kar Bowen
Discharge Date and Time
Discharge Date/Time: 01/16/25 13:01
Print Language: FAROESE
== END 2025-01-16 13:01 | disposition home or self-care (01) | DRG 378 ==
LOC: 4 WEST ACU 14:40
PROVIDERS: Emergency Medicine; Nurse Practitioner; ADMITTING PHYSICIAN Internal Medicine; ATTENDING PHYSICIAN Hospitalist; CONSULT PHYSICIAN Internal Medicine Gastroenterology; EMERGENCY PHYSICIAN Student in an Organized Health Care Education/Training Program; FAMILY PHYSICIAN Family Medicine
PROC: 5A09357 Assistance with Respiratory Ventilation, Less than 24 Consecutive Hours, Continuous Positive Airway Pressure (ICD-10-PCS; 2025-01-14)
PROC: 30233N1 Transfusion of Nonautologous Red Blood Cells into Peripheral Vein, Percutaneous Approach (ICD-10-PCS; 2025-01-15)
DX: K57.91 Diverticulosis of intestine, part unspecified, without perforation or abscess with bleeding (principal); D62 Acute posthemorrhagic anemia; I13.0 Hypertensive heart and chronic kidney disease with heart failure and stage 1 through stage 4 chronic kidney disease, or unspecified chronic kidney disease; I47.20 Ventricular tachycardia, unspecified; I42.8 Other cardiomyopathies; J96.12 Chronic respiratory failure with hypercapnia; I50.22 Chronic systolic (congestive) heart failure; I69.354 Hemiplegia and hemiparesis following cerebral infarction affecting left non-dominant side; E11.22 Type 2 diabetes mellitus with diabetic chronic kidney disease; E78.00 Pure hypercholesterolemia, unspecified; N18.9 Chronic kidney disease, unspecified; E11.36 Type 2 diabetes mellitus with diabetic cataract; D50.9 Iron deficiency anemia, unspecified; J43.9 Emphysema, unspecified; E11.51 Type 2 diabetes mellitus with diabetic peripheral angiopathy without gangrene; G47.33 Obstructive sleep apnea (adult) (pediatric); E66.01 Morbid (severe) obesity due to excess calories; J98.4 Other disorders of lung; K44.9 Diaphragmatic hernia without obstruction or gangrene; I35.0 Nonrheumatic aortic (valve) stenosis; K22.2 Esophageal obstruction; G25.81 Restless legs syndrome; Z87.01 Personal history of pneumonia (recurrent); Z86.19 Personal history of other infectious and parasitic diseases; Z87.891 Personal history of nicotine dependence; Z79.02 Long term (current) use of antithrombotics/antiplatelets; Z79.51 Long term (current) use of inhaled steroids; Z79.52 Long term (current) use of systemic steroids; Z79.84 Long term (current) use of oral hypoglycemic drugs; Z99.81 Dependence on supplemental oxygen; Z86.718 Personal history of other venous thrombosis and embolism; Z68.36 Body mass index [BMI] 36.0-36.9, adult
CPT/HCPCS: 74246; 80048; 80053; 82728; 82962; 83036; 83540; 83550; 85014; 85018; 85025; 85027; 85610; 85730; 86850; 86900; 86901; 86920; 94640; 94660; 99284; P9016

== ENCOUNTER → 2025-01-19 13:21 | Outpatient (REF) | payer MEDICARE, SELFPAY ==
[2025-01-19 15:03] LABS: % Basophils 0.8 % (0-2); % Immature Granulocytes 1.1 % (0-0.5); % Lymphocytes 17.9 % (20.5-51.1); % Monocytes 11.4 % (1.7-9.3); % Neutrophils 66.8 % (42.2-75.2); Absolute Basophils 0.1 10^3/uL (0-0.2); Absolute Eosinophils 0.2 10^3/uL (0-0.7); Absolute Immature Granulocytes 0.1 10^3/uL (0-0.05); Absolute Lymphocytes 1.7 10^3/uL (1.2-3.4); Absolute Monocytes 1.1 10^3/uL (0.1-0.6); Absolute Neutrophils 6.4 10^3/uL (1.4-6.5); Hematocrit 31.5 % (37.0-47.0); Hemoglobin 9.4 g/dL (12.0-16.0); Mean Corp Hgb Conc. 29.8 g/dL (33.0-37.0); Mean Corpuscular Hgb 26.9 pg (27.0-31.0); Mean Platelet Volume 9.6 fL (7.4-10.4); Nucleated Red Blood Cells % 0 %; Platelet Count 368 10^3/uL (130-400); Red Cell Dist. Width 14.1 % (11.5-14.5); White Blood Cell Count 9.6 10^3/uL (4.8-10.8)
== END ==
LOC: REG 13:21
PROVIDERS: ATTENDING PHYSICIAN Hospitalist; FAMILY PHYSICIAN Family Medicine
DX: D62 Acute posthemorrhagic anemia (principal)
CPT/HCPCS: 36415; 85025

== ENCOUNTER 2025-02-10 15:15 | Inpatient (IN) | payer MEDICARE, SELFPAY ==
[2025-02-10] VITALS (18 sets, daily range): BP systolic 107–159; BP diastolic 51–74; BMI 35.0; BMI 34.8
[2025-02-10 13:32] LABS: INR 1.03; PT 13.8 Sec (11.4-14.6)
[2025-02-10 13:33] LABS: APTT 27.3 Sec (23.4-35.0)
[2025-02-10 13:34] LABS: Hematocrit 32.9 % (37.0-47.0); Hemoglobin 9.4 g/dL (12.0-16.0); Mean Corp Hgb Conc. 28.6 g/dL (33.0-37.0); Mean Corpuscular Volume 91.9 fL (81.0-99.0); Nucleated Red Blood Cells % 0 %; Platelet Count 309 10^3/uL (130-400); Red Cell Dist. Width 14.1 % (11.5-14.5)
[2025-02-10 13:39] LABS: Troponin I 0.017 ng/ml
[2025-02-10] MEDS: DECADRON 8 MG IV (13:41)
[2025-02-10] MEDS: DUONEB 3 ML INH (13:45)
[2025-02-10] MEDS: VENTOLIN NEBULES 7.5 MG INH (13:45)
--- NOTE | 2025-02-10 13:54 | ED.GENMED ---
History of Present Illness
General
Chief Complaint: Breathing Problem
Source: patient and spouse
Exam Limitations: none
Time Seen by Provider: 02/10/25 13:25
History of Present Illness
History of Present Illness:
79-year-old female increase shortness of breath over the last 24 hours. Desaturating at home with any exertion. No chest pain no fever
Past History
Past History
ED Past Medical History: COPD (Emphysema), CVA (Left sided weakness), HTN, Hypercholesterolemia, NIDDM and Other (PNA, H-pylori, )
ED Past Surgical History: Tonsilectomy (and adenoids) and Other (cataracts)
Social History
Tobacco: Former smoker
Alcohol: Occasional
Drug: None
Personal:
Living: with family
Employment: Retired
Review of Systems
Review of Systems
All Other Systems: Not applicable
Constitutional: Denies fever
Cardiac: Denies chest pain or syncope
Phy Exam
Physical Exam
Physical Exam:
GENERAL: Alert and oriented. Mild tachypnea at rest. On 4 L nasal cannula
EYE: Orbits normal.
NECK: Supple, no significant adenopathy.
ENT: Pharynx without erythema
CARDIAC: Regular rate and rhythm without any obvious murmurs.
LUNGS: Mild tachypnea. Diffuse expiratory wheezing with rales in the bases
ABDOMEN: Soft, without focal tenderness or distention
NEUROLOGICAL: Alert and oriented , grossly non-focal
SKIN: Warm and dry, no rash or lesion, no discoloration, skin intact.
MUSCULOSKELETAL: Chronic appearing edema to both lower extremities with mild erythematous hue
PSYCH: Normal and appropriate interaction.
Scores
Heart Failure Risk
Heart Failure Risk Score: Yes
History of Stroke or TIA: No
History of intubation for respiratory distress: No
Heart rate on ED arrival >/= 110: No
SaO2 <90% on arrival on room air: Yes
HR >/=110 during 3min walk test (or too ill to perform test): Yes
ECG has acute ischemic changes: No
Urea >/=12mmol/L (BUN 33.6mg/dL): No
Serum CO2>/=35mmol/L: No
Troponin I or T elevated to [place] Level (0.4mg/dL): No
NT-proBNP >/=5,000ng/L (5,000pg/ml): No
HF Risk Score: 3
Admission Status: HIGH RISK 15.9% Consider SNF treatment or admission to hospital
Course
Orders/Labs/Results
Orders:
Orders
02/10/25 13:05
Electrocardiogram (*1) Urgent
Reason for Study: Shortness of Breath
EKG- Treatment ONCE
02/10/25 13:06
Complete Blood Count/With Diff Urgent
NT-proBNP Urgent
PT/INR [Prothrombin Time] Urgent
PTT Urgent
Troponin I Urgent
02/10/25 13:25
CXR Port [CR Chest Portable - 1 View] Urgent
Comment:
Reason For Exam: sob
Reason Study Needs to be Portable: Patient Unstable
02/10/25 13:31
Albuterol Sulfate [Ventolin Nebules] 7.5 mg INH R NOW STA
Dexamethasone Sod Phosphate [Decadron] 8 mg IV NOW STA
Ipratropium/Albuterol Sulfate [Duoneb] 3 ml INH R NOW STA
02/10/25 13:48
COVID-19 Antigen Urgent
Source: Nasal Swab
02/10/25 13:50
Furosemide [Lasix] 80 mg IV NOW STA
02/10/25 14:31
Admit/Transfer Patient As Directed
Co-Sign Provider:
Level of Care: Inpatient admission
Assign to:: Telemetry
Physician / Group: diomedes
Diagnosis: COPD exacerbation
Reason for Telemetry: Acute Heart Failure
Date to Stop Telemetry: 02/13/25
Time to Stop Telemetry: 11:00
Reason for Hospitalization: CHF exacerbation
COPD exacerbation
Expected length of stay greater than two midnights?: Yes
ELOS- Estimated Length of Stay in days: 3
I certify the patient meets the requirements for IP care: Yes
02/10/25 14:32
Comprehensive Metabolic Panel Routine
PRN Pain Medication Management As Directed
May give lesser potent ordered pain med per pt: Yes
preference::
Protocol:: Medication orders for pain may be administered in a
manner that supports deferring to patient preference
when the pt is:
- Requesting an ordered lesser potent pain medication.
Least to most potent pain medications are defined
as: acetaminophen < NSAID < tramadol < opioids
(morphine, oxycodone, hydromorphone).
- Requesting a lesser dose of the same medication IF
ORDERED.
- Requesting a less intrusive route of administration
if both routes are prescribed by the provider (PO <
IV).
02/10/25 14:33
Code Status As Directed
Resuscitation Status: Do not resuscitate
Reached after discussion with pt or family/Healthcare POA: Yes
02/10/25 14:34
DNR Bracelet Application ONCE
02/13/25 11:00
DC Protocol for Telemetry ONCE
Abnormal Lab Results
02/10/25 02/10/25
13:06 14:32
WBC 15.8 H 10^3/uL
(4.8-10.8)
RBC 3.58 L 10^6/uL
(4.20-5.40)
Hgb 9.4 L g/dL
(12.0-16.0)
Hct 32.9 L %
(37.0-47.0)
MCH 26.3 L pg
(27.0-31.0)
MCHC 28.6 L g/dL
(33.0-37.0)
Abs Immat Gran (auto) 0.1 H 10^3/uL
(0-0.05)
Absolute Neuts (auto) 11.6 H 10^3/uL
(1.4-6.5)
Absolute Monos (auto) 2.1 H 10^3/uL
(0.1-0.6)
Immature Gran % 0.6 H %
(0-0.5)
Lymphocytes % 11.4 L %
(20.5-51.1)
Monocytes % 13.5 H %
(1.7-9.3)
Chloride 96 L mmol/L
(98-107)
BUN 26 H mg/dl
(7-17)
Creatinine 1.2 H mg/dL
(0.6-1.0)
Glucose 167 H mg/dl
(70-99)
02/10/25 13:06
02/10/25 14:32
Vital Signs
Initial and Last Documented VS:
Initial Vital Signs
Temp Pulse Resp BP Pulse Ox
98.7 F 139 22 159/70 94
02/10/25 12:41 02/10/25 12:41 02/10/25 12:41 02/10/25 12:41 02/10/25 12:41
Last Documented Vital Signs
Temp Pulse Resp BP Pulse Ox
98.7 F 115 22 138/56 99
02/10/25 12:41 02/10/25 14:01 02/10/25 12:41 02/10/25 14:01 02/10/25 14:00
MDM/Problems Addressed
Differential Diagnosis Includes:
Patient with increased shortness of breath and hypoxia. Maintaining pulse ox with her normal 4 L however moderate tachypnea expiratory wheezing and rales. Likely a component of both CHF and COPD. Warrants inpatient management
*Radiology
Radiology exam reviewed: preliminary read by ED provider (Bilateral effusion/mild CHF) and radiology read reviewed (Bilateral effusion/mild CHF)
*Pulse Oximetry
SaO2: 95
Nasal Cannula flow liters per minute: 4
Patient hypoxic: no
*Critical Care Note
Total Time (30-74mins, 75-104mins- exclusive of procedures): Not Applicable
Data Reviewed
Review of Other/Old Records Reveals: Labs, Records, Radiology Studies, Testing and Discharge Summary
ED Attending Note
-
Portions of this chart may have been created with voice recognition software.� Occasional wrong word or��sound alike� substitutions may have occurred due to the inherent limitations of voice recognition software.
Discharge Plan
Departure
Patient Disposition: Admit
Date of Disposition: 02/10/25
Time of Disposition: 13:57
Presentation/result/management discussed w/ accepting MD/DO: Hospitalist
Discharge Problem:
Respiratory distress, CHF/COPD exacerbation
Prescriptions:
No Action
atorvastatin 10 MG tablet
10 mg PO HS
ipratropium-albuterol 3 ML solution for nebulization
3 ml inhalation R BID
ropinirole 1 MG tablet
1 mg PO HS
clopidogrel 75 MG tablet
75 mg PO DAILY
budesonide 0.5 mg/2 mL Suspension For Nebulization
0.5 mg INHALATION R BID
coenzyme Q10 100 mg Capsule
200 mg PO DAILY
prednisone 10 MG tablet
10 mg PO DAILY
guaifenesin [Mucus Relief ER] 600 MG tablet extended release 12hr
600 mg PO BID
therapeutic multivitamin Tablet
1 tab PO DAILY
azithromycin 500 mg Tablet
500 mg PO MOWEFR
furosemide 80 mg Tablet
80 mg PO DAILY Qty: 0 0RF
ferrous sulfate [Iron (ferrous sulfate)] 325 mg (65 mg iron) Tablet
325 mg PO DAILY
metoprolol tartrate 50 mg Tablet
50 mg PO BID
Magnesium Complex 300 mg magnesium Tablet
400 mg PO DAILY
albuterol sulfate [Ventolin HFA] 90 mcg/actuation Hfa Aerosol Inhaler
2 puff INHALATION R Q6HPRN PRN (Reason: sob)
Visbiome 112.5 billion cell Capsule
1 cap PO DAILY Qty: 0
metformin 500 mg Tablet Extended Release 24 Hr
500 mg PO BID
Referrals:
Selvin Anthony DO [Family Provider, Family Practice]
Interventions
Interventions:
*Risk Screen - Suicide Last Done: 02/10/25 12:41
*General Assessment Last Done: 02/10/25 12:41
*Neglect/Abuse Screening Last Done: 02/10/25 12:41
*ED- Fall Risk Assessment Last Done: 02/10/25 12:41
*ED COVID-19 Vaccine History Last Done: 02/10/25 12:41
ED- Cardiac Assessment Last Done: 02/10/25 12:41
ED- Pulmonary Assessment Last Done: 02/10/25 12:41
Discharge Date and Time
Print Language: CAMEROONIAN
[2025-02-10] MEDS: LASIX 80 MG IV (14:01)
--- NOTE | 2025-02-10 14:04 | HPS.HSE ---
Addendum entered and electronically signed by Fouzia Helms MD 02/10/25 15:57:
79-year-old female with COPD on 4L home O2, DM, HTN, who presents with progressively worsening shortness of breath since yesterday. Her at bedside notes that yesterday her oxygen level dropped to the mid 70s while ambulating to the bathroom
and back, and today she had significant dyspnea when she woke up, such that they had to come to the ER. She denies chest pain, recent illness, LE edema, or weight gain.
On exam she is tachycardic to 120s, she appears in NAD, heart is tachycardic with a systolic murmur, she has decreased breath sounds with end expiratory wheezes at bases, abdomen soft/NT/ND/NABS, BLE erythema at feet and ankles and lower legs with
minimal edema.
Labs significant for leukocytosis WBC 15.8, hemoglobin stable at 9.4 bicarb 41. EKG sinus tach with PACs. CXR consistent with pulmonary edema. Previous echo reviewed, normal systolic and diastolic function, .
A/P:
COPD exacerbation�
appears to be some worsening of her CO2 retention
Nebs and steroids
Acute pulmonary edema�
Check echo
IV Lasix
Sinus tachycardia�
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
Original Note:
Family Physician
-
Family Physician: Selvin Anthony
Chief Complaint
-
Short of breath and worsening cough
History of Present Illness
79-year-old female with past medical history for COPD, CVA with left-sided weakness, hypertension, hyperlipidemia, NIDDM, pneumonia, H. pylori presented with increase shortness of breath since last. Her cough got worse yesterday. Patient was noted
to have short of breath with exertion. She was desating to 70s yesterday on 4l. Today morning she was hypoxic and was short of breath when laying down. noted some improvement sitting up and with nebulizer treatment. Patient denied chest pain.
Denied worsening of lower extremities edema. Denied any weight gain. Patient denied any fever, chills, headache, dizzy or syncope. Patient denied abdominal pain, nausea, vomiting, diarrhea. Patient denied dysuria hematuria.
Admitting for further management of COPD and CHF exacerbation. Patient received a dose of steroids, Lasix and nebulizer treatment in ER.
Medical History
Past Medical History
Past Medical History: Reports Other
Additional Past Medical History:
Hypertension
Diastolic CHF
Anemia
COPD
Type 2 diabetes
Hyperlipidemia
Past Surgical History: Reports None
Social History
Tobacco: Former Smoker
Alcohol: None
Drug: None
Personal:
Living: With Family
Family History
Family History: Not pertinent
Allergies / Home Medications
Allergies reflects when Allergies were last updated in [facility].
Home Medications with original date entered in [facility]
Allergy/Medication List:
Allergies
Allergy/AdvReac Type Severity Reaction Status Date / Time
No Known Allergies Allergy Verified 01/13/25 19:20
Home Medications
atorvastatin 10 mg tablet 10 mg PO HS High cholesterol 05/10/18
clopidogrel 75 mg tablet 75 mg PO DAILY Blood clot prevention/tx 09/16/21
ipratropium 0.5 mg-albuterol 3 mg (2.5 mg base)/3 mL nebulization soln 3 ml inhalation R BID Lung/breathing issues 09/16/21
ropinirole 1 mg tablet 1 mg PO HS RESTLESS LEGS 09/16/21
budesonide 0.5 mg/2 mL suspension for nebulization 0.5 mg inhalation R BID Lung/Breathing Issues 08/03/24
coenzyme Q10 100 mg capsule 200 mg PO DAILY Supplement 08/03/24
guaifenesin 600 mg tablet, extended release 12 hr (Mucus Relief ER) 600 mg PO BID Congestion 08/03/24
prednisone 10 mg tablet 10 mg PO DAILY Anti-Inflammatory 08/03/24
azithromycin 500 mg tablet 500 mg PO MOWEFR Anti-Inflammatory 09/19/24
therapeutic multivitamin 1 tab PO DAILY Supplement 09/19/24
furosemide 80 mg tablet 80 mg PO DAILY #0 tabs 10/08/24
Lactobac no.2-Bifidobac no.1-S. thermo 112.5 billion cell capsule (Visbiome) 1 cap PO DAILY Gastrointestinal Issue ##0 01/14/25
albuterol sulfate 90 mcg/actuation aerosol inhaler (Ventolin HFA) 2 puff inhalation R Q6HPRN PRN sob 01/14/25
ferrous sulfate 325 mg (65 mg iron) tablet (Iron (ferrous sulfate)) 325 mg PO DAILY Supplement 01/14/25
magnesium carb,citrate,oxide (Magnesium Complex) 400 mg PO DAILY Supplement 01/14/25
metoprolol tartrate 50 mg tablet 50 mg PO BID Blood Pressure 01/14/25
metformin 500 mg tablet,extended release 24 hr 500 mg PO BID 02/10/25
Review of Systems
-
Constitutional: Reports No Symptoms
EENT: Reports No Symptoms
Respiratory: Reports Trouble Breathing
Cardiac: Reports No Symptoms
Abdomen/GI: Reports No Symptoms
: Reports No Symptoms
Musculoskeletal: Reports No Symptoms
Skin: Reports No Symptoms
Neurological: Reports No Symptoms
Endocrine: Reports No Symptoms
Hematologic/Lymphatic: Reports No Symptoms
Psych: Reports No Symptoms
Physical Exam
Vital Signs
Vital Signs
Temp Pulse Resp BP Pulse Ox
98.7 F 115 22 138/56 99
02/10/25 12:41 02/10/25 14:01 02/10/25 12:41 02/10/25 14:01 02/10/25 14:00
Physical Exam
General: Well Developed, Well Nourished and No Apparent Distress
HEENT: NormoCephalic, Moist mucous membranes and Atraumatic
Respiratory: Rales
Cardiac: S1/S2, Regular Rhythm and Murmur; No Rub
GI: Soft, Non Tender, Non Distended and Normal Bowel Sounds; No Organomegaly
Rectal: Deferred by Provider
Musculoskeletal: No Clubbing, No Cyanosis and Other (Bilateral lower extremities edema)
Skin: No Rash
Neuro: AO x 3 and Nonfocal/grossly intact
Psych: Calm
Laboratory Results
-
02/10/25 13:06
Laboratory Results
PT 13.8 Sec (11.4-14.6) 02/10/25 13:06
INR 1.03 02/10/25 13:06
APTT 27.3 Sec (23.4-35.0) 02/10/25 13:06
Total Bilirubin Cancelled 02/10/25 13:06
AST Cancelled 02/10/25 13:06
ALT Cancelled 02/10/25 13:06
Alkaline Phosphatase Cancelled 02/10/25 13:06
Troponin I 0.017 ng/ml 02/10/25 13:06
Data Reviewed
-
Diagnostic Radiology: Report Reviewed by me
Lab Data: Labs Reviewed by me
Impression/Plan
-
# Worsening short of breath concern for CHF exacerbation
#COPD exacerbation
# Chronic hypoxic respiratory failure, uses 4 L at baseline
- Chest x-ray with impression of pulmonary edema
- Patient received a dose of albuterol, dexamethasone, Lasix, nebs in ER
- Continue nebs for short of breath and wheezing
- Steroids continued
- Lasix continued
- Strict EMILE, daily weight, fluid restriction
- Recent echo 10/03/2024 with impression of EF 55 percentage
- Chronically on azithromycin for COPD
- Budesonide continued
-xopenex prn for sob/wheezing
# Leukocytosis likely from chronic steroid use
- WBCs 15.8, patient is afebrile
- Continue to monitor
# Anemia of chronic disease
- Hemoglobin stable at 9.4, no active bleeding
- continue to trend hemoglobin
- Ferrous sulfate continued
# Tachycardia likely from nebulizer treatment
Heart rate in 100-115
- Continue to monitor
# History of GI bleed
# History of lower esophageal schatzki's ring
#hiatal hernia
#History of stroke with residual left-sided weakness
-Plavix continued
#Essential hypertension/hyperlipidemia
-Atorvastatin, metoprolol continued
#History of H. pylori
#Former tobacco use
#Restless leg syndrome
- Requip continued
#History of nonsustained V. tach
#Type 2 diabetes mellitus
-Hold metformin, initiated on sliding scale
-CHO diet
#History of DVT
#Peripheral artery disease
DVT prophylaxis-Lovenox
DNR
[2025-02-10 14:14] LABS: Anisocytosis Slight; Hypochromasia 1+; Normal RBC Morphology No
[2025-02-10 14:32] LABS: COVID-19 Antigen Negative (Negative)
[2025-02-10 14:57] LABS: ALT (SGPT) 23 U/L (0-35); AST (SGOT) 26 U/L (14-36); Albumin 4.1 g/dl (3.5-5.0); Alkaline Phosphatase 73 U/L (38-126); Blood Urea Nitrogen 26 mg/dl (7-17); Calcium 9.0 mg/dl (8.4-10.2); Chloride 96 mmol/L (98-107); Estimated Creatinine Clearance 37 ml/min; Glucose 167 mg/dl (70-99); Potassium 4.3 mmol/L (3.5-5.1); Sodium 142 mmol/L (135-145); Total Protein 7.1 g/dl (6.3-8.2); eGFR 45.76
[2025-02-10 15:08] LABS: Carbon Dioxide 41 mmol/L (22-30)
[2025-02-10 18:23] LABS: Glucose - Point of Care 215 mg/dl (70-99)
[2025-02-10] MEDS: LASIX 40 MG IV (19:20)
[2025-02-10] MEDS: NOVOLOG FLEXPEN-LOW RESISTANCE 2 UNITS SC (19:21)
[2025-02-10] MEDS: LOVENOX 40 MG SC (19:21)
[2025-02-10] MEDS: PULMICORT 0.5 MG INH (19:32)
[2025-02-10 21:28] LABS: Glucose - Point of Care 332 mg/dl (70-99)
[2025-02-10] MEDS: DECADRON 4 MG PO (22:24)
[2025-02-10] MEDS: LIPITOR 10 MG PO (22:25)
[2025-02-10] MEDS: REQUIP 1 MG PO (22:25)
[2025-02-10] MEDS: MUCINEX 600 MG PO (22:25)
[2025-02-10] MEDS: LOPRESSOR 50 MG PO (22:25)
[2025-02-10] MEDS: TYLENOL 650 MG PO (22:38)
--- NOTE | 2025-02-10 23:32 | W.PN.UPDATE ---
Update Note
Progress Note Update
Reported by the nursing staff that the patient want to change the code status from DNR to full code.
Discussed with the patient the difference between the full code and DNR. Patient verbalized understaing of the meaning. Code status changed to full code per the patient request.
[2025-02-11] VITALS (7 sets, daily range): BP systolic 97–146; BP diastolic 57–86; PULSE 2; BMI 33.8
[2025-02-11] MEDS: PULMICORT 0.5 MG INH ×2 (07:49→19:09)
[2025-02-11 07:50] LABS: Glucose - Point of Care 185 mg/dl (70-99)
[2025-02-11] MEDS: NOVOLOG FLEXPEN-LOW RESISTANCE 1 UNITS SC ×2 (07:53→13:04)
[2025-02-11] MEDS: VISBIOME 1 CAP PO (07:54)
[2025-02-11] MEDS: MUCINEX 600 MG PO ×2 (07:54→20:03)
[2025-02-11] MEDS: FEOSOL 325 MG PO (07:54)
[2025-02-11] MEDS: LOPRESSOR PO (07:54)
[2025-02-11] MEDS: LASIX 40 MG IV ×2 (07:55→16:11)
[2025-02-11] MEDS: DECADRON 4 MG PO ×2 (07:55→20:03)
[2025-02-11] MEDS: PLAVIX 75 MG PO (07:55)
[2025-02-11] MEDS: MAG-TAB SR 84 MG PO (07:55)
[2025-02-11] MEDS: ZITHROMAX 500 MG PO (08:02)
[2025-02-11 08:23] LABS: Hematocrit 30.6 % (37.0-47.0); Hemoglobin 8.7 g/dL (12.0-16.0); Mean Corp Hgb Conc. 28.4 g/dL (33.0-37.0); Mean Corpuscular Volume 92.4 fL (81.0-99.0); Nucleated Red Blood Cells % 0 %; Platelet Count 314 10^3/uL (130-400); Red Cell Dist. Width 13.9 % (11.5-14.5)
[2025-02-11 08:47] LABS: ALT (SGPT) 19 U/L (0-35); AST (SGOT) 22 U/L (14-36); Albumin 3.6 g/dl (3.5-5.0); Alkaline Phosphatase 62 U/L (38-126); Blood Urea Nitrogen 34 mg/dl (7-17); Calcium 8.8 mg/dl (8.4-10.2); Chloride 95 mmol/L (98-107); Estimated Creatinine Clearance 33 ml/min; Glucose 184 mg/dl (70-99); HDL Cholesterol 77 mg/dl; LDL Cholesterol, Calculated 75 mg/dl; Magnesium 2.2 mg/dl (1.6-2.3); Potassium 5.1 mmol/L (3.5-5.1); Sodium 142 mmol/L (135-145); Total Protein 6.4 g/dl (6.3-8.2); Very Low Density Lipoprotein 18 mg/dl (0-30); eGFR 41.57
--- NOTE | 2025-02-11 10:26 | W.PN.HOSP.TC ---
Today's Communication/Plan
-
Continue nebulizers, lasix
Assessment / Plan
Assessment / Plan
Assessment:
This is an 79 y/o female with phmx of COPD on 4L of supplemental home oxygen, Type II Diabetes Mellitus, Essential hypertension who presented to the ED on 02/10/2025 with increased shortness of breath and decreased oxygen saturation on home O2
monitoring.
Plan:
Acute on Chronic Heart Failure with Preserved Ejection Fraction exacerbation vs COPD Exacerbation
-Patient has chronic hypoxic respiratory failure and uses 4L of supplemental oxygen at baseline. Chronically on azithromycin at home. History of tobacco use.
-Recent Echo from 10/03/2024 showed EF of 55%
-Chest X-ray showed pulmonary edema
-S/p a dose of albuterol, lasix, nebulizer and steroid in the ED
-Continue nebulizers and Xopenex PRN for shortness of breath
-Continue dexamethasone
-Continue Lasix
-Strict ins and outs. Will continue to restrict fluids and take weights daily
-Will review outpatient inhaler use with patient. She may benefit from an outpatient palliative medicine referral upon discharge due to the severity and reoccurrence of her symptoms if she does not already follow with one.
Leukocytosis -RESOLVED
-WBC 15.8 in the ED, 9.1 Patient has remained afebrile
-Likely 2/2 to chronic steroid use
-Will monitor
Anemia of Chronic Disease
-Hemoglobin 9.4 in the ED, 8.7 today
-No current sign of active bleeding
-Continue to follow CBC
-Continue ferrous sulfate
Essential Hypertension
-Continue home meds (Metoprolol)
Hyperlipidemia
-Continue home meds (atorvastatin)
Type II Diabetes Mellitus
-Continue sliding scale insulin
-Continue diabetic diet
-Encouraged outpatient followup.
Restless Leg Syndrome
-Continue home meds (Requip)
-Encouraged outpatient followup.
History of GI Bleed
-Encouraged outpatient followup.
History of Lower Esophageal Schatzki�s Ring
-Encouraged outpatient followup.
Hiatal Hernia
-Encouraged outpatient followup.
History of DVT
-Continue DVT prophylaxis with lovenox
-Encouraged outpatient followup.
History of Stroke with Residual Left sided weakness
-Continue Plavix
-Encouraged outpatient followup.
Anticipated Discharge: > 48 hours
Subjective/Interval History
-
Date of Service: February 11, 2025
Patient reports that she continues to experience shortness of breath. She states that earlier in the day she had assistance in moving from her bed to her chair, and that this was exhausting and caused her a lot of shortness of breath. She reports
some improvement with nebulizers, but not a significant amount. She reports she has had many hospitalizations recently for shortness of breath, and that once she is discharged home she normally feels well for a few days before her symptoms begin to
come back. Eventually, she reaches a point where her symptoms are so severe it requires another hospitalization.
She reports being on 4L O2 at home at baseline.
Objective Data
-
Labs:
Laboratory Results
02/11/25
06:56
WBC 9.1
Hgb 8.7 L
Hct 30.6 L
Plt Count 314
Sodium 142
Potassium 5.1
Chloride 95 L
Carbon Dioxide Pending
BUN 34 H
Creatinine 1.3 H
Glucose 184 H
Calcium 8.8
Total Bilirubin 0.4
AST 22
ALT 19
Alkaline Phosphatase 62
Vital Signs:
Vital Signs
Temp Pulse Resp BP Pulse Ox
98.8 F 61 24 97/65 91
02/11/25 07:55 02/11/25 07:55 02/11/25 07:55 02/11/25 07:55 02/11/25 07:55
I&O
0702/11/25 02/12/25
06:59 06:59 06:59
Intake Total 470 / 470
Output Total 400 / 400
Balance 70 / 70
Review of Systems
-
History Source: Patient
Constitutional: Reports Fatigue; Denies Fever, Weight Loss or Chills
Respiratory: Reports Trouble Breathing and Wheezing
Cardiac: Denies Chest Pain or Palpitations
Abdomen/GI: Denies Abdominal Pain, Nausea or Vomiting
Physical Exam
-
General: Well Developed, Well Nourished and Appears Chronically Ill
HEENT: Normocephalic and Atraumatic
Respiratory: Decreased Breath Sounds
Cardiac: Regular Rhythm and S1/S2
Skin: Warm and Dry
Neuro: Awake, Alert and Oriented
Psych: Calm
[2025-02-11 10:28] LABS: Carbon Dioxide 41 mmol/L (22-30)
[2025-02-11 12:19] LABS: Glucose - Point of Care 184 mg/dl (70-99)
--- NOTE | 2025-02-11 16:10 | CM ---
CM reviewed chart, patient seen bedside with , initial assessment completed. Patient resides with her in a ranch style home, one step to enter. Patient mostly WC bound, does have a RW and cane in the home, O2 through [employer], 4L.
Patient reports history [facility] in past, discussed therapy recommending VN, patient declining. PCP Selvin Anthony, pharmacy [facility], confirms prescription coverage. Patient denies insecurities at home. Patient and inquiring about hospice,
will review with Hospitalist if appropriate. CM will continue to follow for all discharge planning needs.
Plan; home with , declining VN, inquiring about hospice
[2025-02-11 16:37] LABS: Glucose - Point of Care 144 mg/dl (70-99)
[2025-02-11] MEDS: VENTOLIN NEBULES 1.25 MG INH ×2 (16:40→19:09)
[2025-02-11] MEDS: NOVOLOG FLEXPEN-LOW RESISTANCE SC (17:09)
[2025-02-11] MEDS: LOVENOX 40 MG SC (18:29)
[2025-02-11] MEDS: LOPRESSOR 50 MG PO (20:02)
[2025-02-11] MEDS: REQUIP 1 MG PO (21:37)
[2025-02-11] MEDS: LIPITOR 10 MG PO (21:37)
[2025-02-11 22:03] LABS: Glucose - Point of Care 155 mg/dl (70-99)
[2025-02-12] VITALS (8 sets, daily range): BP systolic 107–163; BP diastolic 60–86; PULSE 2; BMI 32.7
--- NOTE | 2025-02-12 07:13 | W.PN.HOSP.TC ---
Today's Communication/Plan
-
Goals of care conversation with patient and patient's later today
Assessment / Plan
Assessment / Plan
Assessment:
This is an 79 y/o female with phmx of COPD on 4L of supplemental home oxygen, Type II Diabetes Mellitus, Essential hypertension who presented to the ED on 02/10/2025 with increased shortness of breath and decreased oxygen saturation on home O2
monitoring.
Plan:
Acute on Chronic Heart Failure with Preserved Ejection Fraction exacerbation vs COPD Exacerbation
-Patient has chronic hypoxic respiratory failure and uses 4L of supplemental oxygen at baseline. Chronically on azithromycin at home. History of tobacco use. Patient follows with outpatient pulmonology and denies any use of daily maintenance
inhalers.
-Recent Echo from 10/03/2024 showed EF of 55%
-Chest X-ray showed pulmonary edema
-S/p a dose of albuterol, lasix, nebulizer and steroid in the ED
-Continue nebulizers and Xopenex PRN for shortness of breath
-Continue dexamethasone
-Continue Lasix
-Strict ins and outs. Will continue to restrict fluids and take weights daily
-Extensive conversation today about goals of care, palliative medicine and hospice. Patient would like to discuss this topic further with her , who will be present later in the day. Plan for goals of care conversation with patient and
later today
Leukocytosis
-WBC 15.8 in the ED, 9.1 yesterday, and elevated again today
-Patient has remained afebrile
-Patient does have chronic steroid use
-Will monitor
Anemia of Chronic Disease
-Hemoglobin 9.4 in the ED, 8.7 02/11/2025
-No current sign of active bleeding
-Continue to follow CBC
-Continue ferrous sulfate
Essential Hypertension
-Continue home meds (Metoprolol)
Hyperlipidemia
-Continue home meds (atorvastatin)
Type II Diabetes Mellitus
-Continue sliding scale insulin
-Continue diabetic diet
-Encouraged outpatient followup.
Restless Leg Syndrome
-Continue home meds (Requip)
-Encouraged outpatient followup.
History of GI Bleed
-Encouraged outpatient followup.
History of Lower Esophageal Schatzki�s Ring
-Encouraged outpatient followup.
Hiatal Hernia
-Encouraged outpatient followup.
History of DVT
-Continue DVT prophylaxis with lovenox
-Encouraged outpatient followup.
History of Stroke with Residual Left sided weakness
-Continue Plavix
-Encouraged outpatient followup.
Anticipated Discharge: > 48 hours
Subjective/Interval History
-
Date of Service: February 12, 2025
Patient was awake when I arrived. She reports her shortness of breath has improved, but she is having episodes where she will get panicked when she feels like she cannot breathe. She also has some non-productive coughing. She most recently had one
of these occur last night, and reports feeling silly that she gets so nervous. By her nurse's report, at this time she had become confused and had been trying to remove her BiPAP. Patient reports that instead she had been trying to put her oxygen on
following a nebulizer treatment, and ended up being unable to put her oxygen on at all which is what had made her feel so nervous.
She says that when she first came in her code status was DNR/DNI, but her was not willing to accept this, prompting the change to Full Code. 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
what she wants, but she has been for 57 years and values his opinion.
We spent time discussing her health and her goals of care. She says that she has several rescue inhalers, but does not have any maintenance inhalers she uses. She has been in and out of the hospital frequently for shortness of breath this year, and
worries about her family feeling distressed about her health. She reports several times in which she felt like she was 'close to passing' in recent history, and that these events were not distressing to her. She does, however, worry about her family
and her , who in turn are very worried about her. She had a conversation with one of the staff yesterday and is potentially interested in hospice or palliative care for herself at home. She would like to have a conversation with her, her
, and a physician for more information. She also would like to include her daughters in this conversation, but wanted the original conversation to be just between her, her , and a physician as neither of her daughters are currently
local, and she is worried they would just 'scream' if they were included in the conversation via the phone.
She states she would ultimately like to return home so she can spend time doing what she likes with the people she likes in the comfort of her own living space. In total, I spent approximately 40 minutes discussing her goals of care with her.
Objective Data
-
Labs:
Laboratory Results
02/12/25
06:00
WBC Pending
Hgb Pending
Hct Pending
Plt Count Pending
Sodium Pending
Potassium Pending
Chloride Pending
Carbon Dioxide Pending
BUN Pending
Creatinine Pending
Glucose Pending
Calcium Pending
Vital Signs:
Vital Signs
Temp Pulse Resp BP Pulse Ox
97.9 F 91 18 136/67 94
02/12/25 03:37 02/12/25 03:37 02/12/25 03:37 02/12/25 03:37 02/12/25 03:37
I&O
02/11/25 02/12/25 02/13/25
06:59 06:59 06:59
Intake Total 470 / 470 840 / 840
Output Total 400 / 400
Balance 70 / 70 840 / 840
Review of Systems
-
History Source: Patient
Constitutional: Reports Weakness
Respiratory: Reports Cough, Trouble Breathing and Wheezing
Cardiac: Denies Chest Pain, Diaphoresis or Palpitations
Abdomen/GI: Denies Abdominal Pain, Nausea, Vomiting or Diarrhea
Neuro: Denies Dizzy or Headache
Psych: Reports Anxious (See HPI)
Physical Exam
-
General: Well Developed, Well Nourished, Comfortable, Appears Chronically Ill and Obese
HEENT: Normocephalic and Atraumatic
Respiratory: Decreased Breath Sounds
Cardiac: Regular Rhythm and S1/S2
Skin: Warm and Dry
Neuro: Awake and Alert
Psych: Calm and Intact Judgement/Insight
[2025-02-12] MEDS: PULMICORT 0.5 MG INH ×2 (07:50→20:20)
[2025-02-12] MEDS: VENTOLIN NEBULES 1.25 MG INH ×3 (07:52→20:20)
[2025-02-12] MEDS: LASIX 40 MG IV (08:00)
[2025-02-12] MEDS: LOPRESSOR 50 MG PO ×2 (08:00→21:08)
[2025-02-12] MEDS: MUCINEX 600 MG PO ×2 (08:01→21:09)
[2025-02-12] MEDS: DECADRON 4 MG PO ×2 (08:01→21:08)
[2025-02-12] MEDS: VISBIOME 1 CAP PO (08:01)
[2025-02-12] MEDS: MAG-TAB SR 84 MG PO (08:01)
[2025-02-12] MEDS: FEOSOL 325 MG PO (08:01)
[2025-02-12] MEDS: PLAVIX 75 MG PO (08:01)
[2025-02-12 08:52] LABS: Hematocrit 29.3 % (37.0-47.0); Hemoglobin 8.5 g/dL (12.0-16.0); Mean Corp Hgb Conc. 29.0 g/dL (33.0-37.0); Mean Corpuscular Volume 91.6 fL (81.0-99.0); Nucleated Red Blood Cells % 0 %; Platelet Count 361 10^3/uL (130-400); Red Cell Dist. Width 13.9 % (11.5-14.5)
[2025-02-12 09:14] LABS: Glucose - Point of Care 156 mg/dl (70-99)
[2025-02-12] MEDS: NOVOLOG FLEXPEN-LOW RESISTANCE 1 UNITS SC ×2 (09:21→18:12)
[2025-02-12 09:44] LABS: Blood Urea Nitrogen 47 mg/dl (7-17); Calcium 9.7 mg/dl (8.4-10.2); Chloride 94 mmol/L (98-107); Estimated Creatinine Clearance 31 ml/min; Glucose 149 mg/dl (70-99); Magnesium 2.3 mg/dl (1.6-2.3); Potassium 4.7 mmol/L (3.5-5.1); Sodium 144 mmol/L (135-145); eGFR 38.03
[2025-02-12 10:07] LABS: Carbon Dioxide 42 mmol/L (22-30)
[2025-02-12 12:13] LABS: Glucose - Point of Care 144 mg/dl (70-99)
[2025-02-12] MEDS: NOVOLOG FLEXPEN-LOW RESISTANCE SC (12:20)
--- NOTE | 2025-02-12 12:32 | HOSPNOTE ---
Spoke with spouse and discussed hospice and the philosophy. The spouse will have a conversation with the patient and make some decisions. More information to follow when spouse calls me back. I also discussed code status and he will discuss with
patient about being a DNR.
--- NOTE | 2025-02-12 15:43 | CM ---
CM reviewed chart, patient seen bedside with . did speak with Hospice, does have more questions and remains undecided at this time. Update to Hospice, will meet with patient/ tomorrow. CM will continue to follow for all
discharge planning needs.
Plan; Hospice to further discuss w patient/
[2025-02-12] MEDS: LOVENOX 40 MG SC (16:22)
[2025-02-12 17:54] LABS: Glucose - Point of Care 173 mg/dl (70-99)
[2025-02-12] MEDS: LIPITOR 10 MG PO (21:08)
[2025-02-12] MEDS: REQUIP 1 MG PO (21:09)
[2025-02-12 21:14] LABS: Glucose - Point of Care 245 mg/dl (70-99)
[2025-02-13] VITALS (9 sets, daily range): BP systolic 94–144; BP diastolic 54–70; PULSE 2–85; O2SAT 98; BMI 32.6
[2025-02-13 07:33] LABS: Glucose - Point of Care 231 mg/dl (70-99)
[2025-02-13] MEDS: PULMICORT 0.5 MG INH ×2 (07:36→19:30)
[2025-02-13 08:47] LABS: Hematocrit 30.0 % (37.0-47.0); Hemoglobin 8.8 g/dL (12.0-16.0); Mean Corp Hgb Conc. 29.3 g/dL (33.0-37.0); Mean Corpuscular Volume 90.1 fL (81.0-99.0); Nucleated Red Blood Cells % 0 %; Platelet Count 350 10^3/uL (130-400); Red Cell Dist. Width 14.2 % (11.5-14.5)
[2025-02-13] MEDS: DECADRON 4 MG PO ×2 (09:16→20:14)
[2025-02-13] MEDS: FEOSOL 325 MG PO (09:16)
[2025-02-13] MEDS: PLAVIX 75 MG PO (09:16)
[2025-02-13] MEDS: MAG-TAB SR 84 MG PO (09:17)
[2025-02-13] MEDS: LOPRESSOR 50 MG PO (09:17)
[2025-02-13] MEDS: LASIX 40 MG PO ×2 (09:17→17:30)
[2025-02-13] MEDS: MUCINEX 600 MG PO ×2 (09:17→20:14)
[2025-02-13] MEDS: VISBIOME 1 CAP PO (09:17)
--- NOTE | 2025-02-13 09:17 | HOSPNOTE ---
Spoke with spouse again about hospice and the philosophy. Spouse will be visiting at 11:30am, and will talk with patient again about her wishes. More information to follow.
[2025-02-13] MEDS: NOVOLOG FLEXPEN-LOW RESISTANCE 2 UNITS SC ×2 (09:18→12:21)
[2025-02-13] MEDS: ZITHROMAX 500 MG PO (09:20)
[2025-02-13 09:30] LABS: Blood Urea Nitrogen 48 mg/dl (7-17); Calcium 8.9 mg/dl (8.4-10.2); Chloride 92 mmol/L (98-107); Estimated Creatinine Clearance 35 ml/min; Glucose 204 mg/dl (70-99); Potassium 4.4 mmol/L (3.5-5.1); eGFR 45.76
[2025-02-13 09:40] LABS: Sodium 141 mmol/L (135-145)
[2025-02-13 09:51] LABS: Carbon Dioxide 43 mmol/L (22-30)
--- NOTE | 2025-02-13 10:07 | CM ---
Addendum entered by Susie Esqueda 02/13/25 16:44:
Pt is considering hospice, but intends to go home because she would want to make formal decision after discharge when she can speak more with her children. Hospice team to follow-up as OP
Original Note:
CM following for discharge planning; hospice is going to visit patient/spouse this morning to discuss hospice care.
Plan: CM to update after hospice discussion has been completed.
--- NOTE | 2025-02-13 10:42 | W.PN.HOSP.TC ---
Today's Communication/Plan
-
D/c today or tomorrow
Assessment / Plan
Assessment / Plan
Assessment:
This is an 79 y/o female with phmx of COPD on 4L of supplemental home oxygen, Type II Diabetes Mellitus, Essential hypertension who presented to the ED on 02/10/2025 with increased shortness of breath and decreased oxygen saturation on home O2
monitoring.
Plan:
Acute on Chronic Heart Failure with Preserved Ejection Fraction exacerbation vs COPD Exacerbation
-Patient has chronic hypoxic respiratory failure and uses 4L of supplemental oxygen at baseline. Chronically on azithromycin at home. History of tobacco use. Patient follows with outpatient pulmonology and denies any use of daily maintenance
inhalers.
-Recent Echo from 10/03/2024 showed EF of 55%
-Chest X-ray showed pulmonary edema
-S/p a dose of albuterol, lasix, nebulizer and steroid in the ED
-Continue nebulizers and Xopenex PRN for shortness of breath
-Continue dexamethasone
-Continue Lasix
-Strict ins and outs. Will continue to restrict fluids and take weights daily
-Plan for patient to follow up with outpatient hospice following discharge and conversation with her family including her and daughters.
-Plan to discharge patient with Robitussin and maintenance inhaler, and follow up with her outpatient whipper
Leukocytosis
-WBC 15.8 in the ED, 9.1 02/11/2025, and elevated on 02/12/2025
-Patient has remained afebrile
-Patient does have chronic steroid use
-Will monitor
Anemia of Chronic Disease
-Hemoglobin 9.4 in the ED, 8.7 02/11/2025
-No current sign of active bleeding
-Continue to follow CBC
-Continue ferrous sulfate
Essential Hypertension
-Continue home meds (Metoprolol)
Hyperlipidemia
-Continue home meds (atorvastatin)
Type II Diabetes Mellitus
-Continue sliding scale insulin
-Continue diabetic diet
-Encouraged outpatient followup.
Restless Leg Syndrome
-Continue home meds (Requip)
-Encouraged outpatient followup.
History of GI Bleed
-Encouraged outpatient followup.
History of Lower Esophageal Schatzki�s Ring
-Encouraged outpatient followup.
Hiatal Hernia
-Encouraged outpatient followup.
History of DVT
-Continue DVT prophylaxis with lovenox
-Encouraged outpatient followup.
History of Stroke with Residual Left sided weakness
-Continue Plavix
-Encouraged outpatient followup.
Anticipated Discharge: Within 24 hours
Subjective/Interval History
-
Date of Service: February 13, 2025
Patient was with her when I arrived. Her states that since arriving to the hospital this morning he has noticed that the patient is 'less sharp' than she normally is. The patient also reports feeling more short of breath and fatigued
than she did yesterday. She does attribute her fatigue to not being able to rest due to people coming in and out of her hospital room. She does also report a cough which began yesterday afternoon. She says that if she were to cough up anything, she
swallows it rather than spitting it out, and thus could not tell me more about the nature of her cough. She does, at baseline, tend to cough when she feels more short of breath.
I spent time answering her and her 's questions about her care. We reviewed her plan to follow up with outpatient hospice after she is discharged from the hospital so she can discuss her care with her daughters as well.
Objective Data
-
Labs:
Laboratory Results
02/13/25
07:10
WBC 15.4 H
Hgb 8.8 L
Hct 30.0 L
Plt Count 350
Sodium 141
Potassium 4.4
Chloride 92 L
Carbon Dioxide 43 H
BUN 48 H
Creatinine 1.2 H
Glucose 204 H
Calcium 8.9
Vital Signs:
Vital Signs
Temp Pulse Resp BP Pulse Ox
98.0 F 89 18 110/62 97
02/13/25 07:55 02/13/25 07:55 02/13/25 07:55 02/13/25 07:55 02/13/25 07:55
I&O
02/12/25 02/13/25 02/14/25
06:59 06:59 06:59
Intake Total 840 / 840 1440 / 1440 240 / 240
Balance 840 / 840 1440 / 1440 240 / 240
Review of Systems
-
History Source: Patient and Family
Constitutional: Reports Fatigue; Denies Fever or Chills
Respiratory: Reports Cough, Trouble Breathing and Wheezing
Cardiac: Denies Chest Pain, Diaphoresis or Palpitations
Abdomen/GI: Denies Abdominal Pain, Nausea, Vomiting, Diarrhea or Constipated
Neuro: Reports Weakness; Denies Dizzy, Headache, Numbness or Lightheadedness
Physical Exam
-
General: Well Developed, Well Nourished, No Apparent Distress, Comfortable, Appears Chronically Ill and Obese
HEENT: Normocephalic and Atraumatic
Respiratory: Decreased Breath Sounds and Other (Patient with supplemental oxygen, currently set to 3L)
Cardiac: Regular Rhythm and S1/S2
Skin: Warm and Dry
Neuro: Awake, Alert and Oriented
Psych: Calm
[2025-02-13 11:17] LABS: Glucose - Point of Care 215 mg/dl (70-99)
[2025-02-13] MEDS: TYLENOL 650 MG PO (12:26)
[2025-02-13 16:49] LABS: Glucose - Point of Care 254 mg/dl (70-99)
[2025-02-13] MEDS: LOVENOX 40 MG SC (17:31)
[2025-02-13] MEDS: NOVOLOG FLEXPEN-LOW RESISTANCE 3 UNITS SC (17:31)
[2025-02-13] MEDS: LOPRESSOR PO (20:14)
[2025-02-13] MEDS: LIPITOR 10 MG PO (20:14)
[2025-02-13] MEDS: REQUIP 1 MG PO (20:14)
[2025-02-13 21:48] LABS: Glucose - Point of Care 235 mg/dl (70-99)
[2025-02-14 03:05] VITALS: PULSE 2
[2025-02-14 03:27] VITALS: BP 110/70
[2025-02-14 06:00] VITALS: BMI 32.8
[2025-02-14] MEDS: MUCINEX 600 MG PO (07:41)
[2025-02-14] MEDS: PULMICORT 0.5 MG INH (07:41)
[2025-02-14] MEDS: MAG-TAB SR 84 MG PO (07:41)
[2025-02-14] MEDS: VENTOLIN NEBULES 1.25 MG INH (07:41)
[2025-02-14] MEDS: DECADRON 4 MG PO (07:41)
[2025-02-14] MEDS: VISBIOME 1 CAP PO (07:42)
[2025-02-14] MEDS: FEOSOL 325 MG PO (07:42)
[2025-02-14] MEDS: PLAVIX 75 MG PO (07:42)
[2025-02-14] MEDS: LOPRESSOR 50 MG PO (07:42)
[2025-02-14] MEDS: LASIX 40 MG PO (07:42)
[2025-02-14 07:55] VITALS: BP 140/68
[2025-02-14] MEDS: TYLENOL 650 MG PO (07:56)
[2025-02-14 07:59] LABS: Glucose - Point of Care 182 mg/dl (70-99)
[2025-02-14] MEDS: NOVOLOG FLEXPEN-LOW RESISTANCE 1 UNITS SC (08:47)
[2025-02-14 09:33] LABS: Hematocrit 27.6 % (37.0-47.0); Hemoglobin 8.5 g/dL (12.0-16.0); Mean Corp Hgb Conc. 30.8 g/dL (33.0-37.0); Mean Corpuscular Volume 86.0 fL (81.0-99.0); Nucleated Red Blood Cells % 0.2 %; Platelet Count 346 10^3/uL (130-400); Red Cell Dist. Width 13.8 % (11.5-14.5)
--- NOTE | 2025-02-14 09:52 | W.PN.HOSP.TC ---
Today's Communication/Plan
-
Steroid taper
Start Trelegy
As needed bronchodilators
Lasix 40 twice daily
OP follow-up with hospice team
If patient decides against hospice, encourage follow-up with PCP and pulmonology within 1 to 2 weeks
Assessment / Plan
Assessment / Plan
Assessment:
This is an 79 y/o female with phmx of COPD on 4L of supplemental home oxygen, Type II Diabetes Mellitus, Essential hypertension who presented to the ED on 02/10/2025 with increased shortness of breath and decreased oxygen saturation on home O2
monitoring.
Plan:
Acute on chronic hypoxemic and hypercapnic respiratory failure due to COPD exacerbation and mild decompensated HFpEF
-Patient has chronic hypoxic respiratory failure and uses 4L of supplemental oxygen at baseline. Chronically on azithromycin at home. History of tobacco use. Patient follows with outpatient pulmonology and denies any use of daily maintenance
inhalers.
-Recent Echo from 10/03/2024 showed EF of 55%
-Chest X-ray showed pulmonary edema
-S/p a dose of albuterol, lasix, nebulizer and steroid in the ED
-Continue nebulizers and Xopenex PRN for shortness of breath
-Continue dexamethasone
-Continue Lasix
-Strict ins and outs. Will continue to restrict fluids and take weights daily
-Plan for patient to follow up with outpatient hospice following discharge and conversation with her family including her and daughters.
-Plan to discharge patient with Robitussin and maintenance inhaler, and follow up with her outpatient strategic planner
Leukocytosis
-WBC 15.8 in the ED, 9.1 02/11/2025, and elevated on 02/12/2025
-Patient has remained afebrile
-Patient does have chronic steroid use
-Will monitor
Anemia of Chronic Disease
-Hemoglobin 9.4 in the ED, 8.7 02/11/2025
-No current sign of active bleeding
-Continue to follow CBC
-Continue ferrous sulfate
Essential Hypertension
-Continue home meds (Metoprolol)
Hyperlipidemia
-Continue home meds (atorvastatin)
Type II Diabetes Mellitus
-Continue sliding scale insulin
-Continue diabetic diet
-Encouraged outpatient followup.
Restless Leg Syndrome
-Continue home meds (Requip)
-Encouraged outpatient followup.
History of GI Bleed
-Encouraged outpatient followup.
History of Lower Esophageal Schatzki�s Ring
-Encouraged outpatient followup.
Hiatal Hernia
-Encouraged outpatient followup.
History of DVT
-Continue DVT prophylaxis with lovenox
-Encouraged outpatient followup.
History of Stroke with Residual Left sided weakness
-Continue Plavix
-Encouraged outpatient followup.
Anticipated Discharge: Today
Subjective/Interval History
-
Date of Service: February 14, 2025
Seen and examined well seated in the chair. No acute events overnight. AFVSS on 4 L O2 this morning.
Patient states she feels better today and is ready to go home. Still uncertain on if she will decide to pursue hospice care once discharged
Denies any new complaints as of this morning
Objective Data
-
Labs:
Laboratory Results
02/14/25
09:21
WBC 11.2 H
Hgb 8.5 L
Hct 27.6 L
Plt Count 346
Sodium Pending
Potassium Pending
Chloride Pending
Carbon Dioxide Pending
BUN Pending
Creatinine Pending
Glucose Pending
Calcium Pending
Vital Signs:
Vital Signs
Temp Pulse Resp BP Pulse Ox
98.3 F 92 18 140/68 93
02/14/25 07:55 02/14/25 07:55 02/14/25 07:55 02/14/25 07:55 02/14/25 07:55
I&O
02/13/25 02/14/25 02/15/25
06:59 06:59 06:59
Intake Total 1440 / 1440 1440 / 1440
Balance 1440 / 1440 1440 / 1440
Review of Systems
-
History Source: Patient
All other systems: Reviewed and negative
Physical Exam
-
General: Well Developed, Appears Chronically Ill and Obese
HEENT: Normocephalic, Atraumatic and Moist Mucous Membranes
Respiratory: Non Labored Respirations and Decreased Breath Sounds (Severely); Negative Wheezes, Rales, Rhonchi or Accessory Resp Muscle Use
Cardiac: Regular Rhythm, S1/S2 and Murmur; Negative Rub, JVD or Gallop
GI: Soft, Nontender, Nondistended and Normal Bowel Sounds
Musculoskeletal: No Clubbing, No Cyanosis and No Edema
Skin: Warm and Dry; Negative Rash
Neuro: AO x 3 and Nonfocal/Grossly Intact
Psych: Calm
Data Reviewed
-
Labs: Labs Reviewed by me and Discussed with Patient
[2025-02-14 09:59] LABS: Blood Urea Nitrogen 48 mg/dl (7-17); Calcium 9.1 mg/dl (8.4-10.2); Chloride 92 mmol/L (98-107); Estimated Creatinine Clearance 33 ml/min; Glucose 160 mg/dl (70-99); Potassium 4.6 mmol/L (3.5-5.1); Sodium 141 mmol/L (135-145); eGFR 41.57
--- NOTE | 2025-02-14 11:08 | CM ---
D/c today. hospice to follow OP
Patient and spouse agreeable to d/c today
IMM verbally reviewed, copy provided, copy on chart
Plan: Home. Hospice to follow OP
[2025-02-14 11:53] VITALS: BP 138/57
[2025-02-14 12:16] LABS: Carbon Dioxide 42 mmol/L (22-30)
--- NOTE | 2025-02-15 20:09 | W.DCSUMMARY ---
Discharge Summary
Discharge Data
Date of Admission: 02/10/25
Date of Discharge: 02/15/25
-
Pending Results: No
Hospital Course
This is an 79 y/o female with phmx of COPD on 4L of supplemental home oxygen, Type II Diabetes Mellitus, Essential hypertension who presented to the ED on 02/10/2025 with increased shortness of breath and decreased oxygen saturation on home O2
monitoring. She has had several hospitalizations this past year for similar concerns.
In the ED she was found to be tachycardic with a HR in the 120s, as well as decreased breaths sounds with end expiratory wheezes at the bases. Her labs were significant for a WBC of 15.8, hemoglobin of 9.4 and bicarbonate of 41. EKG showed sinus
tachycardia with premature atrial contractions. Chest X-ray was consistent with pulmonary edema. She was given a dose of steroids, IV lasix and nebulizer treatment and was admitted to the hospital for further care.
Her symptoms improved over the course of her hospitalization. IV lasix was transitioned to oral lasix, and she was continued on steroids, RTC bronchodilators, azithromycin. Her oxygen requirements remained between 3L and 4L of supplemental oxygen
for the duration of her hospitalization. Several goals of care discussions were had with the patient and her , and they decided that they would like to continue these conversations with outpatient hospice so their daughters can also be
involved. On 02/14/2025 she was found to be medically stable and was discharged to home with instructions to follow up with her PCP in less than one week, and to follow up with outpatient hospice. She was also encouraged to follow up with her
arm rest builder.
Discharge Plan
-
Patient Disposition: Home (Routine Discharge)
Discharge Diagnosis/Procedures: Acute on Chronic Heart Failure with Preserved Ejection Fraction exacerbation, COPD Exacerbation, Leukocytosis, Anemia of Chronic Disease, Essential Hypertension, Hyperlipidemia, Type II Diabetes Mellitus, Restless Leg
Syndrome, Hiatal Hernia, History of GI Bleed, History of Lower Esophageal Schatzki�s Ring, History of DVT, History of Stroke with Residual Left sided weakness
Condition: Fair
Diet: No restrictions
Activity: No restrictions
Driving Restrictions: As prior to admission
Bathing Restrictions: None
Specialty Instructions: Weigh Daily- Call MD for wt gain/loss 3 lbs overnight/5 lbs in 1 week
Activity Restrictions/Additional Instructions:
The hospice team that you met in the hospital will reach out with you the week after discharge for ongoing assistance in your goals of care.
Schedule follow-up appointment with your family doctor and arm rest builder within 1 to 2 weeks of discharge from the hospital. If you decide that you want to pursue hospice care then you do not need to follow-up in office with your family doctor and
arm rest builder. If you decide against hospice then we encourage you to see them shortly after discharge
Referrals:
[facility] [Outside]
Selvin Anthony DO [Family Provider, Family Practice]
Additional Discharge Medication Instructions: Once you complete prednisone taper from 50 mg through 20 mg, resume your previous 10 g daily prednisone dosing
Prescriptions:
New
furosemide 40 mg Tablet
40 mg PO BID AT 0800,1600 Qty: 60 0RF
guaifenesin 100 mg/5 mL liquid
200 mg PO Q4H MDD 60mL PRN (Reason: Congestion) Qty: 1800 0RF
Trelegy Ellipta 200-62.5-25 mcg blister with device
1 inh inhalation DAILY Qty: 60 0RF
prednisone 10 mg tablet
See Taper PO DIRECTED Qty: 60 0RF
Taper: Prednisone DC Starting at 50 mg daily
50 mg Daily for 3 Days and 0 Hour
40 mg Daily for 3 Days and 0 Hour
30 mg Daily for 3 Days and 0 Hour
20 mg Daily for 3 Days and 0 Hour
Continued
atorvastatin 10 MG tablet
10 mg PO HS
ipratropium-albuterol 3 ML solution for nebulization
3 ml inhalation R BID
ropinirole 1 MG tablet
1 mg PO HS
clopidogrel 75 MG tablet
75 mg PO DAILY
budesonide 0.5 mg/2 mL Suspension For Nebulization
0.5 mg INHALATION R BID
coenzyme Q10 100 mg Capsule
200 mg PO DAILY
guaifenesin [Mucus Relief ER] 600 MG tablet extended release 12hr
600 mg PO BID
therapeutic multivitamin Tablet
1 tab PO DAILY
azithromycin 500 mg Tablet
500 mg PO MOWEFR
ferrous sulfate [Iron (ferrous sulfate)] 325 mg (65 mg iron) Tablet
325 mg PO DAILY
metoprolol tartrate 50 mg Tablet
50 mg PO BID
Magnesium Complex 300 mg magnesium Tablet
400 mg PO DAILY
albuterol sulfate [Ventolin HFA] 90 mcg/actuation Hfa Aerosol Inhaler
2 puff INHALATION R Q6HPRN PRN (Reason: sob)
Visbiome 112.5 billion cell Capsule
1 cap PO DAILY Qty: 0
metformin 500 mg Tablet Extended Release 24 Hr
500 mg PO BID
Held
prednisone 10 MG tablet
10 mg PO DAILY
Hold Instructions: Until complete with prednisone taper
Discontinued
furosemide 80 mg Tablet
80 mg PO DAILY Qty: 0 0RF
Discharge Orders:
Discharge Patient (As Directed); Ordered 02/14/25
Ordered By: Kevin Barth
Discharge Date and Time
Discharge Date/Time: 02/14/25 12:08
Print Language: MALAY
== END 2025-02-14 12:08 | disposition home or self-care (01) | DRG 291 ==
LOC: 4 WEST ACU 15:15
PROVIDERS: Registered Nurse; ADMITTING PHYSICIAN Internal Medicine; ATTENDING PHYSICIAN Internal Medicine; EMERGENCY PHYSICIAN Emergency Medicine; FAMILY PHYSICIAN Family Medicine
DX: I11.0 Hypertensive heart disease with heart failure (principal); I50.33 Acute on chronic diastolic (congestive) heart failure; J96.22 Acute and chronic respiratory failure with hypercapnia; J96.21 Acute and chronic respiratory failure with hypoxia; J44.1 Chronic obstructive pulmonary disease with (acute) exacerbation; I69.354 Hemiplegia and hemiparesis following cerebral infarction affecting left non-dominant side; J96.11 Chronic respiratory failure with hypoxia; Z66 Do not resuscitate; D63.8 Anemia in other chronic diseases classified elsewhere; R00.0 Tachycardia, unspecified; G25.81 Restless legs syndrome; E78.00 Pure hypercholesterolemia, unspecified; K44.9 Diaphragmatic hernia without obstruction or gangrene; E11.51 Type 2 diabetes mellitus with diabetic peripheral angiopathy without gangrene; K22.2 Esophageal obstruction; D72.829 Elevated white blood cell count, unspecified; Z11.52 Encounter for screening for COVID-19; Z79.84 Long term (current) use of oral hypoglycemic drugs; Z79.899 Other long term (current) drug therapy; Z79.52 Long term (current) use of systemic steroids; Z86.19 Personal history of other infectious and parasitic diseases; Z86.718 Personal history of other venous thrombosis and embolism; Z87.19 Personal history of other diseases of the digestive system; Z87.891 Personal history of nicotine dependence; Z99.81 Dependence on supplemental oxygen
CPT/HCPCS: 71045; 80048; 80053; 80061; 82248; 82962; 83735; 83880; 84443; 84484; 85025; 85610; 85730; 87811; 93005; 94640; 94644; 94660; 96374; 96375; 97162; 97167; 97530; 99285

== ENCOUNTER → 2025-03-05 12:21 | Outpatient (REF) | payer MEDICARE, SELFPAY ==
[2025-03-05 14:10] LABS: Hematocrit 30.9 % (37.0-47.0); Hemoglobin 9.0 g/dL (12.0-16.0); Mean Corp Hgb Conc. 29.1 g/dL (33.0-37.0); Mean Corpuscular Volume 88.3 fL (81.0-99.0); Nucleated Red Blood Cells % 0 %; Platelet Count 243 10^3/uL (130-400); Red Cell Dist. Width 14.9 % (11.5-14.5); Reticulocyte Count 3.4 % (0.4-2.8)
[2025-03-05 14:32] LABS: Blood Urea Nitrogen 43 mg/dl (7-17); Iron 40 ug/dl (37-170)
[2025-03-05 14:42] LABS: Total Iron Binding Capacity 399 ug/dl (265-497)
[2025-03-05 15:07] LABS: Ferritin 54.8 ng/ml (11.1-264.0)
[2025-03-05 15:21] LABS: Vitamin B12 995 pg/ml (239-931)
== END ==
LOC: REG 12:21
PROVIDERS: ATTENDING PHYSICIAN Internal Medicine Hematology & Oncology; FAMILY PHYSICIAN Family Medicine
DX: D50.9 Iron deficiency anemia, unspecified (principal); N18.30 Chronic kidney disease, stage 3 unspecified; D63.1 Anemia in chronic kidney disease
CPT/HCPCS: 36415; 82565; 82607; 82728; 83540; 83550; 84520; 85025; 85045; 85652

== ENCOUNTER → 2025-04-02 15:06 | Outpatient (REF) | payer MEDICARE, SELFPAY ==
[2025-04-02 16:36] LABS: Hematocrit 33.7 % (37.0-47.0); Hemoglobin 9.7 g/dL (12.0-16.0); Mean Corp Hgb Conc. 28.8 g/dL (33.0-37.0); Mean Corpuscular Volume 88.5 fL (81.0-99.0); Nucleated Red Blood Cells % 0 %; Platelet Count 314 10^3/uL (130-400); Red Cell Dist. Width 15.0 % (11.5-14.5)
[2025-04-02 21:44] LABS: Normal RBC Morphology No
[2025-04-02 21:46] LABS: Anisocytosis 1+; Hypochromasia 1+
== END ==
LOC: REG 15:06
PROVIDERS: ATTENDING PHYSICIAN Internal Medicine Hematology & Oncology; FAMILY PHYSICIAN Family Medicine
DX: D50.9 Iron deficiency anemia, unspecified (principal); N18.30 Chronic kidney disease, stage 3 unspecified; D63.1 Anemia in chronic kidney disease
CPT/HCPCS: 36415; 85025

== ENCOUNTER → 2025-04-27 15:47 | Outpatient (REF) | payer MEDICARE, SELFPAY ==
[2025-04-27 16:44] LABS: Hematocrit 35.7 % (37.0-47.0); Hemoglobin 10.6 g/dL (12.0-16.0); Mean Corp Hgb Conc. 29.7 g/dL (33.0-37.0); Mean Corpuscular Volume 90.8 fL (81.0-99.0); Nucleated Red Blood Cells % 0 %; Platelet Count 308 10^3/uL (130-400); Red Cell Dist. Width 14.8 % (11.5-14.5)
== END ==
LOC: REG 15:47
PROVIDERS: ATTENDING PHYSICIAN Internal Medicine Hematology & Oncology; FAMILY PHYSICIAN Family Medicine
DX: D50.9 Iron deficiency anemia, unspecified (principal); N18.30 Chronic kidney disease, stage 3 unspecified; D63.1 Anemia in chronic kidney disease
CPT/HCPCS: 36415; 85025

== ENCOUNTER → 2025-06-03 14:47 | Outpatient (REF) | payer MEDICARE, SELFPAY ==
[2025-06-03 15:24] LABS: Hematocrit 35.7 % (37.0-47.0); Hemoglobin 10.7 g/dL (12.0-16.0); Mean Corp Hgb Conc. 30.0 g/dL (33.0-37.0); Mean Corpuscular Volume 91.8 fL (81.0-99.0); Nucleated Red Blood Cells % 0 %; Platelet Count 260 10^3/uL (130-400); Red Cell Dist. Width 13.9 % (11.5-14.5)
[2025-06-03 15:48] LABS: Iron 41 ug/dl (37-170)
[2025-06-03 15:57] LABS: Total Iron Binding Capacity 343 ug/dl (265-497)
[2025-06-03 16:24] LABS: Ferritin 322.0 ng/ml (11.1-264.0)
== END ==
LOC: REG 14:47
PROVIDERS: ATTENDING PHYSICIAN Internal Medicine Hematology & Oncology; FAMILY PHYSICIAN Family Medicine
DX: D50.1 Sideropenic dysphagia (principal); N18.30 Chronic kidney disease, stage 3 unspecified; D63.1 Anemia in chronic kidney disease
CPT/HCPCS: 36415; 82728; 83540; 83550; 85025; 86850; 86900; 86901